=== PATIENT | female | born 1975 | race Caucasian/White ===

== ENCOUNTER 2017-11-12 11:38 | Inpatient (IN) | payer OTHER ==
[~2017-11-12 11:38] MED LIST: ETOMIDATE 20 MG INJ; SUCCINYLCHOLINE CHLORIDE 100 MG/5 ML SYG IV
[2017-11-12 13:22] LABS: ADD MAN DIFF? NO
[2017-11-12 13:25] LABS: ABNORMAL IP MESSAGE 1; BASOPHILS % 0.2 % (0.0-2.0); EOSINOPHILS % 0.1 % (0.0-7.0); HEMATOCRIT 35.8 % (37.0-47.0); HEMOGLOBIN 10.8 g/dl (12.0-16.0); LYMPHOCYTES # 0.9 10^3/ul (0.8-2.9); LYMPHOCYTES % 10.1 % (15.0-51.0); MEAN CORPUSCULAR HGB CONC 30.2 g/dl (32.0-37.0); MEAN CORPUSCULAR VOLUME 106.2 fl (82.0-101.0); MEAN PLATELET VOLUME 12.4 fl (7.4-10.4); MONOCYTE # 0.7 10^3/ul (0.3-0.9); MONOCYTES % 8.2 % (0.0-11.0); NEUTROPHILS % 78.6 % (39.0-77.0); NUCLEATED RED BLOOD CELLS # 0.4 10^3/ul (0.0-0.0); NUCLEATED RED BLOOD CELLS% 4.6 /100WBC (0.0-0.0); PLATELET COUNT 78 10^3/UL (140-415); RED BLOOD COUNT 3.37 10^6/ul (4.20-5.40); RED CELL DISTRIBUTION WIDTH 18.4 % (11.5-14.5)
[2017-11-12 13:25] LABS: WHITE BLOOD COUNT 8.9 10^3/ul (4.8-10.8)
[2017-11-12 13:26] LABS: POSITIVE DIFF @See below
[2017-11-12 13:47] LABS: ALBUMIN 4.3 g/dl (3.3-4.9); ALBUMIN/GLOBULIN RATIO 1.38; ALKALINE PHOSPHATASE 171 IU/L (42-121); ANION GAP 23 (8-16); BILIRUBIN,INDIRECT 0.6 mg/dl (0-1.1); BILIRUBIN,TOTAL 1.8 mg/dl (0.2-1.3); BLOOD UREA NITROGEN 47 mg/dl (7-20); CALCIUM 9.8 mg/dl (8.4-10.2); CARBON DIOXIDE 28 mmol/L (21-31); CHLORIDE 90 mmol/L (97-110); GLUCOSE 120 mg/dl (70-220); LIPASE 96 U/L (23-300); SODIUM 136 mmol/L (135-144); TOTAL PROTEIN 7.4 g/dl (6.1-8.1)
[2017-11-12 13:55] LABS: ALANINE AMINOTRANSFERASE 1373 IU/L (13-69); ASPARTATE AMINO TRANSFERASE 1440 IU/L (15-46); CREATININE 9.67 mg/dl (0.44-1.00)
[2017-11-12 13:56] LABS: POTASSIUM 5.3 mmol/L (3.5-5.1)
[2017-11-12 14:02] LABS: FREE T3 1.19 pg/ml (2.77-5.27); TROPONIN-I 0.546 ng/ml (0.00-0.12)
[2017-11-12 14:03] LABS: FREE T4 (FREE THYROXINE) 0.07 ng/dl (0.64-1.79)
[2017-11-12] MEDS: ALBUTEROL 0.5% (NEB) 2.5 MG/0.5 ML AMP INH (14:12)
[2017-11-12] MEDS: ASPIRIN 81 MG TAB PO (14:33)
[2017-11-12 17:25] LABS: INR 2.56; PARTIAL THROMBOPLASTIN TIME 38.1 Sec (25.0-35.0); PROTIME 28.2 Sec (11.9-14.9); PT RATIO 2.2
[2017-11-12] MEDS ORDERED: NA PHOSPHATE/BIPHOS 133 ML ENEMA PR (17:30)
[2017-11-12] MEDS ORDERED: hydrALAzine 20 MG INJ IV (17:30)
[2017-11-12] MEDS ORDERED: NACL 0.9% 3 ML SYG IV (17:30)
[2017-11-12 17:44] LABS: FREE T4 (FREE THYROXINE) 0.08 ng/dl (0.64-1.79)
[2017-11-12] MEDS: SEVELAMER 800 MG TAB PO (17:45)
[2017-11-12 17:46] LABS: AADO2 Arterial 507.7 mmHg (7.0-24.0); Allen Test ACCEPTAB; Arterial Base Excess -2.5 mmol/L (-3.0-3); Arterial Blood Gas Oxygen Sat 96.6 mmHG (95.0-98.0); Arterial COHb 1.2 % (0.0-3.0); Arterial Fraction of Oxyhgb 95.3 % (93.0-99.0); Arterial HCO3 28.8 mmol/L (22.0-26.0); Arterial MetHb 0.1 % (0.0-1.5); Arterial Total Hemglobin 11.9 g/dl (12.0-18.0); Arterial pCO2 90.7 mmhg (35-45); MODE MASK - NRB; Site Right Radial
[2017-11-12] MEDS: LEVOTHYROXINE 100 MCG VIAL IV (18:03)
[2017-11-12] MEDS: SOD CHLORIDE 0.9% 500 ML IV (20:30)
[2017-11-12] MEDS: HEPARIN 5,000 UNIT/0.5 ML VIAL SC (21:00)
[2017-11-12 21:04] LABS: AADO2 Arterial 256.4 mmHg (7.0-24.0); Allen Test ACCEPTAB; Arterial Base Excess -4.7 mmol/L (-3.0-3); Arterial Blood Gas Oxygen Sat 98.5 mmHG (95.0-98.0); Arterial Fraction of Oxyhgb 97.4 % (93.0-99.0); Arterial HCO3 25.1 mmol/L (22.0-26.0); Arterial MetHb 0.1 % (0.0-1.5); Arterial Total Hemglobin 10.8 g/dl (12.0-18.0); Arterial pCO2 73.6 mmhg (35-45); Blood Gas IEPAP 20/8; Blood Gas PS 12; MODE VENT - AC; Site Right Radial
[2017-11-12 21:15] LABS: POTASSIUM 5.2 mmol/L (3.5-5.1)
[2017-11-12 21:18] LABS: PHOSPHORUS 8.8 mg/dl (2.5-4.9)
[2017-11-12 21:18] LABS: MAGNESIUM 2.1 mg/dl (1.7-2.5)
[2017-11-12 21:19] LABS: LACTIC ACID 1.1 mmol/L (0.5-2.0)
[2017-11-12 21:31] LABS: TROPONIN-I 0.664 ng/ml (0.00-0.12)
[2017-11-12] MEDS: ALBUMIN HUMAN 25% 100 ML IV (21:42)
[2017-11-12 22:07] LABS: HEPATITIS B SURFACE ANTIBODY POSITIVE (NEGATIVE)
[2017-11-12] MEDS ORDERED: NORepinephrine 8MG/250 ML (PMX 250 ML IV (22:30)
[2017-11-12 23:21] LABS: HEPATITIS B SURFACE ANTIGEN NEGATIVE (NEGATIVE)
[2017-11-13 01:40] LABS: TROPONIN-I 0.773 ng/ml (0.00-0.12)
[2017-11-13 05:24] LABS: AADO2 Arterial 142.6 mmHg (7.0-24.0); Allen Test ACCEPTAB; Arterial Base Excess 2.2 mmol/L (-3.0-3); Arterial Blood Gas Oxygen Sat 97.1 mmHG (95.0-98.0); Arterial COHb 0.9 % (0.0-3.0); Arterial Fraction of Oxyhgb 96.1 % (93.0-99.0); Arterial HCO3 32.3 mmol/L (22.0-26.0); Arterial MetHb 0.1 % (0.0-1.5); Arterial Total Hemglobin 10.8 g/dl (12.0-18.0); Arterial pCO2 86.8 mmhg (35-45); Blood Gas IEPAP 20/8; Blood Gas PS 12; MODE MASK - BIPAP; Site Right Brachial
[2017-11-13 05:28] LABS: ADD MAN DIFF? NO
[2017-11-13 05:33] LABS: WHITE BLOOD COUNT 6.2 10^3/ul (4.8-10.8)
[2017-11-13 05:33] LABS: ABNORMAL IP MESSAGE 1; BASOPHILS % 0.3 % (0.0-2.0); EOSINOPHILS % 0.5 % (0.0-7.0); HEMATOCRIT 32.8 % (37.0-47.0); HEMOGLOBIN 9.8 g/dl (12.0-16.0); LYMPHOCYTES # 0.7 10^3/ul (0.8-2.9); LYMPHOCYTES % 11.3 % (15.0-51.0); MEAN CORPUSCULAR HEMOGLOBIN 31.9 pg (29.0-33.0); MEAN CORPUSCULAR HGB CONC 29.9 g/dl (32.0-37.0); MEAN CORPUSCULAR VOLUME 106.8 fl (82.0-101.0); MONOCYTE # 0.4 10^3/ul (0.3-0.9); MONOCYTES % 6.9 % (0.0-11.0); NEUTROPHIL # 4.9 10^3/ul (1.6-7.5); NEUTROPHILS % 78.7 % (39.0-77.0); NUCLEATED RED BLOOD CELLS # 0.2 10^3/ul (0.0-0.0); NUCLEATED RED BLOOD CELLS% 2.4 /100WBC (0.0-0.0); PLATELET COUNT 55 10^3/UL (140-415); RED BLOOD COUNT 3.07 10^6/ul (4.20-5.40); RED CELL DISTRIBUTION WIDTH 18.3 % (11.5-14.5)
[2017-11-13 05:34] LABS: POSITIVE DIFF @See below
[2017-11-13] MEDS ORDERED: PROPOFOL 100 ML (05:56)
[2017-11-13 05:57] LABS: HEMOGLOBIN A1C 5.4 % (0-5.9)
[2017-11-13] MEDS: PANTOPRAZOLE (EC) 40 MG TAB PO (06:00)
[2017-11-13 06:01] LABS: ANION GAP 21 (8-16); BLOOD UREA NITROGEN 32 mg/dl (7-20); CALCIUM 8.9 mg/dl (8.4-10.2); CARBON DIOXIDE 31 mmol/L (21-31); CHLORIDE 95 mmol/L (97-110); CHOL/HDL RATIO 3.4 RATIO; CHOLESTEROL 160 mg/dl (100-200); CREATININE 7.73 mg/dl (0.44-1.00); GLUCOSE 83 mg/dl (70-220); HDL CHOLESTEROL 47 mg/dl (34-88); LDL CHOLESTEROL,CALCULATED 73 mg/dl; PHOSPHORUS 6.4 mg/dl (2.5-4.9); POTASSIUM 4.2 mmol/L (3.5-5.1); SODIUM 143 mmol/L (135-144); TRIGLYCERIDES 201 mg/dl (0-149)
[2017-11-13] MEDS: PANTOPRAZOLE 40 MG INJ IV (06:28)
[2017-11-13] MEDS: PROPOFOL 100 ML IV ×2 (06:28→12:15)
[2017-11-13] MEDS ORDERED: LEVOTHYROXINE 100 MCG TAB PO (07:00)
[2017-11-13] MEDS: LEVOTHYROXINE 100 MCG VIAL IV (07:26)
[2017-11-13] MEDS: SEVELAMER 800 MG TAB PO ×3 (07:35→17:35)
[2017-11-13 08:26] LABS: Allen Test ACCEPTAB; Arterial Base Excess 3.8 mmol/L (-3.0-3); Arterial Blood Gas Oxygen Sat 98.7 mmHG (95.0-98.0); Arterial COHb 0.8 % (0.0-3.0); Arterial Fraction of Oxyhgb 97.6 % (93.0-99.0); Arterial MetHb 0.3 % (0.0-1.5); Arterial Total Hemglobin 10.5 g/dl (12.0-18.0); Arterial pCO2 35.5 mmhg (35-45); MODE VENT - AC; Site Right Brachial
[2017-11-13] MEDS: DEXTROSE 5%-0.45% NACL 1,000 ML IV (08:36)
[2017-11-13] MEDS ORDERED: ASPIRIN (EC) 81 MG TAB PO (09:00)
[2017-11-13 09:33] LABS: ALBUMIN 3.7 g/dl (3.3-4.9); ALKALINE PHOSPHATASE 141 IU/L (42-121); BILIRUBIN,INDIRECT 0.8 mg/dl (0-1.1); BILIRUBIN,TOTAL 1.3 mg/dl (0.2-1.3); TOTAL PROTEIN 6.1 g/dl (6.1-8.1)
[2017-11-13 09:33] LABS: AMMONIA 10 umol/l (9-30)
[2017-11-13 09:37] LABS: TROPONIN-I 0.756 ng/ml (0.00-0.12)
[2017-11-13 09:48] LABS: ALANINE AMINOTRANSFERASE 1281 IU/L (13-69); ASPARTATE AMINO TRANSFERASE 1400 IU/L (15-46)
[2017-11-13] MEDS: FENTAnyl (DRIP) 1000 mcg/100mL 100 ML IV ×2 (09:55→20:42)
[2017-11-14] MEDS: PROPOFOL 100 ML IV ×2 (00:39→18:40)
[2017-11-14 05:39] LABS: ADD MAN DIFF? NO
[2017-11-14 05:44] LABS: WHITE BLOOD COUNT 4.8 10^3/ul (4.8-10.8)
[2017-11-14 05:44] LABS: ABNORMAL IP MESSAGE 1; BASOPHILS % 0.4 % (0.0-2.0); EOSINOPHILS # 0.1 10^3/ul (0.0-0.5); EOSINOPHILS % 1.7 % (0.0-7.0); HEMATOCRIT 29.6 % (37.0-47.0); HEMOGLOBIN 9.4 g/dl (12.0-16.0); LYMPHOCYTES # 0.8 10^3/ul (0.8-2.9); LYMPHOCYTES % 17.4 % (15.0-51.0); MEAN CORPUSCULAR HEMOGLOBIN 32.8 pg (29.0-33.0); MEAN CORPUSCULAR HGB CONC 31.8 g/dl (32.0-37.0); MEAN CORPUSCULAR VOLUME 103.1 fl (82.0-101.0); MEAN PLATELET VOLUME 11.7 fl (7.4-10.4); MONOCYTE # 0.3 10^3/ul (0.3-0.9); MONOCYTES % 6.7 % (0.0-11.0); NEUTROPHIL # 3.5 10^3/ul (1.6-7.5); NEUTROPHILS % 72.3 % (39.0-77.0); NUCLEATED RED BLOOD CELLS # 0.1 10^3/ul (0.0-0.0); NUCLEATED RED BLOOD CELLS% 1.7 /100WBC (0.0-0.0); RED BLOOD COUNT 2.87 10^6/ul (4.20-5.40)
[2017-11-14] MEDS: PANTOPRAZOLE (EC) 40 MG TAB PO (06:00)
[2017-11-14 06:04] LABS: ALANINE AMINOTRANSFERASE 920 IU/L (13-69); ALBUMIN 3.5 g/dl (3.3-4.9); ALKALINE PHOSPHATASE 123 IU/L (42-121); ANION GAP 21 (8-16); ASPARTATE AMINO TRANSFERASE 742 IU/L (15-46); BILIRUBIN,INDIRECT 0.4 mg/dl (0-1.1); BILIRUBIN,TOTAL 0.4 mg/dl (0.2-1.3); BLOOD UREA NITROGEN 44 mg/dl (7-20); CALCIUM 9.1 mg/dl (8.4-10.2); CARBON DIOXIDE 26 mmol/L (21-31); CHLORIDE 96 mmol/L (97-110); GLUCOSE 91 mg/dl (70-220); POTASSIUM 3.8 mmol/L (3.5-5.1); SODIUM 139 mmol/L (135-144)
[2017-11-14 06:15] LABS: CREATININE 8.92 mg/dl (0.44-1.00); PLATELET COUNT 71 10^3/UL (140-415); POSITIVE DIFF @See below
[2017-11-14] MEDS: DEXTROSE 5%-0.45% NACL 1,000 ML IV ×2 (06:35→18:40)
[2017-11-14] MEDS: PANTOPRAZOLE 40 MG INJ IV (06:37)
[2017-11-14] MEDS: SEVELAMER 800 MG TAB PO ×3 (07:29→17:08)
[2017-11-14] MEDS: FENTAnyl (DRIP) 1000 mcg/100mL 100 ML IV (07:45)
[2017-11-14 07:55] LABS: Allen Test ACCEPTAB; Arterial Base Excess 2.2 mmol/L (-3.0-3); Arterial Blood Gas Oxygen Sat 97.9 mmHG (95.0-98.0); Arterial COHb 0.5 % (0.0-3.0); Arterial Fraction of Oxyhgb 97.2 % (93.0-99.0); Arterial HCO3 27.1 mmol/L (22.0-26.0); Arterial MetHb 0.2 % (0.0-1.5); Arterial Total Hemglobin 10.1 g/dl (12.0-18.0); Arterial pCO2 43.5 mmhg (35-45); MODE VENT - AC; Site Right Radial
[2017-11-14] MEDS: LEVOTHYROXINE 100 MCG VIAL IV (08:13)
[2017-11-14 10:35] LABS: IRON 50 ug/dl (35-150)
[2017-11-14 10:51] LABS: % IRON SATURATION 23 % SAT (22-52); TOTAL IRON BINDING CAPACITY 218 ug/dl (241-421)
[2017-11-14] MEDS: ALBUMIN HUMAN 25% 100 ML IV (15:51)
[2017-11-14] MEDS: EPOETIN 10000 UNITS/1 ML INJ (ESRD) SC (18:40)
[2017-11-14] MEDS: SOD CHLORIDE 0.9% 250 ML IV ×2 (19:41→20:47)
[2017-11-14] MEDS: FAMOTIDINE 20 MG INJ IV (20:47)
[2017-11-15 05:52] LABS: ADD MAN DIFF? NO
[2017-11-15 05:58] LABS: WHITE BLOOD COUNT 5.9 10^3/ul (4.8-10.8)
[2017-11-15 05:58] LABS: ABNORMAL IP MESSAGE 1; EOSINOPHILS % 0.7 % (0.0-7.0); HEMATOCRIT 29.9 % (37.0-47.0); HEMOGLOBIN 9.3 g/dl (12.0-16.0); LYMPHOCYTES # 0.6 10^3/ul (0.8-2.9); LYMPHOCYTES % 9.3 % (15.0-51.0); MEAN CORPUSCULAR HEMOGLOBIN 32.3 pg (29.0-33.0); MEAN CORPUSCULAR HGB CONC 31.1 g/dl (32.0-37.0); MEAN CORPUSCULAR VOLUME 103.8 fl (82.0-101.0); MEAN PLATELET VOLUME 12.4 fl (7.4-10.4); MONOCYTE # 0.4 10^3/ul (0.3-0.9); MONOCYTES % 6.3 % (0.0-11.0); NEUTROPHIL # 4.9 10^3/ul (1.6-7.5); NEUTROPHILS % 82.9 % (39.0-77.0); NUCLEATED RED BLOOD CELLS% 0.3 /100WBC (0.0-0.0); PLATELET COUNT 62 10^3/UL (140-415); RED BLOOD COUNT 2.88 10^6/ul (4.20-5.40); RED CELL DISTRIBUTION WIDTH 19.4 % (11.5-14.5)
[2017-11-15 06:00] LABS: POSITIVE DIFF @See below
[2017-11-15] MEDS: PANTOPRAZOLE (EC) 40 MG TAB PO (06:00)
[2017-11-15] MEDS: PROPOFOL 100 ML IV ×2 (06:00→16:03)
[2017-11-15 06:20] LABS: ALANINE AMINOTRANSFERASE 697 IU/L (13-69); ALBUMIN 3.8 g/dl (3.3-4.9); ALBUMIN/GLOBULIN RATIO 1.35; ALKALINE PHOSPHATASE 109 IU/L (42-121); ANION GAP 18 (8-16); ASPARTATE AMINO TRANSFERASE 411 IU/L (15-46); BILIRUBIN,INDIRECT 0.9 mg/dl (0-1.1); BLOOD UREA NITROGEN 29 mg/dl (7-20); CALCIUM 8.4 mg/dl (8.4-10.2); CARBON DIOXIDE 28 mmol/L (21-31); CHLORIDE 97 mmol/L (97-110); CREATININE 7.05 mg/dl (0.44-1.00); GLUCOSE 118 mg/dl (70-220); POTASSIUM 3.7 mmol/L (3.5-5.1); SODIUM 139 mmol/L (135-144); TOTAL PROTEIN 6.6 g/dl (6.1-8.1)
[2017-11-15 08:27] LABS: AADO2 Arterial 69.7 mmHg (7.0-24.0); Allen Test ACCEPTAB; Arterial Base Excess 2.2 mmol/L (-3.0-3); Arterial Blood Gas Oxygen Sat 95.2 mmHG (95.0-98.0); Arterial COHb 0.9 % (0.0-3.0); Arterial Fraction of Oxyhgb 94.1 % (93.0-99.0); Arterial HCO3 28.1 mmol/L (22.0-26.0); Arterial MetHb 0.3 % (0.0-1.5); Arterial Total Hemglobin 11.4 g/dl (12.0-18.0); Arterial pCO2 49.2 mmhg (35-45); MODE VENT - AC; Site Right Radial
[2017-11-15] MEDS: SEVELAMER 800 MG TAB PO (09:55)
[2017-11-15] MEDS: FOLIC ACID 1 MG TAB GTB (09:55)
[2017-11-15] MEDS: CYANOCOBALAMIN 1000 MCG INJ IM (09:55)
[2017-11-15] MEDS: LEVOTHYROXINE 100 MCG VIAL IV (09:56)
[2017-11-15] MEDS ORDERED: CHOLECALCIFEROL 2,000 UNIT CAP GTB (10:00)
[2017-11-15] MEDS: FAMOTIDINE 20 MG INJ IV (10:00)
[2017-11-15] MEDS: DEXTROSE 5%-0.45% NACL 1,000 ML IV ×2 (11:09→16:02)
[2017-11-15] MEDS: CALCITRIOL 1 MCG INJ IV (11:14)
[2017-11-15] MEDS: ERGOCALCIFEROL (8000 UNITS/ML PO SYG) GTB (11:17)
[2017-11-15 11:30] LABS: AADO2 Arterial 76.5 mmHg (7.0-24.0); Allen Test ACCEPTAB; Arterial Blood Gas Oxygen Sat 91.9 mmHG (95.0-98.0); Arterial COHb 1.4 % (0.0-3.0); Arterial Fraction of Oxyhgb 90.5 % (93.0-99.0); Arterial MetHb 0.1 % (0.0-1.5); Arterial Total Hemglobin 11.8 g/dl (12.0-18.0); Arterial pCO2 55.8 mmhg (35-45); Blood Gas PS 10; MODE VENT - CPAP; Site Right Radial
[2017-11-15] MEDS: LIOTHYRONINE 5 MCG TAB GTB (12:01)
[2017-11-15] MEDS: SEVELAMER CARBONATE 0.8 GM PKT PO ×2 (12:01→17:54)
[2017-11-15] MEDS: CHOLECALCIFEROL 1,000 UNIT TAB GTB (12:01)
[2017-11-15 15:14] LABS: AADO2 Arterial 77.5 mmHg (7.0-24.0); Allen Test ACCEPTAB; Arterial Base Excess -0.9 mmol/L (-3.0-3); Arterial Blood Gas Oxygen Sat 90.9 mmHG (95.0-98.0); Arterial COHb 1.6 % (0.0-3.0); Arterial Fraction of Oxyhgb 89.3 % (93.0-99.0); Arterial HCO3 26.4 mmol/L (22.0-26.0); Arterial MetHb 0.2 % (0.0-1.5); Arterial Total Hemglobin 11.1 g/dl (12.0-18.0); Arterial pCO2 56.9 mmhg (35-45); Blood Gas PS 10; Site Right Radial
[2017-11-15 15:20] LABS: MODE VENT - SIMV
[2017-11-15] MEDS: FENTAnyl (DRIP) 1000 mcg/100mL 100 ML IV (16:16)
[2017-11-16] MEDS: ALBUMIN HUMAN 5% 250 ML IV (00:09)
[2017-11-16 05:32] LABS: ADD MAN DIFF? NO
[2017-11-16 05:43] LABS: ABNORMAL IP MESSAGE 1; BASOPHILS % 0.2 % (0.0-2.0); EOSINOPHILS % 0.4 % (0.0-7.0); HEMATOCRIT 28.5 % (37.0-47.0); HEMOGLOBIN 8.7 g/dl (12.0-16.0); LYMPHOCYTES # 0.5 10^3/ul (0.8-2.9); LYMPHOCYTES % 7.9 % (15.0-51.0); MEAN CORPUSCULAR HEMOGLOBIN 31.9 pg (29.0-33.0); MEAN CORPUSCULAR HGB CONC 30.5 g/dl (32.0-37.0); MEAN CORPUSCULAR VOLUME 104.4 fl (82.0-101.0); MEAN PLATELET VOLUME 12.4 fl (7.4-10.4); MONOCYTE # 0.3 10^3/ul (0.3-0.9); MONOCYTES % 5.8 % (0.0-11.0); NEUTROPHIL # 4.9 10^3/ul (1.6-7.5); NEUTROPHILS % 84.8 % (39.0-77.0); PLATELET COUNT 49 10^3/UL (140-415); RED BLOOD COUNT 2.73 10^6/ul (4.20-5.40); RED CELL DISTRIBUTION WIDTH 18.8 % (11.5-14.5)
[2017-11-16 05:43] LABS: WHITE BLOOD COUNT 5.7 10^3/ul (4.8-10.8)
[2017-11-16] MEDS: PANTOPRAZOLE (EC) 40 MG TAB PO (05:54)
[2017-11-16] MEDS: PROPOFOL 100 ML IV ×2 (05:55→18:28)
[2017-11-16 06:14] LABS: ANION GAP 20 (8-16); BLOOD UREA NITROGEN 40 mg/dl (7-20); CALCIUM 8.5 mg/dl (8.4-10.2); CARBON DIOXIDE 25 mmol/L (21-31); CHLORIDE 96 mmol/L (97-110); GLUCOSE 118 mg/dl (70-220); POTASSIUM 3.9 mmol/L (3.5-5.1); SODIUM 137 mmol/L (135-144)
[2017-11-16 06:29] LABS: POSITIVE DIFF @See below
[2017-11-16 06:31] LABS: CREATININE 8.03 mg/dl (0.44-1.00)
[2017-11-16 06:32] LABS: FREE T4 (FREE THYROXINE) 0.75 ng/dl (0.64-1.79)
[2017-11-16 06:33] LABS: FREE T3 1.47 pg/ml (2.77-5.27)
[2017-11-16] MEDS: DEXTROSE 5%-0.45% NACL 1,000 ML IV (08:00)
[2017-11-16 08:24] LABS: AADO2 Arterial 69.5 mmHg (7.0-24.0); Allen Test ACCEPTAB; Arterial Base Excess 1.7 mmol/L (-3.0-3); Arterial Blood Gas Oxygen Sat 97.2 mmHG (95.0-98.0); Arterial COHb 1.4 % (0.0-3.0); Arterial Fraction of Oxyhgb 95.8 % (93.0-99.0); Arterial HCO3 26.1 mmol/L (22.0-26.0); Arterial MetHb 0 % (0.0-1.5); Arterial Total Hemglobin 11.3 g/dl (12.0-18.0); Arterial pCO2 40.3 mmhg (35-45); MODE VENT - AC; Site Right Radial
[2017-11-16] MEDS: SEVELAMER CARBONATE 0.8 GM PKT PO ×3 (11:30→18:31)
[2017-11-16] MEDS: LIOTHYRONINE 5 MCG TAB GTB (12:25)
[2017-11-16] MEDS: CHOLECALCIFEROL 1,000 UNIT TAB GTB (12:25)
[2017-11-16] MEDS: FOLIC ACID 1 MG TAB GTB (12:25)
[2017-11-16] MEDS: LEVOTHYROXINE 100 MCG VIAL IV (12:25)
[2017-11-16] MEDS: FAMOTIDINE 20 MG INJ IV (12:27)
[2017-11-16 16:37] LABS: AADO2 Arterial 69.4 mmHg (7.0-24.0); Allen Test ACCEPTAB; Arterial Base Excess 2.9 mmol/L (-3.0-3); Arterial Blood Gas Oxygen Sat 89.5 mmHG (95.0-98.0); Arterial COHb 1.3 % (0.0-3.0); Arterial Fraction of Oxyhgb 88.2 % (93.0-99.0); Arterial HCO3 30.8 mmol/L (22.0-26.0); Arterial MetHb 0.1 % (0.0-1.5); Arterial Total Hemglobin 11.3 g/dl (12.0-18.0); Arterial pCO2 65.4 mmhg (35-45); Blood Gas PS 10; MODE VENT - CPAP; Site Right Radial
[2017-11-16] MEDS: EPOETIN 10000 UNITS/1 ML INJ (ESRD) SC (18:27)
[2017-11-17] MEDS: FENTAnyl (DRIP) 1000 mcg/100mL 100 ML IV (00:41)
[2017-11-17 05:20] LABS: ADD MAN DIFF? NO
[2017-11-17 05:26] LABS: ABNORMAL IP MESSAGE 1; EOSINOPHILS % 0.2 % (0.0-7.0); HEMATOCRIT 28.2 % (37.0-47.0); HEMOGLOBIN 8.6 g/dl (12.0-16.0); LYMPHOCYTES # 0.4 10^3/ul (0.8-2.9); LYMPHOCYTES % 7.4 % (15.0-51.0); MEAN CORPUSCULAR HEMOGLOBIN 32.2 pg (29.0-33.0); MEAN CORPUSCULAR HGB CONC 30.5 g/dl (32.0-37.0); MEAN CORPUSCULAR VOLUME 105.6 fl (82.0-101.0); MEAN PLATELET VOLUME 12.1 fl (7.4-10.4); MONOCYTE # 0.4 10^3/ul (0.3-0.9); MONOCYTES % 8.2 % (0.0-11.0); NEUTROPHILS % 83.1 % (39.0-77.0); PLATELET COUNT 50 10^3/UL (140-415); RED BLOOD COUNT 2.67 10^6/ul (4.20-5.40); RED CELL DISTRIBUTION WIDTH 19.2 % (11.5-14.5)
[2017-11-17 05:26] LABS: WHITE BLOOD COUNT 4.8 10^3/ul (4.8-10.8)
[2017-11-17 05:28] LABS: POSITIVE DIFF @See below
[2017-11-17] MEDS: morphine 2 MG INJ IV (05:29)
[2017-11-17] MEDS: PANTOPRAZOLE (EC) 40 MG TAB PO (05:29)
[2017-11-17] MEDS: ONDANSETRON 4 MG INJ IV (05:30)
[2017-11-17 05:52] LABS: ALANINE AMINOTRANSFERASE 395 IU/L (13-69); ALBUMIN 3.6 g/dl (3.3-4.9); ALBUMIN/GLOBULIN RATIO 1.28; ALKALINE PHOSPHATASE 112 IU/L (42-121); ANION GAP 18 (8-16); ASPARTATE AMINO TRANSFERASE 102 IU/L (15-46); BILIRUBIN,INDIRECT 0.6 mg/dl (0-1.1); BILIRUBIN,TOTAL 0.6 mg/dl (0.2-1.3); BLOOD UREA NITROGEN 33 mg/dl (7-20); CALCIUM 8.8 mg/dl (8.4-10.2); CARBON DIOXIDE 26 mmol/L (21-31); CHLORIDE 98 mmol/L (97-110); CREATININE 6.87 mg/dl (0.44-1.00); GLUCOSE 118 mg/dl (70-220); SODIUM 138 mmol/L (135-144); TOTAL PROTEIN 6.4 g/dl (6.1-8.1)
[2017-11-17] MEDS: PROPOFOL 100 ML IV ×2 (06:00→14:22)
[2017-11-17] MEDS: LEVOTHYROXINE 100 MCG VIAL IV (08:23)
[2017-11-17] MEDS: FOLIC ACID 1 MG TAB GTB (08:23)
[2017-11-17] MEDS: SEVELAMER CARBONATE 0.8 GM PKT PO ×3 (08:23→17:35)
[2017-11-17] MEDS: CHOLECALCIFEROL 1,000 UNIT TAB GTB (08:23)
[2017-11-17] MEDS: LIOTHYRONINE 5 MCG TAB GTB (08:23)
[2017-11-17] MEDS: FAMOTIDINE 20 MG INJ IV (08:27)
[2017-11-17 08:51] LABS: AADO2 Arterial 58.2 mmHg (7.0-24.0); Allen Test ACCEPTAB; Arterial Base Excess 2.3 mmol/L (-3.0-3); Arterial COHb 1.2 % (0.0-3.0); Arterial Fraction of Oxyhgb 91.9 % (93.0-99.0); Arterial HCO3 30.2 mmol/L (22.0-26.0); Arterial MetHb 0 % (0.0-1.5); Arterial Total Hemglobin 10.5 g/dl (12.0-18.0); Arterial pCO2 65.6 mmhg (35-45); Blood Gas PS 10; MODE VENT - CPAP; Site Right Radial
[2017-11-17] MEDS: ERGOCALCIFEROL (8000 UNITS/ML PO SYG) PO (11:10)
[2017-11-17] MEDS: CALCITRIOL 1 MCG INJ IV (11:11)
[2017-11-17] MEDS: DEXTROSE 5%-0.45% NACL 1,000 ML IV (11:11)
[2017-11-17] MEDS: CALCITRIOL 0.25 MCG CAP PO (11:11)
[2017-11-18] MEDS ORDERED: LEVOTHYROXINE 175 MCG TAB PO (06:00)
[2017-11-18] MEDS: PROPOFOL 100 ML IV ×3 (06:00→18:18)
[2017-11-18] MEDS: DEXTROSE 5%-0.45% NACL 1,000 ML IV (06:04)
[2017-11-18] MEDS: PANTOPRAZOLE (EC) 40 MG TAB PO (06:05)
[2017-11-18 06:32] LABS: ADD MAN DIFF? NO
[2017-11-18 06:34] LABS: ALANINE AMINOTRANSFERASE 298 IU/L (13-69); ALBUMIN 3.5 g/dl (3.3-4.9); ALBUMIN/GLOBULIN RATIO 1.16; ALKALINE PHOSPHATASE 112 IU/L (42-121); ANION GAP 17 (8-16); ASPARTATE AMINO TRANSFERASE 55 IU/L (15-46); BILIRUBIN,INDIRECT 0.7 mg/dl (0-1.1); BILIRUBIN,TOTAL 0.9 mg/dl (0.2-1.3); BLOOD UREA NITROGEN 46 mg/dl (7-20); CARBON DIOXIDE 26 mmol/L (21-31); CHLORIDE 97 mmol/L (97-110); CREATININE 8.36 mg/dl (0.44-1.00); GLUCOSE 124 mg/dl (70-220); POTASSIUM 4.1 mmol/L (3.5-5.1); SODIUM 136 mmol/L (135-144); TOTAL PROTEIN 6.5 g/dl (6.1-8.1)
[2017-11-18] MEDS: SEVELAMER CARBONATE 0.8 GM PKT PO ×3 (07:56→17:37)
[2017-11-18] MEDS: ONDANSETRON 4 MG INJ IV (08:11)
[2017-11-18] MEDS: ALBUMIN HUMAN 25% 100 ML IV (09:53)
[2017-11-18 10:11] LABS: WHITE BLOOD COUNT 4.5 10^3/ul (4.8-10.8)
[2017-11-18 10:11] LABS: RED BLOOD COUNT 2.69 10^6/ul (4.20-5.40)
[2017-11-18 10:12] LABS: EOSINOPHILS % 0.9 % (0.0-7.0); HEMATOCRIT 28.2 % (37.0-47.0); HEMOGLOBIN 8.4 g/dl (12.0-16.0); LYMPHOCYTES % 10.5 % (15.0-51.0); MEAN CORPUSCULAR HEMOGLOBIN 31.2 pg (29.0-33.0); MEAN CORPUSCULAR HGB CONC 29.8 g/dl (32.0-37.0); MEAN CORPUSCULAR VOLUME 104.8 fl (82.0-101.0); MEAN PLATELET VOLUME 13.3 fl (7.4-10.4); MONOCYTES % 8.3 % (0.0-11.0); NEUTROPHILS % 79.7 % (39.0-77.0); PLATELET COUNT 55 10^3/UL (140-415); RED CELL DISTRIBUTION WIDTH 19.1 % (11.5-14.5)
[2017-11-18 10:13] LABS: BASOPHILS % 0.2 % (0.0-2.0)
[2017-11-18] MEDS: LEVOTHYROXINE 100 MCG VIAL IV (13:29)
[2017-11-18] MEDS: CHOLECALCIFEROL 1,000 UNIT TAB GTB (13:29)
[2017-11-18] MEDS: FAMOTIDINE 20 MG INJ IV (13:29)
[2017-11-18] MEDS: LIOTHYRONINE 5 MCG TAB GTB (13:29)
[2017-11-18] MEDS: FOLIC ACID 1 MG TAB GTB (13:29)
[2017-11-18] MEDS: CALCITRIOL 0.25 MCG CAP PO (13:29)
[2017-11-18 14:31] LABS: HEPARIN INDUCED PLATELET AB NEGATIVE (NEGATIVE)
[2017-11-18] MEDS: EPOETIN 10000 UNITS/1 ML INJ (ESRD) SC (16:54)
[2017-11-18] MEDS: FENTAnyl (DRIP) 1000 mcg/100mL 100 ML IV (18:25)
[2017-11-18] MEDS: morphine 2 MG INJ IV (22:04)
[2017-11-19 05:18] LABS: AADO2 Arterial 68.1 mmHg (7.0-24.0); Allen Test ACCEPTAB; Arterial Base Excess 3.3 mmol/L (-3.0-3); Arterial Blood Gas Oxygen Sat 97.5 mmHG (95.0-98.0); Arterial COHb 1.8 % (0.0-3.0); Arterial Fraction of Oxyhgb 95.5 % (93.0-99.0); Arterial HCO3 27.2 mmol/L (22.0-26.0); Arterial MetHb 0.3 % (0.0-1.5); Arterial Total Hemglobin 8.1 g/dl (12.0-18.0); Arterial pCO2 38.6 mmhg (35-45); MODE VENT - AC; Site A-Line
[2017-11-19] MEDS: PROPOFOL 100 ML IV ×2 (05:21→17:36)
[2017-11-19] MEDS: PANTOPRAZOLE (EC) 40 MG TAB PO (05:22)
[2017-11-19 05:31] LABS: ADD MAN DIFF? NO
[2017-11-19 05:35] LABS: BASOPHILS % 0.2 % (0.0-2.0); EOSINOPHILS % 1.2 % (0.0-7.0); HEMATOCRIT 27.4 % (37.0-47.0); HEMOGLOBIN 8.3 g/dl (12.0-16.0); LYMPHOCYTES # 0.5 10^3/ul (0.8-2.9); LYMPHOCYTES % 11.1 % (15.0-51.0); MEAN CORPUSCULAR HEMOGLOBIN 31.9 pg (29.0-33.0); MEAN CORPUSCULAR HGB CONC 30.3 g/dl (32.0-37.0); MEAN CORPUSCULAR VOLUME 105.4 fl (82.0-101.0); MEAN PLATELET VOLUME 13.3 fl (7.4-10.4); MONOCYTE # 0.4 10^3/ul (0.3-0.9); MONOCYTES % 10.4 % (0.0-11.0); NEUTROPHIL # 3.1 10^3/ul (1.6-7.5); NEUTROPHILS % 76.6 % (39.0-77.0); PLATELET COUNT 66 10^3/UL (140-415); RED CELL DISTRIBUTION WIDTH 18.8 % (11.5-14.5)
[2017-11-19 05:35] LABS: WHITE BLOOD COUNT 4.1 10^3/ul (4.8-10.8)
[2017-11-19 05:36] LABS: ABNORMAL IP MESSAGE 1; EOSINOPHILS # 0.1 10^3/ul (0.0-0.5)
[2017-11-19 05:57] LABS: PHOSPHORUS 3.5 mg/dl (2.5-4.9)
[2017-11-19 05:57] LABS: ANION GAP 22 (8-16); BLOOD UREA NITROGEN 43 mg/dl (7-20); CALCIUM 9.2 mg/dl (8.4-10.2); CARBON DIOXIDE 28 mmol/L (21-31); CHLORIDE 92 mmol/L (97-110); GLUCOSE 105 mg/dl (70-220); POTASSIUM 4.5 mmol/L (3.5-5.1); SODIUM 137 mmol/L (135-144)
[2017-11-19 06:02] LABS: LACTIC ACID 0.9 mmol/L (0.5-2.0)
[2017-11-19 06:47] LABS: POSITIVE DIFF @See below
[2017-11-19] MEDS: FAMOTIDINE 20 MG INJ IV (08:24)
[2017-11-19] MEDS: FOLIC ACID 1 MG TAB GTB (08:24)
[2017-11-19] MEDS: SEVELAMER CARBONATE 0.8 GM PKT PO ×3 (08:24→17:36)
[2017-11-19] MEDS: LEVOTHYROXINE 100 MCG VIAL IV (08:24)
[2017-11-19] MEDS: CHOLECALCIFEROL 1,000 UNIT TAB GTB (08:25)
[2017-11-19] MEDS: LIOTHYRONINE 5 MCG TAB GTB ×2 (08:26→21:44)
[2017-11-19] MEDS: CALCITRIOL (1 MCG/ML PO SYG) PO (08:26)
[2017-11-19 11:52] LABS: AADO2 Arterial 57.7 mmHg (7.0-24.0); Allen Test ACCEPTAB; Arterial Base Excess 1.8 mmol/L (-3.0-3); Arterial Blood Gas Oxygen Sat 91.4 mmHG (95.0-98.0); Arterial COHb 0.8 % (0.0-3.0); Arterial Fraction of Oxyhgb 90.7 % (93.0-99.0); Arterial HCO3 30.2 mmol/L (22.0-26.0); Arterial MetHb 0 % (0.0-1.5); Arterial Total Hemglobin 10.4 g/dl (12.0-18.0); Arterial pCO2 69.7 mmhg (35-45); Blood Gas PS 10; MODE VENT - CPAP; Site Right Radial
[2017-11-20] MEDS: PROPOFOL 100 ML IV ×2 (04:38→17:05)
[2017-11-20] MEDS: PANTOPRAZOLE (EC) 40 MG TAB PO (06:00)
[2017-11-20 06:22] LABS: ADD MAN DIFF? NO
[2017-11-20 06:31] LABS: ABNORMAL IP MESSAGE 1; BASOPHILS % 0.3 % (0.0-2.0); EOSINOPHILS % 0.5 % (0.0-7.0); HEMATOCRIT 27.3 % (37.0-47.0); HEMOGLOBIN 8.3 g/dl (12.0-16.0); LYMPHOCYTES # 0.5 10^3/ul (0.8-2.9); LYMPHOCYTES % 12.2 % (15.0-51.0); MEAN CORPUSCULAR HEMOGLOBIN 32.3 pg (29.0-33.0); MEAN CORPUSCULAR HGB CONC 30.4 g/dl (32.0-37.0); MEAN CORPUSCULAR VOLUME 106.2 fl (82.0-101.0); MEAN PLATELET VOLUME 13.9 fl (7.4-10.4); MONOCYTE # 0.3 10^3/ul (0.3-0.9); MONOCYTES % 8.8 % (0.0-11.0); NEUTROPHIL # 2.9 10^3/ul (1.6-7.5); NEUTROPHILS % 77.7 % (39.0-77.0); PLATELET COUNT 79 10^3/UL (140-415); RED BLOOD COUNT 2.57 10^6/ul (4.20-5.40); RED CELL DISTRIBUTION WIDTH 18.7 % (11.5-14.5)
[2017-11-20 06:31] LABS: WHITE BLOOD COUNT 3.8 10^3/ul (4.8-10.8)
[2017-11-20 06:35] LABS: POSITIVE DIFF @See below
[2017-11-20 07:02] LABS: ANION GAP 21 (8-16); BLOOD UREA NITROGEN 62 mg/dl (7-20); CALCIUM 9.1 mg/dl (8.4-10.2); CARBON DIOXIDE 25 mmol/L (21-31); CHLORIDE 93 mmol/L (97-110); GLUCOSE 97 mg/dl (70-220); POTASSIUM 4.7 mmol/L (3.5-5.1); SODIUM 134 mmol/L (135-144)
[2017-11-20 07:10] LABS: CREATININE 6.98 mg/dl (0.44-1.00)
[2017-11-20 07:20] LABS: FREE T4 (FREE THYROXINE) 1.13 ng/dl (0.64-1.79)
[2017-11-20 07:20] LABS: FREE T3 2.01 pg/ml (2.77-5.27)
[2017-11-20] MEDS: morphine 2 MG INJ IV ×5 (07:20→20:38)
[2017-11-20] MEDS ORDERED: LANSOPRAZOLE 30 MG CAP GTB (07:43)
[2017-11-20] MEDS: LANSOPRAZOLE 30 MG CAP GTB (08:00)
[2017-11-20] MEDS: LEVOTHYROXINE 100 MCG VIAL IV (08:03)
[2017-11-20] MEDS: FAMOTIDINE 20 MG INJ IV (08:03)
[2017-11-20] MEDS: CHOLECALCIFEROL 1,000 UNIT TAB GTB (08:03)
[2017-11-20] MEDS: CALCITRIOL (1 MCG/ML PO SYG) PO (08:04)
[2017-11-20] MEDS: LIOTHYRONINE 5 MCG TAB GTB ×2 (08:04→21:51)
[2017-11-20] MEDS: SEVELAMER CARBONATE 0.8 GM PKT PO ×3 (08:04→16:36)
[2017-11-20] MEDS: FOLIC ACID 1 MG TAB GTB (08:17)
[2017-11-20 08:32] LABS: TROPONIN-I 0.221 ng/ml (0.00-0.12)
[2017-11-20] MEDS: LORAZEPAM 2 MG INJ IV (09:08)
[2017-11-20] MEDS: HYDROCORTISONE 100 MG INJ IV ×3 (09:10→21:51)
[2017-11-20 18:57] LABS: HEPATITIS C VIRAL ANTIBODY NEGATIVE (NEGATIVE)
[2017-11-20] MEDS: ERGOCALCIFEROL 50,000 UNIT CAP PO (19:38)
[2017-11-20] MEDS: CALCITRIOL 1 MCG INJ IV (19:39)
[2017-11-21] MEDS: HYDROCORTISONE 100 MG INJ IV (05:39)
[2017-11-21] MEDS: LANSOPRAZOLE 30 MG CAP GTB (05:39)
[2017-11-21] MEDS: PROPOFOL 100 ML IV ×3 (05:40→21:24)
[2017-11-21] MEDS: morphine 2 MG INJ IV ×2 (05:41→10:03)
[2017-11-21 05:54] LABS: ADD MAN DIFF? NO
[2017-11-21 06:03] LABS: WHITE BLOOD COUNT 4.5 10^3/ul (4.8-10.8)
[2017-11-21 06:03] LABS: ABNORMAL IP MESSAGE 1; BASOPHILS % 0.2 % (0.0-2.0); HEMATOCRIT 28.4 % (37.0-47.0); HEMOGLOBIN 8.4 g/dl (12.0-16.0); LYMPHOCYTES # 0.3 10^3/ul (0.8-2.9); LYMPHOCYTES % 5.7 % (15.0-51.0); MEAN CORPUSCULAR HEMOGLOBIN 31.6 pg (29.0-33.0); MEAN CORPUSCULAR HGB CONC 29.6 g/dl (32.0-37.0); MEAN CORPUSCULAR VOLUME 106.8 fl (82.0-101.0); MEAN PLATELET VOLUME 13.4 fl (7.4-10.4); MONOCYTE # 0.2 10^3/ul (0.3-0.9); MONOCYTES % 5.1 % (0.0-11.0); NEUTROPHILS % 88.3 % (39.0-77.0); PLATELET COUNT 104 10^3/UL (140-415); RED BLOOD COUNT 2.66 10^6/ul (4.20-5.40); RED CELL DISTRIBUTION WIDTH 18.6 % (11.5-14.5)
[2017-11-21 06:10] LABS: POSITIVE DIFF @See below
[2017-11-21 06:45] LABS: ANION GAP 22 (8-16); BLOOD UREA NITROGEN 57 mg/dl (7-20); CALCIUM 9.3 mg/dl (8.4-10.2); CARBON DIOXIDE 26 mmol/L (21-31); CHLORIDE 93 mmol/L (97-110); GLUCOSE 134 mg/dl (70-220); POTASSIUM 4.8 mmol/L (3.5-5.1); SODIUM 136 mmol/L (135-144)
[2017-11-21 06:47] LABS: CREATINE KINASE 52 IU/L (23-200)
[2017-11-21 06:56] LABS: CK-MB 1.02 ng/ml (0.0-2.4)
[2017-11-21] MEDS: SEVELAMER CARBONATE 0.8 GM PKT PO ×3 (07:38→16:43)
[2017-11-21] MEDS: LEVOTHYROXINE 100 MCG VIAL IV (07:38)
[2017-11-21] MEDS: CHOLECALCIFEROL 1,000 UNIT TAB GTB (07:39)
[2017-11-21] MEDS: FOLIC ACID 1 MG TAB GTB (07:39)
[2017-11-21] MEDS: LIOTHYRONINE 5 MCG TAB GTB ×2 (07:39→21:23)
[2017-11-21] MEDS: FAMOTIDINE 20 MG INJ IV (07:39)
[2017-11-21] MEDS: DOCUSATE SODIUM 100 MG CAP PO (07:39)
[2017-11-21] MEDS: HYDROCODONE/APAP (5/325) TAB PO ×2 (07:41→13:44)
[2017-11-21] MEDS: MAGNESIUM HYDROXIDE 30ML CUP PO (07:41)
[2017-11-21 09:42] LABS: AADO2 Arterial 66.8 mmHg (7.0-24.0); Allen Test ACCEPTAB; Arterial Base Excess 1.6 mmol/L (-3.0-3); Arterial COHb 0.9 % (0.0-3.0); Arterial Fraction of Oxyhgb 90.1 % (93.0-99.0); Arterial HCO3 29.3 mmol/L (22.0-26.0); Arterial MetHb 0.1 % (0.0-1.5); Arterial Total Hemglobin 10.1 g/dl (12.0-18.0); Arterial pCO2 63.4 mmhg (35-45); Blood Gas PS 10; MODE VENT - CPAP; Site Right Radial
[2017-11-21] MEDS: CALCITRIOL (1 MCG/ML PO SYG) PO (10:26)
[2017-11-21] MEDS: TESTOSTERONE CYPIONATE 200 MG/ML INJ IM (10:26)
[2017-11-21] MEDS: DIPHENHYDRAMINE 2.5 MG/ML 5ML CUP GTB (13:44)
[2017-11-21] MEDS: EPOETIN ALFA 1,000 UNITS/0.1 ML VIAL SC (16:43)
[2017-11-22] MEDS: DIPHENHYDRAMINE 2.5 MG/ML 5ML CUP GTB ×3 (00:30→23:55)
[2017-11-22] MEDS: morphine 2 MG INJ IV ×3 (03:43→14:58)
[2017-11-22] MEDS: LANSOPRAZOLE 30 MG CAP GTB (05:58)
[2017-11-22 06:08] LABS: WHITE BLOOD COUNT 6.4 10^3/ul (4.8-10.8)
[2017-11-22 06:08] LABS: ABNORMAL IP MESSAGE 1; HEMATOCRIT 27.4 % (37.0-47.0); HEMOGLOBIN 8.2 g/dl (12.0-16.0); MEAN CORPUSCULAR HEMOGLOBIN 32.2 pg (29.0-33.0); MEAN CORPUSCULAR HGB CONC 29.9 g/dl (32.0-37.0); MEAN CORPUSCULAR VOLUME 107.5 fl (82.0-101.0); MEAN PLATELET VOLUME 13.2 fl (7.4-10.4); PLATELET COUNT 131 10^3/UL (140-415); RED BLOOD COUNT 2.55 10^6/ul (4.20-5.40); RED CELL DISTRIBUTION WIDTH 18.6 % (11.5-14.5)
[2017-11-22 06:20] LABS: ADD MAN DIFF? YES; POSITIVE DIFF @See below
[2017-11-22 06:31] LABS: ALANINE AMINOTRANSFERASE 128 IU/L (13-69); ALBUMIN 3.7 g/dl (3.3-4.9); ALBUMIN/GLOBULIN RATIO 1.15; ALKALINE PHOSPHATASE 168 IU/L (42-121); ANION GAP 20 (8-16); ASPARTATE AMINO TRANSFERASE 26 IU/L (15-46); BLOOD UREA NITROGEN 80 mg/dl (7-20); CALCIUM 9.3 mg/dl (8.4-10.2); CARBON DIOXIDE 28 mmol/L (21-31); CHLORIDE 93 mmol/L (97-110); GLUCOSE 109 mg/dl (70-220); POTASSIUM 4.8 mmol/L (3.5-5.1); SODIUM 136 mmol/L (135-144); TOTAL PROTEIN 6.9 g/dl (6.1-8.1)
[2017-11-22 07:11] LABS: CREATININE 7.05 mg/dl (0.44-1.00)
[2017-11-22] MEDS: DOCUSATE SODIUM 100 MG CAP PO (08:07)
[2017-11-22] MEDS: SEVELAMER CARBONATE 0.8 GM PKT PO ×3 (08:07→16:14)
[2017-11-22] MEDS: MAGNESIUM HYDROXIDE 30ML CUP PO (08:07)
[2017-11-22] MEDS: CHOLECALCIFEROL 1,000 UNIT TAB GTB (08:07)
[2017-11-22] MEDS: LEVOTHYROXINE 100 MCG VIAL IV (08:07)
[2017-11-22] MEDS: FAMOTIDINE 20 MG INJ IV (08:07)
[2017-11-22] MEDS: FOLIC ACID 1 MG TAB GTB (08:07)
[2017-11-22] MEDS: LIOTHYRONINE 5 MCG TAB GTB ×2 (08:07→21:33)
[2017-11-22] MEDS: ACETAMINOPHEN 325 MG TAB PO (08:07)
[2017-11-22] MEDS: CALCITRIOL (1 MCG/ML PO SYG) PO (08:14)
[2017-11-22 09:28] LABS: ANISOCYTOSIS 1+ (0-0); BAND NEUTROPHILS #M 2.1 10^3/ul (0.0-0.6); BAND NEUTROPHILS % (M) 34 % (0-4); GIANT THROMBO% (M) 2 % (0-0); HYPOCHROMASIA 1+ (0-0); LYMPHOCYTES #M 0.6 10^3/ul (0.8-2.9); LYMPHOCYTES % (M) 10 % (15-51); MONOCYTES % (M) 1 % (0-11); PLATELET ESTIMATE DECREASED; POIKILOCYTOSIS 1+ (0-0); POLYCHROMASIA 1+ (0-0); SEG NEUT #M 3.7 10^3/ul (1.6-7.5); SEGMENTED NEUTROPHILS (M) % 55 % (39-77); SMUDGE%M 4 % (0-0); TEAR DROP CELLS 1+ (0-0)
[2017-11-22] MEDS: PROPOFOL 100 ML IV ×2 (12:13→23:59)
[2017-11-22 14:46] LABS: AADO2 Arterial 92.3 mmHg (7.0-24.0); Allen Test ACCEPTAB; Arterial Base Excess 3.6 mmol/L (-3.0-3); Arterial Blood Gas Oxygen Sat 93.2 mmHG (95.0-98.0); Arterial COHb 0.7 % (0.0-3.0); Arterial Fraction of Oxyhgb 92.5 % (93.0-99.0); Arterial HCO3 31.3 mmol/L (22.0-26.0); Arterial MetHb 0.1 % (0.0-1.5); Arterial Total Hemglobin 10.5 g/dl (12.0-18.0); Arterial pCO2 65.6 mmhg (35-45); Blood Gas PS 10; MODE VENT - CPAP; Site Right Radial
[2017-11-22] MEDS: HYDROCODONE/APAP (5/325) TAB PO (14:58)
[2017-11-22] MEDS: ONDANSETRON 4 MG INJ IV (14:58)
[2017-11-23 05:18] LABS: ABNORMAL IP MESSAGE 1; HEMOGLOBIN 7.6 g/dl (12.0-16.0); MEAN CORPUSCULAR HEMOGLOBIN 31.3 pg (29.0-33.0); MEAN CORPUSCULAR HGB CONC 29.2 g/dl (32.0-37.0); MEAN PLATELET VOLUME 13.1 fl (7.4-10.4); NUCLEATED RED BLOOD CELLS% 0.3 /100WBC (0.0-0.0); PLATELET COUNT 142 10^3/UL (140-415); RED BLOOD COUNT 2.43 10^6/ul (4.20-5.40); RED CELL DISTRIBUTION WIDTH 18.3 % (11.5-14.5)
[2017-11-23 05:18] LABS: WHITE BLOOD COUNT 6.9 10^3/ul (4.8-10.8)
[2017-11-23 05:22] LABS: POSITIVE DIFF @See below
[2017-11-23 05:23] LABS: ADD MAN DIFF? YES
[2017-11-23 05:38] LABS: ANION GAP 17 (8-16); BLOOD UREA NITROGEN 62 mg/dl (7-20); CALCIUM 8.7 mg/dl (8.4-10.2); CARBON DIOXIDE 29 mmol/L (21-31); CHLORIDE 95 mmol/L (97-110); CREATININE 6.29 mg/dl (0.44-1.00); GLUCOSE 114 mg/dl (70-220); POTASSIUM 4.8 mmol/L (3.5-5.1); SODIUM 136 mmol/L (135-144)
[2017-11-23] MEDS: LANSOPRAZOLE 30 MG CAP GTB (06:08)
[2017-11-23 08:03] LABS: ANISOCYTOSIS 1+ (0-0); BAND NEUTROPHILS #M 1.1 10^3/ul (0.0-0.6); BAND NEUTROPHILS % (M) 16 % (0-4); EOSINOPHILS % (M) 1 % (0-7); GIANT THROMBO% (M) 7 % (0-0); HYPOCHROMASIA 2+ (0-0); LYMPHOCYTES #M 0.6 10^3/ul (0.8-2.9); LYMPHOCYTES % (M) 9 % (15-51); PLATELET ESTIMATE NORMAL; SEG NEUT #M 5.2 10^3/ul (1.6-7.5); SEGMENTED NEUTROPHILS (M) % 74 % (39-77); SMUDGE%M 1 % (0-0)
[2017-11-23] MEDS: FOLIC ACID 1 MG TAB GTB (08:57)
[2017-11-23] MEDS: SEVELAMER CARBONATE 0.8 GM PKT PO ×3 (08:57→16:41)
[2017-11-23] MEDS: LIOTHYRONINE 5 MCG TAB GTB ×2 (08:57→20:06)
[2017-11-23] MEDS: LEVOTHYROXINE 100 MCG VIAL IV (08:57)
[2017-11-23] MEDS: CHOLECALCIFEROL 1,000 UNIT TAB GTB (08:58)
[2017-11-23] MEDS: CALCITRIOL (1 MCG/ML PO SYG) PO (08:58)
[2017-11-23] MEDS: THEOPHYLLINE GTB ×2 (15:19→20:08)
[2017-11-23] MEDS: PROPOFOL 100 ML IV (16:19)
[2017-11-23] MEDS: EPOETIN ALFA 1,000 UNITS/0.1 ML VIAL SC (18:02)
[2017-11-23] MEDS: FAMOTIDINE 20 MG TAB GTB (20:06)
[2017-11-23 23:20] LABS: AADO2 Arterial 96.9 mmHg (7.0-24.0); Allen Test ACCEPTAB; Arterial Base Excess 0.3 mmol/L (-3.0-3); Arterial Blood Gas Oxygen Sat 93.6 mmHG (95.0-98.0); Arterial Fraction of Oxyhgb 92.6 % (93.0-99.0); Arterial MetHb 0.1 % (0.0-1.5); Arterial Total Hemglobin 9.2 g/dl (12.0-18.0); Arterial pCO2 62.9 mmhg (35-45); Blood Gas PS 10; MODE VENT - SIMV; Site Right Radial
[2017-11-24] MEDS: PROPOFOL 100 ML IV ×2 (01:49→18:00)
[2017-11-24] MEDS: LANSOPRAZOLE 30 MG CAP GTB (05:58)
[2017-11-24 06:08] LABS: WHITE BLOOD COUNT 6.7 10^3/ul (4.8-10.8)
[2017-11-24 06:08] LABS: ABNORMAL IP MESSAGE 1; HEMATOCRIT 24.5 % (37.0-47.0); HEMOGLOBIN 7.2 g/dl (12.0-16.0); MEAN CORPUSCULAR HEMOGLOBIN 31.9 pg (29.0-33.0); MEAN CORPUSCULAR HGB CONC 29.4 g/dl (32.0-37.0); MEAN CORPUSCULAR VOLUME 108.4 fl (82.0-101.0); MEAN PLATELET VOLUME 12.9 fl (7.4-10.4); NUCLEATED RED BLOOD CELLS% 0.3 /100WBC (0.0-0.0); PLATELET COUNT 155 10^3/UL (140-415); RED BLOOD COUNT 2.26 10^6/ul (4.20-5.40); RED CELL DISTRIBUTION WIDTH 18.4 % (11.5-14.5)
[2017-11-24 06:18] LABS: POSITIVE DIFF @See below
[2017-11-24 06:19] LABS: ADD MAN DIFF? YES
[2017-11-24 07:18] LABS: ANION GAP 17 (8-16); BLOOD UREA NITROGEN 81 mg/dl (7-20); CARBON DIOXIDE 29 mmol/L (21-31); CHLORIDE 94 mmol/L (97-110); GLUCOSE 126 mg/dl (70-220); POTASSIUM 5.1 mmol/L (3.5-5.1); SODIUM 135 mmol/L (135-144)
[2017-11-24] MEDS: SEVELAMER CARBONATE 0.8 GM PKT PO ×3 (07:35→17:04)
[2017-11-24 07:39] LABS: CREATININE 6.77 mg/dl (0.44-1.00)
[2017-11-24] MEDS ORDERED: MODAFINIL 100 MG TAB PO (09:00)
[2017-11-24 09:13] LABS: ANISOCYTOSIS 1+ (0-0); BAND NEUTROPHILS % (M) 30 % (0-4); GIANT THROMBO% (M) 2 % (0-0); LYMPHOCYTES #M 0.2 10^3/ul (0.8-2.9); LYMPHOCYTES % (M) 4 % (15-51); METAMYELOCYTES %M 1 % (0-0); MONOCYTE #M 0.2 10^3/ul (0.3-0.9); MONOCYTES % (M) 3 % (0-11); MYELOCYTES % (M) 1 % (0-0); PLATELET ESTIMATE NORMAL; POIKILOCYTOSIS 1+ (0-0); POLYCHROMASIA 1+ (0-0); SEG NEUT #M 4.2 10^3/ul (1.6-7.5); SEGMENTED NEUTROPHILS (M) % 61 % (39-77); SMUDGE%M 2 % (0-0)
[2017-11-24] MEDS: LIOTHYRONINE 5 MCG TAB GTB ×2 (09:45→21:03)
[2017-11-24] MEDS: CHOLECALCIFEROL 1,000 UNIT TAB GTB (09:45)
[2017-11-24] MEDS: THEOPHYLLINE GTB ×2 (09:45→21:03)
[2017-11-24] MEDS: FOLIC ACID 1 MG TAB GTB (09:45)
[2017-11-24] MEDS: LEVOTHYROXINE 100 MCG VIAL IV (09:45)
[2017-11-24] MEDS: CALCITRIOL (1 MCG/ML PO SYG) PO (12:05)
[2017-11-24] MEDS: MODAFINIL 200 MG TAB PO (12:20)
[2017-11-24] MEDS: CARBAMIDE PEROXIDE 6.5% 15ML OTIC BOTH EARS ×2 (14:37→22:56)
[2017-11-24] MEDS: FAMOTIDINE 20 MG TAB GTB (21:03)
[2017-11-24] MEDS: ONDANSETRON 4 MG INJ IV (22:27)
[2017-11-25] MEDS: PROPOFOL 100 ML IV ×7 (01:00→21:34)
[2017-11-25 05:11] LABS: ABNORMAL IP MESSAGE 1; HEMATOCRIT 23.8 % (37.0-47.0); HEMOGLOBIN 7.2 g/dl (12.0-16.0); MEAN CORPUSCULAR HGB CONC 30.3 g/dl (32.0-37.0); MEAN CORPUSCULAR VOLUME 105.8 fl (82.0-101.0); MEAN PLATELET VOLUME 12.5 fl (7.4-10.4); PLATELET COUNT 166 10^3/UL (140-415); RED BLOOD COUNT 2.25 10^6/ul (4.20-5.40)
[2017-11-25 05:11] LABS: WHITE BLOOD COUNT 5.5 10^3/ul (4.8-10.8)
[2017-11-25 05:26] LABS: ALANINE AMINOTRANSFERASE 68 IU/L (13-69); ALBUMIN 3.6 g/dl (3.3-4.9); ALKALINE PHOSPHATASE 168 IU/L (42-121); ANION GAP 21 (8-16); ASPARTATE AMINO TRANSFERASE 16 IU/L (15-46); BILIRUBIN,INDIRECT 0.9 mg/dl (0-1.1); BILIRUBIN,TOTAL 1.1 mg/dl (0.2-1.3); BLOOD UREA NITROGEN 63 mg/dl (7-20); CALCIUM 8.9 mg/dl (8.4-10.2); CARBON DIOXIDE 29 mmol/L (21-31); CHLORIDE 90 mmol/L (97-110); GLUCOSE 118 mg/dl (70-220); POTASSIUM 4.6 mmol/L (3.5-5.1); SODIUM 135 mmol/L (135-144); TOTAL PROTEIN 7.2 g/dl (6.1-8.1)
[2017-11-25 05:28] LABS: POSITIVE DIFF @See below
[2017-11-25 05:30] LABS: ADD MAN DIFF? YES
[2017-11-25 05:33] LABS: CREATININE 5.48 mg/dl (0.44-1.00)
[2017-11-25] MEDS: LANSOPRAZOLE 30 MG CAP GTB (06:02)
[2017-11-25] MEDS: SEVELAMER CARBONATE 0.8 GM PKT PO ×3 (06:23→16:53)
[2017-11-25 07:36] LABS: ANISOCYTOSIS 1+ (0-0); BAND NEUTROPHILS % (M) 38 % (0-4); BASOPHILS % (M) 1 % (0-2); ERYTHROBLAST% (NRBC) (M) 1 % (0-0); GIANT THROMBO% (M) 4 % (0-0); HYPOCHROMASIA 1+ (0-0); LYMPHOCYTES #M 0.2 10^3/ul (0.8-2.9); LYMPHOCYTES % (M) 4 % (15-51); MONOCYTE #M 0.3 10^3/ul (0.3-0.9); MONOCYTES % (M) 7 % (0-11); PLATELET ESTIMATE NORMAL; POLYCHROMASIA 3+ (0-0); REACTIVE LYMPHOCYTES #M 0.1 10^3/ul (0.0-0.0); REACTIVE LYMPHOCYTES% (M) 2 % (0-0); SEG NEUT #M 2.8 10^3/ul (1.6-7.5); SEGMENTED NEUTROPHILS (M) % 48 % (39-77); SMUDGE%M 5 % (0-0)
[2017-11-25] MEDS: LORAZEPAM 2 MG INJ IV (07:48)
[2017-11-25] MEDS: LEVOTHYROXINE 100 MCG VIAL IV (08:17)
[2017-11-25] MEDS: CHOLECALCIFEROL 1,000 UNIT TAB GTB (08:18)
[2017-11-25] MEDS: THEOPHYLLINE GTB ×2 (08:18→21:03)
[2017-11-25] MEDS: CALCITRIOL (1 MCG/ML PO SYG) PO (08:18)
[2017-11-25] MEDS: LIOTHYRONINE 5 MCG TAB GTB ×2 (08:18→21:00)
[2017-11-25] MEDS: FOLIC ACID 1 MG TAB GTB (08:18)
[2017-11-25] MEDS: CARBAMIDE PEROXIDE 6.5% 15ML OTIC BOTH EARS ×2 (08:19→21:27)
[2017-11-25] MEDS ORDERED: VANCOMYCIN IV PER PHARMACY XX (08:30)
[2017-11-25] MEDS: CALCITRIOL 1 MCG INJ IV (09:16)
[2017-11-25] MEDS: PIPER-TAZO 2.25 GM (PMX) 50 ML IVPB ×3 (09:16→21:27)
[2017-11-25] MEDS: MODAFINIL 200 MG TAB PO (10:17)
[2017-11-25] MEDS: ERGOCALCIFEROL (8000 UNITS/ML PO SYG) GTB (10:19)
[2017-11-25] MEDS: VANCOMYCIN 2 GM in SOD CHLORIDE 0.9% 500 ML IVPB (10:41)
[2017-11-25] MEDS: EPOETIN ALFA 1,000 UNITS/0.1 ML VIAL SC (17:15)
[2017-11-25] MEDS: FAMOTIDINE 20 MG TAB GTB (21:00)
[2017-11-26 05:41] LABS: WHITE BLOOD COUNT 6.1 10^3/ul (4.8-10.8)
[2017-11-26 05:41] LABS: ABNORMAL IP MESSAGE 1; HEMATOCRIT 22.5 % (37.0-47.0); MEAN CORPUSCULAR HEMOGLOBIN 31.8 pg (29.0-33.0); MEAN CORPUSCULAR HGB CONC 29.8 g/dl (32.0-37.0); MEAN CORPUSCULAR VOLUME 106.6 fl (82.0-101.0); MEAN PLATELET VOLUME 12.3 fl (7.4-10.4); NUCLEATED RED BLOOD CELLS% 0.5 /100WBC (0.0-0.0); PLATELET COUNT 186 10^3/UL (140-415); RED BLOOD COUNT 2.11 10^6/ul (4.20-5.40); RED CELL DISTRIBUTION WIDTH 18.1 % (11.5-14.5)
[2017-11-26 06:00] LABS: ADD MAN DIFF? YES; HEMOGLOBIN 6.7 g/dl (12.0-16.0); POSITIVE DIFF @See below
[2017-11-26 06:10] LABS: ALANINE AMINOTRANSFERASE 51 IU/L (13-69); ALBUMIN 3.1 g/dl (3.3-4.9); ALBUMIN/GLOBULIN RATIO 0.91; ALKALINE PHOSPHATASE 155 IU/L (42-121); ANION GAP 17 (8-16); ASPARTATE AMINO TRANSFERASE 9 IU/L (15-46); BILIRUBIN,INDIRECT 0.1 mg/dl (0-1.1); BILIRUBIN,TOTAL 0.2 mg/dl (0.2-1.3); BLOOD UREA NITROGEN 82 mg/dl (7-20); CARBON DIOXIDE 27 mmol/L (21-31); CHLORIDE 94 mmol/L (97-110); GLUCOSE 103 mg/dl (70-220); POTASSIUM 4.8 mmol/L (3.5-5.1); SODIUM 133 mmol/L (135-144); TOTAL PROTEIN 6.5 g/dl (6.1-8.1)
[2017-11-26 06:15] LABS: FREE T4 (FREE THYROXINE) 1.27 ng/dl (0.64-1.79)
[2017-11-26] MEDS: SEVELAMER CARBONATE 0.8 GM PKT PO ×3 (06:15→17:32)
[2017-11-26] MEDS: PIPER-TAZO 2.25 GM (PMX) 50 ML IVPB ×3 (06:15→21:00)
[2017-11-26] MEDS: LANSOPRAZOLE 30 MG CAP GTB (06:15)
[2017-11-26] MEDS: PROPOFOL 100 ML IV ×4 (06:15→20:59)
[2017-11-26 06:29] LABS: CREATININE 6.55 mg/dl (0.44-1.00)
[2017-11-26 06:47] LABS: FREE T3 1.99 pg/ml (2.77-5.27)
[2017-11-26 07:50] LABS: ANISOCYTOSIS 1+ (0-0); BAND NEUTROPHILS #M 1.6 10^3/ul (0.0-0.6); BAND NEUTROPHILS % (M) 27 % (0-4); BASOPHIL #M 0.1 10^3/ul (0.0-0.0); BASOPHILS % (M) 2 % (0-2); ERYTHROBLAST% (NRBC) (M) 1 % (0-0); GIANT THROMBO% (M) 3 % (0-0); HYPOCHROMASIA 1+ (0-0); LYMPHOCYTES #M 0.3 10^3/ul (0.8-2.9); LYMPHOCYTES % (M) 5 % (15-51); METAMYELOCYTES %M 1 % (0-0); MONOCYTE #M 0.4 10^3/ul (0.3-0.9); MONOCYTES % (M) 8 % (0-11); MYELOCYTES #M 0.1 10^3/ul (0.0-0.0); MYELOCYTES % (M) 2 % (0-0); PLATELET ESTIMATE SIG DECREASED; POLYCHROMASIA 3+ (0-0); SEG NEUT #M 3.5 10^3/ul (1.6-7.5); SEGMENTED NEUTROPHILS (M) % 55 % (39-77); SMUDGE%M 6 % (0-0)
[2017-11-26] MEDS: CARBAMIDE PEROXIDE 6.5% 15ML OTIC BOTH EARS ×2 (09:05→22:19)
[2017-11-26] MEDS: MODAFINIL 200 MG TAB PO (09:05)
[2017-11-26] MEDS: FOLIC ACID 1 MG TAB GTB (09:05)
[2017-11-26] MEDS: CHOLECALCIFEROL 1,000 UNIT TAB GTB (09:06)
[2017-11-26] MEDS: LIOTHYRONINE 5 MCG TAB GTB ×2 (09:06→20:59)
[2017-11-26] MEDS: THEOPHYLLINE GTB ×2 (09:07→20:59)
[2017-11-26] MEDS: LEVOTHYROXINE 100 MCG VIAL IV (09:08)
[2017-11-26] MEDS: CALCITRIOL (1 MCG/ML PO SYG) PO (09:08)
[2017-11-26 15:08] LABS: IMMEDIATE SPIN CROSSMATCH 1 2
[2017-11-26] MEDS: FAMOTIDINE 20 MG TAB GTB (21:00)
[2017-11-27] MEDS: PROPOFOL 100 ML IV ×4 (01:48→22:13)
[2017-11-27] MEDS: PIPER-TAZO 2.25 GM (PMX) 50 ML IVPB ×2 (05:19→12:48)
[2017-11-27] MEDS: LANSOPRAZOLE 30 MG CAP GTB (05:19)
[2017-11-27 05:24] LABS: ADD MAN DIFF? NO
[2017-11-27 05:29] LABS: ABNORMAL IP MESSAGE 1; BASOPHILS % 0.3 % (0.0-2.0); EOSINOPHILS # 0.1 10^3/ul (0.0-0.5); EOSINOPHILS % 0.8 % (0.0-7.0); HEMATOCRIT 27.6 % (37.0-47.0); HEMOGLOBIN 8.3 g/dl (12.0-16.0); LYMPHOCYTES # 0.5 10^3/ul (0.8-2.9); LYMPHOCYTES % 7.5 % (15.0-51.0); MEAN CORPUSCULAR HEMOGLOBIN 31.4 pg (29.0-33.0); MEAN CORPUSCULAR HGB CONC 30.1 g/dl (32.0-37.0); MEAN CORPUSCULAR VOLUME 104.5 fl (82.0-101.0); MEAN PLATELET VOLUME 11.3 fl (7.4-10.4); MONOCYTE # 0.3 10^3/ul (0.3-0.9); MONOCYTES % 4.6 % (0.0-11.0); NEUTROPHILS % 79.8 % (39.0-77.0); NUCLEATED RED BLOOD CELLS% 0.6 /100WBC (0.0-0.0); PLATELET COUNT 185 10^3/UL (140-415); RED BLOOD COUNT 2.64 10^6/ul (4.20-5.40); RED CELL DISTRIBUTION WIDTH 20.5 % (11.5-14.5)
[2017-11-27 05:29] LABS: WHITE BLOOD COUNT 6.3 10^3/ul (4.8-10.8)
[2017-11-27 06:03] LABS: ALANINE AMINOTRANSFERASE 50 IU/L (13-69); ALBUMIN 3.6 g/dl (3.3-4.9); ALKALINE PHOSPHATASE 202 IU/L (42-121); ANION GAP 19 (8-16); ASPARTATE AMINO TRANSFERASE 12 IU/L (15-46); BILIRUBIN,INDIRECT 0.1 mg/dl (0-1.1); BILIRUBIN,TOTAL 0.3 mg/dl (0.2-1.3); BLOOD UREA NITROGEN 55 mg/dl (7-20); CALCIUM 8.6 mg/dl (8.4-10.2); CARBON DIOXIDE 29 mmol/L (21-31); CHLORIDE 91 mmol/L (97-110); CREATININE 5.21 mg/dl (0.44-1.00); GLUCOSE 147 mg/dl (70-220); PHOSPHORUS 3.8 mg/dl (2.5-4.9); SODIUM 135 mmol/L (135-144); TOTAL PROTEIN 7.2 g/dl (6.1-8.1)
[2017-11-27 06:13] LABS: VANCOMYCIN,RANDOM 14.7 ug/ml
[2017-11-27 06:40] LABS: POSITIVE DIFF @See below
[2017-11-27] MEDS: SEVELAMER CARBONATE 0.8 GM PKT PO ×3 (07:35→17:43)
[2017-11-27] MEDS: LEVOTHYROXINE 100 MCG VIAL IV (08:20)
[2017-11-27] MEDS: BISACODYL 10 MG SUPP PR (08:21)
[2017-11-27 09:47] LABS: ANISOCYTOSIS 1+ (0-0); BAND NEUTROPHILS #M 2.2 10^3/ul (0.0-0.6); BAND NEUTROPHILS % (M) 36 % (0-4); BASOPHIL #M 0.1 10^3/ul (0.0-0.0); BASOPHILS % (M) 2 % (0-2); GIANT THROMBO% (M) 2 % (0-0); HYPOCHROMASIA 1+ (0-0); LYMPHOCYTES #M 0.3 10^3/ul (0.8-2.9); LYMPHOCYTES % (M) 6 % (15-51); METAMYELOCYTES #M 0.1 10^3/ul (0.0-0.0); METAMYELOCYTES %M 3 % (0-0); MONOCYTE #M 0.2 10^3/ul (0.3-0.9); MONOCYTES % (M) 4 % (0-11); MYELOCYTES #M 0.1 10^3/ul (0.0-0.0); MYELOCYTES % (M) 2 % (0-0); PLATELET ESTIMATE NORMAL; POLYCHROMASIA 3+ (0-0); SEG NEUT #M 3.1 10^3/ul (1.6-7.5); SEGMENTED NEUTROPHILS (M) % 47 % (39-77); SMUDGE%M 5 % (0-0)
[2017-11-27 09:48] LABS: AADO2 Arterial 120.2 mmHg (7.0-24.0); Allen Test ACCEPTAB; Arterial Blood Gas Oxygen Sat 96.6 mmHG (95.0-98.0); Arterial COHb 0.6 % (0.0-3.0); Arterial Fraction of Oxyhgb 95.8 % (93.0-99.0); Arterial HCO3 28.2 mmol/L (22.0-26.0); Arterial MetHb 0.2 % (0.0-1.5); Arterial Total Hemglobin 9.4 g/dl (12.0-18.0); Arterial pCO2 59.3 mmhg (35-45); Blood Gas PS 10; MODE VENT - CPAP/PS; Site Right Radial
[2017-11-27 11:19] LABS: AADO2 Arterial 129.6 mmHg (7.0-24.0); Allen Test ACCEPTAB; Arterial Base Excess 1.2 mmol/L (-3.0-3); Arterial Blood Gas Oxygen Sat 94.9 mmHG (95.0-98.0); Arterial COHb 0.9 % (0.0-3.0); Arterial Fraction of Oxyhgb 93.8 % (93.0-99.0); Arterial HCO3 28.7 mmol/L (22.0-26.0); Arterial MetHb 0.3 % (0.0-1.5); Arterial Total Hemglobin 9.4 g/dl (12.0-18.0); Arterial pCO2 62.7 mmhg (35-45); Blood Gas PS 10; MODE VENT - CPAP/PS; Site Right Radial
[2017-11-27] MEDS: morphine 2 MG INJ IV (11:30)
[2017-11-27] MEDS: VANCOMYCIN 1.25 GM in SOD CHLORIDE 0.9% 250 ML IVPB (13:44)
[2017-11-27] MEDS: CARBAMIDE PEROXIDE 6.5% 15ML OTIC BOTH EARS ×2 (14:33→21:16)
[2017-11-27] MEDS: DOCUSATE SODIUM 10 MG/ML (10ML CUP) NGT ×2 (14:33→21:16)
[2017-11-27] MEDS: CHOLECALCIFEROL 1,000 UNIT TAB GTB (14:34)
[2017-11-27] MEDS: DIPHENHYDRAMINE 2.5 MG/ML 5ML CUP GTB (14:34)
[2017-11-27] MEDS: THEOPHYLLINE GTB ×2 (14:34→21:16)
[2017-11-27] MEDS: CALCITRIOL (1 MCG/ML PO SYG) PO (14:34)
[2017-11-27] MEDS: FOLIC ACID 1 MG TAB GTB (14:35)
[2017-11-27] MEDS: MODAFINIL 200 MG TAB PO (14:35)
[2017-11-27] MEDS: LIOTHYRONINE 5 MCG TAB GTB ×2 (14:35→21:16)
[2017-11-27] MEDS: PYRIDOSTIGMINE 60 MG TAB PO ×2 (16:35→21:16)
[2017-11-27] MEDS: FISH OIL 1,000 MG CAP PO (21:16)
[2017-11-27] MEDS: FAMOTIDINE 20 MG TAB GTB (21:17)
[2017-11-28] MEDS: PROPOFOL 100 ML IV ×2 (04:15→21:23)
[2017-11-28] MEDS: LANSOPRAZOLE 30 MG CAP GTB (06:11)
[2017-11-28] MEDS: PYRIDOSTIGMINE 60 MG TAB PO ×3 (06:11→21:23)
[2017-11-28] MEDS: SEVELAMER CARBONATE 0.8 GM PKT PO ×3 (07:35→18:06)
[2017-11-28] MEDS: DOCUSATE SODIUM 10 MG/ML (10ML CUP) NGT ×2 (09:11→21:23)
[2017-11-28] MEDS: LEVOTHYROXINE 100 MCG VIAL IV (09:11)
[2017-11-28] MEDS: FOLIC ACID 1 MG TAB GTB (09:11)
[2017-11-28] MEDS: THEOPHYLLINE GTB ×2 (09:12→21:24)
[2017-11-28] MEDS: CHOLECALCIFEROL 1,000 UNIT TAB GTB (09:12)
[2017-11-28] MEDS: FISH OIL 1,000 MG CAP PO ×2 (09:12→21:23)
[2017-11-28] MEDS: MODAFINIL 200 MG TAB PO (09:12)
[2017-11-28] MEDS: CARBAMIDE PEROXIDE 6.5% 15ML OTIC BOTH EARS ×2 (09:12→21:23)
[2017-11-28] MEDS: CALCITRIOL (1 MCG/ML PO SYG) PO (09:13)
[2017-11-28] MEDS: LIOTHYRONINE 5 MCG TAB GTB ×2 (09:13→21:28)
[2017-11-28 11:32] LABS: AADO2 Arterial 85.5 mmHg (7.0-24.0); Allen Test ACCEPTAB; Arterial Base Excess -2.2 mmol/L (-3.0-3); Arterial Blood Gas Oxygen Sat 89.7 mmHG (95.0-98.0); Arterial COHb 0.9 % (0.0-3.0); Arterial Fraction of Oxyhgb 88.7 % (93.0-99.0); Arterial HCO3 24.9 mmol/L (22.0-26.0); Arterial MetHb 0.2 % (0.0-1.5); Arterial Total Hemglobin 9.9 g/dl (12.0-18.0); Arterial pCO2 54.9 mmhg (35-45); Blood Gas PS 10; MODE VENT - CPAP; Site Right Radial
[2017-11-28] MEDS: morphine 2 MG INJ IV (11:45)
[2017-11-28] MEDS: EPOETIN 10000 UNITS/1 ML INJ (ESRD) SC (17:00)
[2017-11-28] MEDS: FAMOTIDINE 20 MG TAB GTB (21:23)
[2017-11-29] MEDS: PROPOFOL 100 ML IV ×2 (02:34→14:05)
[2017-11-29 05:23] LABS: AADO2 Arterial 115.8 mmHg (7.0-24.0); Allen Test ACCEPTAB; Arterial Base Excess 1.1 mmol/L (-3.0-3); Arterial Blood Gas Oxygen Sat 97.9 mmHG (95.0-98.0); Arterial COHb 0.8 % (0.0-3.0); Arterial Fraction of Oxyhgb 96.8 % (93.0-99.0); Arterial HCO3 27.1 mmol/L (22.0-26.0); Arterial MetHb 0.3 % (0.0-1.5); Arterial Total Hemglobin 9.2 g/dl (12.0-18.0); Arterial pCO2 50.4 mmhg (35-45); Blood Gas PS 20; MODE VENT - SIMV; Site Right Radial
[2017-11-29] MEDS: LANSOPRAZOLE 30 MG CAP GTB (06:35)
[2017-11-29] MEDS: PYRIDOSTIGMINE 60 MG TAB PO ×3 (06:36→21:35)
[2017-11-29] MEDS: CARBAMIDE PEROXIDE 6.5% 15ML OTIC BOTH EARS ×2 (08:28→21:31)
[2017-11-29] MEDS: FISH OIL 1,000 MG CAP PO ×2 (08:29→21:32)
[2017-11-29] MEDS: FOLIC ACID 1 MG TAB GTB (08:29)
[2017-11-29] MEDS: DOCUSATE SODIUM 10 MG/ML (10ML CUP) NGT ×2 (08:30→21:32)
[2017-11-29] MEDS: CHOLECALCIFEROL 1,000 UNIT TAB GTB (08:30)
[2017-11-29] MEDS: SEVELAMER CARBONATE 0.8 GM PKT PO ×3 (08:31→17:50)
[2017-11-29] MEDS: THEOPHYLLINE GTB ×2 (08:31→21:35)
[2017-11-29] MEDS: LIOTHYRONINE 5 MCG TAB GTB ×2 (08:51→21:32)
[2017-11-29] MEDS: MODAFINIL 200 MG TAB PO (08:53)
[2017-11-29] MEDS: LEVOTHYROXINE 200 MCG VIAL IV (09:18)
[2017-11-29] MEDS: CALCITRIOL (1 MCG/ML PO SYG) PO (09:28)
[2017-11-29 11:58] LABS: AADO2 Arterial 116.9 mmHg (7.0-24.0); Allen Test ACCEPTAB; Arterial Blood Gas Oxygen Sat 97.3 mmHG (95.0-98.0); Arterial COHb 0.8 % (0.0-3.0); Arterial Fraction of Oxyhgb 96.3 % (93.0-99.0); Arterial HCO3 29.8 mmol/L (22.0-26.0); Arterial MetHb 0.2 % (0.0-1.5); Arterial Total Hemglobin 9.3 g/dl (12.0-18.0); Arterial pCO2 57.9 mmhg (35-45); Blood Gas PS 15; MODE VENT - CPAP; Site Right Radial
[2017-11-29] MEDS: BISACODYL 10 MG SUPP PR (12:45)
[2017-11-29] MEDS: FAMOTIDINE 20 MG TAB GTB (21:32)
[2017-11-29] MEDS: ALBUTEROL/IPRATROPIUM (NEB) 3 ML AMP HHN (23:37)
[2017-11-30] MEDS: PROPOFOL 100 ML IV ×2 (02:09→16:01)
[2017-11-30 05:40] LABS: WHITE BLOOD COUNT 9.4 10^3/ul (4.8-10.8)
[2017-11-30 05:40] LABS: ABNORMAL IP MESSAGE 1; HEMATOCRIT 25.3 % (37.0-47.0); HEMOGLOBIN 7.5 g/dl (12.0-16.0); MEAN CORPUSCULAR HEMOGLOBIN 30.7 pg (29.0-33.0); MEAN CORPUSCULAR HGB CONC 29.6 g/dl (32.0-37.0); MEAN CORPUSCULAR VOLUME 103.7 fl (82.0-101.0); MEAN PLATELET VOLUME 11.6 fl (7.4-10.4); NUCLEATED RED BLOOD CELLS% 0.4 /100WBC (0.0-0.0); PLATELET COUNT 213 10^3/UL (140-415); RED BLOOD COUNT 2.44 10^6/ul (4.20-5.40); RED CELL DISTRIBUTION WIDTH 18.8 % (11.5-14.5)
[2017-11-30 05:44] LABS: POSITIVE DIFF @See below
[2017-11-30 05:45] LABS: ADD MAN DIFF? YES
[2017-11-30 06:03] LABS: ALANINE AMINOTRANSFERASE 37 IU/L (13-69); ALBUMIN 3.4 g/dl (3.3-4.9); ALBUMIN/GLOBULIN RATIO 0.91; ALKALINE PHOSPHATASE 175 IU/L (42-121); ANION GAP 17 (8-16); ASPARTATE AMINO TRANSFERASE 16 IU/L (15-46); BILIRUBIN,TOTAL 0.2 mg/dl (0.2-1.3); BLOOD UREA NITROGEN 69 mg/dl (7-20); CALCIUM 9.3 mg/dl (8.4-10.2); CARBON DIOXIDE 30 mmol/L (21-31); CHLORIDE 90 mmol/L (97-110); GLUCOSE 104 mg/dl (70-220); MAGNESIUM 2.4 mg/dl (1.7-2.5); PHOSPHORUS 5.3 mg/dl (2.5-4.9); POTASSIUM 4.3 mmol/L (3.5-5.1); SODIUM 133 mmol/L (135-144); TOTAL PROTEIN 7.1 g/dl (6.1-8.1)
[2017-11-30 06:07] LABS: FREE T3 2.35 pg/ml (2.77-5.27)
[2017-11-30 06:08] LABS: FREE T4 (FREE THYROXINE) 1.23 ng/dl (0.64-1.79)
[2017-11-30 06:13] LABS: CREATININE 5.61 mg/dl (0.44-1.00)
[2017-11-30] MEDS: LANSOPRAZOLE 30 MG CAP GTB (06:33)
[2017-11-30] MEDS: PYRIDOSTIGMINE 60 MG TAB PO ×3 (06:33→22:14)
[2017-11-30] MEDS: SEVELAMER CARBONATE 0.8 GM PKT PO ×3 (07:35→17:42)
[2017-11-30 08:20] LABS: ANISOCYTOSIS 1+ (0-0); BAND NEUTROPHILS #M 1.9 10^3/ul (0.0-0.6); BAND NEUTROPHILS % (M) 21 % (0-4); BASOPHIL #M 0.1 10^3/ul (0.0-0.0); BASOPHILS % (M) 2 % (0-2); GIANT THROMBO% (M) 1 % (0-0); LYMPHOCYTES #M 0.5 10^3/ul (0.8-2.9); LYMPHOCYTES % (M) 6 % (15-51); METAMYELOCYTES #M 0.2 10^3/ul (0.0-0.0); METAMYELOCYTES %M 3 % (0-0); MICROCYTOSIS 1+ (0-0); MYELOCYTES #M 0.9 10^3/ul (0.0-0.0); MYELOCYTES % (M) 10 % (0-0); PLATELET ESTIMATE NORMAL; POLYCHROMASIA 3+ (0-0); SEG NEUT #M 5.6 10^3/ul (1.6-7.5); SEGMENTED NEUTROPHILS (M) % 58 % (39-77)
[2017-11-30] MEDS: CALCITRIOL (1 MCG/ML PO SYG) PO (09:00)
[2017-11-30] MEDS: DOCUSATE SODIUM 10 MG/ML (10ML CUP) NGT ×2 (09:42→22:35)
[2017-11-30] MEDS: FISH OIL 1,000 MG CAP PO ×2 (09:42→22:14)
[2017-11-30] MEDS: LEVOTHYROXINE 200 MCG VIAL IV (09:42)
[2017-11-30] MEDS: THEOPHYLLINE GTB ×2 (09:43→22:36)
[2017-11-30] MEDS: CHOLECALCIFEROL 1,000 UNIT TAB GTB (09:43)
[2017-11-30] MEDS: CARBAMIDE PEROXIDE 6.5% 15ML OTIC BOTH EARS ×2 (09:43→22:14)
[2017-11-30] MEDS: LIOTHYRONINE 5 MCG TAB GTB ×2 (09:43→22:15)
[2017-11-30] MEDS: FOLIC ACID 1 MG TAB GTB (09:45)
[2017-11-30] MEDS: MODAFINIL 200 MG TAB PO (09:53)
[2017-11-30] MEDS ORDERED: ALBUTEROL/IPRATROPIUM (NEB) 3 ML AMP HHN (13:00)
[2017-11-30] MEDS: ALBUTEROL HFA 8 GM INHALER INH ×2 (16:59→21:30)
[2017-11-30] MEDS: IPRATROPIUM (HFA) 12.9 GM INHALER INH ×2 (16:59→21:30)
[2017-11-30] MEDS ORDERED: IPRATROPIUM (HFA) 12.9 GM INHALER INH (17:00)
[2017-11-30] MEDS: EPOETIN 10000 UNITS/1 ML INJ (ESRD) SC (17:43)
[2017-11-30] MEDS: FAMOTIDINE 20 MG TAB GTB (22:15)
[2017-12-01] MEDS: IPRATROPIUM (HFA) 12.9 GM INHALER INH ×4 (01:17→13:33)
[2017-12-01] MEDS: ALBUTEROL HFA 8 GM INHALER INH ×4 (01:18→13:34)
[2017-12-01] MEDS: morphine 2 MG INJ IV ×3 (03:55→17:00)
[2017-12-01] MEDS: PROPOFOL 100 ML IV ×2 (03:55→16:20)
[2017-12-01] MEDS: PYRIDOSTIGMINE 60 MG TAB PO ×3 (06:14→21:05)
[2017-12-01] MEDS: LANSOPRAZOLE 30 MG CAP GTB (06:14)
[2017-12-01 07:19] LABS: ABNORMAL IP MESSAGE 1; HEMATOCRIT 27.6 % (37.0-47.0); HEMOGLOBIN 8.1 g/dl (12.0-16.0); MEAN CORPUSCULAR HGB CONC 29.3 g/dl (32.0-37.0); MEAN CORPUSCULAR VOLUME 105.7 fl (82.0-101.0); MEAN PLATELET VOLUME 11.2 fl (7.4-10.4); NUCLEATED RED BLOOD CELLS% 0.6 /100WBC (0.0-0.0); PLATELET COUNT 223 10^3/UL (140-415); RED BLOOD COUNT 2.61 10^6/ul (4.20-5.40); RED CELL DISTRIBUTION WIDTH 19.1 % (11.5-14.5)
[2017-12-01 07:19] LABS: WHITE BLOOD COUNT 11.5 10^3/ul (4.8-10.8)
[2017-12-01 07:33] LABS: POSITIVE DIFF @See below
[2017-12-01 07:34] LABS: ADD MAN DIFF? YES
[2017-12-01 08:00] LABS: ALANINE AMINOTRANSFERASE 30 IU/L (13-69); ALBUMIN 3.7 g/dl (3.3-4.9); ALBUMIN/GLOBULIN RATIO 0.92; ALKALINE PHOSPHATASE 193 IU/L (42-121); ANION GAP 20 (8-16); ASPARTATE AMINO TRANSFERASE 15 IU/L (15-46); BLOOD UREA NITROGEN 54 mg/dl (7-20); CALCIUM 9.4 mg/dl (8.4-10.2); CARBON DIOXIDE 28 mmol/L (21-31); CHLORIDE 89 mmol/L (97-110); CREATININE 5.24 mg/dl (0.44-1.00); GLUCOSE 126 mg/dl (70-220); POTASSIUM 3.8 mmol/L (3.5-5.1); SODIUM 133 mmol/L (135-144); TOTAL PROTEIN 7.7 g/dl (6.1-8.1)
[2017-12-01 08:17] LABS: ANISOCYTOSIS 1+ (0-0); BAND NEUTROPHILS #M 3.6 10^3/ul (0.0-0.6); BAND NEUTROPHILS % (M) 32 % (0-4); EOSINOPHILS % (M) 2 % (0-7); LYMPHOCYTES #M 1.3 10^3/ul (0.8-2.9); LYMPHOCYTES % (M) 12 % (15-51); METAMYELOCYTES %M 9 % (0-0); MONOCYTE #M 0.4 10^3/ul (0.3-0.9); MONOCYTES % (M) 4 % (0-11); MYELOCYTES #M 0.2 10^3/ul (0.0-0.0); MYELOCYTES % (M) 2 % (0-0); PLATELET ESTIMATE NORMAL; POLYCHROMASIA 3+ (0-0); REACTIVE LYMPHOCYTES #M 0.1 10^3/ul (0.0-0.0); REACTIVE LYMPHOCYTES% (M) 1 % (0-0); SEG NEUT #M 4.9 10^3/ul (1.6-7.5); SEGMENTED NEUTROPHILS (M) % 39 % (39-77); SMUDGE%M 11 % (0-0)
[2017-12-01] MEDS: CARBAMIDE PEROXIDE 6.5% 15ML OTIC BOTH EARS ×3 (09:00→20:59)
[2017-12-01] MEDS: THEOPHYLLINE GTB ×3 (09:00→20:59)
[2017-12-01] MEDS: FISH OIL 1,000 MG CAP PO ×2 (09:00→21:00)
[2017-12-01] MEDS: SEVELAMER CARBONATE 0.8 GM PKT PO ×3 (09:01→17:24)
[2017-12-01] MEDS: DOCUSATE SODIUM 10 MG/ML (10ML CUP) NGT ×2 (09:02→21:00)
[2017-12-01] MEDS: ACETAMINOPHEN 325 MG TAB PO (09:02)
[2017-12-01] MEDS: CHOLECALCIFEROL 1,000 UNIT TAB GTB (09:02)
[2017-12-01] MEDS: FOLIC ACID 1 MG TAB GTB (09:05)
[2017-12-01] MEDS: LIOTHYRONINE 5 MCG TAB GTB ×2 (09:05→20:59)
[2017-12-01] MEDS: CALCITRIOL (1 MCG/ML PO SYG) PO (09:06)
[2017-12-01] MEDS: LEVOTHYROXINE 200 MCG VIAL IV (09:07)
[2017-12-01] MEDS: MODAFINIL 200 MG TAB PO (09:12)
[2017-12-01] MEDS ORDERED: ALBUMIN HUMAN 25% 100 ML IV (10:00)
[2017-12-01 10:32] LABS: AADO2 Arterial 112.1 mmHg (7.0-24.0); Allen Test ACCEPTAB; Arterial Base Excess 2.6 mmol/L (-3.0-3); Arterial Blood Gas Oxygen Sat 97.1 mmHG (95.0-98.0); Arterial COHb 0.6 % (0.0-3.0); Arterial Fraction of Oxyhgb 96.3 % (93.0-99.0); Arterial MetHb 0.2 % (0.0-1.5); Arterial Total Hemglobin 9.7 g/dl (12.0-18.0); Arterial pCO2 62.6 mmhg (35-45); Blood Gas PS 10; MODE VENT - CPAP; Site Right Brachial
[2017-12-01 14:46] LABS: AADO2 Arterial 110.2 mmHg (7.0-24.0); Allen Test ACCEPTAB; Arterial Base Excess 4.1 mmol/L (-3.0-3); Arterial Blood Gas Oxygen Sat 97.7 mmHG (95.0-98.0); Arterial COHb 0.8 % (0.0-3.0); Arterial Fraction of Oxyhgb 96.8 % (93.0-99.0); Arterial HCO3 31.1 mmol/L (22.0-26.0); Arterial MetHb 0.1 % (0.0-1.5); Arterial Total Hemglobin 11.4 g/dl (12.0-18.0); Arterial pCO2 59.3 mmhg (35-45); Blood Gas PS 10; MODE VENT - CPAP; Site Right Radial
[2017-12-01] MEDS: ALBUTEROL/IPRATROPIUM (NEB) 3 ML AMP HHN ×2 (15:12→20:07)
[2017-12-01] MEDS: ROCURONIUM BROMIDE 10 MG/ML VIAL IV (16:00)
[2017-12-01] MEDS: ETOMIDATE 20 MG INJ IV (16:00)
[2017-12-01] MEDS: RACEPINEPHRINE 2.25%(NEB) 0.5 ML AMP HHN (16:31)
[2017-12-01 17:11] LABS: AADO2 Arterial 463.1 mmHg (7.0-24.0); Arterial Blood Gas Oxygen Sat 98.9 mmHG (95.0-98.0); Arterial Fraction of Oxyhgb 97.7 % (93.0-99.0); Arterial HCO3 28.5 mmol/L (22.0-26.0); Arterial MetHb 0.2 % (0.0-1.5); Arterial Total Hemglobin 11.2 g/dl (12.0-18.0); Arterial pCO2 75.5 mmhg (35-45); MODE VENT - AC; Site Right Brachial
[2017-12-01] MEDS: FENTAnyl (DRIP) 1000 mcg/100mL 100 ML IV (17:39)
[2017-12-01 18:10] LABS: AADO2 Arterial 249.9 mmHg (7.0-24.0); Arterial Base Excess 2.4 mmol/L (-3.0-3); Arterial COHb 0.9 % (0.0-3.0); Arterial HCO3 30.4 mmol/L (22.0-26.0); Arterial MetHb 0.1 % (0.0-1.5); Arterial Total Hemglobin 10.4 g/dl (12.0-18.0); Arterial pCO2 66.7 mmhg (35-45); MODE VENT - AC; Site Right Brachial
[2017-12-01] MEDS: FAMOTIDINE 20 MG TAB GTB (21:00)
[2017-12-02] MEDS: ALBUTEROL/IPRATROPIUM (NEB) 3 ML AMP HHN ×4 (01:26→13:00)
[2017-12-02] MEDS: PROPOFOL 100 ML IV (04:13)
[2017-12-02 05:44] LABS: WHITE BLOOD COUNT 13.3 10^3/ul (4.8-10.8)
[2017-12-02 05:44] LABS: ABNORMAL IP MESSAGE 1; HEMATOCRIT 25.7 % (37.0-47.0); HEMOGLOBIN 7.8 g/dl (12.0-16.0); MEAN CORPUSCULAR HEMOGLOBIN 30.8 pg (29.0-33.0); MEAN CORPUSCULAR HGB CONC 30.4 g/dl (32.0-37.0); MEAN CORPUSCULAR VOLUME 101.6 fl (82.0-101.0); MEAN PLATELET VOLUME 11.1 fl (7.4-10.4); NUCLEATED RED BLOOD CELLS% 0.3 /100WBC (0.0-0.0); PLATELET COUNT 201 10^3/UL (140-415); RED BLOOD COUNT 2.53 10^6/ul (4.20-5.40); RED CELL DISTRIBUTION WIDTH 18.6 % (11.5-14.5)
[2017-12-02 05:48] LABS: POSITIVE DIFF @See below
[2017-12-02 05:49] LABS: ADD MAN DIFF? YES
[2017-12-02] MEDS: LANSOPRAZOLE 30 MG CAP GTB (06:13)
[2017-12-02] MEDS: PYRIDOSTIGMINE 60 MG TAB PO (06:13)
[2017-12-02 06:15] LABS: ANION GAP 15 (8-16); BLOOD UREA NITROGEN 42 mg/dl (7-20); CALCIUM 9.2 mg/dl (8.4-10.2); CARBON DIOXIDE 28 mmol/L (21-31); CHLORIDE 96 mmol/L (97-110); CREATININE 4.39 mg/dl (0.44-1.00); GLUCOSE 111 mg/dl (70-220); MAGNESIUM 2.2 mg/dl (1.7-2.5); PHOSPHORUS 3.4 mg/dl (2.5-4.9); POTASSIUM 4.4 mmol/L (3.5-5.1); SODIUM 135 mmol/L (135-144)
[2017-12-02 07:02] LABS: ANISOCYTOSIS 1+ (0-0); BAND NEUTROPHILS #M 4.7 10^3/ul (0.0-0.6); BAND NEUTROPHILS % (M) 36 % (0-4); LYMPHOCYTES #M 1.1 10^3/ul (0.8-2.9); LYMPHOCYTES % (M) 9 % (15-51); METAMYELOCYTES #M 0.5 10^3/ul (0.0-0.0); METAMYELOCYTES %M 4 % (0-0); MICROCYTOSIS 1+ (0-0); MONOCYTE #M 0.9 10^3/ul (0.3-0.9); MONOCYTES % (M) 7 % (0-11); MYELOCYTES #M 0.2 10^3/ul (0.0-0.0); MYELOCYTES % (M) 2 % (0-0); PLATELET ESTIMATE NORMAL; POLYCHROMASIA 3+ (0-0); SEG NEUT #M 6.2 10^3/ul (1.6-7.5); SEGMENTED NEUTROPHILS (M) % 42 % (39-77); SMUDGE%M 3 % (0-0)
[2017-12-02] MEDS: SEVELAMER CARBONATE 0.8 GM PKT PO (07:09)
[2017-12-02 08:57] LABS: Allen Test ACCEPTAB; Arterial Base Excess 3.1 mmol/L (-3.0-3); Arterial Blood Gas Oxygen Sat 98.5 mmHG (95.0-98.0); Arterial Fraction of Oxyhgb 97.3 % (93.0-99.0); Arterial HCO3 26.7 mmol/L (22.0-26.0); Arterial MetHb 0.2 % (0.0-1.5); Arterial Total Hemglobin 8.8 g/dl (12.0-18.0); Arterial pCO2 36.5 mmhg (35-45); MODE VENT - AC; Site Right Radial
[2017-12-02] MEDS ORDERED: HYDROCODONE/APAP (5/325) TAB NGT (09:00)
[2017-12-02] MEDS: CARBAMIDE PEROXIDE 6.5% 15ML OTIC BOTH EARS ×2 (09:00→21:12)
[2017-12-02] MEDS ORDERED: ACETAMINOPHEN 325 MG TAB NGT (09:00)
[2017-12-02] MEDS: FISH OIL 1,000 MG CAP PO ×2 (09:00→21:13)
[2017-12-02] MEDS: DOCUSATE SODIUM 10 MG/ML (10ML CUP) NGT ×2 (09:24→21:13)
[2017-12-02] MEDS: LEVOTHYROXINE 200 MCG VIAL IV (09:24)
[2017-12-02] MEDS: MODAFINIL 200 MG TAB NGT (09:24)
[2017-12-02] MEDS: FOLIC ACID 1 MG TAB GTB (09:25)
[2017-12-02] MEDS: CHOLECALCIFEROL 1,000 UNIT TAB GTB (09:25)
[2017-12-02] MEDS: LIOTHYRONINE 5 MCG TAB GTB ×2 (09:29→21:12)
[2017-12-02] MEDS: SEVELAMER CARBONATE 0.8 GM PKT NGT ×2 (11:44→18:20)
[2017-12-02] MEDS: FENTAnyl (DRIP) 1000 mcg/100mL 100 ML IV ×2 (13:04→21:40)
[2017-12-02] MEDS: PIPER-TAZO 2.25 GM (PMX) 50 ML IVPB ×3 (13:10→23:31)
[2017-12-02] MEDS: CALCITRIOL (1 MCG/ML PO SYG) NGT (13:54)
[2017-12-02] MEDS: ALBUTEROL HFA 8 GM INHALER INH ×2 (18:07→21:30)
[2017-12-02] MEDS: EPOETIN 10000 UNITS/1 ML INJ (ESRD) SC (18:22)
[2017-12-02] MEDS: FAMOTIDINE 20 MG TAB GTB (21:13)
[2017-12-02] MEDS: ALBUMIN HUMAN 25% 100 ML IV (23:41)
[2017-12-03] MEDS: ALBUMIN HUMAN 25% 100 ML IV (00:50)
[2017-12-03] MEDS: ALBUTEROL HFA 8 GM INHALER INH ×6 (01:26→20:19)
[2017-12-03] MEDS: PIPER-TAZO 2.25 GM (PMX) 50 ML IVPB ×4 (05:48→23:51)
[2017-12-03] MEDS: PROPOFOL 100 ML IV ×2 (05:48→17:32)
[2017-12-03] MEDS: LANSOPRAZOLE 30 MG CAP GTB (06:01)
[2017-12-03] MEDS: SEVELAMER CARBONATE 0.8 GM PKT NGT ×3 (06:04→16:42)
[2017-12-03] MEDS: CARBAMIDE PEROXIDE 6.5% 15ML OTIC BOTH EARS ×2 (08:18→21:16)
[2017-12-03] MEDS: CHOLECALCIFEROL 1,000 UNIT TAB GTB (08:19)
[2017-12-03] MEDS: FOLIC ACID 1 MG TAB GTB (08:19)
[2017-12-03] MEDS: DOCUSATE SODIUM 10 MG/ML (10ML CUP) NGT ×2 (08:20→21:15)
[2017-12-03] MEDS: FISH OIL 1,000 MG CAP PO ×2 (08:20→21:15)
[2017-12-03] MEDS: LEVOTHYROXINE 200 MCG VIAL IV (08:21)
[2017-12-03] MEDS: CALCITRIOL (1 MCG/ML PO SYG) NGT (08:37)
[2017-12-03] MEDS: MODAFINIL 200 MG TAB NGT (09:21)
[2017-12-03] MEDS: LIOTHYRONINE 5 MCG TAB GTB ×2 (09:21→21:15)
[2017-12-03] MEDS: BISACODYL 10 MG SUPP PR (11:33)
[2017-12-03] MEDS: MAGNESIUM HYDROXIDE 30ML CUP NGT (13:30)
[2017-12-03] MEDS: KETAMINE (50 MG/ML) 10 ML VIAL IV (15:30)
[2017-12-03] MEDS ORDERED: LIDOCAINE 1% (MDV) 10 ML INJ (15:41)
[2017-12-03] MEDS: LIDOCAINE 1% (MDV) 10 ML INJ INJ (16:35)
[2017-12-03 17:35] LABS: TOTAL PROTEIN,CSF 35 mg/dl (12-60)
[2017-12-03 17:35] LABS: GLUCOSE,CSF 66 mg/dl (50-80)
[2017-12-03 17:51] LABS: CSF RBC 0 /uL (0-0); CSF WBC 1 /cmm (0-10)
[2017-12-03 17:52] LABS: CSF RBC 0 /uL (0-0); CSF WBC 2 /cmm (0-10)
[2017-12-03 18:40] LABS: CSF CLARITY CLEAR; CSF VOLUME 14.8 ml; CSF#TUBE COUNT TUBE#1; CSF#TUBES REC'D 4
[2017-12-03 18:40] LABS: CSF COLOR COLORLESS
[2017-12-03 18:42] LABS: CSF CLARITY CLEAR; CSF COLOR COLORLESS; CSF VOLUME 14.8 ml; CSF#TUBE COUNT TUBE#4; CSF#TUBES REC'D 4
[2017-12-03] MEDS: FAMOTIDINE 20 MG TAB GTB (21:15)
[2017-12-03] MEDS: FENTAnyl (DRIP) 1000 mcg/100mL 100 ML IV (23:23)
[2017-12-04] MEDS: ALBUTEROL HFA 8 GM INHALER INH ×6 (00:05→21:19)
[2017-12-04] MEDS: DIPHENHYDRAMINE 2.5 MG/ML 5ML CUP GTB ×2 (00:45→20:43)
[2017-12-04] MEDS: PROPOFOL 100 ML IV ×2 (06:00→15:51)
[2017-12-04] MEDS: PIPER-TAZO 2.25 GM (PMX) 50 ML IVPB ×2 (06:15→12:00)
[2017-12-04] MEDS: LANSOPRAZOLE 30 MG CAP GTB (06:15)
[2017-12-04 06:39] LABS: WHITE BLOOD COUNT 3.5 10^3/ul (4.8-10.8)
[2017-12-04 06:39] LABS: ABNORMAL IP MESSAGE 1; HEMATOCRIT 23.7 % (37.0-47.0); HEMOGLOBIN 7.2 g/dl (12.0-16.0); MEAN CORPUSCULAR HEMOGLOBIN 31.3 pg (29.0-33.0); MEAN CORPUSCULAR HGB CONC 30.4 g/dl (32.0-37.0); MEAN PLATELET VOLUME 11.4 fl (7.4-10.4); NUCLEATED RED BLOOD CELLS% 1.1 /100WBC (0.0-0.0); PLATELET COUNT 149 10^3/UL (140-415); RED CELL DISTRIBUTION WIDTH 18.6 % (11.5-14.5)
[2017-12-04 06:49] LABS: ADD MAN DIFF? YES; POSITIVE DIFF @See below
[2017-12-04 07:10] LABS: ANION GAP 21 (8-16); BLOOD UREA NITROGEN 88 mg/dl (7-20); CALCIUM 9.1 mg/dl (8.4-10.2); CARBON DIOXIDE 24 mmol/L (21-31); CHLORIDE 90 mmol/L (97-110); GLUCOSE 121 mg/dl (70-220); POTASSIUM 4.1 mmol/L (3.5-5.1); SODIUM 131 mmol/L (135-144)
[2017-12-04 07:21] LABS: CREATININE 6.03 mg/dl (0.44-1.00)
[2017-12-04] MEDS: SEVELAMER CARBONATE 0.8 GM PKT NGT ×3 (08:10→17:25)
[2017-12-04] MEDS: FISH OIL 1,000 MG CAP PO ×2 (09:00→20:44)
[2017-12-04] MEDS: LIOTHYRONINE 5 MCG TAB GTB ×2 (09:00→20:44)
[2017-12-04] MEDS: DOCUSATE SODIUM 10 MG/ML (10ML CUP) NGT ×2 (10:34→20:43)
[2017-12-04 10:39] LABS: ANISOCYTOSIS 1+ (0-0); BAND NEUTROPHILS #M 1.7 10^3/ul (0.0-0.6); BAND NEUTROPHILS % (M) 49 % (0-4); EOSINOPHILS % (M) 3 % (0-7); ERYTHROBLAST% (NRBC) (M) 1 % (0-0); GIANT THROMBO% (M) 6 % (0-0); LYMPHOCYTES #M 0.3 10^3/ul (0.8-2.9); LYMPHOCYTES % (M) 11 % (15-51); MONOCYTE #M 0.2 10^3/ul (0.3-0.9); MONOCYTES % (M) 8 % (0-11); MYELOCYTES #M 0.1 10^3/ul (0.0-0.0); MYELOCYTES % (M) 5 % (0-0); PLATELET ESTIMATE NORMAL; POLYCHROMASIA 3+ (0-0); REACTIVE LYMPHOCYTES% (M) 1 % (0-0); SEG NEUT #M 0.9 10^3/ul (1.6-7.5); SEGMENTED NEUTROPHILS (M) % 23 % (39-77); SMUDGE%M 4 % (0-0)
[2017-12-04] MEDS: CARBAMIDE PEROXIDE 6.5% 15ML OTIC BOTH EARS ×2 (12:08→20:55)
[2017-12-04] MEDS: LEVOTHYROXINE 200 MCG VIAL IV (12:09)
[2017-12-04 13:31] LABS: ABNORMAL IP MESSAGE 1; HEMATOCRIT 24.3 % (37.0-47.0); HEMOGLOBIN 7.4 g/dl (12.0-16.0); MEAN CORPUSCULAR HGB CONC 30.5 g/dl (32.0-37.0); MEAN CORPUSCULAR VOLUME 101.7 fl (82.0-101.0); MEAN PLATELET VOLUME 11.4 fl (7.4-10.4); PLATELET COUNT 153 10^3/UL (140-415); RED BLOOD COUNT 2.39 10^6/ul (4.20-5.40); RED CELL DISTRIBUTION WIDTH 18.6 % (11.5-14.5)
[2017-12-04 13:37] LABS: ADD MAN DIFF? YES; POSITIVE DIFF @See below
[2017-12-04 14:40] LABS: ANISOCYTOSIS 1+ (0-0); BAND NEUTROPHILS #M 1.5 10^3/ul (0.0-0.6); BAND NEUTROPHILS % (M) 52 % (0-4); EOSINOPHILS % (M) 4 % (0-7); ERYTHROBLAST% (NRBC) (M) 1 % (0-0); LYMPHOCYTES #M 0.3 10^3/ul (0.8-2.9); LYMPHOCYTES % (M) 10 % (15-51); METAMYELOCYTES %M 1 % (0-0); MONOCYTE #M 0.1 10^3/ul (0.3-0.9); MONOCYTES % (M) 6 % (0-11); MYELOCYTES % (M) 1 % (0-0); PLATELET ESTIMATE NORMAL; POLYCHROMASIA 3+ (0-0); SEG NEUT #M 0.8 10^3/ul (1.6-7.5); SEGMENTED NEUTROPHILS (M) % 26 % (39-77); SMUDGE%M 2 % (0-0)
[2017-12-04] MEDS: MODAFINIL 200 MG TAB NGT (17:25)
[2017-12-04] MEDS: FOLIC ACID 1 MG TAB GTB (17:25)
[2017-12-04] MEDS: CALCITRIOL (1 MCG/ML PO SYG) NGT (17:26)
[2017-12-04] MEDS: CHOLECALCIFEROL 1,000 UNIT TAB GTB (17:26)
[2017-12-04] MEDS: NITROGLYCERIN (SL) 0.4 MG TAB SL ×2 (18:14→19:33)
[2017-12-04] MEDS: FAMOTIDINE 20 MG TAB GTB (20:45)
[2017-12-04 22:07] LABS: RAPID PLASMA REAGIN NONREACTIVE (NR)
[2017-12-05] MEDS: NITROGLYCERIN (SL) 0.4 MG TAB SL (00:07)
[2017-12-05] MEDS: morphine 2 MG INJ IV (00:22)
[2017-12-05] MEDS: ALBUTEROL HFA 8 GM INHALER INH ×6 (01:03→21:04)
[2017-12-05] MEDS: LANSOPRAZOLE 30 MG CAP GTB (05:28)
[2017-12-05 05:53] LABS: HEMATOCRIT 24.2 % (37.0-47.0); HEMOGLOBIN 7.2 g/dl (12.0-16.0); MEAN CORPUSCULAR HEMOGLOBIN 30.3 pg (29.0-33.0); MEAN CORPUSCULAR HGB CONC 29.8 g/dl (32.0-37.0); MEAN CORPUSCULAR VOLUME 101.7 fl (82.0-101.0); MEAN PLATELET VOLUME 11.6 fl (7.4-10.4); NUCLEATED RED BLOOD CELLS% 1.3 /100WBC (0.0-0.0); PLATELET COUNT 158 10^3/UL (140-415); RED BLOOD COUNT 2.38 10^6/ul (4.20-5.40); RED CELL DISTRIBUTION WIDTH 18.8 % (11.5-14.5)
[2017-12-05 05:53] LABS: WHITE BLOOD COUNT 3.9 10^3/ul (4.8-10.8)
[2017-12-05 05:59] LABS: ADD MAN DIFF? YES; POSITIVE DIFF @See below
[2017-12-05] MEDS: PROPOFOL 100 ML IV ×2 (06:00→17:04)
[2017-12-05 06:15] LABS: ALANINE AMINOTRANSFERASE 23 IU/L (13-69); ALBUMIN 3.7 g/dl (3.3-4.9); ALKALINE PHOSPHATASE 215 IU/L (42-121); ANION GAP 22 (8-16); ASPARTATE AMINO TRANSFERASE 14 IU/L (15-46); BILIRUBIN,INDIRECT 0.1 mg/dl (0-1.1); BILIRUBIN,TOTAL 0.5 mg/dl (0.2-1.3); BLOOD UREA NITROGEN 64 mg/dl (7-20); CARBON DIOXIDE 26 mmol/L (21-31); CHLORIDE 91 mmol/L (97-110); CREATININE 5.55 mg/dl (0.44-1.00); GLUCOSE 108 mg/dl (70-220); POTASSIUM 3.6 mmol/L (3.5-5.1); SODIUM 135 mmol/L (135-144); TOTAL PROTEIN 7.8 g/dl (6.1-8.1)
[2017-12-05 06:18] LABS: ANION GAP 20 (8-16); BLOOD UREA NITROGEN 66 mg/dl (7-20); CALCIUM 9.1 mg/dl (8.4-10.2); CARBON DIOXIDE 26 mmol/L (21-31); CHLORIDE 95 mmol/L (97-110); CREATININE 5.28 mg/dl (0.44-1.00); GLUCOSE 104 mg/dl (70-220); POTASSIUM 3.9 mmol/L (3.5-5.1); SODIUM 137 mmol/L (135-144)
[2017-12-05] MEDS: FENTAnyl (DRIP) 1000 mcg/100mL 100 ML IV (07:13)
[2017-12-05 07:23] LABS: ANISOCYTOSIS 1+ (0-0); BAND NEUTROPHILS #M 1.2 10^3/ul (0.0-0.6); BAND NEUTROPHILS % (M) 33 % (0-4); BASOPHILS % (M) 1 % (0-2); LYMPHOCYTES #M 0.7 10^3/ul (0.8-2.9); LYMPHOCYTES % (M) 18 % (15-51); METAMYELOCYTES %M 2 % (0-0); MICROCYTOSIS 1+ (0-0); MONOCYTE #M 0.2 10^3/ul (0.3-0.9); MONOCYTES % (M) 7 % (0-11); PLATELET ESTIMATE NORMAL; POLYCHROMASIA 3+ (0-0); REACTIVE LYMPHOCYTES% (M) 1 % (0-0); SEG NEUT #M 1.5 10^3/ul (1.6-7.5); SEGMENTED NEUTROPHILS (M) % 38 % (39-77); SMUDGE%M 8 % (0-0)
[2017-12-05] MEDS: SOD CHLORIDE 0.9% 250 ML IV* (08:02)
[2017-12-05] MEDS: SEVELAMER CARBONATE 0.8 GM PKT NGT ×3 (08:03→17:26)
[2017-12-05] MEDS: LIOTHYRONINE 5 MCG TAB GTB ×2 (08:04→21:34)
[2017-12-05] MEDS: CARBAMIDE PEROXIDE 6.5% 15ML OTIC BOTH EARS ×3 (08:05→21:34)
[2017-12-05] MEDS: CHOLECALCIFEROL 1,000 UNIT TAB GTB (08:05)
[2017-12-05] MEDS: DOCUSATE SODIUM 10 MG/ML (10ML CUP) NGT ×2 (08:05→21:34)
[2017-12-05] MEDS: CALCITRIOL (1 MCG/ML PO SYG) NGT (08:07)
[2017-12-05] MEDS: FISH OIL 1,000 MG CAP PO ×2 (08:08→21:34)
[2017-12-05] MEDS: LEVOTHYROXINE 200 MCG VIAL IV (08:08)
[2017-12-05] MEDS: MODAFINIL 200 MG TAB NGT (08:14)
[2017-12-05] MEDS: FOLIC ACID 1 MG TAB GTB (08:14)
[2017-12-05 15:50] LABS: INR 1.39; PROTIME 17.3 Sec (11.9-14.9); PT RATIO 1.4
[2017-12-05] MEDS: EPOETIN 10000 UNITS/1 ML INJ (ESRD) SC (17:25)
[2017-12-05] MEDS ORDERED: CEFAZOLIN 2 GM/50 ML (PMX) 50 ML IVPB (17:30)
[2017-12-05] MEDS: FAMOTIDINE 20 MG TAB GTB (21:34)
[2017-12-06] MEDS: ALBUTEROL HFA 8 GM INHALER INH ×6 (01:14→22:51)
[2017-12-06] MEDS: PROPOFOL 100 ML IV ×2 (05:03→18:00)
[2017-12-06] MEDS: LANSOPRAZOLE 30 MG CAP GTB (05:13)
[2017-12-06 06:00] LABS: ANION GAP 21 (8-16); BLOOD UREA NITROGEN 84 mg/dl (7-20); CALCIUM 9.3 mg/dl (8.4-10.2); CARBON DIOXIDE 25 mmol/L (21-31); CHLORIDE 91 mmol/L (97-110); GLUCOSE 102 mg/dl (70-220); POTASSIUM 4.4 mmol/L (3.5-5.1); SODIUM 133 mmol/L (135-144)
[2017-12-06 06:29] LABS: CREATININE 6.01 mg/dl (0.44-1.00)
[2017-12-06 07:14] LABS: WHITE BLOOD COUNT 5.3 10^3/ul (4.8-10.8)
[2017-12-06 07:14] LABS: ABNORMAL IP MESSAGE 1; HEMATOCRIT 23.9 % (37.0-47.0); HEMOGLOBIN 7.3 g/dl (12.0-16.0); MEAN CORPUSCULAR HEMOGLOBIN 30.9 pg (29.0-33.0); MEAN CORPUSCULAR HGB CONC 30.5 g/dl (32.0-37.0); MEAN CORPUSCULAR VOLUME 101.3 fl (82.0-101.0); NUCLEATED RED BLOOD CELLS% 0.9 /100WBC (0.0-0.0); PLATELET COUNT 156 10^3/UL (140-415); RED BLOOD COUNT 2.36 10^6/ul (4.20-5.40); RED CELL DISTRIBUTION WIDTH 18.8 % (11.5-14.5)
[2017-12-06 07:19] LABS: POSITIVE DIFF @See below
[2017-12-06 07:20] LABS: ADD MAN DIFF? YES
[2017-12-06] MEDS: SEVELAMER CARBONATE 0.8 GM PKT NGT ×3 (07:35→17:49)
[2017-12-06] MEDS: FENTAnyl (DRIP) 1000 mcg/100mL 100 ML IV ×2 (07:43→16:24)
[2017-12-06] MEDS: LEVOTHYROXINE 200 MCG VIAL IV (08:48)
[2017-12-06] MEDS: CARBAMIDE PEROXIDE 6.5% 15ML OTIC BOTH EARS ×2 (08:53→21:38)
[2017-12-06] MEDS: CALCITRIOL (1 MCG/ML PO SYG) NGT (08:54)
[2017-12-06] MEDS: LIOTHYRONINE 5 MCG TAB GTB ×2 (08:54→21:38)
[2017-12-06] MEDS: DOCUSATE SODIUM 10 MG/ML (10ML CUP) NGT ×2 (08:54→21:38)
[2017-12-06] MEDS: FOLIC ACID 1 MG TAB GTB (08:54)
[2017-12-06] MEDS: CHOLECALCIFEROL 1,000 UNIT TAB GTB (08:54)
[2017-12-06] MEDS: FISH OIL 1,000 MG CAP PO ×2 (08:55→21:38)
[2017-12-06] MEDS: MODAFINIL 200 MG TAB NGT (09:01)
[2017-12-06 09:12] LABS: ANISOCYTOSIS 1+ (0-0); BAND NEUTROPHILS % (M) 19 % (0-4); EOSINOPHILS % (M) 1 % (0-7); ERYTHROBLAST% (NRBC) (M) 1 % (0-0); GIANT THROMBO% (M) 2 % (0-0); LYMPHOCYTES % (M) 20 % (15-51); MICROCYTOSIS 1+ (0-0); MONOCYTE #M 0.2 10^3/ul (0.3-0.9); MONOCYTES % (M) 5 % (0-11); MYELOCYTES #M 0.1 10^3/ul (0.0-0.0); MYELOCYTES % (M) 3 % (0-0); PLATELET ESTIMATE NORMAL; POLYCHROMASIA 3+ (0-0); REACTIVE LYMPHOCYTES% (M) 1 % (0-0); SEG NEUT #M 2.8 10^3/ul (1.6-7.5); SEGMENTED NEUTROPHILS (M) % 51 % (39-77); SMUDGE%M 3 % (0-0)
[2017-12-06 09:38] LABS: IMMEDIATE SPIN CROSSMATCH 1 2
[2017-12-06 18:11] LABS: VDRL, CSF NON-REACTIVE
[2017-12-06 21:26] LABS: BACT AG SOURCE CEREBROSPINAL FLUID; BACT AG STREP GP B NOT DETECTED; BACT AG STREP PNEUMONIAE NOT DETECTED
[2017-12-06] MEDS: FAMOTIDINE 20 MG TAB GTB (21:38)
[2017-12-06] MEDS: DIPHENHYDRAMINE 2.5 MG/ML 5ML CUP GTB (23:29)
[2017-12-07] MEDS: NITROGLYCERIN (SL) 0.4 MG TAB SL (00:29)
[2017-12-07] MEDS: ALBUTEROL HFA 8 GM INHALER INH ×6 (00:42→20:17)
[2017-12-07] MEDS: FENTAnyl (DRIP) 1000 mcg/100mL 100 ML IV (03:39)
[2017-12-07] MEDS: morphine 2 MG INJ IV (03:50)
[2017-12-07] MEDS: PROPOFOL 100 ML IV ×2 (05:22→17:34)
[2017-12-07 05:53] LABS: ANION GAP 19 (8-16); BLOOD UREA NITROGEN 57 mg/dl (7-20); CALCIUM 9.4 mg/dl (8.4-10.2); CARBON DIOXIDE 28 mmol/L (21-31); CHLORIDE 93 mmol/L (97-110); CREATININE 5.28 mg/dl (0.44-1.00); GLUCOSE 123 mg/dl (70-220); POTASSIUM 3.9 mmol/L (3.5-5.1); SODIUM 136 mmol/L (135-144)
[2017-12-07] MEDS: LANSOPRAZOLE 30 MG CAP GTB (06:47)
[2017-12-07] MEDS: DOCUSATE SODIUM 10 MG/ML (10ML CUP) NGT ×2 (09:00→20:41)
[2017-12-07] MEDS: LIOTHYRONINE 5 MCG TAB GTB ×2 (09:16→20:40)
[2017-12-07] MEDS: FOLIC ACID 1 MG TAB GTB (09:16)
[2017-12-07] MEDS: FISH OIL 1,000 MG CAP PO ×2 (09:16→20:40)
[2017-12-07] MEDS: SEVELAMER CARBONATE 0.8 GM PKT NGT ×3 (09:17→17:41)
[2017-12-07] MEDS: CHOLECALCIFEROL 1,000 UNIT TAB GTB (09:17)
[2017-12-07] MEDS: CALCITRIOL (1 MCG/ML PO SYG) NGT (09:17)
[2017-12-07] MEDS: LEVOTHYROXINE 200 MCG VIAL IV (09:17)
[2017-12-07] MEDS: MODAFINIL 200 MG TAB NGT (09:18)
[2017-12-07] MEDS: CARBAMIDE PEROXIDE 6.5% 15ML OTIC BOTH EARS ×2 (09:18→20:39)
[2017-12-07 09:23] LABS: WHITE BLOOD COUNT 6.6 10^3/ul (4.8-10.8)
[2017-12-07 09:23] LABS: ABNORMAL IP MESSAGE 1; HEMATOCRIT 31.3 % (37.0-47.0); HEMOGLOBIN 9.5 g/dl (12.0-16.0); MEAN CORPUSCULAR HEMOGLOBIN 30.4 pg (29.0-33.0); MEAN CORPUSCULAR HGB CONC 30.4 g/dl (32.0-37.0); MEAN CORPUSCULAR VOLUME 100.3 fl (82.0-101.0); MEAN PLATELET VOLUME 11.7 fl (7.4-10.4); NUCLEATED RED BLOOD CELLS% 0.9 /100WBC (0.0-0.0); PLATELET COUNT 157 10^3/UL (140-415); RED BLOOD COUNT 3.12 10^6/ul (4.20-5.40); RED CELL DISTRIBUTION WIDTH 19.9 % (11.5-14.5)
[2017-12-07 09:36] LABS: POSITIVE DIFF @See below
[2017-12-07 09:37] LABS: ADD MAN DIFF? YES
[2017-12-07 10:24] LABS: ANISOCYTOSIS 1+ (0-0); BAND NEUTROPHILS #M 0.7 10^3/ul (0.0-0.6); BAND NEUTROPHILS % (M) 11 % (0-4); BASOPHILS % (M) 1 % (0-2); EOSINOPHILS % (M) 2 % (0-7); ERYTHROBLAST% (NRBC) (M) 4 % (0-0); LYMPHOCYTES #M 0.5 10^3/ul (0.8-2.9); LYMPHOCYTES % (M) 8 % (15-51); METAMYELOCYTES #M 0.1 10^3/ul (0.0-0.0); METAMYELOCYTES %M 3 % (0-0); MICROCYTOSIS 1+ (0-0); MONOCYTE #M 0.5 10^3/ul (0.3-0.9); MONOCYTES % (M) 8 % (0-11); MYELOCYTES % (M) 1 % (0-0); PLATELET ESTIMATE NORMAL; POLYCHROMASIA 3+ (0-0); SEG NEUT #M 4.4 10^3/ul (1.6-7.5); SEGMENTED NEUTROPHILS (M) % 66 % (39-77); SMUDGE%M 5 % (0-0)
[2017-12-07 16:44] LABS: AADO2 Arterial 132.7 mmHg (7.0-24.0); Allen Test ACCEPTAB; Arterial Base Excess 1.1 mmol/L (-3.0-3); Arterial Blood Gas Oxygen Sat 95.9 mmHG (95.0-98.0); Arterial COHb 1.1 % (0.0-3.0); Arterial Fraction of Oxyhgb 94.7 % (93.0-99.0); Arterial HCO3 27.9 mmol/L (22.0-26.0); Arterial MetHb 0.1 % (0.0-1.5); Arterial Total Hemglobin 11.2 g/dl (12.0-18.0); Arterial pCO2 54.8 mmhg (35-45); MODE VENT - CPAP; Site Right Radial
[2017-12-07] MEDS: EPOETIN 10000 UNITS/1 ML INJ (ESRD) SC (17:41)
[2017-12-07] MEDS: FAMOTIDINE 20 MG TAB GTB (20:40)
[2017-12-07] MEDS: LEVOTHYROXINE 125 MCG TAB GTB (20:47)
[2017-12-08] MEDS: ALBUTEROL HFA 8 GM INHALER INH ×3 (04:30→08:39)
[2017-12-08] MEDS: PROPOFOL 100 ML IV ×2 (05:25→18:00)
[2017-12-08] MEDS: FENTAnyl (DRIP) 1000 mcg/100mL 100 ML IV (05:29)
[2017-12-08] MEDS: LANSOPRAZOLE 30 MG CAP GTB (05:33)
[2017-12-08] MEDS: DIPHENHYDRAMINE 2.5 MG/ML 5ML CUP GTB (05:34)
[2017-12-08 05:58] LABS: ANION GAP 23 (8-16); BLOOD UREA NITROGEN 78 mg/dl (7-20); CARBON DIOXIDE 26 mmol/L (21-31); CHLORIDE 91 mmol/L (97-110); GLUCOSE 98 mg/dl (70-220); POTASSIUM 4.5 mmol/L (3.5-5.1); SODIUM 135 mmol/L (135-144)
[2017-12-08 06:59] LABS: CREATININE 5.81 mg/dl (0.44-1.00)
[2017-12-08] MEDS: CARBAMIDE PEROXIDE 6.5% 15ML OTIC BOTH EARS ×2 (09:00→20:18)
[2017-12-08] MEDS: FISH OIL 1,000 MG CAP PO ×2 (09:24→20:17)
[2017-12-08] MEDS: CHOLECALCIFEROL 1,000 UNIT TAB GTB (09:24)
[2017-12-08] MEDS: SEVELAMER CARBONATE 0.8 GM PKT NGT ×3 (09:24→18:17)
[2017-12-08] MEDS: LIOTHYRONINE 5 MCG TAB GTB ×2 (09:24→20:18)
[2017-12-08] MEDS: DOCUSATE SODIUM 10 MG/ML (10ML CUP) NGT ×2 (09:24→20:17)
[2017-12-08] MEDS: FOLIC ACID 1 MG TAB GTB (09:24)
[2017-12-08] MEDS: LEVOTHYROXINE 125 MCG TAB GTB ×2 (09:24→20:16)
[2017-12-08] MEDS: MODAFINIL 200 MG TAB NGT (09:46)
[2017-12-08] MEDS: LIDOCAINE 1% (MPF) 5 ML VIAL SC (11:00)
[2017-12-08 12:37] LABS: ABNORMAL IP MESSAGE 1; HEMATOCRIT 33.5 % (37.0-47.0); HEMOGLOBIN 10.4 g/dl (12.0-16.0); MEAN CORPUSCULAR HEMOGLOBIN 30.8 pg (29.0-33.0); MEAN CORPUSCULAR VOLUME 99.1 fl (82.0-101.0); MEAN PLATELET VOLUME 10.6 fl (7.4-10.4); NUCLEATED RED BLOOD CELLS% 0.6 /100WBC (0.0-0.0); PLATELET COUNT 169 10^3/UL (140-415); RED BLOOD COUNT 3.38 10^6/ul (4.20-5.40); RED CELL DISTRIBUTION WIDTH 19.3 % (11.5-14.5)
[2017-12-08 12:37] LABS: WHITE BLOOD COUNT 6.7 10^3/ul (4.8-10.8)
[2017-12-08 12:38] LABS: ADD MAN DIFF? YES; POSITIVE DIFF @See below
[2017-12-08 12:56] LABS: LACTATE DEHYDROGENASE 426 IU/L (313-618)
[2017-12-08 13:04] LABS: PROTIME 16.4 Sec (11.9-14.9); PT RATIO 1.3
[2017-12-08 13:05] LABS: PARTIAL THROMBOPLASTIN TIME 32.3 Sec (25.0-35.0)
[2017-12-08 13:07] LABS: CREATINE KINASE < 20 IU/L (23-200)
[2017-12-08 13:09] LABS: CK-MB 0.91 ng/ml (0.0-2.4); TROPONIN-I 0.084 ng/ml (0.00-0.12)
[2017-12-08 13:26] LABS: ANISOCYTOSIS 1+ (0-0); BAND NEUTROPHILS #M 0.6 10^3/ul (0.0-0.6); BAND NEUTROPHILS % (M) 10 % (0-4); ERYTHROBLAST% (NRBC) (M) 1 % (0-0); LYMPHOCYTES #M 0.7 10^3/ul (0.8-2.9); LYMPHOCYTES % (M) 11 % (15-51); METAMYELOCYTES #M 0.2 10^3/ul (0.0-0.0); METAMYELOCYTES %M 3 % (0-0); MONOCYTE #M 0.5 10^3/ul (0.3-0.9); MONOCYTES % (M) 8 % (0-11); MYELOCYTES % (M) 1 % (0-0); PLATELET ESTIMATE NORMAL; POIKILOCYTOSIS 1+ (0-0); POLYCHROMASIA 1+ (0-0); SEG NEUT #M 4.5 10^3/ul (1.6-7.5); SEGMENTED NEUTROPHILS (M) % 66 % (39-77); SMUDGE%M 14 % (0-0)
[2017-12-08 13:29] LABS: D-DIMER > 10000.00 ng/ml (<460)
[2017-12-08 13:36] LABS: IMMUNOGLOBULIN G 1729 mg/dl (700-1600); IMMUNOGLOBULIN M 50 mg/dl (40-230)
[2017-12-08 13:50] LABS: IMMUNOGLOBULIN A 740 mg/dl (70-400)
[2017-12-08 14:05] LABS: AADO2 Arterial 69.2 mmHg (7.0-24.0); Allen Test ACCEPTAB; Arterial Base Excess 4.2 mmol/L (-3.0-3); Arterial Blood Gas Oxygen Sat 94.2 mmHG (95.0-98.0); Arterial Fraction of Oxyhgb 93.2 % (93.0-99.0); Arterial HCO3 31.1 mmol/L (22.0-26.0); Arterial MetHb 0.1 % (0.0-1.5); Arterial Total Hemglobin 11.7 g/dl (12.0-18.0); Blood Gas PS 10; MODE VENT - CPAP; Site Right Radial
[2017-12-08] MEDS: CALCITRIOL (1 MCG/ML PO SYG) NGT (14:34)
[2017-12-08] MEDS: FAMOTIDINE 20 MG TAB GTB (20:16)
[2017-12-08] MEDS: hydrOXYzine HCL 25 MG TAB PO (20:17)
[2017-12-08] MEDS: ZOLPIDEM 5 MG TAB PO (23:54)
[2017-12-09] MEDS ORDERED: ZOLPIDEM 5 MG TAB PO
[2017-12-09] MEDS: ALBUTEROL HFA 8 GM INHALER INH (01:00)
[2017-12-09] MEDS: ALBUTEROL 0.083% (NEB) 2.5 MG/3 ML AMP HHN ×4 (05:00→19:43)
[2017-12-09] MEDS: PROPOFOL 100 ML IV ×2 (06:00→18:00)
[2017-12-09 06:17] LABS: WHITE BLOOD COUNT 9.8 10^3/ul (4.8-10.8)
[2017-12-09 06:17] LABS: ABNORMAL IP MESSAGE 1; HEMATOCRIT 37.2 % (37.0-47.0); HEMOGLOBIN 11.1 g/dl (12.0-16.0); MEAN CORPUSCULAR HEMOGLOBIN 30.3 pg (29.0-33.0); MEAN CORPUSCULAR HGB CONC 29.8 g/dl (32.0-37.0); MEAN CORPUSCULAR VOLUME 101.6 fl (82.0-101.0); MEAN PLATELET VOLUME 11.3 fl (7.4-10.4); NUCLEATED RED BLOOD CELLS% 0.5 /100WBC (0.0-0.0); PLATELET COUNT 206 10^3/UL (140-415); RED BLOOD COUNT 3.66 10^6/ul (4.20-5.40); RED CELL DISTRIBUTION WIDTH 19.3 % (11.5-14.5)
[2017-12-09 06:31] LABS: POSITIVE DIFF @See below
[2017-12-09 06:32] LABS: ADD MAN DIFF? YES
[2017-12-09 06:34] LABS: ANION GAP 20 (8-16); BLOOD UREA NITROGEN 51 mg/dl (7-20); CALCIUM 9.1 mg/dl (8.4-10.2); CARBON DIOXIDE 29 mmol/L (21-31); CHLORIDE 92 mmol/L (97-110); CREATININE 5.18 mg/dl (0.44-1.00); GLUCOSE 89 mg/dl (70-220); MAGNESIUM 2.4 mg/dl (1.7-2.5); PHOSPHORUS 6.2 mg/dl (2.5-4.9); POTASSIUM 4.4 mmol/L (3.5-5.1); SODIUM 137 mmol/L (135-144)
[2017-12-09] MEDS: LANSOPRAZOLE 30 MG CAP GTB (06:36)
[2017-12-09] MEDS: SEVELAMER CARBONATE 0.8 GM PKT NGT ×3 (06:36→18:33)
[2017-12-09 08:47] LABS: AADO2 Arterial 111.8 mmHg (7.0-24.0); Allen Test ACCEPTAB; Arterial Blood Gas Oxygen Sat 92.5 mmHG (95.0-98.0); Arterial COHb 1.6 % (0.0-3.0); Arterial Fraction of Oxyhgb 90.9 % (93.0-99.0); Arterial HCO3 28.5 mmol/L (22.0-26.0); Arterial MetHb 0.1 % (0.0-1.5); Arterial Total Hemglobin 12.2 g/dl (12.0-18.0); Arterial pCO2 59.6 mmhg (35-45); MODE TRACH COLLAR; Site Right Radial
[2017-12-09] MEDS: DOCUSATE SODIUM 10 MG/ML (10ML CUP) NGT ×2 (09:01→20:25)
[2017-12-09] MEDS: CALCITRIOL (1 MCG/ML PO SYG) NGT (09:01)
[2017-12-09] MEDS: LORAZEPAM 2 MG INJ IV (09:01)
[2017-12-09] MEDS: FOLIC ACID 1 MG TAB GTB (09:02)
[2017-12-09] MEDS: LEVOTHYROXINE 125 MCG TAB GTB ×2 (09:02→20:25)
[2017-12-09] MEDS: LIOTHYRONINE 5 MCG TAB GTB ×2 (09:02→20:24)
[2017-12-09] MEDS: CHOLECALCIFEROL 1,000 UNIT TAB GTB (09:02)
[2017-12-09] MEDS: FISH OIL 1,000 MG CAP PO ×2 (09:02→20:25)
[2017-12-09] MEDS: CARBAMIDE PEROXIDE 6.5% 15ML OTIC BOTH EARS ×2 (09:03→20:24)
[2017-12-09] MEDS: MODAFINIL 200 MG TAB NGT (09:08)
[2017-12-09] MEDS: LIDOCAINE 1% (MDV) 10 ML INJ (12:47)
[2017-12-09 12:54] LABS: FLD MN% 74.3 %; FLD PMN% 25.7 %; FLD RBC 8000 /uL; FLD WBC 642 /cmm
[2017-12-09 13:43] LABS: FLUID LD 302 U/L; FLUID TOTAL PROTEIN 5.2 g/dl; FLUID TYPE THORACENTESIS FLUID
[2017-12-09 13:52] LABS: FLUID GLUCOSE 83 mg/dl; FLUID TYPE THORACENTESIS FLUID
[2017-12-09 14:39] LABS: FLD CLARITY CLOUDY
[2017-12-09 14:39] LABS: FLD TYPE THORACENTHESIS
[2017-12-09 14:40] LABS: FLD COLOR YELLOW; PATH REVIEW? YES
[2017-12-09 14:59] LABS: ANISOCYTOSIS 2+ (0-0); BAND NEUTROPHILS #M 1.3 10^3/ul (0.0-0.6); BAND NEUTROPHILS % (M) 14 % (0-4); BASOPHILS % (M) 1 % (0-2); EOSINOPHILS % (M) 1 % (0-7); LYMPHOCYTES #M 0.7 10^3/ul (0.8-2.9); LYMPHOCYTES % (M) 8 % (15-51); METAMYELOCYTES %M 1 % (0-0); MICROCYTOSIS 1+ (0-0); MONOCYTE #M 0.6 10^3/ul (0.3-0.9); MONOCYTES % (M) 7 % (0-11); MYELOCYTES #M 0.1 10^3/ul (0.0-0.0); MYELOCYTES % (M) 2 % (0-0); PLATELET ESTIMATE NORMAL; POLYCHROMASIA 3+ (0-0); REACTIVE LYMPHOCYTES #M 0.6 10^3/ul (0.0-0.0); REACTIVE LYMPHOCYTES% (M) 7 % (0-0); SEG NEUT #M 5.9 10^3/ul (1.6-7.5); SEGMENTED NEUTROPHILS (M) % 59 % (39-77); SMUDGE%M 18 % (0-0)
[2017-12-09] MEDS: ACETYLCYSTEINE 20% 4 ML VIAL NEB ×2 (15:01→19:44)
[2017-12-09] MEDS: FAMOTIDINE 20 MG TAB GTB (20:25)
[2017-12-10] MEDS: ALBUTEROL 0.083% (NEB) 2.5 MG/3 ML AMP HHN ×4 (01:35→20:18)
[2017-12-10] MEDS: ACETYLCYSTEINE 20% 4 ML VIAL NEB ×4 (01:35→20:19)
[2017-12-10 05:22] LABS: ABNORMAL IP MESSAGE 1; HEMATOCRIT 34.8 % (37.0-47.0); HEMOGLOBIN 10.6 g/dl (12.0-16.0); MEAN CORPUSCULAR HEMOGLOBIN 30.8 pg (29.0-33.0); MEAN CORPUSCULAR HGB CONC 30.5 g/dl (32.0-37.0); MEAN CORPUSCULAR VOLUME 101.2 fl (82.0-101.0); MEAN PLATELET VOLUME 10.9 fl (7.4-10.4); NUCLEATED RED BLOOD CELLS% 0.3 /100WBC (0.0-0.0); PLATELET COUNT 215 10^3/UL (140-415); RED BLOOD COUNT 3.44 10^6/ul (4.20-5.40); RED CELL DISTRIBUTION WIDTH 19.2 % (11.5-14.5)
[2017-12-10 05:22] LABS: WHITE BLOOD COUNT 8.6 10^3/ul (4.8-10.8)
[2017-12-10 05:43] LABS: ADD MAN DIFF? YES; POSITIVE DIFF @See below
[2017-12-10 05:50] LABS: ANION GAP 21 (8-16); BLOOD UREA NITROGEN 72 mg/dl (7-20); CALCIUM 8.9 mg/dl (8.4-10.2); CARBON DIOXIDE 27 mmol/L (21-31); CHLORIDE 90 mmol/L (97-110); CREATININE 6.57 mg/dl (0.44-1.00); GLUCOSE 113 mg/dl (70-220); MAGNESIUM 2.6 mg/dl (1.7-2.5); PHOSPHORUS 7.8 mg/dl (2.5-4.9); POTASSIUM 4.3 mmol/L (3.5-5.1); SODIUM 134 mmol/L (135-144)
[2017-12-10] MEDS: LANSOPRAZOLE 30 MG CAP GTB (06:00)
[2017-12-10] MEDS: PROPOFOL 100 ML IV ×2 (06:00→18:00)
[2017-12-10] MEDS: SEVELAMER CARBONATE 0.8 GM PKT NGT ×3 (06:28→17:35)
[2017-12-10 07:01] LABS: PROTEIN, TOTAL 7.8 g/dL (6.1-8.1)
[2017-12-10] MEDS: morphine 2 MG INJ IV (08:24)
[2017-12-10 08:42] LABS: ANISOCYTOSIS 1+ (0-0); BAND NEUTROPHILS #M 0.7 10^3/ul (0.0-0.6); BAND NEUTROPHILS % (M) 9 % (0-4); BASOPHIL #M 0.3 10^3/ul (0.0-0.0); BASOPHILS % (M) 4 % (0-2); ERYTHROBLAST% (NRBC) (M) 1 % (0-0); GIANT THROMBO% (M) 3 % (0-0); LYMPHOCYTES #M 1.2 10^3/ul (0.8-2.9); LYMPHOCYTES % (M) 15 % (15-51); METAMYELOCYTES #M 0.1 10^3/ul (0.0-0.0); METAMYELOCYTES %M 2 % (0-0); MICROCYTOSIS 1+ (0-0); MONOCYTE #M 0.6 10^3/ul (0.3-0.9); MONOCYTES % (M) 7 % (0-11); MYELOCYTES % (M) 1 % (0-0); PLATELET ESTIMATE NORMAL; PROMYELOCYTES % (M) 1 % (0-0); SEG NEUT #M 5.3 10^3/ul (1.6-7.5); SEGMENTED NEUTROPHILS (M) % 61 % (39-77); SMUDGE%M 3 % (0-0)
[2017-12-10] MEDS: LORAZEPAM 2 MG INJ IV ×2 (08:53→09:15)
[2017-12-10] MEDS: LEVOTHYROXINE 125 MCG TAB GTB ×2 (09:00→20:54)
[2017-12-10] MEDS: MIDAZOLAM (DRIP) 50 mg/50 mL 50 ML IV (09:10)
[2017-12-10] MEDS: MODAFINIL 200 MG TAB NGT (09:59)
[2017-12-10] MEDS: LIOTHYRONINE 5 MCG TAB GTB ×2 (09:59→20:54)
[2017-12-10] MEDS: CARBAMIDE PEROXIDE 6.5% 15ML OTIC BOTH EARS ×2 (09:59→20:56)
[2017-12-10] MEDS: DOCUSATE SODIUM 10 MG/ML (10ML CUP) NGT ×2 (09:59→20:54)
[2017-12-10] MEDS: FISH OIL 1,000 MG CAP PO ×2 (10:00→20:54)
[2017-12-10] MEDS: CHOLECALCIFEROL 1,000 UNIT TAB GTB (10:00)
[2017-12-10] MEDS: FOLIC ACID 1 MG TAB GTB (10:00)
[2017-12-10] MEDS: CALCITRIOL (1 MCG/ML PO SYG) NGT (10:01)
[2017-12-10] MEDS: DIPHENHYDRAMINE 2.5 MG/ML 5ML CUP GTB (13:52)
[2017-12-10] MEDS: FAMOTIDINE 20 MG TAB GTB (20:54)
[2017-12-11] MEDS: ALBUTEROL 0.083% (NEB) 2.5 MG/3 ML AMP HHN ×4 (01:26→19:58)
[2017-12-11] MEDS: ACETYLCYSTEINE 20% 4 ML VIAL NEB ×4 (01:26→20:10)
[2017-12-11] MEDS: PROPOFOL 100 ML IV (05:33)
[2017-12-11] MEDS: LANSOPRAZOLE 30 MG CAP GTB (05:39)
[2017-12-11 08:45] LABS: AADO2 Arterial 144.9 mmHg (7.0-24.0); Allen Test ACCEPTAB; Arterial Base Excess 3.7 mmol/L (-3.0-3); Arterial Blood Gas Oxygen Sat 96.6 mmHG (95.0-98.0); Arterial COHb 0.4 % (0.0-3.0); Arterial Fraction of Oxyhgb 96.1 % (93.0-99.0); Arterial HCO3 28.4 mmol/L (22.0-26.0); Arterial MetHb 0.1 % (0.0-1.5); Arterial Total Hemglobin 11.2 g/dl (12.0-18.0); Arterial pCO2 43.2 mmhg (35-45); MODE VENT - AC; Site Right Radial
[2017-12-11] MEDS: FISH OIL 1,000 MG CAP PO ×2 (09:00→21:00)
[2017-12-11] MEDS: CARBAMIDE PEROXIDE 6.5% 15ML OTIC BOTH EARS ×3 (09:00→21:00)
[2017-12-11] MEDS: LIOTHYRONINE 5 MCG TAB GTB ×2 (09:04→21:00)
[2017-12-11] MEDS: FOLIC ACID 1 MG TAB GTB (09:04)
[2017-12-11] MEDS: SEVELAMER CARBONATE 0.8 GM PKT NGT ×3 (09:05→16:04)
[2017-12-11] MEDS: CHOLECALCIFEROL 1,000 UNIT TAB GTB (09:05)
[2017-12-11] MEDS: DOCUSATE SODIUM 10 MG/ML (10ML CUP) NGT ×2 (09:05→21:00)
[2017-12-11] MEDS: LEVOTHYROXINE 125 MCG TAB GTB ×2 (09:11→21:00)
[2017-12-11] MEDS: LIDOCAINE 1% (MDV) 10 ML INJ (10:36)
[2017-12-11] MEDS: CALCITRIOL (1 MCG/ML PO SYG) NGT (10:53)
[2017-12-11 13:08] LABS: AADO2 Arterial 105.4 mmHg (7.0-24.0); Allen Test ACCEPTAB; Arterial Base Excess 3.4 mmol/L (-3.0-3); Arterial Blood Gas Oxygen Sat 98.1 mmHG (95.0-98.0); Arterial COHb 0.5 % (0.0-3.0); Arterial Fraction of Oxyhgb 97.4 % (93.0-99.0); Arterial HCO3 29.4 mmol/L (22.0-26.0); Arterial MetHb 0.2 % (0.0-1.5); Arterial Total Hemglobin 11.5 g/dl (12.0-18.0); Arterial pCO2 51.5 mmhg (35-45); Blood Gas PS 10; MODE VENT - CPAP/PS; Site Right Radial
[2017-12-11 18:01] LABS: HEPATITIS B SURFACE ANTIGEN NEGATIVE (NEGATIVE)
[2017-12-11] MEDS: ALBUTEROL/IPRATROPIUM (NEB) 3 ML AMP HHN ×2 (18:43→22:34)
[2017-12-11] MEDS: FAMOTIDINE 20 MG TAB GTB (21:00)
[2017-12-12 00:10] LABS: AADO2 Arterial 45.8 mmHg (7.0-24.0); Allen Test ACCEPTAB; Arterial Base Excess -0.2 mmol/L (-3.0-3); Arterial Blood Gas Oxygen Sat 95.1 mmHG (95.0-98.0); Arterial COHb 1.1 % (0.0-3.0); Arterial Fraction of Oxyhgb 93.8 % (93.0-99.0); Arterial HCO3 26.8 mmol/L (22.0-26.0); Arterial MetHb 0.3 % (0.0-1.5); Arterial Total Hemglobin 11.7 g/dl (12.0-18.0); Arterial pCO2 54.7 mmhg (35-45); MODE NASAL CANNULA; Site Right Radial
[2017-12-12] MEDS: ALBUTEROL 0.083% (NEB) 2.5 MG/3 ML AMP HHN ×4 (00:50→19:51)
[2017-12-12] MEDS: ACETYLCYSTEINE 20% 4 ML VIAL NEB ×4 (01:00→19:51)
[2017-12-12 05:45] LABS: WHITE BLOOD COUNT 7.8 10^3/ul (4.8-10.8)
[2017-12-12 05:45] LABS: ABNORMAL IP MESSAGE 1; HEMATOCRIT 35.2 % (37.0-47.0); HEMOGLOBIN 10.6 g/dl (12.0-16.0); MEAN CORPUSCULAR HEMOGLOBIN 30.3 pg (29.0-33.0); MEAN CORPUSCULAR HGB CONC 30.1 g/dl (32.0-37.0); MEAN CORPUSCULAR VOLUME 100.6 fl (82.0-101.0); MEAN PLATELET VOLUME 10.5 fl (7.4-10.4); PLATELET COUNT 218 10^3/UL (140-415); RED CELL DISTRIBUTION WIDTH 19.2 % (11.5-14.5)
[2017-12-12 05:47] LABS: ADD MAN DIFF? YES; POSITIVE DIFF @See below
[2017-12-12] MEDS: LANSOPRAZOLE 30 MG CAP GTB (06:00)
[2017-12-12 06:13] LABS: INR 1.31; PROTIME 16.5 Sec (11.9-14.9); PT RATIO 1.3
[2017-12-12 06:17] LABS: URIC ACID 9.1 mg/dl (3.1-7.9)
[2017-12-12 06:31] LABS: FREE T4 (FREE THYROXINE) 1.38 ng/dl (0.64-1.79)
[2017-12-12 06:31] LABS: FREE T3 3.06 pg/ml (2.77-5.27)
[2017-12-12] MEDS: SEVELAMER CARBONATE 0.8 GM PKT NGT ×2 (07:35→13:44)
[2017-12-12 08:21] LABS: ANISOCYTOSIS 1+ (0-0); BAND NEUTROPHILS #M 0.6 10^3/ul (0.0-0.6); BAND NEUTROPHILS % (M) 8 % (0-4); EOSINOPHILS % (M) 2 % (0-7); ERYTHROBLAST% (NRBC) (M) 1 % (0-0); LYMPHOCYTES #M 0.9 10^3/ul (0.8-2.9); LYMPHOCYTES % (M) 12 % (15-51); METAMYELOCYTES #M 0.1 10^3/ul (0.0-0.0); METAMYELOCYTES %M 2 % (0-0); MICROCYTOSIS 1+ (0-0); MONOCYTE #M 0.3 10^3/ul (0.3-0.9); MONOCYTES % (M) 5 % (0-11); MYELOCYTES #M 0.1 10^3/ul (0.0-0.0); MYELOCYTES % (M) 2 % (0-0); PLATELET ESTIMATE NORMAL; REACTIVE LYMPHOCYTES% (M) 1 % (0-0); SEG NEUT #M 5.4 10^3/ul (1.6-7.5); SEGMENTED NEUTROPHILS (M) % 68 % (39-77)
[2017-12-12] MEDS: CARBAMIDE PEROXIDE 6.5% 15ML OTIC BOTH EARS (13:42)
[2017-12-12] MEDS: FOLIC ACID 1 MG TAB GTB (13:43)
[2017-12-12] MEDS: CHOLECALCIFEROL 1,000 UNIT TAB GTB (13:43)
[2017-12-12] MEDS: FISH OIL 1,000 MG CAP PO ×2 (13:43→20:41)
[2017-12-12] MEDS: LIOTHYRONINE 5 MCG TAB GTB (13:43)
[2017-12-12] MEDS: LEVOTHYROXINE 125 MCG TAB GTB (13:43)
[2017-12-12] MEDS: CALCITRIOL (1 MCG/ML PO SYG) NGT (13:44)
[2017-12-12] MEDS: DOCUSATE SODIUM 10 MG/ML (10ML CUP) NGT (13:44)
[2017-12-12 13:52] LABS: ANA SCREEN NEGATIVE (NEGATIVE)
[2017-12-12] MEDS ORDERED: MAGNESIUM HYDROXIDE 30ML CUP PO (14:30)
[2017-12-12 14:36] LABS: ANCA SCREEN NEGATIVE (NEGATIVE)
[2017-12-12] MEDS ORDERED: ACETAMINOPHEN 325 MG TAB PO (15:00)
[2017-12-12] MEDS ORDERED: HYDROCODONE/APAP (5/325) TAB PO (15:00)
[2017-12-12 16:07] LABS: ALBUMIN 3.6 g/dL (3.8-4.8); ALPHA-1-GLOBULINS 0.6 g/dL (0.2-0.3); ALPHA-2-GLOBULINS 0.8 g/dL (0.5-0.9); BETA 2 GLOBULINS 0.6 g/dL (0.2-0.5); BETA GLOBULINS 0.5 g/dL (0.4-0.6); GAMMA GLOBULINS 1.8 g/dL (0.8-1.7)
[2017-12-12] MEDS: ALBUTEROL/IPRATROPIUM (NEB) 3 ML AMP HHN (16:28)
[2017-12-12] MEDS: SEVELAMER CARBONATE 0.8 GM PKT PO (17:28)
[2017-12-12] MEDS: EPOETIN 10000 UNITS/1 ML INJ (ESRD) SC (17:29)
[2017-12-12] MEDS: LIOTHYRONINE 5 MCG TAB PO (20:41)
[2017-12-12] MEDS: LEVOTHYROXINE 137 MCG TAB PO (20:42)
[2017-12-12] MEDS: DOCUSATE SODIUM 10 MG/ML (10ML CUP) PO (20:42)
[2017-12-12] MEDS ORDERED: LEVOTHYROXINE 137 MCG TAB GTB (21:00)
[2017-12-12] MEDS ORDERED: FAMOTIDINE 20 MG TAB PO (21:00)
[2017-12-12 21:22] LABS: MYELOPEROXIDASE ANTIBODY <1.0 AI; PROTEINASE-3 ANTIBODY <1.0 AI
[2017-12-12] MEDS: HEPARIN 5,000 UNIT/0.5 ML VIAL SC (22:38)
[2017-12-13] MEDS: ALBUTEROL 0.083% (NEB) 2.5 MG/3 ML AMP HHN ×6 (01:35→19:45)
[2017-12-13] MEDS: ACETYLCYSTEINE 20% 4 ML VIAL NEB ×4 (01:35→19:45)
[2017-12-13] MEDS: HEPARIN 5,000 UNIT/0.5 ML VIAL SC ×3 (05:24→22:31)
[2017-12-13 05:31] LABS: ADD MAN DIFF? NO
[2017-12-13 05:42] LABS: BASOPHIL # 0.1 10^3/ul (0.0-0.1); BASOPHILS % 1.2 % (0.0-2.0); EOSINOPHILS # 0.2 10^3/ul (0.0-0.5); EOSINOPHILS % 2.9 % (0.0-7.0); HEMATOCRIT 35.6 % (37.0-47.0); HEMOGLOBIN 10.6 g/dl (12.0-16.0); LYMPHOCYTES # 0.9 10^3/ul (0.8-2.9); MEAN CORPUSCULAR HEMOGLOBIN 30.4 pg (29.0-33.0); MEAN CORPUSCULAR HGB CONC 29.8 g/dl (32.0-37.0); MEAN PLATELET VOLUME 10.3 fl (7.4-10.4); MONOCYTE # 0.6 10^3/ul (0.3-0.9); MONOCYTES % 8.1 % (0.0-11.0); NEUTROPHIL # 5.4 10^3/ul (1.6-7.5); NEUTROPHILS % 72.2 % (39.0-77.0); PLATELET COUNT 224 10^3/UL (140-415); RED BLOOD COUNT 3.49 10^6/ul (4.20-5.40); RED CELL DISTRIBUTION WIDTH 19.2 % (11.5-14.5)
[2017-12-13 05:42] LABS: WHITE BLOOD COUNT 7.5 10^3/ul (4.8-10.8)
[2017-12-13 05:56] LABS: ANION GAP 17 (8-16); BLOOD UREA NITROGEN 44 mg/dl (7-20); CALCIUM 9.2 mg/dl (8.4-10.2); CARBON DIOXIDE 30 mmol/L (21-31); CHLORIDE 96 mmol/L (97-110); CREATININE 5.15 mg/dl (0.44-1.00); GLUCOSE 88 mg/dl (70-220); MAGNESIUM 2.3 mg/dl (1.7-2.5); PHOSPHORUS 5.7 mg/dl (2.5-4.9); SODIUM 138 mmol/L (135-144)
[2017-12-13 05:57] LABS: ALANINE AMINOTRANSFERASE 24 IU/L (13-69); ALBUMIN 3.7 g/dl (3.3-4.9); ALBUMIN/GLOBULIN RATIO 0.86; ALKALINE PHOSPHATASE 128 IU/L (42-121); ANION GAP 18 (8-16); ASPARTATE AMINO TRANSFERASE 19 IU/L (15-46); BILIRUBIN,INDIRECT 0.2 mg/dl (0-1.1); BILIRUBIN,TOTAL 0.2 mg/dl (0.2-1.3); BLOOD UREA NITROGEN 42 mg/dl (7-20); CALCIUM 9.3 mg/dl (8.4-10.2); CARBON DIOXIDE 31 mmol/L (21-31); CHLORIDE 95 mmol/L (97-110); CREATININE 5.43 mg/dl (0.44-1.00); GLUCOSE 90 mg/dl (70-220); POTASSIUM 4.6 mmol/L (3.5-5.1); SODIUM 139 mmol/L (135-144)
[2017-12-13] MEDS ORDERED: PANTOPRAZOLE (EC) 40 MG TAB PO (06:00)
[2017-12-13] MEDS: DOCUSATE SODIUM 10 MG/ML (10ML CUP) PO ×2 (08:32→21:00)
[2017-12-13] MEDS: SEVELAMER CARBONATE 0.8 GM PKT PO ×3 (08:33→18:48)
[2017-12-13] MEDS: FISH OIL 1,000 MG CAP PO ×2 (08:33→21:00)
[2017-12-13] MEDS: CALCITRIOL 0.25 MCG CAP PO (08:33)
[2017-12-13] MEDS: CHOLECALCIFEROL 1,000 UNIT TAB PO (08:33)
[2017-12-13] MEDS: LEVOTHYROXINE 137 MCG TAB PO ×2 (08:33→21:00)
[2017-12-13] MEDS: LIOTHYRONINE 5 MCG TAB PO ×2 (08:33→21:00)
[2017-12-13] MEDS: FOLIC ACID 1 MG TAB PO (08:34)
[2017-12-13] MEDS: CEPASTAT LOZENGE MT (16:38)
[2017-12-14] MEDS: ACETYLCYSTEINE 20% 4 ML VIAL NEB ×4 (01:33→19:46)
[2017-12-14] MEDS: ALBUTEROL 0.083% (NEB) 2.5 MG/3 ML AMP HHN ×3 (01:34→19:37)
[2017-12-14] MEDS: HEPARIN 5,000 UNIT/0.5 ML VIAL SC ×3 (06:00→20:44)
[2017-12-14] MEDS: CHOLECALCIFEROL 1,000 UNIT TAB PO (08:10)
[2017-12-14] MEDS: FOLIC ACID 1 MG TAB PO (08:10)
[2017-12-14] MEDS: CALCITRIOL 0.25 MCG CAP PO (08:10)
[2017-12-14] MEDS: SEVELAMER CARBONATE 0.8 GM PKT PO ×3 (08:10→17:11)
[2017-12-14] MEDS: FISH OIL 1,000 MG CAP PO ×2 (08:10→20:35)
[2017-12-14] MEDS: DOCUSATE SODIUM 10 MG/ML (10ML CUP) PO ×2 (08:11→20:35)
[2017-12-14] MEDS: LEVOTHYROXINE 137 MCG TAB PO ×2 (09:28→20:45)
[2017-12-14] MEDS: LIOTHYRONINE 5 MCG TAB PO ×2 (09:28→20:45)
[2017-12-14] MEDS: EPOETIN 10000 UNITS/1 ML INJ (ESRD) SC (17:50)
[2017-12-14 18:06] LABS: PTH CALCIUM 9.2 mg/dL (8.6-10.2)
[2017-12-15] MEDS: ALBUTEROL 0.083% (NEB) 2.5 MG/3 ML AMP HHN ×3 (02:02→19:29)
[2017-12-15] MEDS: ACETYLCYSTEINE 20% 4 ML VIAL NEB ×4 (02:12→19:29)
[2017-12-15] MEDS: HEPARIN 5,000 UNIT/0.5 ML VIAL SC ×3 (05:55→23:02)
[2017-12-15 08:02] LABS: PTH INTACT 91 pg/mL (14-64)
[2017-12-15] MEDS: LEVOTHYROXINE 137 MCG TAB PO ×2 (09:00→20:48)
[2017-12-15] MEDS: LIOTHYRONINE 5 MCG TAB PO ×2 (09:00→20:48)
[2017-12-15] MEDS: SEVELAMER CARBONATE 0.8 GM PKT PO ×3 (09:30→17:06)
[2017-12-15] MEDS: FOLIC ACID 1 MG TAB PO (10:05)
[2017-12-15] MEDS: FISH OIL 1,000 MG CAP PO ×2 (10:05→20:49)
[2017-12-15] MEDS: CHOLECALCIFEROL 1,000 UNIT TAB PO (10:05)
[2017-12-15] MEDS: DOCUSATE SODIUM 10 MG/ML (10ML CUP) PO ×2 (10:05→20:48)
[2017-12-15] MEDS: CALCITRIOL 0.25 MCG CAP PO (10:05)
[2017-12-15] MEDS: ALBUTEROL/IPRATROPIUM (NEB) 3 ML AMP HHN (14:23)
[2017-12-15 22:27] LABS: HEPATITIS B SURFACE ANTIGEN NEGATIVE (NEGATIVE)
[2017-12-15] MEDS: DIPHENHYDRAMINE 50 MG INJ IV (23:00)
[2017-12-15] MEDS: DIPHENHYDRAMINE 2.5 MG/ML 5ML CUP PO (23:05)
[2017-12-16] MEDS: ALBUTEROL 0.083% (NEB) 2.5 MG/3 ML AMP HHN ×2 (01:38→13:23)
[2017-12-16] MEDS: ACETYLCYSTEINE 20% 4 ML VIAL NEB ×3 (01:38→13:34)
[2017-12-16] MEDS ORDERED: DIPHENHYDRAMINE 50 MG INJ IV (04:00)
[2017-12-16] MEDS: HEPARIN 5,000 UNIT/0.5 ML VIAL SC (06:40)
[2017-12-16] MEDS: ALBUTEROL/IPRATROPIUM (NEB) 3 ML AMP HHN (08:07)
[2017-12-16] MEDS: SEVELAMER CARBONATE 0.8 GM PKT PO ×3 (08:44→17:55)
[2017-12-16] MEDS: DOCUSATE SODIUM 10 MG/ML (10ML CUP) PO (08:45)
[2017-12-16] MEDS: CALCITRIOL 0.25 MCG CAP PO (08:45)
[2017-12-16] MEDS: LEVOTHYROXINE 137 MCG TAB PO ×2 (08:45→20:48)
[2017-12-16] MEDS: LIOTHYRONINE 5 MCG TAB PO ×2 (08:45→20:48)
[2017-12-16] MEDS: CHOLECALCIFEROL 1,000 UNIT TAB PO (08:45)
[2017-12-16] MEDS: FISH OIL 1,000 MG CAP PO (08:45)
[2017-12-16] MEDS: FOLIC ACID 1 MG TAB PO (08:45)
[2017-12-16] MEDS: EUCERIN 113 GM CR TOP (08:47)
[2017-12-16] MEDS ORDERED: ALLOPURINOL 100 MG TAB PO (09:00)
[2017-12-16] MEDS: FLUCONAZOLE 150 MG TAB PO (10:32)
[2017-12-16 10:58] LABS: ADD UMIC YES; UR AMORPHOUS CRYSTAL FEW /HPF (NONE SEEN); UR ASCORBIC ACID NEGATIVE (NEGATIVE); UR BACTERIA FEW /HPF (NONE SEEN); UR BILIRUBIN (Dip) NEGATIVE (NEGATIVE); UR BLOOD (Dip) 1+ mg/dL (NEGATIVE); UR CLARITY CLOUDY (CLEAR); UR COLOR AMBER (YELLOW); UR GLUCOSE (Dip) 1+ mg/dL (NEGATIVE); UR KETONES (Dip) NEGATIVE (NEGATIVE); UR LEUKOCYTE ESTERASE (Dip) NEGATIVE Leu/ul (NEGATIVE); UR MUCUS FEW /HPF (NONE SEEN); UR NITRITE (Dip) NEGATIVE (NEGATIVE); UR NONSQUAMOUS EPITHELIAL CELL 8 /HPF (NONE SEEN); UR RBC 149 /HPF (0-5); UR SPECIFIC GRAVITY (Dip) 1.026 (1.003-1.030); UR SQUAMOUS EPITHELIAL CELL MANY /HPF (FEW); UR TOTAL PROTEIN (Dip) 3+ mg/dl (NEGATIVE); UR UROBILINOGEN (Dip) NEGATIVE (NEGATIVE); UR WBC 117 /HPF (0-5)
[2017-12-16] MEDS: DIPHENHYDRAMINE 2.5 MG/ML 5ML CUP PO (11:54)
[2017-12-16] MEDS: GUAIFENESIN/DM 5ML CUP PO (12:44)
[2017-12-16 14:06] LABS: ADD MAN DIFF? NO
[2017-12-16 14:09] LABS: BASOPHIL # 0.1 10^3/ul (0.0-0.1); BASOPHILS % 0.9 % (0.0-2.0); EOSINOPHILS # 0.2 10^3/ul (0.0-0.5); EOSINOPHILS % 2.3 % (0.0-7.0); HEMOGLOBIN 11.4 g/dl (12.0-16.0); LYMPHOCYTES # 0.8 10^3/ul (0.8-2.9); LYMPHOCYTES % 10.8 % (15.0-51.0); MEAN CORPUSCULAR HEMOGLOBIN 30.3 pg (29.0-33.0); MEAN CORPUSCULAR HGB CONC 30.8 g/dl (32.0-37.0); MEAN CORPUSCULAR VOLUME 98.4 fl (82.0-101.0); MEAN PLATELET VOLUME 10.2 fl (7.4-10.4); MONOCYTE # 0.5 10^3/ul (0.3-0.9); MONOCYTES % 5.9 % (0.0-11.0); NEUTROPHIL # 6.1 10^3/ul (1.6-7.5); NEUTROPHILS % 78.7 % (39.0-77.0); PLATELET COUNT 234 10^3/UL (140-415); RED BLOOD COUNT 3.76 10^6/ul (4.20-5.40); RED CELL DISTRIBUTION WIDTH 18.6 % (11.5-14.5)
[2017-12-16 14:09] LABS: WHITE BLOOD COUNT 7.8 10^3/ul (4.8-10.8)
[2017-12-16 14:25] LABS: ALANINE AMINOTRANSFERASE 19 IU/L (13-69); ALBUMIN 3.9 g/dl (3.3-4.9); ALKALINE PHOSPHATASE 112 IU/L (42-121); ASPARTATE AMINO TRANSFERASE 15 IU/L (15-46); BILIRUBIN,INDIRECT 0.3 mg/dl (0-1.1); BILIRUBIN,TOTAL 0.3 mg/dl (0.2-1.3); TOTAL PROTEIN 8.2 g/dl (6.1-8.1)
[2017-12-16] MEDS: EPOETIN 10000 UNITS/1 ML INJ (ESRD) SC (17:56)
[2017-12-17] MEDS: ACETYLCYSTEINE 20% 4 ML VIAL NEB ×3 (01:38→13:15)
[2017-12-17] MEDS: ALBUTEROL/IPRATROPIUM (NEB) 3 ML AMP HHN ×4 (01:38→13:15)
[2017-12-17] MEDS: DIPHENHYDRAMINE 2.5 MG/ML 5ML CUP PO (05:48)
[2017-12-17 05:55] LABS: ADD MAN DIFF? NO
[2017-12-17 05:59] LABS: BASOPHIL # 0.1 10^3/ul (0.0-0.1); EOSINOPHILS # 0.2 10^3/ul (0.0-0.5); EOSINOPHILS % 2.6 % (0.0-7.0); HEMOGLOBIN 11.6 g/dl (12.0-16.0); LYMPHOCYTES # 0.9 10^3/ul (0.8-2.9); LYMPHOCYTES % 11.9 % (15.0-51.0); MEAN CORPUSCULAR HEMOGLOBIN 30.5 pg (29.0-33.0); MEAN CORPUSCULAR HGB CONC 30.5 g/dl (32.0-37.0); MEAN PLATELET VOLUME 10.5 fl (7.4-10.4); MONOCYTE # 0.4 10^3/ul (0.3-0.9); MONOCYTES % 5.7 % (0.0-11.0); NEUTROPHILS % 77.6 % (39.0-77.0); PLATELET COUNT 260 10^3/UL (140-415); RED CELL DISTRIBUTION WIDTH 18.6 % (11.5-14.5)
[2017-12-17 05:59] LABS: WHITE BLOOD COUNT 7.7 10^3/ul (4.8-10.8)
[2017-12-17 06:27] LABS: ALANINE AMINOTRANSFERASE 22 IU/L (13-69); ALBUMIN 3.8 g/dl (3.3-4.9); ALBUMIN/GLOBULIN RATIO 0.84; ALKALINE PHOSPHATASE 119 IU/L (42-121); ANION GAP 17 (8-16); ASPARTATE AMINO TRANSFERASE 17 IU/L (15-46); BILIRUBIN,INDIRECT 0.2 mg/dl (0-1.1); BILIRUBIN,TOTAL 0.2 mg/dl (0.2-1.3); BLOOD UREA NITROGEN 40 mg/dl (7-20); CALCIUM 9.5 mg/dl (8.4-10.2); CARBON DIOXIDE 29 mmol/L (21-31); CHLORIDE 96 mmol/L (97-110); CREATININE 4.91 mg/dl (0.44-1.00); GLUCOSE 95 mg/dl (70-220); POTASSIUM 4.6 mmol/L (3.5-5.1); SODIUM 137 mmol/L (135-144); TOTAL PROTEIN 8.3 g/dl (6.1-8.1); URIC ACID 4.9 mg/dl (3.1-7.9)
[2017-12-17 06:33] LABS: PHOSPHORUS 4.5 mg/dl (2.5-4.9)
[2017-12-17] MEDS: ALBUTEROL 0.083% (NEB) 2.5 MG/3 ML AMP HHN (07:31)
[2017-12-17] MEDS: EUCERIN 113 GM CR TOP (09:44)
[2017-12-17] MEDS: SEVELAMER CARBONATE 0.8 GM PKT PO ×2 (09:44→12:36)
[2017-12-17] MEDS: LEVOTHYROXINE 137 MCG TAB PO (09:44)
[2017-12-17] MEDS: LIOTHYRONINE 5 MCG TAB PO (09:44)
[2017-12-17 10:20] LABS: FREE T4 (FREE THYROXINE) 1.57 ng/dl (0.64-1.79)
[2017-12-17 13:02] LABS: FREE T3 2.73 pg/ml (2.77-5.27)
[2017-12-18 18:46] LABS: MYELIN BASIC PROTEIN <2.0 mcg/L (2.0-4.0); OLIGOCLONAL BANDS, CSF BANDS NOTED (NO BANDS)
== END 2017-12-17 15:40 | DRG 80 ==
LOC: TEL 12-13 17:56 → E/R 11:38 → ICU 16:11 → MS1 12-15 08:00 → MS4 14:14 → ICU 17:34
PROC: 5A1D70Z Performance of Urinary Filtration, Intermittent, Less than 6 Hours Per Day (ICD-10-PCS; 2017-11-12)
PROC: 5A1955Z Respiratory Ventilation, Greater than 96 Consecutive Hours (ICD-10-PCS; principal; 2017-11-13)
PROC: 0BH17EZ Insertion of Endotracheal Airway into Trachea, Via Natural or Artificial Opening (ICD-10-PCS; 2017-11-13)
PROC: 30233N1 Transfusion of Nonautologous Red Blood Cells into Peripheral Vein, Percutaneous Approach (ICD-10-PCS; 2017-11-26)
PROC: 009U3ZX Drainage of Spinal Canal, Percutaneous Approach, Diagnostic (ICD-10-PCS; 2017-12-03)
PROC: 02HV33Z Insertion of Infusion Device into Superior Vena Cava, Percutaneous Approach (ICD-10-PCS; 2017-12-08)
PROC: 0W9B3ZZ Drainage of Left Pleural Cavity, Percutaneous Approach (ICD-10-PCS; 2017-12-09)
PROC: 0W9B3ZZ Drainage of Left Pleural Cavity, Percutaneous Approach (ICD-10-PCS; 2017-12-11)
DX: E03.5 Myxedema coma (principal); N18.6 End stage renal disease; J96.02 Acute respiratory failure with hypercapnia; I21.A1 Myocardial infarction type 2; J96.01 Acute respiratory failure with hypoxia; J18.9 Pneumonia, unspecified organism; I12.0 Hypertensive chronic kidney disease with stage 5 chronic kidney disease or end stage renal disease; E87.2 Acidosis; I31.3 Pericardial effusion (noninflammatory); J90 Pleural effusion, not elsewhere classified; J44.9 Chronic obstructive pulmonary disease, unspecified; E11.22 Type 2 diabetes mellitus with diabetic chronic kidney disease; I95.9 Hypotension, unspecified; I48.91 Unspecified atrial fibrillation; K74.60 Unspecified cirrhosis of liver; D63.1 Anemia in chronic kidney disease; E78.5 Hyperlipidemia, unspecified; E66.9 Obesity, unspecified; E55.9 Vitamin D deficiency, unspecified; G47.33 Obstructive sleep apnea (adult) (pediatric); K80.20 Calculus of gallbladder without cholecystitis without obstruction; L27.0 Generalized skin eruption due to drugs and medicaments taken internally; M62.81 Muscle weakness (generalized); Z53.29 Procedure and treatment not carried out because of patient's decision for other reasons; Z99.2 Dependence on renal dialysis; Z68.37 Body mass index [BMI] 37.0-37.9, adult; Z91.14 Patient's other noncompliance with medication regimen
CPT/HCPCS: 31500; 32555; 36415; 36430; 36569; 36600; 70450; 70551; 71045; 71250; 76700; 76705; 76937; 76942; 78226; 80048; 80053; 80061; 80076; 80202; 81001; 82040; 82042; 82140; 82306; 82533; 82550; 82553; 82607; 82652; 82728; 82784; 82803; 82945; 82962; 83036; 83540; 83605; 83615; 83690; 83735; 83873; 83916; 83970; 84100; 84132; 84155; 84157; 84165; 84439; 84443; 84481; 84484; 84560; 84703; 85025; 85378; 85384; 85610; 85730; 86021; 86022; 86038; 86320; 86592; 86635; 86706; 86803; 86850; 86900; 86901; 86920; 87040; 87070; 87077; 87081; 87086; 87102; 87116; 87340; 87529; 88104; 88305; 88341; 88342; 89051; 90935; 92610; 93005; 93306; 93308; 94002; 94003; 94640; 94660; 94664; 94667; 94668; 94770; 97116; 97162; 97530; 99285-25

== ENCOUNTER 2017-12-17 17:41 | Inpatient (IN) | payer OTHER ==
[2017-12-17] MEDS ORDERED: MAGNESIUM HYDROXIDE 30ML CUP PO ×2 (18:00→19:55)
[2017-12-17] MEDS ORDERED: LACTULOSE 30ML CUP PO (18:00)
[2017-12-17] MEDS ORDERED: CALCITRIOL 0.25 MCG CAP PO (19:55)
[2017-12-17] MEDS ORDERED: ALLOPURINOL 100 MG TAB PO (19:55)
[2017-12-17] MEDS ORDERED: DIPHENHYDRAMINE 2.5 MG/ML 5ML CUP PO (19:55)
[2017-12-17] MEDS ORDERED: CHOLECALCIFEROL 1,000 UNIT TAB PO (19:55)
[2017-12-17] MEDS ORDERED: NACL 0.9% 3 ML SYG IV (19:55)
[2017-12-17] MEDS ORDERED: ALBUTEROL/IPRATROPIUM (NEB) 3 ML AMP HHN ×2 (19:55)
[2017-12-17] MEDS ORDERED: BISACODYL 10 MG SUPP PR (19:55)
[2017-12-17] MEDS ORDERED: SEVELAMER CARBONATE 0.8 GM PKT PO (19:55)
[2017-12-17] MEDS ORDERED: ALBUTEROL 0.083% (NEB) 2.5 MG/3 ML AMP HHN (19:55)
[2017-12-17] MEDS ORDERED: HEPARIN 5,000 UNIT/0.5 ML VIAL SC (19:55)
[2017-12-17] MEDS ORDERED: ACETYLCYSTEINE 20% 4 ML VIAL NEB ×3 (19:55→20:30)
[2017-12-17] MEDS: SENNA TAB PO (21:00)
[2017-12-17] MEDS ORDERED: DOCUSATE SODIUM 100 MG CAP PO (21:00)
[2017-12-17] MEDS: LIOTHYRONINE 5 MCG TAB PO (21:38)
[2017-12-17] MEDS: LEVOTHYROXINE 137 MCG TAB PO (21:38)
[2017-12-18 09:05] LABS: ADD MAN DIFF? NO
[2017-12-18] MEDS: LIOTHYRONINE 5 MCG TAB PO ×2 (09:09→20:40)
[2017-12-18] MEDS: hydrOXYzine HCL 25 MG TAB PO ×2 (09:10→17:23)
[2017-12-18] MEDS: LEVOTHYROXINE 137 MCG TAB PO ×2 (09:10→20:40)
[2017-12-18] MEDS: EUCERIN 113 GM CR TOP (09:10)
[2017-12-18 09:18] LABS: BASOPHIL # 0.1 10^3/ul (0.0-0.1); BASOPHILS % 0.8 % (0.0-2.0); EOSINOPHILS # 0.2 10^3/ul (0.0-0.5); EOSINOPHILS % 2.9 % (0.0-7.0); HEMATOCRIT 37.6 % (37.0-47.0); HEMOGLOBIN 11.3 g/dl (12.0-16.0); LYMPHOCYTES # 0.8 10^3/ul (0.8-2.9); LYMPHOCYTES % 11.1 % (15.0-51.0); MEAN CORPUSCULAR HEMOGLOBIN 30.3 pg (29.0-33.0); MEAN CORPUSCULAR HGB CONC 30.1 g/dl (32.0-37.0); MEAN CORPUSCULAR VOLUME 100.8 fl (82.0-101.0); MEAN PLATELET VOLUME 10.5 fl (7.4-10.4); MONOCYTE # 0.5 10^3/ul (0.3-0.9); MONOCYTES % 7.2 % (0.0-11.0); NEUTROPHIL # 5.5 10^3/ul (1.6-7.5); NEUTROPHILS % 76.5 % (39.0-77.0); PLATELET COUNT 259 10^3/UL (140-415); RED BLOOD COUNT 3.73 10^6/ul (4.20-5.40); RED CELL DISTRIBUTION WIDTH 18.6 % (11.5-14.5)
[2017-12-18 09:18] LABS: WHITE BLOOD COUNT 7.2 10^3/ul (4.8-10.8)
[2017-12-18 09:26] LABS: ALANINE AMINOTRANSFERASE 21 IU/L (13-69); ALBUMIN 3.7 g/dl (3.3-4.9); ALBUMIN/GLOBULIN RATIO 0.88; ALKALINE PHOSPHATASE 110 IU/L (42-121); ANION GAP 18 (8-16); ASPARTATE AMINO TRANSFERASE 22 IU/L (15-46); BILIRUBIN,INDIRECT 0.1 mg/dl (0-1.1); BILIRUBIN,TOTAL 0.1 mg/dl (0.2-1.3); BLOOD UREA NITROGEN 66 mg/dl (7-20); CALCIUM 9.4 mg/dl (8.4-10.2); CARBON DIOXIDE 26 mmol/L (21-31); CHLORIDE 94 mmol/L (97-110); CREATININE 6.46 mg/dl (0.44-1.00); GLUCOSE 79 mg/dl (70-220); SODIUM 133 mmol/L (135-144); TOTAL PROTEIN 7.9 g/dl (6.1-8.1)
[2017-12-18] MEDS ORDERED: PENDING SANTYL ORDER FOR WOUND CARE XX (16:30)
[2017-12-18] MEDS: BETAMETHASONE/CLOTRIMAZOLE 15 GM CR TOP (20:39)
[2017-12-18] MEDS: SENNA TAB PO (20:40)
[2017-12-19] MEDS: LEVOTHYROXINE 137 MCG TAB PO ×2 (09:13→21:40)
[2017-12-19] MEDS: LIOTHYRONINE 5 MCG TAB PO ×2 (09:13→21:40)
[2017-12-19] MEDS: BETAMETHASONE/CLOTRIMAZOLE 15 GM CR TOP ×2 (09:14→21:40)
[2017-12-19] MEDS: EUCERIN 113 GM CR TOP (09:17)
[2017-12-19 13:38] LABS: CARCINOEMBRYONIC ANTIGEN 8.3 ng/ml (0.0-5.0)
[2017-12-19 14:06] LABS: CANCER ANTIGEN 19-9 < 1.4 U/ml (0.0-37.0)
[2017-12-19] MEDS: EPOETIN 10000 UNITS/1 ML INJ (ESRD) SC (17:00)
[2017-12-19] MEDS: SENNA TAB PO (21:40)
[2017-12-19] MEDS: hydrOXYzine HCL 25 MG TAB PO (21:40)
[2017-12-20] MEDS: LEVOTHYROXINE 137 MCG TAB PO ×2 (08:32→22:09)
[2017-12-20] MEDS: LIOTHYRONINE 5 MCG TAB PO ×2 (08:32→22:09)
[2017-12-20] MEDS: BETAMETHASONE/CLOTRIMAZOLE 15 GM CR TOP (08:33)
[2017-12-20] MEDS: hydrOXYzine HCL 25 MG TAB PO (08:40)
[2017-12-20] MEDS: EUCERIN 113 GM CR TOP (08:51)
[2017-12-20 12:14] LABS: ANION GAP 21 (8-16); BLOOD UREA NITROGEN 78 mg/dl (7-20); CALCIUM 9.1 mg/dl (8.4-10.2); CARBON DIOXIDE 26 mmol/L (21-31); CHLORIDE 89 mmol/L (97-110); GLUCOSE 111 mg/dl (70-220); POTASSIUM 5.4 mmol/L (3.5-5.1); SODIUM 131 mmol/L (135-144)
[2017-12-20 12:21] LABS: CREATININE 6.93 mg/dl (0.44-1.00)
[2017-12-20] MEDS: SOD CHLORIDE 0.9% 100 ML (12:25)
[2017-12-20] MEDS: IOHEXOL 300MG/ML 150 ML BTL (12:26)
[2017-12-20] MEDS: IODIXANOL LOCM 100 ML BTL (12:26)
[2017-12-20 12:45] LABS: HEPATITIS B SURFACE ANTIGEN NEGATIVE (NEGATIVE)
[2017-12-20] MEDS: TRIAMCINOLONE ACET 0.5% 15 GM CR TOP ×4 (13:00→22:00)
[2017-12-20] MEDS: ACETAMINOPHEN 325 MG TAB PO (14:00)
[2017-12-20] MEDS: LACTULOSE 30ML CUP PO ×3 (15:00→22:11)
[2017-12-20 15:03] LABS: ANION GAP 21 (8-16); BLOOD UREA NITROGEN 81 mg/dl (7-20); CALCIUM 8.8 mg/dl (8.4-10.2); CARBON DIOXIDE 24 mmol/L (21-31); CHLORIDE 89 mmol/L (97-110); GLUCOSE 111 mg/dl (70-220); SODIUM 129 mmol/L (135-144)
[2017-12-20 15:11] LABS: CREATININE 6.97 mg/dl (0.44-1.00)
[2017-12-20 15:17] LABS: POTASSIUM 5.3 mmol/L (3.5-5.1)
[2017-12-20] MEDS: SENNA TAB PO (21:00)
[2017-12-21] MEDS: LACTULOSE 30ML CUP PO ×8 (00:30→21:00)
[2017-12-21] MEDS: LIOTHYRONINE 5 MCG TAB PO ×2 (09:00→21:56)
[2017-12-21] MEDS: TRIAMCINOLONE ACET 0.5% 15 GM CR TOP ×3 (09:00→21:00)
[2017-12-21] MEDS: EUCERIN 113 GM CR TOP (09:00)
[2017-12-21] MEDS: LEVOTHYROXINE 137 MCG TAB PO ×2 (09:00→21:56)
[2017-12-21] MEDS: LORAZEPAM 2 MG INJ IV (12:00)
[2017-12-21] MEDS: EPOETIN 10000 UNITS/1 ML INJ (ESRD) SC (17:00)
[2017-12-21] MEDS: SENNA TAB PO (21:00)
[2017-12-22] MEDS: LACTULOSE 30ML CUP PO ×3 (02:30→05:36)
[2017-12-22 06:51] LABS: ADD MAN DIFF? NO
[2017-12-22 07:05] LABS: WHITE BLOOD COUNT 5.5 10^3/ul (4.8-10.8)
[2017-12-22 07:05] LABS: BASOPHILS % 0.7 % (0.0-2.0); EOSINOPHILS # 0.1 10^3/ul (0.0-0.5); EOSINOPHILS % 1.3 % (0.0-7.0); HEMATOCRIT 36.8 % (37.0-47.0); HEMOGLOBIN 11.1 g/dl (12.0-16.0); LYMPHOCYTES # 0.7 10^3/ul (0.8-2.9); LYMPHOCYTES % 13.2 % (15.0-51.0); MEAN CORPUSCULAR HEMOGLOBIN 30.3 pg (29.0-33.0); MEAN CORPUSCULAR HGB CONC 30.2 g/dl (32.0-37.0); MEAN CORPUSCULAR VOLUME 100.5 fl (82.0-101.0); MEAN PLATELET VOLUME 10.6 fl (7.4-10.4); MONOCYTE # 0.8 10^3/ul (0.3-0.9); MONOCYTES % 13.7 % (0.0-11.0); NEUTROPHIL # 3.9 10^3/ul (1.6-7.5); PLATELET COUNT 235 10^3/UL (140-415); RED BLOOD COUNT 3.66 10^6/ul (4.20-5.40); RED CELL DISTRIBUTION WIDTH 18.3 % (11.5-14.5)
[2017-12-22 07:33] LABS: ALANINE AMINOTRANSFERASE 13 IU/L (13-69); ALBUMIN 3.8 g/dl (3.3-4.9); ALKALINE PHOSPHATASE 101 IU/L (42-121); ANION GAP 23 (8-16); ASPARTATE AMINO TRANSFERASE 18 IU/L (15-46); BILIRUBIN,INDIRECT 0.3 mg/dl (0-1.1); BILIRUBIN,TOTAL 0.3 mg/dl (0.2-1.3); BLOOD UREA NITROGEN 61 mg/dl (7-20); CALCIUM 9.1 mg/dl (8.4-10.2); CARBON DIOXIDE 24 mmol/L (21-31); CHLORIDE 95 mmol/L (97-110); CREATININE 6.44 mg/dl (0.44-1.00); GLUCOSE 105 mg/dl (70-220); POTASSIUM 5.1 mmol/L (3.5-5.1); SODIUM 137 mmol/L (135-144)
[2017-12-22] MEDS: LEVOTHYROXINE 137 MCG TAB PO ×2 (08:53→21:49)
[2017-12-22] MEDS: HYDROCODONE/APAP (5/325) TAB PO (08:53)
[2017-12-22] MEDS: LIOTHYRONINE 5 MCG TAB PO ×2 (08:53→21:49)
[2017-12-22] MEDS: EUCERIN 113 GM CR TOP (08:54)
[2017-12-22] MEDS: TRIAMCINOLONE ACET 0.5% 15 GM CR TOP ×3 (09:00→21:49)
[2017-12-22] MEDS: LIDOCAINE 2% JELLY 5 ML TOP (15:30)
[2017-12-22] MEDS: ALBUMIN HUMAN 25% 100 ML IV (17:26)
[2017-12-22] MEDS: SENNA TAB PO (21:49)
[2017-12-23] MEDS: LORAZEPAM 2 MG INJ IV (07:00)
[2017-12-23] MEDS: LEVOTHYROXINE 137 MCG TAB PO (09:16)
[2017-12-23] MEDS: LIOTHYRONINE 5 MCG TAB PO (09:16)
[2017-12-23] MEDS: TRIAMCINOLONE ACET 0.5% 15 GM CR TOP (09:17)
[2017-12-23] MEDS: EUCERIN 113 GM CR TOP (09:17)
[2017-12-26] MEDS ORDERED: MIDAZOLAM 1 MG/ML 2 ML INJ (16:06)
[2017-12-26] MEDS ORDERED: ROCURONIUM 50 MG INJ (16:06)
[2017-12-26] MEDS ORDERED: FENTAnyl 50 MCG/ML VIAL (16:06)
[2017-12-26] MEDS ORDERED: CEFAZOLIN 1 GM INJ (16:06)
[2017-12-26] MEDS ORDERED: PROPOFOL 20 ML (16:06)
[2017-12-26] MEDS ORDERED: NEOSTIGMINE 3 MG/3 ML SYRINGE (16:06)
[2017-12-26] MEDS ORDERED: GLYCOPYRROLATE 0.4 MG INJ (16:06)
[2017-12-26] MEDS ORDERED: ONDANSETRON 4 MG INJ (16:07)
[2017-12-26] MEDS ORDERED: DEXAMETHASONE 4 MG/ML 1 ML INJ (16:07)
== END 2017-12-23 13:20 | disposition short-term general hospital (02) | DRG 91 ==
LOC: VRC 17:41
PROC: 5A1D70Z Performance of Urinary Filtration, Intermittent, Less than 6 Hours Per Day (ICD-10-PCS; 2017-12-19)
PROC: 0HBBXZX Excision of Right Upper Arm Skin, External Approach, Diagnostic (ICD-10-PCS; principal; 2017-12-22)
DX: G72.81 Critical illness myopathy (principal); N18.6 End stage renal disease; E03.5 Myxedema coma; J96.90 Respiratory failure, unspecified, unspecified whether with hypoxia or hypercapnia; C79.9 Secondary malignant neoplasm of unspecified site; J91.0 Malignant pleural effusion; I31.3 Pericardial effusion (noninflammatory); E03.9 Hypothyroidism, unspecified; R49.0 Dysphonia; R13.10 Dysphagia, unspecified; E78.5 Hyperlipidemia, unspecified; Z99.2 Dependence on renal dialysis; Z74.09 Other reduced mobility; D63.1 Anemia in chronic kidney disease; L89.312 Pressure ulcer of right buttock, stage 2; C80.1 Malignant (primary) neoplasm, unspecified; L27.0 Generalized skin eruption due to drugs and medicaments taken internally
CPT/HCPCS: 71045; 71260; 74177; 80048; 80053; 82378; 84703; 85025; 86301; 87081; 87340; 88305; 90935; 92610; 93308; 97110; 97116; 97163; 97165; 97530; 97535

== ENCOUNTER 2017-12-23 13:27 | Inpatient (IN) | payer OTHER ==
[2017-12-23] MEDS ORDERED: BISACODYL 10 MG SUPP PR (14:30)
[2017-12-23] MEDS ORDERED: ACETAMINOPHEN 325 MG TAB PO (14:30)
[2017-12-23] MEDS ORDERED: ACETAMINOPHEN 650 MG SUPP PR (14:30)
[2017-12-23] MEDS ORDERED: NACL 0.9% 3 ML SYG IV (14:30)
[2017-12-23] MEDS: TRIAMCINOLONE ACET 0.5% 15 GM CR TOP ×2 (15:00→20:02)
[2017-12-23] MEDS: ALBUTEROL 0.083% (NEB) 2.5 MG/3 ML AMP HHN ×2 (19:15→21:48)
[2017-12-23] MEDS: LIOTHYRONINE 5 MCG TAB PO (20:02)
[2017-12-23] MEDS: SENNA TAB PO (20:03)
[2017-12-23] MEDS: LEVOTHYROXINE 137 MCG TAB PO (20:03)
[2017-12-23] MEDS: HYDROCODONE/APAP (5/325) TAB PO (20:03)
[2017-12-23] MEDS: LORAZEPAM 2 MG INJ IV (23:46)
[2017-12-24 00:57] LABS: Arterial Base Excess -5.6 mmol/L (-3.0-3); Arterial Blood Gas Oxygen Sat 99.7 mmHG (95.0-98.0); Arterial COHb 1.1 % (0.0-3.0); Arterial Fraction of Oxyhgb 98.5 % (93.0-99.0); Arterial HCO3 22.7 mmol/L (22.0-26.0); Arterial MetHb 0.1 % (0.0-1.5); Arterial Total Hemglobin 11.7 g/dl (12.0-18.0); Arterial pCO2 57.7 mmhg (35-45); MODE VENT - AC; Site Right Brachial
[2017-12-24] MEDS: ALBUTEROL 0.083% (NEB) 2.5 MG/3 ML AMP HHN (01:55)
[2017-12-24] MEDS: PROPOFOL 100 ML IV ×2 (03:01→18:00)
[2017-12-24] MEDS: NORepinephrine 8MG/250 ML (PMX 250 ML IV ×2 (03:13→17:01)
[2017-12-24] MEDS: ALBUTEROL HFA 8 GM INHALER INH ×5 (05:06→20:06)
[2017-12-24 05:40] LABS: ADD MAN DIFF? NO
[2017-12-24] MEDS: PANTOPRAZOLE 40 MG INJ IV (05:46)
[2017-12-24 05:58] LABS: BASOPHILS % 0.6 % (0.0-2.0); EOSINOPHILS % 0.1 % (0.0-7.0); HEMATOCRIT 31.8 % (37.0-47.0); HEMOGLOBIN 9.4 g/dl (12.0-16.0); LYMPHOCYTES # 0.9 10^3/ul (0.8-2.9); MEAN CORPUSCULAR HEMOGLOBIN 29.7 pg (29.0-33.0); MEAN CORPUSCULAR HGB CONC 29.6 g/dl (32.0-37.0); MEAN CORPUSCULAR VOLUME 100.6 fl (82.0-101.0); MEAN PLATELET VOLUME 11.1 fl (7.4-10.4); MONOCYTE # 0.9 10^3/ul (0.3-0.9); MONOCYTES % 13.4 % (0.0-11.0); NEUTROPHIL # 4.8 10^3/ul (1.6-7.5); NEUTROPHILS % 71.3 % (39.0-77.0); NUCLEATED RED BLOOD CELLS # 0.1 10^3/ul (0.0-0.0); PLATELET COUNT 266 10^3/UL (140-415); RED BLOOD COUNT 3.16 10^6/ul (4.20-5.40); RED CELL DISTRIBUTION WIDTH 18.3 % (11.5-14.5)
[2017-12-24 05:58] LABS: WHITE BLOOD COUNT 6.7 10^3/ul (4.8-10.8)
[2017-12-24 06:26] LABS: ALANINE AMINOTRANSFERASE 14 IU/L (13-69); ALBUMIN/GLOBULIN RATIO 0.95; ALKALINE PHOSPHATASE 90 IU/L (42-121); ANION GAP 25 (8-16); ASPARTATE AMINO TRANSFERASE 18 IU/L (15-46); BILIRUBIN,INDIRECT 0.3 mg/dl (0-1.1); BILIRUBIN,TOTAL 0.3 mg/dl (0.2-1.3); BLOOD UREA NITROGEN 63 mg/dl (7-20); CALCIUM 9.7 mg/dl (8.4-10.2); CARBON DIOXIDE 23 mmol/L (21-31); CHLORIDE 94 mmol/L (97-110); CHOL/HDL RATIO 4.3 RATIO; CHOLESTEROL 101 mg/dl (100-200); CREATININE 7.22 mg/dl (0.44-1.00); GLUCOSE 141 mg/dl (70-220); HDL CHOLESTEROL 23 mg/dl (34-88); LDL CHOLESTEROL,CALCULATED 38 mg/dl; MAGNESIUM 2.3 mg/dl (1.7-2.5); PHOSPHORUS 8.6 mg/dl (2.5-4.9); POTASSIUM 5.2 mmol/L (3.5-5.1); SODIUM 137 mmol/L (135-144); TOTAL PROTEIN 8.2 g/dl (6.1-8.1); TRIGLYCERIDES 200 mg/dl (0-149)
[2017-12-24 06:33] LABS: T3 UPTAKE 45.9 % (23.5-40.5); T4 (THYROXINE) 8.5 ug/dl (5.5-11.0)
[2017-12-24 08:31] LABS: HEMOGLOBIN A1C 5.1 % (0-5.9)
[2017-12-24] MEDS: EUCERIN 113 GM CR TOP (09:00)
[2017-12-24 09:33] LABS: AADO2 Arterial 105.5 mmHg (7.0-24.0); Allen Test ACCEPTAB; Arterial Base Excess -6.1 mmol/L (-3.0-3); Arterial Blood Gas Oxygen Sat 98.1 mmHG (95.0-98.0); Arterial COHb 0.7 % (0.0-3.0); Arterial Fraction of Oxyhgb 97.2 % (93.0-99.0); Arterial HCO3 20.1 mmol/L (22.0-26.0); Arterial MetHb 0.2 % (0.0-1.5); Arterial Total Hemglobin 10.5 g/dl (12.0-18.0); Arterial pCO2 42.7 mmhg (35-45); MODE VENT - AC; Site Right Radial
[2017-12-24] MEDS: TRIAMCINOLONE ACET 0.5% 15 GM CR TOP ×3 (09:56→20:29)
[2017-12-24] MEDS: LIOTHYRONINE 5 MCG TAB PO ×2 (09:56→20:28)
[2017-12-24] MEDS: LEVOTHYROXINE 137 MCG TAB PO ×2 (09:56→20:28)
[2017-12-24] MEDS: CEFEPIME 1GM/50 ML (PMX) 50 ML IVPB (10:53)
[2017-12-24 12:12] LABS: PLATELET COUNT 260 10^3/UL (140-415)
[2017-12-24 12:21] LABS: LACTIC ACID 5.4 mmol/L (0.5-2.0)
[2017-12-24 12:34] LABS: INR 1.73; PROTIME 20.6 Sec (11.9-14.9); PT RATIO 1.6
[2017-12-24 12:35] LABS: PARTIAL THROMBOPLASTIN TIME 39.3 Sec (25.0-35.0); THROMBIN TIME 13.4 SEC (13.8-19.1)
[2017-12-24] MEDS ORDERED: VANCOMYCIN IV PER PHARMACY XX (13:00)
[2017-12-24] MEDS: SOD CHLORIDE 0.9% 500 ML IV (13:19)
[2017-12-24] MEDS ORDERED: PHYTONADIONE 10 MG/ML INJ IM (16:00)
[2017-12-24] MEDS: HEPARIN (10 UNITS/ML) 5ML SYG IV (17:30)
[2017-12-24] MEDS: PHYTONADIONE 10 MG/ML INJ SC (17:34)
[2017-12-24] MEDS: VANCOMYCIN 1.5 GM in SOD CHLORIDE 0.9% 250 ML IVPB (17:40)
[2017-12-24 19:04] LABS: LACTIC ACID 2.6 mmol/L (0.5-2.0)
[2017-12-24] MEDS: SENNA TAB PO (20:28)
[2017-12-24] MEDS: SOD CHLORIDE 0.9% 250 ML IV (21:13)
[2017-12-25 01:47] LABS: LACTIC ACID 2.5 mmol/L (0.5-2.0)
[2017-12-25] MEDS: ALBUTEROL HFA 8 GM INHALER INH ×5 (01:47→19:20)
[2017-12-25] MEDS: PROPOFOL 100 ML IV ×2 (03:00→04:37)
[2017-12-25] MEDS: NORepinephrine 8MG/250 ML (PMX 250 ML IV (04:37)
[2017-12-25] MEDS: PANTOPRAZOLE 40 MG INJ IV (05:31)
[2017-12-25 05:53] LABS: ADD MAN DIFF? NO
[2017-12-25 05:59] LABS: WHITE BLOOD COUNT 10.6 10^3/ul (4.8-10.8)
[2017-12-25 05:59] LABS: BASOPHIL # 0.1 10^3/ul (0.0-0.1); BASOPHILS % 0.6 % (0.0-2.0); EOSINOPHILS % 0.1 % (0.0-7.0); HEMATOCRIT 27.8 % (37.0-47.0); HEMOGLOBIN 8.7 g/dl (12.0-16.0); LYMPHOCYTES % 9.8 % (15.0-51.0); MEAN CORPUSCULAR HEMOGLOBIN 29.9 pg (29.0-33.0); MEAN CORPUSCULAR HGB CONC 31.3 g/dl (32.0-37.0); MEAN CORPUSCULAR VOLUME 95.5 fl (82.0-101.0); MEAN PLATELET VOLUME 11.2 fl (7.4-10.4); MONOCYTE # 1.1 10^3/ul (0.3-0.9); MONOCYTES % 10.8 % (0.0-11.0); NEUTROPHIL # 8.2 10^3/ul (1.6-7.5); NEUTROPHILS % 77.7 % (39.0-77.0); NUCLEATED RED BLOOD CELLS% 0.4 /100WBC (0.0-0.0); PLATELET COUNT 235 10^3/UL (140-415); RED BLOOD COUNT 2.91 10^6/ul (4.20-5.40); RED CELL DISTRIBUTION WIDTH 18.2 % (11.5-14.5)
[2017-12-25 06:32] LABS: ANION GAP 21 (8-16); BLOOD UREA NITROGEN 53 mg/dl (7-20); CALCIUM 9.2 mg/dl (8.4-10.2); CARBON DIOXIDE 25 mmol/L (21-31); CHLORIDE 99 mmol/L (97-110); CREATININE 4.99 mg/dl (0.44-1.00); GLUCOSE 154 mg/dl (70-220); PHOSPHORUS 4.2 mg/dl (2.5-4.9); POTASSIUM 4.3 mmol/L (3.5-5.1); SODIUM 141 mmol/L (135-144)
[2017-12-25] MEDS ORDERED: ALBUTEROL 0.083% (NEB) 2.5 MG/3 ML AMP HHN (08:00)
[2017-12-25 08:21] LABS: Allen Test ACCEPTAB; Arterial Base Excess 1.3 mmol/L (-3.0-3); Arterial Blood Gas Oxygen Sat 86.8 mmHG (95.0-98.0); Arterial COHb 0.2 % (0.0-3.0); Arterial Fraction of Oxyhgb 86.5 % (93.0-99.0); Arterial HCO3 24.8 mmol/L (22.0-26.0); Arterial MetHb 0.1 % (0.0-1.5); Arterial Total Hemglobin 9.9 g/dl (12.0-18.0); MODE VENT - AC; Site Right Radial
[2017-12-25] MEDS: LEVOTHYROXINE 137 MCG TAB PO ×2 (08:49→21:55)
[2017-12-25] MEDS: LIOTHYRONINE 5 MCG TAB PO ×2 (08:49→21:55)
[2017-12-25] MEDS: TRIAMCINOLONE ACET 0.5% 15 GM CR TOP ×3 (08:50→21:56)
[2017-12-25] MEDS: EUCERIN 113 GM CR TOP (08:50)
[2017-12-25] MEDS: CEFEPIME 1GM/50 ML (PMX) 50 ML IVPB (10:24)
[2017-12-25] MEDS: PHYTONADIONE 10 MG/ML INJ SC (10:24)
[2017-12-25 13:15] LABS: INR 1.96; PROTIME 22.8 Sec (11.9-14.9); PT RATIO 1.8
[2017-12-25] MEDS: MIDAZOLAM (DRIP) 50 mg/50 mL 50 ML IV (14:35)
[2017-12-25] MEDS: morphine 2 MG INJ IV (14:49)
[2017-12-25] MEDS: SENNA TAB PO (21:55)
[2017-12-26] MEDS: ALBUTEROL HFA 8 GM INHALER INH ×4 (01:14→20:05)
[2017-12-26] MEDS: PROPOFOL 100 ML IV ×2 (02:20→14:50)
[2017-12-26 05:34] LABS: ADD MAN DIFF? NO
[2017-12-26] MEDS: PANTOPRAZOLE 40 MG INJ IV (05:43)
[2017-12-26 06:07] LABS: BASOPHIL # 0.1 10^3/ul (0.0-0.1); BASOPHILS % 0.5 % (0.0-2.0); EOSINOPHILS # 0.1 10^3/ul (0.0-0.5); EOSINOPHILS % 0.9 % (0.0-7.0); HEMATOCRIT 24.9 % (37.0-47.0); HEMOGLOBIN 7.7 g/dl (12.0-16.0); LYMPHOCYTES # 1.1 10^3/ul (0.8-2.9); LYMPHOCYTES % 9.7 % (15.0-51.0); MEAN CORPUSCULAR HEMOGLOBIN 30.1 pg (29.0-33.0); MEAN CORPUSCULAR HGB CONC 30.9 g/dl (32.0-37.0); MEAN CORPUSCULAR VOLUME 97.3 fl (82.0-101.0); MEAN PLATELET VOLUME 11.4 fl (7.4-10.4); MONOCYTE # 0.7 10^3/ul (0.3-0.9); MONOCYTES % 6.1 % (0.0-11.0); NEUTROPHIL # 9.3 10^3/ul (1.6-7.5); NEUTROPHILS % 81.4 % (39.0-77.0); NUCLEATED RED BLOOD CELLS% 0.3 /100WBC (0.0-0.0); PLATELET COUNT 214 10^3/UL (140-415); RED BLOOD COUNT 2.56 10^6/ul (4.20-5.40); RED CELL DISTRIBUTION WIDTH 18.6 % (11.5-14.5)
[2017-12-26 06:07] LABS: WHITE BLOOD COUNT 11.4 10^3/ul (4.8-10.8)
[2017-12-26 06:37] LABS: ANION GAP 22 (8-16); BLOOD UREA NITROGEN 79 mg/dl (7-20); CALCIUM 9.3 mg/dl (8.4-10.2); CARBON DIOXIDE 23 mmol/L (21-31); CHLORIDE 97 mmol/L (97-110); GLUCOSE 123 mg/dl (70-220); POTASSIUM 4.3 mmol/L (3.5-5.1); SODIUM 138 mmol/L (135-144)
[2017-12-26] MEDS: SOD CHLORIDE 0.9% 250 ML IV* (08:49)
[2017-12-26 09:16] LABS: INR 1.67; PT RATIO 1.6
[2017-12-26] MEDS: LIOTHYRONINE 5 MCG TAB PO ×2 (09:22→21:39)
[2017-12-26] MEDS: LEVOTHYROXINE 137 MCG TAB PO ×2 (09:22→21:40)
[2017-12-26] MEDS: TRIAMCINOLONE ACET 0.5% 15 GM CR TOP ×3 (09:22→21:40)
[2017-12-26] MEDS: EUCERIN 113 GM CR TOP (09:22)
[2017-12-26 09:23] LABS: AADO2 Arterial 138.6 mmHg (7.0-24.0); Allen Test ACCEPTAB; Arterial Base Excess -1.3 mmol/L (-3.0-3); Arterial COHb 0.2 % (0.0-3.0); Arterial Fraction of Oxyhgb 97.6 % (93.0-99.0); Arterial HCO3 21.1 mmol/L (22.0-26.0); Arterial MetHb 0.2 % (0.0-1.5); Arterial Total Hemglobin 8.2 g/dl (12.0-18.0); Arterial pCO2 26.9 mmhg (35-45); MODE VENT - AC; Site Right Radial
[2017-12-26] MEDS: SOD CHLORIDE 0.9% 250 ML IV (10:49)
[2017-12-26] MEDS: DEXTROSE 5%-0.45% NACL 1,000 ML IV (10:49)
[2017-12-26] MEDS: ALBUMIN HUMAN 25% 100 ML IV (11:56)
[2017-12-26 14:08] LABS: INR 1.51; PROTIME 18.5 Sec (11.9-14.9); PT RATIO 1.4
[2017-12-26] MEDS: CEFEPIME 1GM/50 ML (PMX) 50 ML IVPB (14:55)
[2017-12-26 15:00] LABS: ADD MAN DIFF? NO
[2017-12-26 15:08] LABS: WHITE BLOOD COUNT 9.2 10^3/ul (4.8-10.8)
[2017-12-26 15:08] LABS: BASOPHILS % 0.3 % (0.0-2.0); EOSINOPHILS # 0.1 10^3/ul (0.0-0.5); EOSINOPHILS % 1.3 % (0.0-7.0); HEMOGLOBIN 7.8 g/dl (12.0-16.0); LYMPHOCYTES # 0.6 10^3/ul (0.8-2.9); LYMPHOCYTES % 6.6 % (15.0-51.0); MEAN CORPUSCULAR HEMOGLOBIN 30.4 pg (29.0-33.0); MEAN CORPUSCULAR HGB CONC 31.2 g/dl (32.0-37.0); MEAN CORPUSCULAR VOLUME 97.3 fl (82.0-101.0); MEAN PLATELET VOLUME 11.1 fl (7.4-10.4); MONOCYTE # 0.5 10^3/ul (0.3-0.9); MONOCYTES % 5.1 % (0.0-11.0); NEUTROPHIL # 7.8 10^3/ul (1.6-7.5); NEUTROPHILS % 85.2 % (39.0-77.0); PLATELET COUNT 165 10^3/UL (140-415); RED BLOOD COUNT 2.57 10^6/ul (4.20-5.40); RED CELL DISTRIBUTION WIDTH 18.5 % (11.5-14.5)
[2017-12-26 15:20] LABS: IMMEDIATE SPIN CROSSMATCH 1 3
[2017-12-26] MEDS ORDERED: BUPIVACAINE 0.5%/EPI (SDV) 30 ML INJ (15:39)
[2017-12-26] MEDS ORDERED: MINERAL OIL LIGHT 10 ML VIAL (15:56)
[2017-12-26] MEDS: VANCOMYCIN 1 GM 250 ML IVPB (16:08)
[2017-12-26 17:13] LABS: INR 1.52; PROTIME 18.6 Sec (11.9-14.9); PT RATIO 1.5
[2017-12-26 17:21] LABS: PARTIAL THROMBOPLASTIN TIME 35.1 Sec (25.0-35.0)
[2017-12-26 18:25] LABS: IMMEDIATE SPIN CROSSMATCH 1
[2017-12-26] MEDS: LIDOCAINE 0.5% (MDV) 50 ML INJ (18:45)
[2017-12-26] MEDS: BUPIVACAINE 0.5%/EPI (SDV) 30 ML INJ INJ (18:46)
[2017-12-26] MEDS: SENNA TAB PO (21:39)
[2017-12-27] MEDS: ALBUTEROL HFA 8 GM INHALER INH ×4 (01:11→20:48)
[2017-12-27] MEDS: PROPOFOL 100 ML IV ×2 (02:20→14:09)
[2017-12-27] MEDS: PANTOPRAZOLE 40 MG INJ IV (05:06)
[2017-12-27 05:25] LABS: ADD MAN DIFF? NO
[2017-12-27 05:57] LABS: ANION GAP 17 (8-16); BLOOD UREA NITROGEN 47 mg/dl (7-20); CALCIUM 8.4 mg/dl (8.4-10.2); CARBON DIOXIDE 25 mmol/L (21-31); CHLORIDE 102 mmol/L (97-110); CREATININE 3.99 mg/dl (0.44-1.00); GLUCOSE 106 mg/dl (70-220); POTASSIUM 4.2 mmol/L (3.5-5.1); SODIUM 140 mmol/L (135-144)
[2017-12-27 06:01] LABS: WHITE BLOOD COUNT 7.6 10^3/ul (4.8-10.8)
[2017-12-27 06:01] LABS: BASOPHILS % 0.4 % (0.0-2.0); EOSINOPHILS # 0.1 10^3/ul (0.0-0.5); EOSINOPHILS % 1.3 % (0.0-7.0); HEMATOCRIT 30.5 % (37.0-47.0); HEMOGLOBIN 9.5 g/dl (12.0-16.0); LYMPHOCYTES # 0.6 10^3/ul (0.8-2.9); LYMPHOCYTES % 8.4 % (15.0-51.0); MEAN CORPUSCULAR HEMOGLOBIN 30.1 pg (29.0-33.0); MEAN CORPUSCULAR HGB CONC 31.1 g/dl (32.0-37.0); MEAN CORPUSCULAR VOLUME 96.5 fl (82.0-101.0); MEAN PLATELET VOLUME 11.1 fl (7.4-10.4); MONOCYTE # 0.4 10^3/ul (0.3-0.9); MONOCYTES % 5.4 % (0.0-11.0); NEUTROPHIL # 6.3 10^3/ul (1.6-7.5); NEUTROPHILS % 83.2 % (39.0-77.0); NUCLEATED RED BLOOD CELLS% 0.3 /100WBC (0.0-0.0); PLATELET COUNT 128 10^3/UL (140-415); RED BLOOD COUNT 3.16 10^6/ul (4.20-5.40); RED CELL DISTRIBUTION WIDTH 19.5 % (11.5-14.5)
[2017-12-27] MEDS: DEXTROSE 5%-0.45% NACL 1,000 ML IV (06:02)
[2017-12-27] MEDS: LEVOTHYROXINE 137 MCG TAB PO ×2 (09:08→20:19)
[2017-12-27] MEDS: LIOTHYRONINE 5 MCG TAB PO ×2 (09:08→20:19)
[2017-12-27] MEDS: EUCERIN 113 GM CR TOP (09:08)
[2017-12-27] MEDS: TRIAMCINOLONE ACET 0.5% 15 GM CR TOP ×3 (09:09→20:19)
[2017-12-27] MEDS: CEFEPIME 1GM/50 ML (PMX) 50 ML IVPB (12:11)
[2017-12-27] MEDS: morphine 2 MG INJ IV (14:25)
[2017-12-27] MEDS: SENNA TAB PO (20:19)
[2017-12-28] MEDS ORDERED: SOD CHLORIDE 0.9% 1,000 ML IV (01:00)
[2017-12-28] MEDS: ALBUTEROL HFA 8 GM INHALER INH ×4 (01:33→20:18)
[2017-12-28] MEDS: DEXTROSE 5%-0.45% NACL 1,000 ML IV ×2 (02:00→06:19)
[2017-12-28] MEDS: PROPOFOL 100 ML IV ×2 (03:00→14:13)
[2017-12-28 05:53] LABS: ADD MAN DIFF? NO
[2017-12-28 06:10] LABS: BASOPHILS % 0.3 % (0.0-2.0); EOSINOPHILS # 0.1 10^3/ul (0.0-0.5); EOSINOPHILS % 2.2 % (0.0-7.0); HEMOGLOBIN 9.5 g/dl (12.0-16.0); LYMPHOCYTES # 0.7 10^3/ul (0.8-2.9); LYMPHOCYTES % 11.1 % (15.0-51.0); MEAN CORPUSCULAR HEMOGLOBIN 30.4 pg (29.0-33.0); MEAN CORPUSCULAR HGB CONC 30.6 g/dl (32.0-37.0); MEAN PLATELET VOLUME 11.4 fl (7.4-10.4); MONOCYTE # 0.4 10^3/ul (0.3-0.9); MONOCYTES % 6.7 % (0.0-11.0); NEUTROPHIL # 4.7 10^3/ul (1.6-7.5); NEUTROPHILS % 78.7 % (39.0-77.0); NUCLEATED RED BLOOD CELLS% 0.3 /100WBC (0.0-0.0); PLATELET COUNT 136 10^3/UL (140-415); RED BLOOD COUNT 3.13 10^6/ul (4.20-5.40); RED CELL DISTRIBUTION WIDTH 19.3 % (11.5-14.5)
[2017-12-28] MEDS: PANTOPRAZOLE 40 MG INJ IV (06:17)
[2017-12-28] MEDS: morphine 2 MG INJ IV ×3 (06:33→16:00)
[2017-12-28 06:42] LABS: ANION GAP 20 (8-16); BLOOD UREA NITROGEN 58 mg/dl (7-20); CALCIUM 8.7 mg/dl (8.4-10.2); CARBON DIOXIDE 24 mmol/L (21-31); CHLORIDE 99 mmol/L (97-110); CREATININE 5.28 mg/dl (0.44-1.00); GLUCOSE 87 mg/dl (70-220); POTASSIUM 4.5 mmol/L (3.5-5.1); SODIUM 138 mmol/L (135-144)
[2017-12-28] MEDS: LIOTHYRONINE 5 MCG TAB PO ×2 (10:26→20:55)
[2017-12-28] MEDS: LEVOTHYROXINE 137 MCG TAB PO ×2 (10:26→20:55)
[2017-12-28] MEDS: EUCERIN 113 GM CR TOP (10:27)
[2017-12-28] MEDS: TRIAMCINOLONE ACET 0.5% 15 GM CR TOP ×3 (10:27→21:12)
[2017-12-28] MEDS: FAMOTIDINE 20 MG TAB NGT (14:00)
[2017-12-28] MEDS: FENTAnyl 50 MCG/ML VIAL (18:35)
[2017-12-28] MEDS: PROPOFOL 0 ML (18:35)
[2017-12-28] MEDS: MIDAZOLAM 1 MG/ML 2 ML INJ (18:35)
[2017-12-28] MEDS: SENNA TAB PO (20:55)
[2017-12-29] MEDS: ALBUTEROL HFA 8 GM INHALER INH ×4 (01:33→19:24)
[2017-12-29] MEDS: PROPOFOL 100 ML IV ×2 (02:53→15:00)
[2017-12-29 05:52] LABS: ADD MAN DIFF? NO
[2017-12-29 05:53] LABS: WHITE BLOOD COUNT 5.9 10^3/ul (4.8-10.8)
[2017-12-29 05:53] LABS: ABNORMAL IP MESSAGE 1; BASOPHILS % 0.5 % (0.0-2.0); EOSINOPHILS # 0.1 10^3/ul (0.0-0.5); EOSINOPHILS % 1.5 % (0.0-7.0); HEMATOCRIT 31.8 % (37.0-47.0); HEMOGLOBIN 9.7 g/dl (12.0-16.0); LYMPHOCYTES # 0.6 10^3/ul (0.8-2.9); LYMPHOCYTES % 9.7 % (15.0-51.0); MEAN CORPUSCULAR HEMOGLOBIN 30.4 pg (29.0-33.0); MEAN CORPUSCULAR HGB CONC 30.5 g/dl (32.0-37.0); MEAN CORPUSCULAR VOLUME 99.7 fl (82.0-101.0); MEAN PLATELET VOLUME 11.2 fl (7.4-10.4); MONOCYTE # 0.4 10^3/ul (0.3-0.9); MONOCYTES % 6.3 % (0.0-11.0); NEUTROPHIL # 4.8 10^3/ul (1.6-7.5); NUCLEATED RED BLOOD CELLS% 0.3 /100WBC (0.0-0.0); PLATELET COUNT 142 10^3/UL (140-415); RED BLOOD COUNT 3.19 10^6/ul (4.20-5.40)
[2017-12-29 05:59] LABS: POSITIVE DIFF @See below
[2017-12-29 06:18] LABS: ANION GAP 16 (8-16); BLOOD UREA NITROGEN 37 mg/dl (7-20); CALCIUM 8.3 mg/dl (8.4-10.2); CARBON DIOXIDE 28 mmol/L (21-31); CHLORIDE 99 mmol/L (97-110); CREATININE 3.91 mg/dl (0.44-1.00); GLUCOSE 101 mg/dl (70-220); SODIUM 139 mmol/L (135-144)
[2017-12-29] MEDS ORDERED: ALPRAZOLAM 0.5 MG TAB NGT ×2 (08:00→08:30)
[2017-12-29] MEDS: LIOTHYRONINE 5 MCG TAB PO ×2 (08:59→20:31)
[2017-12-29] MEDS: LEVOTHYROXINE 137 MCG TAB PO ×2 (08:59→20:31)
[2017-12-29] MEDS: EUCERIN 113 GM CR TOP (08:59)
[2017-12-29] MEDS: hydrOXYzine HCL 25 MG TAB PO (08:59)
[2017-12-29] MEDS: FAMOTIDINE 20 MG TAB NGT (08:59)
[2017-12-29] MEDS: TRIAMCINOLONE ACET 0.5% 15 GM CR TOP ×3 (09:00→20:35)
[2017-12-29] MEDS: morphine 2 MG INJ IV ×2 (09:28→20:31)
[2017-12-29] MEDS ORDERED: MIDAZOLAM 1 MG/ML 2 ML INJ (16:18)
[2017-12-29] MEDS ORDERED: PROPOFOL 20 ML (16:18)
[2017-12-29] MEDS: ONDANSETRON 4 MG INJ IV (17:36)
[2017-12-29] MEDS: SENNA TAB PO (20:31)
[2017-12-30] MEDS: ALBUTEROL HFA 8 GM INHALER INH ×4 (01:30→19:41)
[2017-12-30] MEDS: PROPOFOL 100 ML IV ×2 (02:36→15:00)
[2017-12-30 05:40] LABS: ADD MAN DIFF? NO
[2017-12-30 05:53] LABS: BASOPHILS % 0.6 % (0.0-2.0); EOSINOPHILS # 0.1 10^3/ul (0.0-0.5); EOSINOPHILS % 1.2 % (0.0-7.0); HEMATOCRIT 30.7 % (37.0-47.0); HEMOGLOBIN 9.5 g/dl (12.0-16.0); LYMPHOCYTES # 0.6 10^3/ul (0.8-2.9); LYMPHOCYTES % 11.8 % (15.0-51.0); MEAN CORPUSCULAR HEMOGLOBIN 30.5 pg (29.0-33.0); MEAN CORPUSCULAR HGB CONC 30.9 g/dl (32.0-37.0); MEAN CORPUSCULAR VOLUME 98.7 fl (82.0-101.0); MEAN PLATELET VOLUME 11.2 fl (7.4-10.4); MONOCYTE # 0.3 10^3/ul (0.3-0.9); MONOCYTES % 5.8 % (0.0-11.0); NEUTROPHIL # 4.1 10^3/ul (1.6-7.5); NEUTROPHILS % 79.6 % (39.0-77.0); PLATELET COUNT 128 10^3/UL (140-415); RED BLOOD COUNT 3.11 10^6/ul (4.20-5.40); RED CELL DISTRIBUTION WIDTH 18.8 % (11.5-14.5)
[2017-12-30 05:53] LABS: WHITE BLOOD COUNT 5.2 10^3/ul (4.8-10.8)
[2017-12-30 06:16] LABS: ANION GAP 15 (8-16); BLOOD UREA NITROGEN 52 mg/dl (7-20); CALCIUM 8.7 mg/dl (8.4-10.2); CARBON DIOXIDE 29 mmol/L (21-31); CHLORIDE 98 mmol/L (97-110); CREATININE 5.21 mg/dl (0.44-1.00); GLUCOSE 96 mg/dl (70-220); POTASSIUM 4.3 mmol/L (3.5-5.1); SODIUM 138 mmol/L (135-144)
[2017-12-30] MEDS: LEVOTHYROXINE 137 MCG TAB PO ×2 (09:23→21:08)
[2017-12-30] MEDS: hydrOXYzine HCL 25 MG TAB PO (09:23)
[2017-12-30] MEDS: EUCERIN 113 GM CR TOP (09:23)
[2017-12-30] MEDS: FAMOTIDINE 20 MG TAB NGT (09:23)
[2017-12-30] MEDS: LIOTHYRONINE 5 MCG TAB PO ×2 (09:23→21:08)
[2017-12-30] MEDS: TRIAMCINOLONE ACET 0.5% 15 GM CR TOP ×3 (09:23→21:08)
[2017-12-30] MEDS: MAGNESIUM HYDROXIDE 30ML CUP PO (09:23)
[2017-12-30 09:42] LABS: AADO2 Arterial 70.5 mmHg (7.0-24.0); Allen Test ACCEPTAB; Arterial Base Excess 1.1 mmol/L (-3.0-3); Arterial Blood Gas Oxygen Sat 94.2 mmHG (95.0-98.0); Arterial COHb 1.2 % (0.0-3.0); Arterial Fraction of Oxyhgb 93.1 % (93.0-99.0); Arterial HCO3 28.3 mmol/L (22.0-26.0); Arterial MetHb 0 % (0.0-1.5); Arterial Total Hemglobin 11.1 g/dl (12.0-18.0); Arterial pCO2 57.8 mmhg (35-45); Blood Gas PS 10; MODE VENT - CPAP; Site Right Radial
[2017-12-30] MEDS: morphine 2 MG INJ IV (12:19)
[2017-12-30] MEDS: SENNA TAB PO (21:08)
[2017-12-31] MEDS: ALBUTEROL HFA 8 GM INHALER INH ×4 (01:27→19:30)
[2017-12-31] MEDS: PROPOFOL 100 ML IV ×2 (03:00→07:18)
[2017-12-31 06:28] LABS: CANCER ANTIGEN 125 82.2 U/ml (0.0-35.0)
[2017-12-31] MEDS: ALTEPLASE (CATHFLO) 2 MG INJ CATHETER (07:32)
[2017-12-31 07:40] LABS: ADD MAN DIFF? NO
[2017-12-31 07:43] LABS: BASOPHILS % 0.4 % (0.0-2.0); EOSINOPHILS % 0.7 % (0.0-7.0); HEMATOCRIT 31.8 % (37.0-47.0); HEMOGLOBIN 9.7 g/dl (12.0-16.0); LYMPHOCYTES # 0.7 10^3/ul (0.8-2.9); LYMPHOCYTES % 12.8 % (15.0-51.0); MEAN CORPUSCULAR HEMOGLOBIN 29.9 pg (29.0-33.0); MEAN CORPUSCULAR HGB CONC 30.5 g/dl (32.0-37.0); MEAN CORPUSCULAR VOLUME 98.1 fl (82.0-101.0); MEAN PLATELET VOLUME 11.8 fl (7.4-10.4); MONOCYTE # 0.3 10^3/ul (0.3-0.9); MONOCYTES % 5.5 % (0.0-11.0); NEUTROPHIL # 4.4 10^3/ul (1.6-7.5); NEUTROPHILS % 79.9 % (39.0-77.0); PLATELET COUNT 143 10^3/UL (140-415); RED BLOOD COUNT 3.24 10^6/ul (4.20-5.40); RED CELL DISTRIBUTION WIDTH 18.3 % (11.5-14.5)
[2017-12-31 07:43] LABS: WHITE BLOOD COUNT 5.5 10^3/ul (4.8-10.8)
[2017-12-31] MEDS: LEVOTHYROXINE 137 MCG TAB PO ×2 (09:07→20:41)
[2017-12-31] MEDS: FAMOTIDINE 20 MG TAB NGT (09:07)
[2017-12-31] MEDS: EUCERIN 113 GM CR TOP (09:07)
[2017-12-31] MEDS: LIOTHYRONINE 5 MCG TAB PO ×2 (09:07→20:40)
[2017-12-31] MEDS: LACTULOSE 30ML CUP PO (09:08)
[2017-12-31] MEDS: TRIAMCINOLONE ACET 0.5% 15 GM CR TOP ×2 (09:08→12:10)
[2017-12-31] MEDS: morphine 2 MG INJ IV (12:09)
[2017-12-31] MEDS: hydrOXYzine HCL 25 MG TAB PO (14:12)
[2017-12-31] MEDS ORDERED: TRIAMCINOLONE ACET 0.5% 15 GM CR TOP (15:30)
[2017-12-31 15:50] LABS: CARCINOEMBRYONIC ANTIGEN 5.2 ng/ml (0.0-5.0)
[2017-12-31] MEDS: METHYLPREDNISOLONE 40 MG INJ IV (20:40)
[2017-12-31] MEDS: SENNA TAB PO (20:41)
[2018-01-01] MEDS: ALBUTEROL HFA 8 GM INHALER INH ×4 (01:17→19:44)
[2018-01-01] MEDS: PROPOFOL 100 ML IV ×2 (02:58→14:06)
[2018-01-01 05:58] LABS: ANION GAP 14 (8-16); BLOOD UREA NITROGEN 57 mg/dl (7-20); CALCIUM 8.9 mg/dl (8.4-10.2); CARBON DIOXIDE 30 mmol/L (21-31); CHLORIDE 94 mmol/L (97-110); CREATININE 5.02 mg/dl (0.44-1.00); GLUCOSE 164 mg/dl (70-220); MAGNESIUM 2.4 mg/dl (1.7-2.5); PHOSPHORUS 3.7 mg/dl (2.5-4.9); POTASSIUM 5.2 mmol/L (3.5-5.1); SODIUM 133 mmol/L (135-144)
[2018-01-01] MEDS: LEVOTHYROXINE 137 MCG TAB PO ×2 (08:41→21:07)
[2018-01-01] MEDS: FAMOTIDINE 20 MG TAB NGT (08:41)
[2018-01-01] MEDS: LIOTHYRONINE 5 MCG TAB PO ×2 (08:41→21:07)
[2018-01-01] MEDS: EUCERIN 113 GM CR TOP (08:41)
[2018-01-01] MEDS: morphine 2 MG INJ IV ×2 (10:05→13:24)
[2018-01-01] MEDS: SENNA TAB PO (21:07)
[2018-01-01] MEDS: DOCUSATE SODIUM 100 MG CAP PO (21:09)
[2018-01-01] MEDS: HYDROCODONE/APAP (5/325) TAB PO (23:21)
[2018-01-02] MEDS: ALBUTEROL HFA 8 GM INHALER INH ×3 (01:21→13:11)
[2018-01-02] MEDS: PROPOFOL 100 ML IV ×2 (03:00→13:22)
[2018-01-02 05:32] LABS: ADD MAN DIFF? NO
[2018-01-02 05:42] LABS: WHITE BLOOD COUNT 5.4 10^3/ul (4.8-10.8)
[2018-01-02 05:42] LABS: BASOPHILS % 0.4 % (0.0-2.0); EOSINOPHILS % 0.4 % (0.0-7.0); HEMOGLOBIN 9.7 g/dl (12.0-16.0); LYMPHOCYTES # 0.8 10^3/ul (0.8-2.9); MEAN CORPUSCULAR HEMOGLOBIN 30.4 pg (29.0-33.0); MEAN CORPUSCULAR HGB CONC 31.3 g/dl (32.0-37.0); MEAN CORPUSCULAR VOLUME 97.2 fl (82.0-101.0); MEAN PLATELET VOLUME 11.2 fl (7.4-10.4); MONOCYTE # 0.3 10^3/ul (0.3-0.9); MONOCYTES % 5.4 % (0.0-11.0); NEUTROPHIL # 4.3 10^3/ul (1.6-7.5); NEUTROPHILS % 78.7 % (39.0-77.0); PLATELET COUNT 170 10^3/UL (140-415); RED BLOOD COUNT 3.19 10^6/ul (4.20-5.40); RED CELL DISTRIBUTION WIDTH 17.5 % (11.5-14.5)
[2018-01-02 05:54] LABS: ANION GAP 12 (8-16); BLOOD UREA NITROGEN 39 mg/dl (7-20); CALCIUM 8.7 mg/dl (8.4-10.2); CARBON DIOXIDE 32 mmol/L (21-31); CHLORIDE 97 mmol/L (97-110); GLUCOSE 105 mg/dl (70-220); MAGNESIUM 2.3 mg/dl (1.7-2.5); PHOSPHORUS 2.8 mg/dl (2.5-4.9); POTASSIUM 3.6 mmol/L (3.5-5.1); SODIUM 137 mmol/L (135-144)
[2018-01-02] MEDS: LACTULOSE 30ML CUP PO (07:56)
[2018-01-02] MEDS: FAMOTIDINE 20 MG TAB NGT (07:56)
[2018-01-02] MEDS: EUCERIN 113 GM CR TOP (07:57)
[2018-01-02] MEDS: MAGNESIUM HYDROXIDE 30ML CUP PO (07:57)
[2018-01-02] MEDS: LIOTHYRONINE 5 MCG TAB PO ×2 (07:57→20:38)
[2018-01-02] MEDS: HYDROCODONE/APAP (5/325) TAB PO ×2 (07:57→20:50)
[2018-01-02] MEDS: LEVOTHYROXINE 137 MCG TAB PO ×2 (07:57→20:38)
[2018-01-02 12:12] LABS: AADO2 Arterial 56.8 mmHg (7.0-24.0); Allen Test ACCEPTAB; Arterial Base Excess 4.8 mmol/L (-3.0-3); Arterial Blood Gas Oxygen Sat 96.3 mmHG (95.0-98.0); Arterial COHb 0.5 % (0.0-3.0); Arterial Fraction of Oxyhgb 95.7 % (93.0-99.0); Arterial HCO3 31.3 mmol/L (22.0-26.0); Arterial MetHb 0.1 % (0.0-1.5); Arterial pCO2 56.3 mmhg (35-45); Blood Gas PS 10; MODE VENT - CPAP; Site Right Radial
[2018-01-02] MEDS: ALBUTEROL 0.083% (NEB) 2.5 MG/3 ML AMP HHN ×2 (20:00→20:59)
[2018-01-02] MEDS: SENNA TAB PO (20:38)
[2018-01-03 01:22] LABS: CANCER ANTIGEN 15-3 7 U/mL (<32)
[2018-01-03] MEDS: PROPOFOL 100 ML IV ×2 (03:00→15:00)
[2018-01-03 05:18] LABS: ADD MAN DIFF? NO
[2018-01-03 05:22] LABS: BASOPHILS % 0.5 % (0.0-2.0); EOSINOPHILS % 0.2 % (0.0-7.0); HEMATOCRIT 32.3 % (37.0-47.0); LYMPHOCYTES # 0.8 10^3/ul (0.8-2.9); LYMPHOCYTES % 18.4 % (15.0-51.0); MEAN CORPUSCULAR HEMOGLOBIN 30.3 pg (29.0-33.0); MEAN CORPUSCULAR VOLUME 97.9 fl (82.0-101.0); MONOCYTE # 0.3 10^3/ul (0.3-0.9); MONOCYTES % 6.9 % (0.0-11.0); NEUTROPHIL # 3.1 10^3/ul (1.6-7.5); NEUTROPHILS % 73.3 % (39.0-77.0); PLATELET COUNT 198 10^3/UL (140-415); RED CELL DISTRIBUTION WIDTH 18.1 % (11.5-14.5)
[2018-01-03 05:22] LABS: WHITE BLOOD COUNT 4.2 10^3/ul (4.8-10.8)
[2018-01-03 06:10] LABS: ANION GAP 14 (8-16); BLOOD UREA NITROGEN 53 mg/dl (7-20); CALCIUM 8.7 mg/dl (8.4-10.2); CARBON DIOXIDE 31 mmol/L (21-31); CHLORIDE 97 mmol/L (97-110); CREATININE 4.66 mg/dl (0.44-1.00); GLUCOSE 89 mg/dl (70-220); MAGNESIUM 2.7 mg/dl (1.7-2.5); PHOSPHORUS 4.7 mg/dl (2.5-4.9); POTASSIUM 4.1 mmol/L (3.5-5.1); SODIUM 138 mmol/L (135-144)
[2018-01-03] MEDS: ALBUTEROL 0.083% (NEB) 2.5 MG/3 ML AMP HHN ×3 (08:20→19:47)
[2018-01-03] MEDS: LEVOTHYROXINE 137 MCG TAB PO ×2 (09:09→20:34)
[2018-01-03] MEDS: EUCERIN 113 GM CR TOP (09:09)
[2018-01-03] MEDS: LIOTHYRONINE 5 MCG TAB PO ×2 (09:09→20:34)
[2018-01-03] MEDS: FAMOTIDINE 20 MG TAB NGT (09:09)
[2018-01-03] MEDS: HYDROCODONE/APAP (5/325) TAB PO (09:41)
[2018-01-03 10:26] LABS: AADO2 Arterial 47.1 mmHg (7.0-24.0); Allen Test ACCEPTAB; Arterial Base Excess 3.4 mmol/L (-3.0-3); Arterial Blood Gas Oxygen Sat 97.1 mmHG (95.0-98.0); Arterial COHb 0.8 % (0.0-3.0); Arterial Fraction of Oxyhgb 96.3 % (93.0-99.0); Arterial HCO3 30.4 mmol/L (22.0-26.0); Arterial MetHb 0 % (0.0-1.5); Arterial Total Hemglobin 11.1 g/dl (12.0-18.0); Arterial pCO2 58.7 mmhg (35-45); MODE NASAL CANNULA; Site Right Radial
[2018-01-03] MEDS: SENNA TAB PO (20:35)
[2018-01-03] MEDS: morphine 2 MG INJ IV (21:23)
[2018-01-04] MEDS: PROPOFOL 100 ML IV (03:00)
[2018-01-04 07:15] LABS: ADD MAN DIFF? NO
[2018-01-04 07:25] LABS: WHITE BLOOD COUNT 4.6 10^3/ul (4.8-10.8)
[2018-01-04 07:25] LABS: BASOPHILS % 0.4 % (0.0-2.0); EOSINOPHILS % 0.2 % (0.0-7.0); HEMATOCRIT 33.3 % (37.0-47.0); HEMOGLOBIN 10.2 g/dl (12.0-16.0); LYMPHOCYTES # 0.9 10^3/ul (0.8-2.9); LYMPHOCYTES % 20.1 % (15.0-51.0); MEAN CORPUSCULAR HEMOGLOBIN 30.2 pg (29.0-33.0); MEAN CORPUSCULAR HGB CONC 30.6 g/dl (32.0-37.0); MEAN CORPUSCULAR VOLUME 98.5 fl (82.0-101.0); MEAN PLATELET VOLUME 10.4 fl (7.4-10.4); MONOCYTE # 0.3 10^3/ul (0.3-0.9); MONOCYTES % 7.2 % (0.0-11.0); NEUTROPHIL # 3.3 10^3/ul (1.6-7.5); NEUTROPHILS % 71.2 % (39.0-77.0); PLATELET COUNT 207 10^3/UL (140-415); RED BLOOD COUNT 3.38 10^6/ul (4.20-5.40)
[2018-01-04 07:46] LABS: ANION GAP 13 (8-16); BLOOD UREA NITROGEN 31 mg/dl (7-20); CALCIUM 8.8 mg/dl (8.4-10.2); CARBON DIOXIDE 32 mmol/L (21-31); CHLORIDE 96 mmol/L (97-110); CREATININE 3.53 mg/dl (0.44-1.00); GLUCOSE 87 mg/dl (70-220); MAGNESIUM 2.3 mg/dl (1.7-2.5); PHOSPHORUS 4.3 mg/dl (2.5-4.9); POTASSIUM 4.8 mmol/L (3.5-5.1); SODIUM 136 mmol/L (135-144)
[2018-01-04] MEDS: EUCERIN 113 GM CR TOP (08:14)
[2018-01-04] MEDS: LIOTHYRONINE 5 MCG TAB PO ×2 (08:14→21:37)
[2018-01-04] MEDS: FAMOTIDINE 20 MG TAB NGT (08:14)
[2018-01-04] MEDS: LEVOTHYROXINE 137 MCG TAB PO ×2 (08:14→21:37)
[2018-01-04] MEDS: ALBUTEROL 0.083% (NEB) 2.5 MG/3 ML AMP HHN ×3 (08:51→19:55)
[2018-01-04] MEDS: CLOBETASOL 0.05% 15 GM CR TOP ×3 (10:30→21:36)
[2018-01-04] MEDS: GUAIFENESIN 20 MG/ML 5ML CUP PO ×2 (14:55→21:40)
[2018-01-04] MEDS: BALSAM PERU/CASTOR OIL 60 GM TUBE TOP ×2 (16:36→21:36)
[2018-01-04] MEDS: SENNA TAB PO (21:37)
[2018-01-04] MEDS: HYDROCODONE/APAP (5/325) TAB PO (21:41)
[2018-01-05] MEDS: GUAIFENESIN 20 MG/ML 5ML CUP PO ×3 (02:33→20:24)
[2018-01-05] MEDS: ALBUTEROL 0.083% (NEB) 2.5 MG/3 ML AMP HHN ×3 (08:14→19:15)
[2018-01-05 09:11] LABS: ADD MAN DIFF? NO
[2018-01-05 09:20] LABS: WHITE BLOOD COUNT 4.3 10^3/ul (4.8-10.8)
[2018-01-05 09:20] LABS: BASOPHILS % 0.5 % (0.0-2.0); EOSINOPHILS % 0.2 % (0.0-7.0); HEMOGLOBIN 9.7 g/dl (12.0-16.0); LYMPHOCYTES # 1.1 10^3/ul (0.8-2.9); LYMPHOCYTES % 24.9 % (15.0-51.0); MEAN CORPUSCULAR HEMOGLOBIN 29.5 pg (29.0-33.0); MEAN CORPUSCULAR HGB CONC 30.3 g/dl (32.0-37.0); MEAN CORPUSCULAR VOLUME 97.3 fl (82.0-101.0); MEAN PLATELET VOLUME 11.1 fl (7.4-10.4); MONOCYTE # 0.3 10^3/ul (0.3-0.9); NEUTROPHIL # 2.9 10^3/ul (1.6-7.5); NEUTROPHILS % 67.7 % (39.0-77.0); PLATELET COUNT 208 10^3/UL (140-415); RED BLOOD COUNT 3.29 10^6/ul (4.20-5.40); RED CELL DISTRIBUTION WIDTH 17.4 % (11.5-14.5)
[2018-01-05] MEDS: LEVOTHYROXINE 137 MCG TAB PO ×2 (09:28→20:24)
[2018-01-05] MEDS: EUCERIN 113 GM CR TOP (09:28)
[2018-01-05] MEDS: LIOTHYRONINE 5 MCG TAB PO ×2 (09:28→20:24)
[2018-01-05] MEDS: FAMOTIDINE 20 MG TAB NGT (09:28)
[2018-01-05] MEDS: BALSAM PERU/CASTOR OIL 60 GM TUBE TOP ×2 (09:29→20:25)
[2018-01-05] MEDS: CLOBETASOL 0.05% 15 GM CR TOP ×2 (09:29→20:25)
[2018-01-05 09:46] LABS: ANION GAP 14 (8-16); BLOOD UREA NITROGEN 45 mg/dl (7-20); CALCIUM 8.7 mg/dl (8.4-10.2); CARBON DIOXIDE 31 mmol/L (21-31); CHLORIDE 93 mmol/L (97-110); CREATININE 4.82 mg/dl (0.44-1.00); GLUCOSE 79 mg/dl (70-220); MAGNESIUM 2.5 mg/dl (1.7-2.5); PHOSPHORUS 5.5 mg/dl (2.5-4.9); POTASSIUM 4.8 mmol/L (3.5-5.1); SODIUM 133 mmol/L (135-144)
[2018-01-05] MEDS: SENNA TAB PO (20:24)
[2018-01-06] MEDS: GUAIFENESIN 20 MG/ML 5ML CUP PO (01:46)
[2018-01-06] MEDS: HYDROCODONE/APAP (5/325) TAB PO ×3 (01:50→19:56)
[2018-01-06] MEDS: ALBUTEROL 0.083% (NEB) 2.5 MG/3 ML AMP HHN ×3 (07:32→19:42)
[2018-01-06 08:31] LABS: ADD MAN DIFF? NO
[2018-01-06 08:36] LABS: BASOPHILS % 0.8 % (0.0-2.0); EOSINOPHILS % 0.5 % (0.0-7.0); HEMATOCRIT 32.4 % (37.0-47.0); HEMOGLOBIN 9.8 g/dl (12.0-16.0); LYMPHOCYTES # 0.9 10^3/ul (0.8-2.9); LYMPHOCYTES % 22.8 % (15.0-51.0); MEAN CORPUSCULAR HGB CONC 30.2 g/dl (32.0-37.0); MEAN CORPUSCULAR VOLUME 99.1 fl (82.0-101.0); MEAN PLATELET VOLUME 10.4 fl (7.4-10.4); MONOCYTE # 0.4 10^3/ul (0.3-0.9); MONOCYTES % 9.1 % (0.0-11.0); NEUTROPHIL # 2.6 10^3/ul (1.6-7.5); PLATELET COUNT 255 10^3/UL (140-415); RED BLOOD COUNT 3.27 10^6/ul (4.20-5.40); RED CELL DISTRIBUTION WIDTH 17.6 % (11.5-14.5)
[2018-01-06 08:56] LABS: ANION GAP 13 (8-16); BLOOD UREA NITROGEN 24 mg/dl (7-20); CALCIUM 8.8 mg/dl (8.4-10.2); CARBON DIOXIDE 31 mmol/L (21-31); CHLORIDE 97 mmol/L (97-110); CREATININE 3.56 mg/dl (0.44-1.00); GLUCOSE 86 mg/dl (70-220); POTASSIUM 4.1 mmol/L (3.5-5.1); SODIUM 137 mmol/L (135-144)
[2018-01-06] MEDS: LEVOTHYROXINE 137 MCG TAB PO ×2 (09:22→19:59)
[2018-01-06] MEDS: FAMOTIDINE 20 MG TAB NGT (09:22)
[2018-01-06] MEDS: LIOTHYRONINE 5 MCG TAB PO ×2 (09:22→19:56)
[2018-01-06] MEDS: EUCERIN 113 GM CR TOP (09:23)
[2018-01-06] MEDS: BALSAM PERU/CASTOR OIL 60 GM TUBE TOP ×2 (09:23→20:00)
[2018-01-06] MEDS: CLOBETASOL 0.05% 15 GM CR TOP ×2 (09:23→20:00)
[2018-01-06] MEDS: SENNA TAB PO (19:56)
[2018-01-07 06:37] LABS: ADD MAN DIFF? NO
[2018-01-07 06:41] LABS: WHITE BLOOD COUNT 3.6 10^3/ul (4.8-10.8)
[2018-01-07 06:41] LABS: BASOPHILS % 0.6 % (0.0-2.0); EOSINOPHILS % 0.3 % (0.0-7.0); HEMATOCRIT 30.3 % (37.0-47.0); HEMOGLOBIN 9.2 g/dl (12.0-16.0); LYMPHOCYTES % 29.3 % (15.0-51.0); MEAN CORPUSCULAR HEMOGLOBIN 30.2 pg (29.0-33.0); MEAN CORPUSCULAR HGB CONC 30.4 g/dl (32.0-37.0); MEAN CORPUSCULAR VOLUME 99.3 fl (82.0-101.0); MEAN PLATELET VOLUME 10.1 fl (7.4-10.4); MONOCYTE # 0.3 10^3/ul (0.3-0.9); MONOCYTES % 7.6 % (0.0-11.0); NEUTROPHIL # 2.2 10^3/ul (1.6-7.5); NEUTROPHILS % 61.6 % (39.0-77.0); PLATELET COUNT 248 10^3/UL (140-415); RED BLOOD COUNT 3.05 10^6/ul (4.20-5.40); RED CELL DISTRIBUTION WIDTH 17.5 % (11.5-14.5)
[2018-01-07 07:08] LABS: ANION GAP 15 (8-16); BLOOD UREA NITROGEN 35 mg/dl (7-20); CALCIUM 8.8 mg/dl (8.4-10.2); CARBON DIOXIDE 29 mmol/L (21-31); CHLORIDE 96 mmol/L (97-110); CREATININE 4.94 mg/dl (0.44-1.00); GLUCOSE 95 mg/dl (70-220); POTASSIUM 4.6 mmol/L (3.5-5.1); SODIUM 135 mmol/L (135-144)
[2018-01-07] MEDS: ALBUTEROL 0.083% (NEB) 2.5 MG/3 ML AMP HHN ×3 (08:09→19:50)
[2018-01-07] MEDS: FAMOTIDINE 20 MG TAB NGT (08:20)
[2018-01-07] MEDS: LEVOTHYROXINE 137 MCG TAB PO (08:20)
[2018-01-07] MEDS: LIOTHYRONINE 5 MCG TAB PO ×2 (08:20→20:46)
[2018-01-07] MEDS: EUCERIN 113 GM CR TOP (08:21)
[2018-01-07] MEDS: CLOBETASOL 0.05% 15 GM CR TOP ×2 (08:21→20:46)
[2018-01-07] MEDS: BALSAM PERU/CASTOR OIL 60 GM TUBE TOP ×2 (08:22→20:46)
[2018-01-07] MEDS: hydrALAzine 20 MG INJ IV (12:36)
[2018-01-07] MEDS: HYDROCODONE/APAP (5/325) TAB PO (20:46)
[2018-01-07] MEDS: SENNA TAB PO (20:46)
[2018-01-07] MEDS: LEVOTHYROXINE 25 MCG TAB PO (20:50)
[2018-01-07] MEDS: morphine LIQ (10 MG/5 ML) CUP PO (20:55)
[2018-01-07] MEDS: LEVOTHYROXINE 112 MCG TAB PO (22:37)
[2018-01-08] MEDS: ALBUTEROL 0.083% (NEB) 2.5 MG/3 ML AMP HHN ×3 (07:31→20:14)
[2018-01-08] MEDS: LEVOTHYROXINE 112 MCG TAB PO ×2 (08:57→22:16)
[2018-01-08] MEDS: LIOTHYRONINE 5 MCG TAB PO ×2 (08:57→21:00)
[2018-01-08] MEDS: LEVOTHYROXINE 25 MCG TAB PO ×2 (08:58→20:21)
[2018-01-08] MEDS: EUCERIN 113 GM CR TOP (08:58)
[2018-01-08] MEDS: CLOBETASOL 0.05% 15 GM CR TOP ×2 (08:58→22:17)
[2018-01-08] MEDS: FAMOTIDINE 20 MG TAB NGT (08:58)
[2018-01-08] MEDS: BALSAM PERU/CASTOR OIL 60 GM TUBE TOP ×2 (08:58→22:17)
[2018-01-08 09:54] LABS: ADD MAN DIFF? NO
[2018-01-08 10:00] LABS: WHITE BLOOD COUNT 4.2 10^3/ul (4.8-10.8)
[2018-01-08 10:00] LABS: BASOPHILS % 0.7 % (0.0-2.0); EOSINOPHILS % 0.5 % (0.0-7.0); HEMATOCRIT 28.2 % (37.0-47.0); HEMOGLOBIN 8.7 g/dl (12.0-16.0); LYMPHOCYTES # 1.2 10^3/ul (0.8-2.9); LYMPHOCYTES % 28.2 % (15.0-51.0); MEAN CORPUSCULAR HGB CONC 30.9 g/dl (32.0-37.0); MEAN CORPUSCULAR VOLUME 97.2 fl (82.0-101.0); MEAN PLATELET VOLUME 10.2 fl (7.4-10.4); MONOCYTE # 0.3 10^3/ul (0.3-0.9); MONOCYTES % 7.7 % (0.0-11.0); NEUTROPHIL # 2.6 10^3/ul (1.6-7.5); NEUTROPHILS % 62.7 % (39.0-77.0); PLATELET COUNT 248 10^3/UL (140-415); RED CELL DISTRIBUTION WIDTH 17.2 % (11.5-14.5)
[2018-01-08 10:16] LABS: BLOOD UREA NITROGEN 44 mg/dl (7-20); CALCIUM 8.8 mg/dl (8.4-10.2); CARBON DIOXIDE 26 mmol/L (21-31); CHLORIDE 97 mmol/L (97-110); CREATININE 6.16 mg/dl (0.44-1.00); GLUCOSE 77 mg/dl (70-220); SODIUM 134 mmol/L (135-144)
[2018-01-08 10:32] LABS: ANION GAP 16 (8-16)
[2018-01-08 10:36] LABS: POTASSIUM 4.7 mmol/L (3.5-5.1)
[2018-01-08] MEDS: HYDROCODONE/APAP (5/325) TAB PO (20:19)
[2018-01-08] MEDS: SENNA TAB PO (20:20)
[2018-01-08] MEDS: GUAIFENESIN 20 MG/ML 5ML CUP PO (20:23)
[2018-01-09 06:18] LABS: ADD MAN DIFF? NO
[2018-01-09 06:27] LABS: WHITE BLOOD COUNT 4.1 10^3/ul (4.8-10.8)
[2018-01-09 06:27] LABS: BASOPHILS % 0.7 % (0.0-2.0); EOSINOPHILS % 0.5 % (0.0-7.0); HEMATOCRIT 30.1 % (37.0-47.0); HEMOGLOBIN 9.2 g/dl (12.0-16.0); LYMPHOCYTES # 0.9 10^3/ul (0.8-2.9); LYMPHOCYTES % 22.9 % (15.0-51.0); MEAN CORPUSCULAR HEMOGLOBIN 29.9 pg (29.0-33.0); MEAN CORPUSCULAR HGB CONC 30.6 g/dl (32.0-37.0); MEAN CORPUSCULAR VOLUME 97.7 fl (82.0-101.0); MEAN PLATELET VOLUME 9.8 fl (7.4-10.4); MONOCYTE # 0.4 10^3/ul (0.3-0.9); NEUTROPHIL # 2.7 10^3/ul (1.6-7.5); NEUTROPHILS % 65.4 % (39.0-77.0); PLATELET COUNT 240 10^3/UL (140-415); RED BLOOD COUNT 3.08 10^6/ul (4.20-5.40); RED CELL DISTRIBUTION WIDTH 17.5 % (11.5-14.5)
[2018-01-09 07:00] LABS: ANION GAP 14 (8-16); BLOOD UREA NITROGEN 26 mg/dl (7-20); CALCIUM 8.8 mg/dl (8.4-10.2); CARBON DIOXIDE 30 mmol/L (21-31); CHLORIDE 97 mmol/L (97-110); CREATININE 4.52 mg/dl (0.44-1.00); GLUCOSE 79 mg/dl (70-220); POTASSIUM 4.9 mmol/L (3.5-5.1); SODIUM 136 mmol/L (135-144)
[2018-01-09] MEDS: ALBUTEROL 0.083% (NEB) 2.5 MG/3 ML AMP HHN ×3 (08:38→20:24)
[2018-01-09] MEDS: EUCERIN 113 GM CR TOP (09:00)
[2018-01-09] MEDS: LIOTHYRONINE 5 MCG TAB PO ×2 (10:21→21:23)
[2018-01-09] MEDS: LEVOTHYROXINE 25 MCG TAB PO ×2 (10:22→21:23)
[2018-01-09] MEDS: LEVOTHYROXINE 112 MCG TAB PO ×2 (10:22→21:23)
[2018-01-09] MEDS: CLOBETASOL 0.05% 15 GM CR TOP ×2 (10:23→21:24)
[2018-01-09] MEDS: BALSAM PERU/CASTOR OIL 60 GM TUBE TOP ×2 (11:03→21:25)
[2018-01-09 13:24] LABS: INR 1.18; PROTIME 15.2 Sec (11.9-14.9); PT RATIO 1.2
[2018-01-09 13:25] LABS: PARTIAL THROMBOPLASTIN TIME 36.6 Sec (25.0-35.0)
[2018-01-09] MEDS: GUAIFENESIN 20 MG/ML 5ML CUP PO (14:29)
[2018-01-09] MEDS: SENNA TAB PO (21:00)
[2018-01-09] MEDS: HYDROCODONE/APAP (5/325) TAB PO (21:23)
[2018-01-10 06:04] LABS: ADD MAN DIFF? NO
[2018-01-10 06:06] LABS: BASOPHILS % 0.8 % (0.0-2.0); EOSINOPHILS % 0.8 % (0.0-7.0); HEMATOCRIT 28.4 % (37.0-47.0); HEMOGLOBIN 8.7 g/dl (12.0-16.0); LYMPHOCYTES # 0.8 10^3/ul (0.8-2.9); LYMPHOCYTES % 20.7 % (15.0-51.0); MEAN CORPUSCULAR HEMOGLOBIN 30.2 pg (29.0-33.0); MEAN CORPUSCULAR HGB CONC 30.6 g/dl (32.0-37.0); MEAN CORPUSCULAR VOLUME 98.6 fl (82.0-101.0); MEAN PLATELET VOLUME 9.6 fl (7.4-10.4); MONOCYTE # 0.4 10^3/ul (0.3-0.9); MONOCYTES % 11.5 % (0.0-11.0); NEUTROPHIL # 2.5 10^3/ul (1.6-7.5); NEUTROPHILS % 65.9 % (39.0-77.0); PLATELET COUNT 206 10^3/UL (140-415); RED BLOOD COUNT 2.88 10^6/ul (4.20-5.40); RED CELL DISTRIBUTION WIDTH 17.4 % (11.5-14.5)
[2018-01-10 06:06] LABS: WHITE BLOOD COUNT 3.8 10^3/ul (4.8-10.8)
[2018-01-10 06:36] LABS: ANION GAP 16 (8-16); BLOOD UREA NITROGEN 35 mg/dl (7-20); CALCIUM 8.8 mg/dl (8.4-10.2); CARBON DIOXIDE 29 mmol/L (21-31); CHLORIDE 94 mmol/L (97-110); GLUCOSE 82 mg/dl (70-220); POTASSIUM 4.7 mmol/L (3.5-5.1); SODIUM 134 mmol/L (135-144)
[2018-01-10] MEDS: LEVOTHYROXINE 25 MCG TAB PO ×2 (08:34→21:21)
[2018-01-10] MEDS: LEVOTHYROXINE 112 MCG TAB PO ×2 (08:34→21:21)
[2018-01-10] MEDS: LIOTHYRONINE 5 MCG TAB PO ×2 (08:34→21:21)
[2018-01-10] MEDS: BALSAM PERU/CASTOR OIL 60 GM TUBE TOP ×2 (08:34→21:22)
[2018-01-10] MEDS: CLOBETASOL 0.05% 15 GM CR TOP ×2 (08:34→21:22)
[2018-01-10] MEDS: EUCERIN 113 GM CR TOP (08:35)
[2018-01-10] MEDS: ALBUTEROL 0.083% (NEB) 2.5 MG/3 ML AMP HHN ×4 (08:55→21:09)
[2018-01-10] MEDS: GUAIFENESIN 20 MG/ML 5ML CUP PO ×2 (15:50→21:21)
[2018-01-10] MEDS: SENNA TAB PO (21:00)
[2018-01-10] MEDS: HYDROCODONE/APAP (5/325) TAB PO (22:24)
[2018-01-11] MEDS: ALBUTEROL 0.083% (NEB) 2.5 MG/3 ML AMP HHN ×2 (08:03→13:14)
[2018-01-11] MEDS: EUCERIN 113 GM CR TOP (09:00)
[2018-01-11] MEDS: LIOTHYRONINE 5 MCG TAB PO (09:20)
[2018-01-11] MEDS: LEVOTHYROXINE 112 MCG TAB PO (09:20)
[2018-01-11] MEDS: LEVOTHYROXINE 25 MCG TAB PO (09:20)
[2018-01-11] MEDS: CLOBETASOL 0.05% 15 GM CR TOP (09:21)
[2018-01-11] MEDS: BALSAM PERU/CASTOR OIL 60 GM TUBE TOP (09:21)
[2018-01-11] MEDS: ACETAMINOPHEN 325 MG TAB PO (11:22)
== END 2018-01-11 18:55 | disposition home health service (06) | DRG 207 ==
LOC: PP2 13:27 → ICU 12-24 00:22 → TEL 01-04 15:33 → MS2 01-08 19:20
PROVIDERS: Internal Medicine Pulmonary Disease
PROC: 3E0F7GC Introduction of Other Therapeutic Substance into Respiratory Tract, Via Natural or Artificial Opening (ICD-10-PCS; 2017-12-26 15:30)
PROC: 5A1955Z Respiratory Ventilation, Greater than 96 Consecutive Hours (ICD-10-PCS; principal; 2017-12-26 17:27)
PROC: 0BH17EZ Insertion of Endotracheal Airway into Trachea, Via Natural or Artificial Opening (ICD-10-PCS; 2017-12-26 17:27)
PROC: 0DB58ZX Excision of Esophagus, Via Natural or Artificial Opening Endoscopic, Diagnostic (ICD-10-PCS; 2017-12-26 17:27)
PROC: 0DB68ZX Excision of Stomach, Via Natural or Artificial Opening Endoscopic, Diagnostic (ICD-10-PCS; 2017-12-26 17:27)
PROC: 30233K1 Transfusion of Nonautologous Frozen Plasma into Peripheral Vein, Percutaneous Approach (ICD-10-PCS; 2017-12-26 17:27)
PROC: 30233P1 Transfusion of Nonautologous Frozen Red Cells into Peripheral Vein, Percutaneous Approach (ICD-10-PCS; 2017-12-26 17:27)
PROC: 02HV33Z Insertion of Infusion Device into Superior Vena Cava, Percutaneous Approach (ICD-10-PCS; 2017-12-26 17:27)
PROC: 5A1D70Z Performance of Urinary Filtration, Intermittent, Less than 6 Hours Per Day (ICD-10-PCS; 2017-12-26 17:27)
PROC: 5A1D70Z Performance of Urinary Filtration, Intermittent, Less than 6 Hours Per Day (ICD-10-PCS; 2017-12-26 17:27)
PROC: 5A1D70Z Performance of Urinary Filtration, Intermittent, Less than 6 Hours Per Day (ICD-10-PCS; 2017-12-26 17:27)
PROC: 5A1D70Z Performance of Urinary Filtration, Intermittent, Less than 6 Hours Per Day (ICD-10-PCS; 2017-12-26 17:27)
PROC: 5A1D70Z Performance of Urinary Filtration, Intermittent, Less than 6 Hours Per Day (ICD-10-PCS; 2017-12-26 17:27)
PROC: 5A1D70Z Performance of Urinary Filtration, Intermittent, Less than 6 Hours Per Day (ICD-10-PCS; 2017-12-26 17:27)
PROC: 5A1D70Z Performance of Urinary Filtration, Intermittent, Less than 6 Hours Per Day (ICD-10-PCS; 2017-12-26 17:27)
DX: J96.01 Acute respiratory failure with hypoxia (principal); N18.6 End stage renal disease; E03.5 Myxedema coma; J91.0 Malignant pleural effusion; C79.9 Secondary malignant neoplasm of unspecified site; I31.3 Pericardial effusion (noninflammatory); J94.2 Hemothorax; Z99.2 Dependence on renal dialysis; C80.1 Malignant (primary) neoplasm, unspecified; G72.9 Myopathy, unspecified; E03.9 Hypothyroidism, unspecified; G47.33 Obstructive sleep apnea (adult) (pediatric); T50.905A Adverse effect of unspecified drugs, medicaments and biological substances, initial encounter; I95.9 Hypotension, unspecified; E78.5 Hyperlipidemia, unspecified; D64.9 Anemia, unspecified; D69.6 Thrombocytopenia, unspecified; K29.70 Gastritis, unspecified, without bleeding; K20.9 Esophagitis, unspecified; L95.8 Other vasculitis limited to the skin
CPT/HCPCS: 36430; 36569; 36600; 71045; 71250; 74018; 76830; 76856; 76937; 80048; 80053; 80061; 80202; 82378; 82803; 82962; 83036; 83605; 83735; 84100; 84436; 84443; 84479; 84703; 85025; 85049; 85610; 85670; 85730; 86300; 86304; 86850; 86900; 86901; 86920; 87040; 87081; 88305; 88312; 88313; 88341; 88342; 90935; 92526; 92610; 93308; 94002; 94003; 94640; 94660; 94664; 94668; 94770; 97110; 97116; 97161; 97530

== ENCOUNTER 2018-01-16 04:51 | Inpatient (IN) | payer OTHER ==
[2018-01-16 05:34] LABS: ADD MAN DIFF? NO
[2018-01-16 05:40] LABS: BASOPHIL # 0.1 10^3/ul (0.0-0.1); BASOPHILS % 0.8 % (0.0-2.0); EOSINOPHILS # 0.1 10^3/ul (0.0-0.5); EOSINOPHILS % 1.1 % (0.0-7.0); HEMATOCRIT 32.1 % (37.0-47.0); HEMOGLOBIN 9.5 g/dl (12.0-16.0); LYMPHOCYTES # 2.9 10^3/ul (0.8-2.9); LYMPHOCYTES % 34.7 % (15.0-51.0); MEAN CORPUSCULAR HEMOGLOBIN 30.4 pg (29.0-33.0); MEAN CORPUSCULAR HGB CONC 29.6 g/dl (32.0-37.0); MEAN CORPUSCULAR VOLUME 102.9 fl (82.0-101.0); MEAN PLATELET VOLUME 9.9 fl (7.4-10.4); MONOCYTE # 0.7 10^3/ul (0.3-0.9); MONOCYTES % 8.4 % (0.0-11.0); NEUTROPHIL # 4.5 10^3/ul (1.6-7.5); NEUTROPHILS % 53.6 % (39.0-77.0); PLATELET COUNT 231 10^3/UL (140-415); RED BLOOD COUNT 3.12 10^6/ul (4.20-5.40)
[2018-01-16 05:40] LABS: WHITE BLOOD COUNT 8.4 10^3/ul (4.8-10.8)
[2018-01-16 06:01] LABS: PROTIME 15.4 Sec (11.9-14.9); PT RATIO 1.2
[2018-01-16 06:02] LABS: PARTIAL THROMBOPLASTIN TIME 37.1 Sec (25.0-35.0)
[2018-01-16 06:17] LABS: ALANINE AMINOTRANSFERASE 15 IU/L (13-69); ALBUMIN 3.8 g/dl (3.3-4.9); ALBUMIN/GLOBULIN RATIO 0.86; ALKALINE PHOSPHATASE 130 IU/L (42-121); ANION GAP 13 (8-16); ASPARTATE AMINO TRANSFERASE 21 IU/L (15-46); BILIRUBIN,INDIRECT 0.2 mg/dl (0-1.1); BILIRUBIN,TOTAL 0.2 mg/dl (0.2-1.3); BLOOD UREA NITROGEN 23 mg/dl (7-20); CARBON DIOXIDE 33 mmol/L (21-31); CHLORIDE 99 mmol/L (97-110); CREATININE 4.07 mg/dl (0.44-1.00); GLUCOSE 120 mg/dl (70-220); POTASSIUM 4.3 mmol/L (3.5-5.1); SODIUM 141 mmol/L (135-144); TOTAL PROTEIN 8.2 g/dl (6.1-8.1)
[2018-01-16] MEDS: CEFEPIME 2GM/50 ML (PMX) 50 ML IVPB (06:24)
[2018-01-16 06:35] LABS: TROPONIN-I 0.234 ng/ml (0.000-0.120)
[2018-01-16 06:45] LABS: B-TYPE NATRIURETIC PEPTIDE 120000 PG/ML (0-125)
[2018-01-16] MEDS: VANCOMYCIN 1 GM (PMX) 250 ML IVPB (06:59)
[2018-01-16] MEDS: IPRATROPIUM (NEB) 0.5 MG/2.5 ML AMP INH (07:01)
[2018-01-16] MEDS: ALBUTEROL 0.5% (NEB) 2.5 MG/0.5 ML AMP INH (07:01)
[2018-01-16] MEDS ORDERED: ONDANSETRON 4 MG INJ IV ×2 (07:30→10:00)
[2018-01-16] MEDS ORDERED: POTASSIUM CHLORIDE 30 MEQ in SOD CHLORIDE 0.9% 1,000 ML IV (07:30)
[2018-01-16] MEDS ORDERED: morphine 2 MG INJ IV (07:30)
[2018-01-16 07:53] LABS: LACTIC ACID 0.8 mmol/L (0.5-2.0)
[2018-01-16] MEDS: ASPIRIN 325 MG TAB PO (07:53)
[2018-01-16 08:52] LABS: AADO2 Arterial 95.7 mmHg (7.0-24.0); Allen Test ACCEPTAB; Arterial Base Excess 0.4 mmol/L (-3.0-3); Arterial Blood Gas Oxygen Sat 96.3 mmHG (95.0-98.0); Arterial COHb 0.3 % (0.0-3.0); Arterial Fraction of Oxyhgb 95.7 % (93.0-99.0); Arterial HCO3 30.1 mmol/L (22.0-26.0); Arterial MetHb 0.3 % (0.0-1.5); Arterial Total Hemglobin 10.1 g/dl (12.0-18.0); Arterial pCO2 81.9 mmhg (35-45); Blood Gas IEPAP 15/5; Blood Gas PS 10; MODE MASK - BIPAP; Site Right Radial
[2018-01-16] MEDS ORDERED: DOCUSATE SODIUM 100 MG CAP PO (10:00)
[2018-01-16] MEDS ORDERED: NACL 0.9% 3 ML SYG IV (10:00)
[2018-01-16] MEDS ORDERED: ACETAMINOPHEN 325 MG TAB PO (10:00)
[2018-01-16] MEDS ORDERED: HYDROCODONE/APAP (5/325) TAB PO (10:00)
[2018-01-16] MEDS ORDERED: morphine LIQ (10 MG/5 ML) CUP PO (10:00)
[2018-01-16 10:39] LABS: LACTIC ACID 0.8 mmol/L (0.5-2.0)
[2018-01-16 11:49] LABS: LACTIC ACID 0.8 mmol/L (0.5-2.0)
[2018-01-16 17:19] LABS: TROPONIN-I 0.247 ng/ml (0.000-0.120)
[2018-01-16] MEDS: HEPARIN 5,000 UNIT/0.5 ML VIAL SC (21:20)
[2018-01-16 21:50] LABS: AADO2 Arterial 66.5 mmHg (7.0-24.0); Allen Test ACCEPTAB; Arterial Base Excess 5.1 mmol/L (-3.0-3); Arterial Blood Gas Oxygen Sat 98.7 mmHG (95.0-98.0); Arterial Fraction of Oxyhgb 97.6 % (93.0-99.0); Arterial MetHb 0.1 % (0.0-1.5); Arterial Total Hemglobin 10.3 g/dl (12.0-18.0); Arterial pCO2 68.3 mmhg (35-45); Blood Gas IEPAP 15/5; Blood Gas PS 10; MODE BIPAP - S/T; Site Right Radial
[2018-01-17 05:13] LABS: ADD MAN DIFF? NO
[2018-01-17 05:18] LABS: BASOPHIL # 0.1 10^3/ul (0.0-0.1); BASOPHILS % 1.2 % (0.0-2.0); EOSINOPHILS # 0.1 10^3/ul (0.0-0.5); EOSINOPHILS % 1.4 % (0.0-7.0); HEMATOCRIT 31.1 % (37.0-47.0); HEMOGLOBIN 9.1 g/dl (12.0-16.0); LYMPHOCYTES # 1.6 10^3/ul (0.8-2.9); LYMPHOCYTES % 31.2 % (15.0-51.0); MEAN CORPUSCULAR HEMOGLOBIN 29.7 pg (29.0-33.0); MEAN CORPUSCULAR HGB CONC 29.3 g/dl (32.0-37.0); MEAN CORPUSCULAR VOLUME 101.6 fl (82.0-101.0); MEAN PLATELET VOLUME 10.2 fl (7.4-10.4); MONOCYTE # 0.4 10^3/ul (0.3-0.9); MONOCYTES % 7.9 % (0.0-11.0); NEUTROPHIL # 2.9 10^3/ul (1.6-7.5); NEUTROPHILS % 57.5 % (39.0-77.0); PLATELET COUNT 201 10^3/UL (140-415); RED BLOOD COUNT 3.06 10^6/ul (4.20-5.40); RED CELL DISTRIBUTION WIDTH 18.2 % (11.5-14.5)
[2018-01-17 05:18] LABS: WHITE BLOOD COUNT 5.1 10^3/ul (4.8-10.8)
[2018-01-17 05:53] LABS: ANION GAP 11 (8-16); BLOOD UREA NITROGEN 17 mg/dl (7-20); CALCIUM 8.9 mg/dl (8.4-10.2); CARBON DIOXIDE 33 mmol/L (21-31); CHLORIDE 98 mmol/L (97-110); CREATININE 3.37 mg/dl (0.44-1.00); GLUCOSE 96 mg/dl (70-220); MAGNESIUM 1.9 mg/dl (1.7-2.5); PHOSPHORUS 4.4 mg/dl (2.5-4.9); POTASSIUM 4.2 mmol/L (3.5-5.1); SODIUM 138 mmol/L (135-144)
[2018-01-17 06:10] LABS: TROPONIN-I 0.211 ng/ml (0.000-0.120)
[2018-01-17] MEDS ORDERED: LEVOTHYROXINE 137 MCG TAB PO (07:00)
[2018-01-17] MEDS: LEVOTHYROXINE 25 MCG TAB PO (08:53)
[2018-01-17] MEDS: LEVOTHYROXINE 112 MCG TAB PO (08:53)
[2018-01-17] MEDS: HEPARIN 5,000 UNIT/0.5 ML VIAL SC (08:54)
[2018-01-17] MEDS: ALBUTEROL/IPRATROPIUM (NEB) 3 ML AMP HHN (09:07)
== END 2018-01-17 16:45 | disposition home or self-care (01) | DRG 374 ==
LOC: ICU 12:01 → E/R 04:51 → ICU 07:35
PROC: 5A09357 Assistance with Respiratory Ventilation, Less than 24 Consecutive Hours, Continuous Positive Airway Pressure (ICD-10-PCS; principal; 2018-01-16)
PROC: 5A1D70Z Performance of Urinary Filtration, Intermittent, Less than 6 Hours Per Day (ICD-10-PCS; 2018-01-16)
DX: C26.9 Malignant neoplasm of ill-defined sites within the digestive system (principal); J96.21 Acute and chronic respiratory failure with hypoxia; I21.A1 Myocardial infarction type 2; J96.22 Acute and chronic respiratory failure with hypercapnia; N18.6 End stage renal disease; J91.0 Malignant pleural effusion; I12.0 Hypertensive chronic kidney disease with stage 5 chronic kidney disease or end stage renal disease; E03.9 Hypothyroidism, unspecified; D63.8 Anemia in other chronic diseases classified elsewhere; Z99.2 Dependence on renal dialysis
CPT/HCPCS: 36415; 36600; 71045; 80048; 80053; 82803; 83036; 83605; 83735; 83880; 84100; 84443; 84484; 85025; 85610; 85730; 87040; 87081; 90935; 93005; 94644; 94660; 94664; 96374; 96375; 99291-25

== ENCOUNTER 2018-01-20 20:29 | Inpatient (IN) | payer OTHER ==
[2018-01-20 21:22] LABS: ADD MAN DIFF? NO
[2018-01-20 21:35] LABS: BASOPHIL # 0.1 10^3/ul (0.0-0.1); EOSINOPHILS # 0.1 10^3/ul (0.0-0.5); EOSINOPHILS % 1.7 % (0.0-7.0); HEMATOCRIT 31.2 % (37.0-47.0); HEMOGLOBIN 9.2 g/dl (12.0-16.0); LYMPHOCYTES # 1.3 10^3/ul (0.8-2.9); LYMPHOCYTES % 22.1 % (15.0-51.0); MEAN CORPUSCULAR HEMOGLOBIN 30.4 pg (29.0-33.0); MEAN CORPUSCULAR HGB CONC 29.5 g/dl (32.0-37.0); MEAN PLATELET VOLUME 10.4 fl (7.4-10.4); MONOCYTE # 0.7 10^3/ul (0.3-0.9); MONOCYTES % 10.9 % (0.0-11.0); NEUTROPHIL # 3.7 10^3/ul (1.6-7.5); NEUTROPHILS % 61.6 % (39.0-77.0); PLATELET COUNT 243 10^3/UL (140-415); RED BLOOD COUNT 3.03 10^6/ul (4.20-5.40); RED CELL DISTRIBUTION WIDTH 18.2 % (11.5-14.5)
[2018-01-20] MEDS: ALBUTEROL 0.5% (NEB) 2.5 MG/0.5 ML AMP INH (21:41)
[2018-01-20 21:42] LABS: ALANINE AMINOTRANSFERASE 20 IU/L (13-69); ALBUMIN 4.3 g/dl (3.3-4.9); ALBUMIN/GLOBULIN RATIO 1.07; ALKALINE PHOSPHATASE 99 IU/L (42-121); ANION GAP 20 (8-16); ASPARTATE AMINO TRANSFERASE 20 IU/L (15-46); BILIRUBIN,INDIRECT 0.2 mg/dl (0-1.1); BILIRUBIN,TOTAL 0.2 mg/dl (0.2-1.3); BLOOD UREA NITROGEN 27 mg/dl (7-20); CALCIUM 9.4 mg/dl (8.4-10.2); CARBON DIOXIDE 33 mmol/L (21-31); CHLORIDE 91 mmol/L (97-110); GLUCOSE 130 mg/dl (70-220); POTASSIUM 4.4 mmol/L (3.5-5.1); SODIUM 140 mmol/L (135-144); TOTAL PROTEIN 8.3 g/dl (6.1-8.1)
[2018-01-20 22:59] LABS: AADO2 Arterial 313.6 mmHg (7.0-24.0); Arterial Base Excess 4.8 mmol/L (-3.0-3); Arterial Blood Gas Oxygen Sat 99.5 mmHG (95.0-98.0); Arterial COHb 0.6 % (0.0-3.0); Arterial Fraction of Oxyhgb 98.6 % (93.0-99.0); Arterial MetHb 0.3 % (0.0-1.5); Arterial Total Hemglobin 10.3 g/dl (12.0-18.0); MODE MASK - NRB; Site Right Brachial
[2018-01-21] MEDS ORDERED: ACETAMINOPHEN 325 MG TAB PO ×2 (00:30)
[2018-01-21] MEDS ORDERED: morphine 2 MG INJ IV (00:30)
[2018-01-21] MEDS ORDERED: NACL 0.9% 3 ML SYG IV (00:30)
[2018-01-21] MEDS ORDERED: ONDANSETRON 4 MG INJ IV ×2 (00:30)
[2018-01-21] MEDS ORDERED: ALBUTEROL HFA 8 GM INHALER INH (00:30)
[2018-01-21 05:24] LABS: ADD MAN DIFF? NO
[2018-01-21 05:29] LABS: WHITE BLOOD COUNT 4.3 10^3/ul (4.8-10.8)
[2018-01-21 05:29] LABS: BASOPHILS % 0.9 % (0.0-2.0); EOSINOPHILS # 0.1 10^3/ul (0.0-0.5); EOSINOPHILS % 1.8 % (0.0-7.0); HEMATOCRIT 27.3 % (37.0-47.0); HEMOGLOBIN 8.1 g/dl (12.0-16.0); LYMPHOCYTES # 1.1 10^3/ul (0.8-2.9); LYMPHOCYTES % 25.1 % (15.0-51.0); MEAN CORPUSCULAR HEMOGLOBIN 30.2 pg (29.0-33.0); MEAN CORPUSCULAR HGB CONC 29.7 g/dl (32.0-37.0); MEAN CORPUSCULAR VOLUME 101.9 fl (82.0-101.0); MEAN PLATELET VOLUME 10.1 fl (7.4-10.4); MONOCYTE # 0.5 10^3/ul (0.3-0.9); MONOCYTES % 10.8 % (0.0-11.0); NEUTROPHIL # 2.6 10^3/ul (1.6-7.5); NEUTROPHILS % 60.2 % (39.0-77.0); PLATELET COUNT 189 10^3/UL (140-415); RED BLOOD COUNT 2.68 10^6/ul (4.20-5.40); RED CELL DISTRIBUTION WIDTH 18.1 % (11.5-14.5)
[2018-01-21 05:56] LABS: ALANINE AMINOTRANSFERASE 13 IU/L (13-69); ALBUMIN 3.8 g/dl (3.3-4.9); ALBUMIN/GLOBULIN RATIO 1.05; ALKALINE PHOSPHATASE 82 IU/L (42-121); ANION GAP 20 (8-16); ASPARTATE AMINO TRANSFERASE 16 IU/L (15-46); BILIRUBIN,INDIRECT 0.3 mg/dl (0-1.1); BILIRUBIN,TOTAL 0.3 mg/dl (0.2-1.3); BLOOD UREA NITROGEN 32 mg/dl (7-20); CALCIUM 9.2 mg/dl (8.4-10.2); CARBON DIOXIDE 31 mmol/L (21-31); CHLORIDE 93 mmol/L (97-110); CREATININE 5.77 mg/dl (0.44-1.00); GLUCOSE 92 mg/dl (70-220); POTASSIUM 4.2 mmol/L (3.5-5.1); SODIUM 140 mmol/L (135-144); TOTAL PROTEIN 7.4 g/dl (6.1-8.1)
[2018-01-21] MEDS: ALBUTEROL/IPRATROPIUM (NEB) 3 ML AMP HHN (06:03)
[2018-01-21 06:36] LABS: Arterial Base Excess 6.3 mmol/L (-3.0-3); Arterial Blood Gas Oxygen Sat 91.8 mmHG (95.0-98.0); Arterial COHb 1.2 % (0.0-3.0); Arterial Fraction of Oxyhgb 90.4 % (93.0-99.0); Arterial MetHb 0.3 % (0.0-1.5); Arterial Total Hemglobin 9.1 g/dl (12.0-18.0); Arterial pCO2 80.1 mmhg (35-45); Blood Gas IEPAP 20 / 6; MODE MASK - BIPAP; Site Right Brachial
[2018-01-21] MEDS: LEVOTHYROXINE 137 MCG TAB PO (07:00)
[2018-01-21] MEDS ORDERED: morphine LIQ (10 MG/5 ML) CUP PO (15:00)
[2018-01-21 15:53] LABS: AADO2 Arterial 92.7 mmHg (7.0-24.0); Allen Test ACCEPTAB; Arterial Base Excess 6.5 mmol/L (-3.0-3); Arterial Blood Gas Oxygen Sat 96.2 mmHG (95.0-98.0); Arterial COHb 1.4 % (0.0-3.0); Arterial Fraction of Oxyhgb 94.5 % (93.0-99.0); Arterial HCO3 33.3 mmol/L (22.0-26.0); Arterial MetHb 0.4 % (0.0-1.5); Arterial Total Hemglobin 8.8 g/dl (12.0-18.0); Arterial pCO2 62.5 mmhg (35-45); Blood Gas IEPAP 20/6; Blood Gas PS 14; MODE MASK - BIPAP; Site Right Radial
[2018-01-22 05:42] LABS: ADD MAN DIFF? NO
[2018-01-22 05:50] LABS: WHITE BLOOD COUNT 4.7 10^3/ul (4.8-10.8)
[2018-01-22 05:50] LABS: BASOPHIL # 0.1 10^3/ul (0.0-0.1); BASOPHILS % 1.1 % (0.0-2.0); EOSINOPHILS # 0.1 10^3/ul (0.0-0.5); HEMATOCRIT 25.7 % (37.0-47.0); HEMOGLOBIN 7.7 g/dl (12.0-16.0); LYMPHOCYTES # 1.5 10^3/ul (0.8-2.9); MEAN CORPUSCULAR HEMOGLOBIN 30.1 pg (29.0-33.0); MEAN CORPUSCULAR VOLUME 100.4 fl (82.0-101.0); MEAN PLATELET VOLUME 10.4 fl (7.4-10.4); MONOCYTE # 0.5 10^3/ul (0.3-0.9); MONOCYTES % 9.7 % (0.0-11.0); NEUTROPHIL # 2.5 10^3/ul (1.6-7.5); NEUTROPHILS % 53.8 % (39.0-77.0); PLATELET COUNT 201 10^3/UL (140-415); RED BLOOD COUNT 2.56 10^6/ul (4.20-5.40); RED CELL DISTRIBUTION WIDTH 17.8 % (11.5-14.5)
[2018-01-22 05:55] LABS: HEMOGLOBIN A1C 4.9 % (0-5.9)
[2018-01-22 06:10] LABS: ALANINE AMINOTRANSFERASE 16 IU/L (13-69); ALBUMIN 3.6 g/dl (3.3-4.9); ALBUMIN/GLOBULIN RATIO 0.87; ALKALINE PHOSPHATASE 80 IU/L (42-121); ANION GAP 17 (8-16); ASPARTATE AMINO TRANSFERASE 24 IU/L (15-46); BILIRUBIN,INDIRECT 0.3 mg/dl (0-1.1); BILIRUBIN,TOTAL 0.3 mg/dl (0.2-1.3); BLOOD UREA NITROGEN 45 mg/dl (7-20); CALCIUM 8.7 mg/dl (8.4-10.2); CARBON DIOXIDE 29 mmol/L (21-31); CHLORIDE 97 mmol/L (97-110); CREATININE 7.09 mg/dl (0.44-1.00); GLUCOSE 78 mg/dl (70-220); MAGNESIUM 2.4 mg/dl (1.7-2.5); POTASSIUM 4.4 mmol/L (3.5-5.1); SODIUM 139 mmol/L (135-144); TOTAL PROTEIN 7.7 g/dl (6.1-8.1)
[2018-01-22] MEDS: LEVOTHYROXINE 137 MCG TAB PO (06:23)
[2018-01-22 06:39] LABS: HEPATITIS B SURFACE ANTIGEN NEGATIVE (NEGATIVE)
[2018-01-22 09:05] LABS: IRON 63 ug/dl (35-150)
[2018-01-22 09:15] LABS: % IRON SATURATION 33 % SAT (22-52); TOTAL IRON BINDING CAPACITY 190 ug/dl (241-421)
[2018-01-22] MEDS: LACTULOSE 30ML CUP PO (16:30)
[2018-01-22] MEDS: EPOETIN 10000 UNITS/1 ML INJ (ESRD) SC (18:10)
[2018-01-22] MEDS ORDERED: LIOTHYRONINE 5 MCG TAB PO (21:00)
[2018-01-22] MEDS: LIOTHYRONINE 5 MCG TAB PO (21:03)
[2018-01-23 05:56] LABS: ADD MAN DIFF? NO
[2018-01-23 06:06] LABS: BASOPHIL # 0.1 10^3/ul (0.0-0.1); BASOPHILS % 1.2 % (0.0-2.0); EOSINOPHILS # 0.1 10^3/ul (0.0-0.5); EOSINOPHILS % 2.7 % (0.0-7.0); HEMATOCRIT 29.5 % (37.0-47.0); HEMOGLOBIN 8.7 g/dl (12.0-16.0); LYMPHOCYTES # 1.3 10^3/ul (0.8-2.9); LYMPHOCYTES % 25.9 % (15.0-51.0); MEAN CORPUSCULAR HEMOGLOBIN 30.3 pg (29.0-33.0); MEAN CORPUSCULAR HGB CONC 29.5 g/dl (32.0-37.0); MEAN CORPUSCULAR VOLUME 102.8 fl (82.0-101.0); MONOCYTE # 0.5 10^3/ul (0.3-0.9); MONOCYTES % 10.4 % (0.0-11.0); NEUTROPHIL # 3.1 10^3/ul (1.6-7.5); NEUTROPHILS % 59.2 % (39.0-77.0); PLATELET COUNT 219 10^3/UL (140-415); RED BLOOD COUNT 2.87 10^6/ul (4.20-5.40); RED CELL DISTRIBUTION WIDTH 17.8 % (11.5-14.5)
[2018-01-23 06:06] LABS: WHITE BLOOD COUNT 5.2 10^3/ul (4.8-10.8)
[2018-01-23] MEDS: LEVOTHYROXINE 137 MCG TAB PO (06:09)
[2018-01-23 06:37] LABS: ALANINE AMINOTRANSFERASE 14 IU/L (13-69); ALBUMIN 4.1 g/dl (3.3-4.9); ALKALINE PHOSPHATASE 84 IU/L (42-121); ANION GAP 18 (8-16); ASPARTATE AMINO TRANSFERASE 20 IU/L (15-46); BILIRUBIN,INDIRECT 0.2 mg/dl (0-1.1); BILIRUBIN,TOTAL 0.2 mg/dl (0.2-1.3); BLOOD UREA NITROGEN 24 mg/dl (7-20); CALCIUM 8.9 mg/dl (8.4-10.2); CARBON DIOXIDE 33 mmol/L (21-31); CHLORIDE 92 mmol/L (97-110); CREATININE 4.85 mg/dl (0.44-1.00); GLUCOSE 90 mg/dl (70-220); MAGNESIUM 2.1 mg/dl (1.7-2.5); PHOSPHORUS 5.2 mg/dl (2.5-4.9); POTASSIUM 4.4 mmol/L (3.5-5.1); SODIUM 139 mmol/L (135-144); TOTAL PROTEIN 7.8 g/dl (6.1-8.1)
[2018-01-23] MEDS: LACTULOSE 30ML CUP PO (09:00)
[2018-01-23] MEDS: LIOTHYRONINE 5 MCG TAB PO ×2 (11:40→22:03)
[2018-01-23] MEDS: ALBUTEROL/IPRATROPIUM (NEB) 3 ML AMP HHN (22:24)
[2018-01-24] MEDS: LEVOTHYROXINE 137 MCG TAB PO (07:57)
[2018-01-24] MEDS: GUAIFENESIN 20 MG/ML 5ML CUP PO ×3 (08:00→18:37)
[2018-01-24] MEDS: LACTULOSE 30ML CUP PO (09:00)
[2018-01-24] MEDS: LIOTHYRONINE 5 MCG TAB PO ×2 (09:09→21:35)
[2018-01-24] MEDS: DIPHENHYDRAMINE 25 MG CAP PO (19:57)
[2018-01-24] MEDS: EPOETIN 10000 UNITS/1 ML INJ (ESRD) SC (20:00)
[2018-01-24] MEDS: NYSTATIN 30 GM POWDER BTL TOP (21:31)
[2018-01-25] MEDS: LEVOTHYROXINE 137 MCG TAB PO (05:47)
[2018-01-25] MEDS: LACTULOSE 30ML CUP PO (09:27)
[2018-01-25] MEDS: NYSTATIN 30 GM POWDER BTL TOP ×2 (09:29→20:54)
[2018-01-25] MEDS: LIOTHYRONINE 5 MCG TAB PO ×2 (09:29→20:53)
== END 2018-01-25 23:20 | disposition home health service (06) | DRG 189 ==
LOC: ICU 23:40 → MS2 01-24 17:30 → E/R 20:29
PROC: 5A1D70Z Performance of Urinary Filtration, Intermittent, Less than 6 Hours Per Day (ICD-10-PCS; principal; 2018-01-20)
DX: J96.22 Acute and chronic respiratory failure with hypercapnia (principal); N18.6 End stage renal disease; J91.0 Malignant pleural effusion; I31.3 Pericardial effusion (noninflammatory); E03.9 Hypothyroidism, unspecified; Z99.81 Dependence on supplemental oxygen; G47.33 Obstructive sleep apnea (adult) (pediatric); C26.9 Malignant neoplasm of ill-defined sites within the digestive system; D63.0 Anemia in neoplastic disease; Z99.2 Dependence on renal dialysis; J96.21 Acute and chronic respiratory failure with hypoxia; R49.0 Dysphonia
CPT/HCPCS: 36415; 36600; 70490; 71045; 71250; 80053; 82728; 82803; 83036; 83540; 83735; 84100; 85025; 87081; 87340; 90935; 93005; 94644; 94660; 94664; 99291-25

== ENCOUNTER 2018-01-30 15:18 | Inpatient (IN) | payer OTHER ==
[2018-01-30] MEDS: IPRATROPIUM (NEB) 0.5 MG/2.5 ML AMP INH (15:42)
[2018-01-30] MEDS: ALBUTEROL 0.5% (NEB) 2.5 MG/0.5 ML AMP INH (15:42)
[2018-01-30 16:12] LABS: ADD MAN DIFF? NO
[2018-01-30 16:14] LABS: WHITE BLOOD COUNT 4.9 10^3/ul (4.8-10.8)
[2018-01-30 16:14] LABS: ABNORMAL IP MESSAGE 1; BASOPHIL # 0.1 10^3/ul (0.0-0.1); EOSINOPHILS # 0.1 10^3/ul (0.0-0.5); EOSINOPHILS % 1.4 % (0.0-7.0); HEMATOCRIT 31.4 % (37.0-47.0); LYMPHOCYTES # 1.2 10^3/ul (0.8-2.9); LYMPHOCYTES % 23.5 % (15.0-51.0); MEAN CORPUSCULAR HEMOGLOBIN 30.1 pg (29.0-33.0); MEAN CORPUSCULAR HGB CONC 28.7 g/dl (32.0-37.0); MONOCYTE # 0.5 10^3/ul (0.3-0.9); MONOCYTES % 9.9 % (0.0-11.0); NEUTROPHIL # 3.1 10^3/ul (1.6-7.5); NEUTROPHILS % 63.6 % (39.0-77.0); PLATELET COUNT 225 10^3/UL (140-415); RED BLOOD COUNT 2.99 10^6/ul (4.20-5.40); RED CELL DISTRIBUTION WIDTH 18.3 % (11.5-14.5)
[2018-01-30 16:17] LABS: POSITIVE DIFF @See below
[2018-01-30 16:33] LABS: ALANINE AMINOTRANSFERASE 15 IU/L (13-69); ALBUMIN/GLOBULIN RATIO 0.93; ALKALINE PHOSPHATASE 84 IU/L (42-121); AMYLASE 98 U/L (11-123); ANION GAP 17 (8-16); ASPARTATE AMINO TRANSFERASE 19 IU/L (15-46); BILIRUBIN,INDIRECT 0.1 mg/dl (0-1.1); BILIRUBIN,TOTAL 0.1 mg/dl (0.2-1.3); BLOOD UREA NITROGEN 20 mg/dl (7-20); CALCIUM 9.1 mg/dl (8.4-10.2); CARBON DIOXIDE 31 mmol/L (21-31); CHLORIDE 96 mmol/L (97-110); CREATININE 4.96 mg/dl (0.44-1.00); GLUCOSE 120 mg/dl (70-220); INR 1.23; LIPASE 149 U/L (23-300); POTASSIUM 3.9 mmol/L (3.5-5.1); PROTIME 15.7 Sec (11.9-14.9); PT RATIO 1.2; SODIUM 140 mmol/L (135-144); TOTAL PROTEIN 8.3 g/dl (6.1-8.1)
[2018-01-30 16:34] LABS: PARTIAL THROMBOPLASTIN TIME 32.8 Sec (25.0-35.0)
[2018-01-30 16:37] LABS: LACTIC ACID 0.7 mmol/L (0.5-2.0)
[2018-01-30 16:58] LABS: TROPONIN-I 0.384 ng/ml (0.000-0.120)
[2018-01-30] MEDS: ASPIRIN 325 MG TAB PO (17:30)
[2018-01-30 18:24] LABS: LACTIC ACID 0.7 mmol/L (0.5-2.0)
[2018-01-30 19:07] LABS: AADO2 Arterial 113.7 mmHg (7.0-24.0); Arterial Base Excess 2.3 mmol/L (-3.0-3); Arterial COHb 0.6 % (0.0-3.0); Arterial Fraction of Oxyhgb 98.1 % (93.0-99.0); Arterial HCO3 31.8 mmol/L (22.0-26.0); Arterial MetHb 0.3 % (0.0-1.5); Arterial Total Hemglobin 10.2 g/dl (12.0-18.0); Arterial pCO2 82.4 mmhg (35-45); Blood Gas IEPAP 15/5; MODE MASK - BIPAP; Site Right Brachial
[2018-01-30] MEDS ORDERED: HYDROCODONE/APAP (5/325) TAB PO (19:30)
[2018-01-30] MEDS ORDERED: NA PHOSPHATE/BIPHOS 133 ML ENEMA PR (19:30)
[2018-01-30] MEDS ORDERED: morphine 2 MG INJ IV (19:30)
[2018-01-30] MEDS ORDERED: MAGNESIUM HYDROXIDE 30ML CUP PO (19:30)
[2018-01-30] MEDS ORDERED: ALBUTEROL/IPRATROPIUM (NEB) 3 ML AMP HHN (19:30)
[2018-01-30] MEDS ORDERED: ONDANSETRON 4 MG INJ IV ×2 (19:30)
[2018-01-30] MEDS ORDERED: hydrALAzine 20 MG INJ IV (19:30)
[2018-01-30] MEDS ORDERED: ACETAMINOPHEN 325 MG TAB PO ×2 (19:30)
[2018-01-30] MEDS ORDERED: NACL 0.9% 3 ML SYG IV (19:30)
[2018-01-30] MEDS ORDERED: NITROGLYCERIN (SL) 0.4 MG TAB SL (19:30)
[2018-01-30] MEDS ORDERED: DOCUSATE SODIUM 100 MG CAP PO (19:30)
[2018-01-30] MEDS ORDERED: ALBUTEROL HFA 8 GM INHALER INH (19:30)
[2018-01-30 20:10] LABS: LACTIC ACID 0.8 mmol/L (0.5-2.0)
[2018-01-30] MEDS: LEVOFLOXACIN 750MG/D5W (PMX) 150 ML IVPB (20:10)
[2018-01-30] MEDS: LORAZEPAM 2 MG INJ IV (20:10)
[2018-01-30 20:18] LABS: FREE T4 (FREE THYROXINE) 1.59 ng/dl (0.64-1.79)
[2018-01-30] MEDS: HEPARIN 5,000 UNIT/0.5 ML VIAL SC (20:53)
[2018-01-30] MEDS ORDERED: LIOTHYRONINE 5 MCG TAB PO (21:00)
[2018-01-30] MEDS: LIOTHYRONINE 5 MCG TAB PO (21:00)
[2018-01-31] MEDS: LORAZEPAM 2 MG INJ IV (01:03)
[2018-01-31] MEDS: LEVOTHYROXINE 137 MCG TAB PO (07:00)
[2018-01-31 08:43] LABS: ADD MAN DIFF? NO
[2018-01-31 08:44] LABS: ABNORMAL IP MESSAGE 1; BASOPHILS % 0.5 % (0.0-2.0); EOSINOPHILS # 0.1 10^3/ul (0.0-0.5); EOSINOPHILS % 1.6 % (0.0-7.0); HEMATOCRIT 31.5 % (37.0-47.0); LYMPHOCYTES # 1.1 10^3/ul (0.8-2.9); LYMPHOCYTES % 20.3 % (15.0-51.0); MEAN CORPUSCULAR HGB CONC 28.6 g/dl (32.0-37.0); MEAN PLATELET VOLUME 10.4 fl (7.4-10.4); MONOCYTE # 0.6 10^3/ul (0.3-0.9); NEUTROPHIL # 3.7 10^3/ul (1.6-7.5); NEUTROPHILS % 65.9 % (39.0-77.0); PLATELET COUNT 212 10^3/UL (140-415)
[2018-01-31 08:44] LABS: WHITE BLOOD COUNT 5.6 10^3/ul (4.8-10.8)
[2018-01-31 08:50] LABS: POSITIVE DIFF @See below
[2018-01-31 08:59] LABS: HEMOGLOBIN A1C 4.5 % (0-5.9)
[2018-01-31] MEDS ORDERED: LEVOFLOXACIN 750MG/D5W (PMX) 150 ML IVPB (09:00)
[2018-01-31] MEDS: LIOTHYRONINE 5 MCG TAB PO ×2 (09:00→21:38)
[2018-01-31 09:11] LABS: CHOL/HDL RATIO 3.1 RATIO; HDL CHOLESTEROL 46 mg/dl (34-88); LDL CHOLESTEROL,CALCULATED 62 mg/dl
[2018-01-31 09:11] LABS: CHOLESTEROL 143 mg/dl (100-200)
[2018-01-31] MEDS: HEPARIN 5,000 UNIT/0.5 ML VIAL SC ×2 (09:13→21:33)
[2018-01-31 09:14] LABS: ANION GAP 20 (8-16); BLOOD UREA NITROGEN 27 mg/dl (7-20); CALCIUM 8.9 mg/dl (8.4-10.2); GLUCOSE 86 mg/dl (70-220); PHOSPHORUS 7.1 mg/dl (2.5-4.9)
[2018-01-31 09:23] LABS: CARBON DIOXIDE 30 mmol/L (21-31); CHLORIDE 94 mmol/L (97-110); CREATININE 5.38 mg/dl (0.44-1.00); MAGNESIUM 2.1 mg/dl (1.7-2.5); POTASSIUM 4.7 mmol/L (3.5-5.1); SODIUM 139 mmol/L (135-144); TRIGLYCERIDES 173 mg/dl (0-149)
[2018-01-31] MEDS: ALBUTEROL/IPRATROPIUM (NEB) 3 ML AMP HHN ×2 (12:20→16:00)
[2018-01-31 12:47] LABS: AADO2 Arterial 21.1 mmHg (7.0-24.0); Allen Test ACCEPTAB; Arterial Base Excess 1.1 mmol/L (-3.0-3); Arterial Blood Gas Oxygen Sat 94.5 mmHG (95.0-98.0); Arterial COHb 1.2 % (0.0-3.0); Arterial Fraction of Oxyhgb 93.2 % (93.0-99.0); Arterial HCO3 31.1 mmol/L (22.0-26.0); Arterial MetHb 0.2 % (0.0-1.5); Arterial Total Hemglobin 10.3 g/dl (12.0-18.0); Arterial pCO2 85.1 mmhg (35-45); MODE NASAL CANNULA; Site Right Radial
[2018-01-31] MEDS: ACETYLCYSTEINE 20% 4 ML VIAL NEB ×2 (14:00→19:31)
[2018-01-31] MEDS: METHYLPREDNISOLONE 40 MG INJ IV ×2 (14:38→21:33)
[2018-01-31] MEDS: LACTOBACILLUS RHAMNOSUS CAP PO (21:37)
[2018-01-31 23:11] LABS: AADO2 Arterial 58.7 mmHg (7.0-24.0); Arterial Base Excess 3.5 mmol/L (-3.0-3); Arterial Blood Gas Oxygen Sat 97.4 mmHG (95.0-98.0); Arterial COHb 1.2 % (0.0-3.0); Arterial Fraction of Oxyhgb 95.9 % (93.0-99.0); Arterial HCO3 29.9 mmol/L (22.0-26.0); Arterial MetHb 0.3 % (0.0-1.5); Blood Gas IEPAP 18/5; Blood Gas PS 7; MODE MASK - BIPAP; Site Right Brachial
[2018-02-01] MEDS: ACETYLCYSTEINE 20% 4 ML VIAL NEB ×4 (00:41→23:17)
[2018-02-01] MEDS: ALBUTEROL/IPRATROPIUM (NEB) 3 ML AMP HHN ×4 (00:41→23:17)
[2018-02-01] MEDS: LEVOTHYROXINE 137 MCG TAB PO (05:44)
[2018-02-01] MEDS: METHYLPREDNISOLONE 40 MG INJ IV ×3 (05:44→21:25)
[2018-02-01 06:32] LABS: ADD MAN DIFF? NO
[2018-02-01 06:39] LABS: ABNORMAL IP MESSAGE 1; BASOPHILS % 0.4 % (0.0-2.0); HEMATOCRIT 29.3 % (37.0-47.0); HEMOGLOBIN 8.5 g/dl (12.0-16.0); LYMPHOCYTES # 0.4 10^3/ul (0.8-2.9); LYMPHOCYTES % 15.2 % (15.0-51.0); MEAN CORPUSCULAR HEMOGLOBIN 29.9 pg (29.0-33.0); MEAN CORPUSCULAR VOLUME 103.2 fl (82.0-101.0); MEAN PLATELET VOLUME 10.8 fl (7.4-10.4); MONOCYTE # 0.1 10^3/ul (0.3-0.9); MONOCYTES % 1.8 % (0.0-11.0); NEUTROPHIL # 2.3 10^3/ul (1.6-7.5); NEUTROPHILS % 81.9 % (39.0-77.0); PLATELET COUNT 199 10^3/UL (140-415); RED BLOOD COUNT 2.84 10^6/ul (4.20-5.40); RED CELL DISTRIBUTION WIDTH 17.4 % (11.5-14.5)
[2018-02-01 06:39] LABS: WHITE BLOOD COUNT 2.8 10^3/ul (4.8-10.8)
[2018-02-01 07:02] LABS: ANION GAP 17 (8-16); BLOOD UREA NITROGEN 19 mg/dl (7-20); CARBON DIOXIDE 27 mmol/L (21-31); CHLORIDE 99 mmol/L (97-110); GLUCOSE 101 mg/dl (70-220); POTASSIUM 4.1 mmol/L (3.5-5.1); SODIUM 139 mmol/L (135-144)
[2018-02-01 07:04] LABS: POSITIVE DIFF @See below
[2018-02-01 07:15] LABS: FREE T4 (FREE THYROXINE) 1.13 ng/dl (0.64-1.79)
[2018-02-01 07:29] LABS: TRIIODOTHYRONINE 0.53 ng/ml (0.97-1.69)
[2018-02-01] MEDS: FAMOTIDINE 20 MG TAB PO (09:00)
[2018-02-01] MEDS: LACTOBACILLUS RHAMNOSUS CAP PO ×2 (09:22→20:32)
[2018-02-01] MEDS: LIOTHYRONINE 5 MCG TAB PO ×2 (09:28→20:32)
[2018-02-01] MEDS: HEPARIN 5,000 UNIT/0.5 ML VIAL SC ×2 (09:28→20:35)
[2018-02-01] MEDS: HYDROCODONE/HOMATROPINE 5ML CUP PO (18:40)
[2018-02-01] MEDS ORDERED: LEVOFLOXACIN 500MG/D5W (PMX) 100 ML IVPB (20:00)
[2018-02-01] MEDS: LEVOFLOXACIN 500 MG TAB PO (20:31)
[2018-02-01] MEDS ORDERED: morphine LIQ (10 MG/5 ML) CUP PO (21:00)
[2018-02-02] MEDS: METHYLPREDNISOLONE 40 MG INJ IV ×3 (05:47→21:27)
[2018-02-02] MEDS: LEVOTHYROXINE 137 MCG TAB PO (05:47)
[2018-02-02 06:45] LABS: ADD MAN DIFF? NO
[2018-02-02 06:48] LABS: WHITE BLOOD COUNT 4.6 10^3/ul (4.8-10.8)
[2018-02-02 06:48] LABS: HEMATOCRIT 27.9 % (37.0-47.0); HEMOGLOBIN 8.1 g/dl (12.0-16.0); LYMPHOCYTES # 0.6 10^3/ul (0.8-2.9); LYMPHOCYTES % 13.4 % (15.0-51.0); MEAN CORPUSCULAR HEMOGLOBIN 29.9 pg (29.0-33.0); MEAN PLATELET VOLUME 10.6 fl (7.4-10.4); MONOCYTE # 0.4 10^3/ul (0.3-0.9); MONOCYTES % 8.7 % (0.0-11.0); NEUTROPHIL # 3.6 10^3/ul (1.6-7.5); NEUTROPHILS % 77.5 % (39.0-77.0); PLATELET COUNT 198 10^3/UL (140-415); RED BLOOD COUNT 2.71 10^6/ul (4.20-5.40); RED CELL DISTRIBUTION WIDTH 17.7 % (11.5-14.5)
[2018-02-02 07:27] LABS: ANION GAP 17 (8-16); BLOOD UREA NITROGEN 34 mg/dl (7-20); CALCIUM 9.2 mg/dl (8.4-10.2); CARBON DIOXIDE 28 mmol/L (21-31); CHLORIDE 96 mmol/L (97-110); CREATININE 5.26 mg/dl (0.44-1.00); GLUCOSE 82 mg/dl (70-220); POTASSIUM 4.3 mmol/L (3.5-5.1); SODIUM 137 mmol/L (135-144)
[2018-02-02] MEDS: ALBUTEROL/IPRATROPIUM (NEB) 3 ML AMP HHN ×2 (07:53→16:38)
[2018-02-02] MEDS: ACETYLCYSTEINE 20% 4 ML VIAL NEB ×2 (07:54→16:38)
[2018-02-02] MEDS: LACTOBACILLUS RHAMNOSUS CAP PO ×2 (08:57→21:19)
[2018-02-02] MEDS: HEPARIN 5,000 UNIT/0.5 ML VIAL SC ×2 (08:58→21:25)
[2018-02-02] MEDS: LIOTHYRONINE 5 MCG TAB PO ×2 (08:59→21:19)
[2018-02-02] MEDS: FAMOTIDINE 20 MG TAB PO (09:00)
[2018-02-02] MEDS: HYDROCODONE/HOMATROPINE 5ML CUP PO ×2 (15:26→21:34)
[2018-02-03] MEDS: ACETYLCYSTEINE 20% 4 ML VIAL NEB ×4 (00:46→23:49)
[2018-02-03] MEDS: ALBUTEROL/IPRATROPIUM (NEB) 3 ML AMP HHN ×5 (00:46→23:49)
[2018-02-03 09:00] LABS: ADD MAN DIFF? NO
[2018-02-03 09:12] LABS: WHITE BLOOD COUNT 6.6 10^3/ul (4.8-10.8)
[2018-02-03 09:12] LABS: ABNORMAL IP MESSAGE 1; HEMATOCRIT 33.8 % (37.0-47.0); HEMOGLOBIN 9.4 g/dl (12.0-16.0); LYMPHOCYTES # 0.4 10^3/ul (0.8-2.9); LYMPHOCYTES % 5.6 % (15.0-51.0); MEAN CORPUSCULAR HEMOGLOBIN 29.7 pg (29.0-33.0); MEAN CORPUSCULAR HGB CONC 27.8 g/dl (32.0-37.0); MONOCYTE # 0.3 10^3/ul (0.3-0.9); MONOCYTES % 3.8 % (0.0-11.0); NEUTROPHIL # 5.9 10^3/ul (1.6-7.5); NEUTROPHILS % 89.5 % (39.0-77.0); PLATELET COUNT 196 10^3/UL (140-415); RED BLOOD COUNT 3.16 10^6/ul (4.20-5.40); RED CELL DISTRIBUTION WIDTH 17.6 % (11.5-14.5)
[2018-02-03] MEDS: HEPARIN 5,000 UNIT/0.5 ML VIAL SC ×2 (09:15→20:35)
[2018-02-03 09:16] LABS: POSITIVE DIFF @See below
[2018-02-03] MEDS: LEVOTHYROXINE 137 MCG TAB PO (09:16)
[2018-02-03] MEDS: LACTOBACILLUS RHAMNOSUS CAP PO ×2 (09:16→20:30)
[2018-02-03] MEDS: FAMOTIDINE 20 MG TAB PO (09:16)
[2018-02-03] MEDS: LIOTHYRONINE 5 MCG TAB PO ×2 (09:16→20:31)
[2018-02-03] MEDS: METHYLPREDNISOLONE 40 MG INJ IV ×2 (09:21→16:26)
[2018-02-03 09:34] LABS: ANION GAP 15 (8-16); BLOOD UREA NITROGEN 26 mg/dl (7-20); CALCIUM 9.3 mg/dl (8.4-10.2); CARBON DIOXIDE 30 mmol/L (21-31); CHLORIDE 99 mmol/L (97-110); CREATININE 4.04 mg/dl (0.44-1.00); GLUCOSE 107 mg/dl (70-220); POTASSIUM 4.6 mmol/L (3.5-5.1); SODIUM 139 mmol/L (135-144)
[2018-02-03] MEDS: DOCUSATE SODIUM 100 MG CAP PO (20:30)
[2018-02-03] MEDS: LEVOFLOXACIN 500 MG TAB PO (20:31)
[2018-02-03] MEDS: HYDROCODONE/HOMATROPINE 5ML CUP PO (20:39)
[2018-02-04] MEDS: METHYLPREDNISOLONE 40 MG INJ IV ×4 (00:04→21:22)
[2018-02-04] MEDS: HYDROCODONE/HOMATROPINE 5ML CUP PO ×3 (02:36→21:21)
[2018-02-04 06:10] LABS: ADD MAN DIFF? NO
[2018-02-04 06:23] LABS: WHITE BLOOD COUNT 14.4 10^3/ul (4.8-10.8)
[2018-02-04 06:23] LABS: ABNORMAL IP MESSAGE 1; BASOPHILS % 0.1 % (0.0-2.0); HEMATOCRIT 33.4 % (37.0-47.0); HEMOGLOBIN 9.6 g/dl (12.0-16.0); LYMPHOCYTES # 0.2 10^3/ul (0.8-2.9); LYMPHOCYTES % 1.3 % (15.0-51.0); MEAN CORPUSCULAR HEMOGLOBIN 30.6 pg (29.0-33.0); MEAN CORPUSCULAR HGB CONC 28.7 g/dl (32.0-37.0); MEAN CORPUSCULAR VOLUME 106.4 fl (82.0-101.0); MEAN PLATELET VOLUME 11.2 fl (7.4-10.4); MONOCYTE # 0.7 10^3/ul (0.3-0.9); MONOCYTES % 4.7 % (0.0-11.0); NEUTROPHIL # 13.3 10^3/ul (1.6-7.5); NEUTROPHILS % 92.4 % (39.0-77.0); PLATELET COUNT 154 10^3/UL (140-415); RED BLOOD COUNT 3.14 10^6/ul (4.20-5.40); RED CELL DISTRIBUTION WIDTH 17.2 % (11.5-14.5)
[2018-02-04] MEDS: LEVOTHYROXINE 137 MCG TAB PO (06:38)
[2018-02-04 06:53] LABS: POSITIVE DIFF @See below
[2018-02-04 06:58] LABS: ANION GAP 15 (8-16); BLOOD UREA NITROGEN 44 mg/dl (7-20); CALCIUM 9.3 mg/dl (8.4-10.2); CARBON DIOXIDE 29 mmol/L (21-31); CHLORIDE 98 mmol/L (97-110); CREATININE 5.01 mg/dl (0.44-1.00); GLUCOSE 121 mg/dl (70-220); POTASSIUM 4.7 mmol/L (3.5-5.1); SODIUM 137 mmol/L (135-144)
[2018-02-04] MEDS: ALBUTEROL/IPRATROPIUM (NEB) 3 ML AMP HHN ×4 (09:04→23:30)
[2018-02-04] MEDS: ACETYLCYSTEINE 20% 4 ML VIAL NEB ×3 (09:05→23:30)
[2018-02-04] MEDS: LACTOBACILLUS RHAMNOSUS CAP PO ×2 (10:07→21:23)
[2018-02-04] MEDS: LIOTHYRONINE 5 MCG TAB PO ×2 (10:07→21:23)
[2018-02-04] MEDS: FAMOTIDINE 20 MG TAB PO (10:11)
[2018-02-04] MEDS: HEPARIN 5,000 UNIT/0.5 ML VIAL SC ×2 (10:12→21:35)
[2018-02-04] MEDS: DOCUSATE SODIUM 100 MG CAP PO (21:23)
[2018-02-05] MEDS: HYDROCODONE/HOMATROPINE 5ML CUP PO ×2 (05:23→12:48)
[2018-02-05] MEDS: LEVOTHYROXINE 137 MCG TAB PO (05:24)
[2018-02-05 06:34] LABS: ADD MAN DIFF? NO
[2018-02-05 06:44] LABS: WHITE BLOOD COUNT 12.1 10^3/ul (4.8-10.8)
[2018-02-05 06:44] LABS: ABNORMAL IP MESSAGE 1; BASOPHILS % 0.1 % (0.0-2.0); HEMATOCRIT 32.6 % (37.0-47.0); HEMOGLOBIN 9.5 g/dl (12.0-16.0); LYMPHOCYTES # 0.4 10^3/ul (0.8-2.9); LYMPHOCYTES % 2.9 % (15.0-51.0); MEAN CORPUSCULAR HEMOGLOBIN 30.4 pg (29.0-33.0); MEAN CORPUSCULAR HGB CONC 29.1 g/dl (32.0-37.0); MEAN CORPUSCULAR VOLUME 104.2 fl (82.0-101.0); MEAN PLATELET VOLUME 11.5 fl (7.4-10.4); MONOCYTE # 0.4 10^3/ul (0.3-0.9); MONOCYTES % 3.1 % (0.0-11.0); NEUTROPHIL # 11.2 10^3/ul (1.6-7.5); NEUTROPHILS % 93.1 % (39.0-77.0); PLATELET COUNT 127 10^3/UL (140-415); POSITIVE DIFF @See below; RED BLOOD COUNT 3.13 10^6/ul (4.20-5.40); RED CELL DISTRIBUTION WIDTH 16.8 % (11.5-14.5)
[2018-02-05 07:06] LABS: ANION GAP 19 (8-16); BLOOD UREA NITROGEN 67 mg/dl (7-20); CALCIUM 9.4 mg/dl (8.4-10.2); CARBON DIOXIDE 27 mmol/L (21-31); CHLORIDE 94 mmol/L (97-110); CREATININE 6.32 mg/dl (0.44-1.00); GLUCOSE 103 mg/dl (70-220); SODIUM 135 mmol/L (135-144)
[2018-02-05 07:16] LABS: POTASSIUM 5.2 mmol/L (3.5-5.1)
[2018-02-05] MEDS: ACETYLCYSTEINE 20% 4 ML VIAL NEB ×3 (07:31→23:54)
[2018-02-05] MEDS: ALBUTEROL/IPRATROPIUM (NEB) 3 ML AMP HHN ×3 (07:31→23:54)
[2018-02-05] MEDS: LIOTHYRONINE 5 MCG TAB PO ×2 (09:00→21:36)
[2018-02-05] MEDS: LACTOBACILLUS RHAMNOSUS CAP PO ×2 (09:00→21:35)
[2018-02-05] MEDS: FAMOTIDINE 20 MG TAB PO (09:00)
[2018-02-05] MEDS: HEPARIN 5,000 UNIT/0.5 ML VIAL SC ×2 (09:00→22:02)
[2018-02-05] MEDS: METHYLPREDNISOLONE 40 MG INJ IV ×2 (12:50→21:36)
[2018-02-05] MEDS: LEVOFLOXACIN 500 MG TAB PO (21:35)
[2018-02-05] MEDS: DOCUSATE SODIUM 100 MG CAP PO (21:35)
[2018-02-06] MEDS: LEVOTHYROXINE 137 MCG TAB PO (06:21)
[2018-02-06] MEDS: HEPARIN 5,000 UNIT/0.5 ML VIAL SC (08:44)
[2018-02-06 08:45] LABS: ADD MAN DIFF? NO
[2018-02-06] MEDS: LIOTHYRONINE 5 MCG TAB PO (08:48)
[2018-02-06] MEDS: METHYLPREDNISOLONE 40 MG INJ IV (08:48)
[2018-02-06] MEDS: FAMOTIDINE 20 MG TAB PO (08:48)
[2018-02-06] MEDS: LACTOBACILLUS RHAMNOSUS CAP PO (08:48)
[2018-02-06] MEDS: ACETYLCYSTEINE 20% 4 ML VIAL NEB ×2 (08:56→17:30)
[2018-02-06] MEDS: ALBUTEROL/IPRATROPIUM (NEB) 3 ML AMP HHN ×3 (08:56→17:26)
[2018-02-06 09:16] LABS: ANION GAP 18 (8-16); BLOOD UREA NITROGEN 44 mg/dl (7-20); CALCIUM 9.1 mg/dl (8.4-10.2); CARBON DIOXIDE 27 mmol/L (21-31); CHLORIDE 96 mmol/L (97-110); CREATININE 4.35 mg/dl (0.44-1.00); GLUCOSE 95 mg/dl (70-220); POTASSIUM 4.7 mmol/L (3.5-5.1); SODIUM 136 mmol/L (135-144)
[2018-02-06 09:45] LABS: AADO2 Arterial 48.3 mmHg (7.0-24.0); Allen Test ACCEPTAB; Arterial Base Excess 0.6 mmol/L (-3.0-3); Arterial Blood Gas Oxygen Sat 96.6 mmHG (95.0-98.0); Arterial COHb 0.4 % (0.0-3.0); Arterial Fraction of Oxyhgb 95.9 % (93.0-99.0); Arterial HCO3 28.4 mmol/L (22.0-26.0); Arterial MetHb 0.3 % (0.0-1.5); Arterial Total Hemglobin 10.4 g/dl (12.0-18.0); Arterial pCO2 63.3 mmhg (35-45); MODE NASAL CANNULA; Site Right Radial
[2018-02-06 11:29] LABS: ABNORMAL IP MESSAGE 1; HEMATOCRIT 30.9 % (37.0-47.0); HEMOGLOBIN 9.2 g/dl (12.0-16.0); LYMPHOCYTES # 0.3 10^3/ul (0.8-2.9); LYMPHOCYTES % 3.3 % (15.0-51.0); MEAN CORPUSCULAR HEMOGLOBIN 30.8 pg (29.0-33.0); MEAN CORPUSCULAR HGB CONC 29.8 g/dl (32.0-37.0); MEAN CORPUSCULAR VOLUME 103.3 fl (82.0-101.0); MEAN PLATELET VOLUME 12.4 fl (7.4-10.4); MONOCYTE # 0.2 10^3/ul (0.3-0.9); MONOCYTES % 2.8 % (0.0-11.0); NEUTROPHIL # 8.1 10^3/ul (1.6-7.5); NEUTROPHILS % 93.4 % (39.0-77.0); PLATELET COUNT 96 10^3/UL (140-415); RED BLOOD COUNT 2.99 10^6/ul (4.20-5.40); RED CELL DISTRIBUTION WIDTH 16.8 % (11.5-14.5)
[2018-02-06 11:29] LABS: WHITE BLOOD COUNT 8.6 10^3/ul (4.8-10.8)
[2018-02-06 11:33] LABS: POSITIVE DIFF @See below
== END 2018-02-06 19:19 | disposition home health service (06) | DRG 189 ==
LOC: PP2 02-03 05:11 → E/R 15:18 → MS4 02-05 15:26
PROC: 5A1D70Z Performance of Urinary Filtration, Intermittent, Less than 6 Hours Per Day (ICD-10-PCS; principal; 2018-01-31)
DX: J96.22 Acute and chronic respiratory failure with hypercapnia (principal); N18.6 End stage renal disease; G92 Toxic encephalopathy; I21.4 Non-ST elevation (NSTEMI) myocardial infarction; C78.2 Secondary malignant neoplasm of pleura; I12.0 Hypertensive chronic kidney disease with stage 5 chronic kidney disease or end stage renal disease; J91.0 Malignant pleural effusion; Z99.2 Dependence on renal dialysis; C26.9 Malignant neoplasm of ill-defined sites within the digestive system; D63.0 Anemia in neoplastic disease; E03.9 Hypothyroidism, unspecified; Z51.5 Encounter for palliative care
CPT/HCPCS: 36600; 71045; 76604; 80048; 80053; 80061; 82150; 82803; 83036; 83605; 83690; 83735; 84100; 84439; 84443; 84480; 84484; 85025; 85610; 85730; 87040; 90935; 92610; 93005; 94640; 94660; 94664; 97162; 97165; 99291-25

== ENCOUNTER 2018-02-11 16:24 | Inpatient (IN) | payer OTHER ==
[2018-02-11 17:03] LABS: AADO2 Arterial 305.4 mmHg (7.0-24.0); Allen Test ACCEPTAB; Arterial Base Excess 2.7 mmol/L (-3.0-3); Arterial COHb 0.7 % (0.0-3.0); Arterial HCO3 35.4 mmol/L (22.0-26.0); Arterial MetHb 0.3 % (0.0-1.5); Arterial Total Hemglobin 10.3 g/dl (12.0-18.0); Arterial pCO2 126.5 mmhg (35-45); Blood Gas IEPAP 15/5; Blood Gas PS 10; MODE MASK - BIPAP; Site Right Radial
[2018-02-11 17:04] LABS: WHITE BLOOD COUNT 14.6 10^3/ul (4.8-10.8)
[2018-02-11 17:04] LABS: ABNORMAL IP MESSAGE 1; HEMATOCRIT 32.9 % (37.0-47.0); HEMOGLOBIN 9.4 g/dl (12.0-16.0); MEAN CORPUSCULAR HEMOGLOBIN 30.2 pg (29.0-33.0); MEAN CORPUSCULAR HGB CONC 28.6 g/dl (32.0-37.0); MEAN CORPUSCULAR VOLUME 105.8 fl (82.0-101.0); MEAN PLATELET VOLUME 10.9 fl (7.4-10.4); NUCLEATED RED BLOOD CELLS% 0.1 /100WBC (0.0-0.0); PLATELET COUNT 193 10^3/UL (140-415); RED BLOOD COUNT 3.11 10^6/ul (4.20-5.40); RED CELL DISTRIBUTION WIDTH 16.7 % (11.5-14.5)
[2018-02-11 17:11] LABS: ADD MAN DIFF? YES; POSITIVE DIFF @See below
[2018-02-11 17:22] LABS: ALANINE AMINOTRANSFERASE 19 IU/L (13-69); ALBUMIN 3.9 g/dl (3.3-4.9); ALBUMIN/GLOBULIN RATIO 1.25; ALKALINE PHOSPHATASE 72 IU/L (42-121); ANION GAP 16 (8-16); ASPARTATE AMINO TRANSFERASE 17 IU/L (15-46); BLOOD UREA NITROGEN 48 mg/dl (7-20); CALCIUM 9.3 mg/dl (8.4-10.2); CARBON DIOXIDE 31 mmol/L (21-31); CHLORIDE 93 mmol/L (97-110); CREATININE 4.45 mg/dl (0.44-1.00); GLUCOSE 128 mg/dl (70-220); SODIUM 134 mmol/L (135-144)
[2018-02-11 17:28] LABS: INR 1.06; PROTIME 13.9 Sec (11.9-14.9); PT RATIO 1.1
[2018-02-11 17:29] LABS: POTASSIUM 6.1 mmol/L (3.5-5.1)
[2018-02-11] MEDS: ALBUTEROL 0.083% (NEB) 2.5 MG/3 ML AMP HHN ×2 (17:29→20:49)
[2018-02-11] MEDS: IPRATROPIUM (NEB) 0.5 MG/2.5 ML AMP HHN (17:29)
[2018-02-11 17:34] LABS: ANISOCYTOSIS 1+ (0-0); BAND NEUTROPHILS #M 0.2 10^3/ul (0.0-0.6); BAND NEUTROPHILS % (M) 2 % (0-4); BASOPHIL #M 0.1 10^3/ul (0.0-0.0); BASOPHILS % (M) 1 % (0-2); EOSINOPHILS % (M) 1 % (0-7); LYMPHOCYTES #M 1.8 10^3/ul (0.8-2.9); LYMPHOCYTES % (M) 13 % (15-51); METAMYELOCYTES #M 0.4 10^3/ul (0.0-0.0); METAMYELOCYTES %M 3 % (0-0); MONOCYTE #M 1.4 10^3/ul (0.3-0.9); MONOCYTES % (M) 10 % (0-11); MYELOCYTES #M 0.7 10^3/ul (0.0-0.0); MYELOCYTES % (M) 5 % (0-0); PLASMA CELLS #M 0.1 10^3/ul (0.0-0.0); PLASMAC%(M) 1 % (0); PLATELET ESTIMATE NORMAL; SEG NEUT #M 9.4 10^3/ul (1.6-7.5); SEGMENTED NEUTROPHILS (M) % 64 % (39-77); SMUDGE%M 5 % (0-0)
[2018-02-11 17:40] LABS: TROPONIN-I 0.213 ng/ml (0.000-0.120)
[2018-02-11] MEDS: INSULIN REGULAR, HUMAN 100 UNIT/1 ML 3ML VIAL IVP (18:14)
[2018-02-11] MEDS: DEXTROSE 50% 50 ML SYRINGE IV (18:15)
[2018-02-11] MEDS: ASPIRIN 300 MG SUPP PR (19:04)
[2018-02-11 19:08] LABS: AADO2 Arterial 221.7 mmHg (7.0-24.0); Allen Test ACCEPTAB; Arterial Base Excess 2.3 mmol/L (-3.0-3); Arterial Blood Gas Oxygen Sat 99.3 mmHG (95.0-98.0); Arterial COHb 0.4 % (0.0-3.0); Arterial Fraction of Oxyhgb 98.5 % (93.0-99.0); Arterial HCO3 35.2 mmol/L (22.0-26.0); Arterial MetHb 0.4 % (0.0-1.5); Arterial pCO2 131.8 mmhg (35-45); Blood Gas IEPAP 20/5; MODE MASK - BIPAP; Site Right Radial
[2018-02-11 19:25] LABS: LACTIC ACID 1.4 mmol/L (0.5-2.0)
[2018-02-11] MEDS: LORAZEPAM 2 MG INJ IV ×3 (19:48→21:00)
[2018-02-11] MEDS: PROPOFOL 100 ML IV (19:51)
[2018-02-11] MEDS ORDERED: VECURONIUM 10 MG VIAL (20:20)
[2018-02-11] MEDS: VECURONIUM 10 MG VIAL IV (20:39)
[2018-02-11] MEDS ORDERED: MIDAZOLAM (DRIP) 50 mg/50 mL 50 ML IV (21:04)
[2018-02-11 21:17] LABS: LACTIC ACID 1.1 mmol/L (0.5-2.0)
[2018-02-11] MEDS: HYDROmorphONE 0.5 MG/0.5 ML SYG IV (21:29)
[2018-02-11] MEDS: CEFEPIME 1GM/50 ML (PMX) 50 ML IVPB (21:30)
[2018-02-11] MEDS: ONDANSETRON 4 MG INJ IV (21:30)
[2018-02-11] MEDS ORDERED: IPRATROPIUM (HFA) 12.9 GM INHALER INH (21:30)
[2018-02-11] MEDS ORDERED: FENTAnyl (DRIP) 1000 mcg/100mL 100 ML IV (21:30)
[2018-02-11] MEDS: SOD CHLORIDE 0.9% 1,000 ML IV (21:49)
[2018-02-11 22:24] LABS: AADO2 Arterial 441.3 mmHg (7.0-24.0); Arterial Base Excess 1.7 mmol/L (-3.0-3); Arterial Blood Gas Oxygen Sat 99.6 mmHG (95.0-98.0); Arterial COHb 0.3 % (0.0-3.0); Arterial Fraction of Oxyhgb 99.1 % (93.0-99.0); Arterial HCO3 24.5 mmol/L (22.0-26.0); Arterial MetHb 0.2 % (0.0-1.5); Arterial pCO2 31.2 mmhg (35-45); MODE VENT - AC/VC+; Site Right Brachial
[2018-02-11 22:47] LABS: FREE T4 (FREE THYROXINE) 0.91 ng/dl (0.64-1.79)
[2018-02-11 23:12] LABS: FREE T3 2.12 pg/ml (2.77-5.27)
[2018-02-11] MEDS: ALBUMIN HUMAN 25% 100 ML IV ×2 (23:14→23:32)
[2018-02-11] MEDS: MIDAZOLAM (DRIP) 50 mg/50 mL 50 ML IV (23:22)
[2018-02-11] MEDS: FENTAnyl (DRIP) 1000 mcg/100mL 100 ML IV (23:23)
[2018-02-11] MEDS: HEPARIN 5,000 UNIT/0.5 ML VIAL SC (23:39)
[2018-02-11 23:43] LABS: ANION GAP 16 (8-16); BLOOD UREA NITROGEN 54 mg/dl (7-20); CALCIUM 8.7 mg/dl (8.4-10.2); CARBON DIOXIDE 26 mmol/L (21-31); CHLORIDE 96 mmol/L (97-110); CREATININE 4.35 mg/dl (0.44-1.00); GLUCOSE 68 mg/dl (70-220); POTASSIUM 5.9 mmol/L (3.5-5.1); SODIUM 132 mmol/L (135-144)
[2018-02-12] MEDS: LEVOTHYROXINE 100 MCG VIAL IV (01:52)
[2018-02-12] MEDS: MIDAZOLAM (DRIP) 50 mg/50 mL 50 ML IV ×2 (01:52→10:10)
[2018-02-12 03:27] LABS: CREATINE KINASE 21 IU/L (23-200)
[2018-02-12 03:28] LABS: ANION GAP 24 (8-16); BLOOD UREA NITROGEN 51 mg/dl (7-20); CALCIUM 8.6 mg/dl (8.4-10.2); CARBON DIOXIDE 19 mmol/L (21-31); CHLORIDE 97 mmol/L (97-110); CREATININE 4.54 mg/dl (0.44-1.00); GLUCOSE 61 mg/dl (70-220); POTASSIUM 5.5 mmol/L (3.5-5.1); SODIUM 134 mmol/L (135-144)
[2018-02-12 03:38] LABS: CK INDEX 17.5; CK-MB 3.67 ng/ml (0.0-2.4)
[2018-02-12 03:51] LABS: TROPONIN-I 0.195 ng/ml (0.000-0.120)
[2018-02-12] MEDS: PANTOPRAZOLE 40 MG INJ IV (05:38)
[2018-02-12] MEDS: HEPARIN 5,000 UNIT/0.5 ML VIAL SC ×3 (05:41→21:53)
[2018-02-12] MEDS: FENTAnyl (DRIP) 1000 mcg/100mL 100 ML IV (07:24)
[2018-02-12 07:49] LABS: ANION GAP 21 (8-16); BLOOD UREA NITROGEN 54 mg/dl (7-20); CALCIUM 8.6 mg/dl (8.4-10.2); CARBON DIOXIDE 21 mmol/L (21-31); CHLORIDE 97 mmol/L (97-110); CREATININE 4.46 mg/dl (0.44-1.00); GLUCOSE 66 mg/dl (70-220); POTASSIUM 5.5 mmol/L (3.5-5.1); SODIUM 133 mmol/L (135-144)
[2018-02-12] MEDS ORDERED: VANCOMYCIN IV PER PHARMACY XX (08:00)
[2018-02-12 08:06] LABS: CREATINE KINASE 21 IU/L (23-200)
[2018-02-12] MEDS: PIPER-TAZO 2.25 GM (PMX) 50 ML IVPB ×3 (08:16→21:49)
[2018-02-12 08:18] LABS: CK-MB 3.15 ng/ml (0.0-2.4); TROPONIN-I 0.226 ng/ml (0.000-0.120)
[2018-02-12 08:59] LABS: AADO2 Arterial 221.6 mmHg (7.0-24.0); Arterial Blood Gas Oxygen Sat 98.2 mmHG (95.0-98.0); Arterial COHb 0.2 % (0.0-3.0); Arterial Fraction of Oxyhgb 97.8 % (93.0-99.0); Arterial HCO3 23.4 mmol/L (22.0-26.0); Arterial MetHb 0.2 % (0.0-1.5); Arterial Total Hemglobin 8.4 g/dl (12.0-18.0); MODE VENT - AC; Site Right Brachial
[2018-02-12] MEDS ORDERED: ENOXAPARIN 40 MG/0.4 ML SYG SC (09:00)
[2018-02-12] MEDS: VANCOMYCIN 1.5 GM in SOD CHLORIDE 0.9% 250 ML IVPB (13:54)
[2018-02-12] MEDS: DEXTROSE 50% 50 ML SYRINGE IV ×3 (15:16→19:03)
[2018-02-12] MEDS: DEXTROSE 5%-0.9% NACL 1,000 ML IV (15:38)
[2018-02-12] MEDS: ACCU-CHEK XX ×2 (18:32→20:56)
[2018-02-12] MEDS ORDERED: GLUCOSE GEL 15 GRAM TUBE BUCCAL (19:00)
[2018-02-12] MEDS ORDERED: DEXTROSE 50% 50 ML SYRINGE IV (19:00)
[2018-02-12] MEDS ORDERED: GLUCAGON 1 MG INJ IM (19:00)
[2018-02-12] MEDS ORDERED: GLUCOSE GEL 15 GRAM TUBE PO ×2 (19:00)
[2018-02-13] MEDS: ACCU-CHEK XX ×6 (00:52→21:22)
[2018-02-13] MEDS: FENTAnyl (DRIP) 1000 mcg/100mL 100 ML IV (04:02)
[2018-02-13 05:43] LABS: WHITE BLOOD COUNT 8.2 10^3/ul (4.8-10.8)
[2018-02-13 05:43] LABS: ABNORMAL IP MESSAGE 1; HEMATOCRIT 22.6 % (37.0-47.0); MEAN CORPUSCULAR HGB CONC 30.5 g/dl (32.0-37.0); MEAN CORPUSCULAR VOLUME 98.3 fl (82.0-101.0); MEAN PLATELET VOLUME 10.8 fl (7.4-10.4); RED CELL DISTRIBUTION WIDTH 16.7 % (11.5-14.5)
[2018-02-13] MEDS: PIPER-TAZO 2.25 GM (PMX) 50 ML IVPB ×3 (06:13→22:29)
[2018-02-13] MEDS: LEVOTHYROXINE 200 MCG VIAL IV (06:23)
[2018-02-13] MEDS: PANTOPRAZOLE 40 MG INJ IV (06:23)
[2018-02-13] MEDS: HEPARIN 5,000 UNIT/0.5 ML VIAL SC ×3 (06:24→22:32)
[2018-02-13 06:31] LABS: POSITIVE DIFF @See below
[2018-02-13 06:34] LABS: HEMOGLOBIN 6.9 g/dl (12.0-16.0)
[2018-02-13 06:36] LABS: PATH REVIEW? YES
[2018-02-13 06:44] LABS: PLATELET COUNT 168 10^3/UL (140-415)
[2018-02-13 06:46] LABS: ADD MAN DIFF? YES
[2018-02-13 06:47] LABS: ANION GAP 12 (8-16); BLOOD UREA NITROGEN 26 mg/dl (7-20); CARBON DIOXIDE 32 mmol/L (21-31); CHLORIDE 99 mmol/L (97-110); CREATININE 3.02 mg/dl (0.44-1.00); GLUCOSE 84 mg/dl (70-220); MAGNESIUM 1.8 mg/dl (1.7-2.5); PHOSPHORUS 2.3 mg/dl (2.5-4.9); POTASSIUM 3.7 mmol/L (3.5-5.1); SODIUM 139 mmol/L (135-144)
[2018-02-13 08:21] LABS: ANISOCYTOSIS 1+ (0-0); BAND NEUTROPHILS #M 0.7 10^3/ul (0.0-0.6); BAND NEUTROPHILS % (M) 9 % (0-4); EOSINOPHILS % (M) 1 % (0-7); LYMPHOCYTES #M 0.9 10^3/ul (0.8-2.9); LYMPHOCYTES % (M) 12 % (15-51); MICROCYTOSIS 1+ (0-0); MONOCYTE #M 0.4 10^3/ul (0.3-0.9); MONOCYTES % (M) 5 % (0-11); PLATELET ESTIMATE NORMAL; SEGMENTED NEUTROPHILS (M) % 73 % (39-77); SMUDGE%M 16 % (0-0)
[2018-02-13 09:20] LABS: ADD MAN DIFF? NO
[2018-02-13 09:28] LABS: BASOPHILS % 0.2 % (0.0-2.0); EOSINOPHILS # 0.1 10^3/ul (0.0-0.5); EOSINOPHILS % 1.5 % (0.0-7.0); HEMATOCRIT 23.9 % (37.0-47.0); HEMOGLOBIN 7.2 g/dl (12.0-16.0); LYMPHOCYTES # 0.9 10^3/ul (0.8-2.9); MEAN CORPUSCULAR HEMOGLOBIN 29.9 pg (29.0-33.0); MEAN CORPUSCULAR HGB CONC 30.1 g/dl (32.0-37.0); MEAN CORPUSCULAR VOLUME 99.2 fl (82.0-101.0); MEAN PLATELET VOLUME 10.3 fl (7.4-10.4); MONOCYTE # 0.5 10^3/ul (0.3-0.9); MONOCYTES % 5.7 % (0.0-11.0); NEUTROPHIL # 6.9 10^3/ul (1.6-7.5); NEUTROPHILS % 78.7 % (39.0-77.0); PLATELET COUNT 167 10^3/UL (140-415); RED BLOOD COUNT 2.41 10^6/ul (4.20-5.40); RED CELL DISTRIBUTION WIDTH 16.7 % (11.5-14.5)
[2018-02-13 09:28] LABS: WHITE BLOOD COUNT 8.7 10^3/ul (4.8-10.8)
[2018-02-13] MEDS: POTASSIUM PHOSPHATE 20 MEQ in SOD CHLORIDE 0.9% 250 ML IVPB (09:37)
[2018-02-13 11:21] LABS: FOLATE 7.1 ng/ml (2.8-20.0)
[2018-02-13] MEDS: SOD CHLORIDE 0.9% 250 ML IV* (15:00)
[2018-02-13] MEDS: DEXTROSE 5%-0.9% NACL 1,000 ML IV (15:30)
[2018-02-13 20:32] LABS: IMMEDIATE SPIN CROSSMATCH 1 2
[2018-02-13] MEDS: ALBUTEROL HFA 8 GM INHALER INH (22:50)
[2018-02-14] MEDS: ACCU-CHEK XX ×6 (01:08→21:14)
[2018-02-14] MEDS: FENTAnyl (DRIP) 1000 mcg/100mL 100 ML IV ×2 (01:08→16:15)
[2018-02-14] MEDS: PIPER-TAZO 2.25 GM (PMX) 50 ML IVPB ×3 (05:38→21:05)
[2018-02-14] MEDS: PANTOPRAZOLE 40 MG INJ IV (05:38)
[2018-02-14 05:41] LABS: ADD MAN DIFF? NO
[2018-02-14] MEDS: LEVOTHYROXINE 200 MCG VIAL IV (05:44)
[2018-02-14] MEDS: HEPARIN 5,000 UNIT/0.5 ML VIAL SC ×3 (05:45→21:13)
[2018-02-14 05:46] LABS: BASOPHILS % 0.3 % (0.0-2.0); EOSINOPHILS # 0.1 10^3/ul (0.0-0.5); EOSINOPHILS % 1.5 % (0.0-7.0); HEMATOCRIT 29.6 % (37.0-47.0); HEMOGLOBIN 9.2 g/dl (12.0-16.0); LYMPHOCYTES # 0.9 10^3/ul (0.8-2.9); LYMPHOCYTES % 14.1 % (15.0-51.0); MEAN CORPUSCULAR HEMOGLOBIN 29.6 pg (29.0-33.0); MEAN CORPUSCULAR HGB CONC 31.1 g/dl (32.0-37.0); MEAN CORPUSCULAR VOLUME 95.2 fl (82.0-101.0); MEAN PLATELET VOLUME 10.8 fl (7.4-10.4); MONOCYTE # 0.3 10^3/ul (0.3-0.9); MONOCYTES % 4.1 % (0.0-11.0); NEUTROPHIL # 5.2 10^3/ul (1.6-7.5); NEUTROPHILS % 77.4 % (39.0-77.0); PLATELET COUNT 157 10^3/UL (140-415); RED BLOOD COUNT 3.11 10^6/ul (4.20-5.40); RED CELL DISTRIBUTION WIDTH 17.4 % (11.5-14.5)
[2018-02-14 05:46] LABS: WHITE BLOOD COUNT 6.7 10^3/ul (4.8-10.8)
[2018-02-14 06:16] LABS: ANION GAP 12 (8-16); BLOOD UREA NITROGEN 33 mg/dl (7-20); CARBON DIOXIDE 29 mmol/L (21-31); CHLORIDE 102 mmol/L (97-110); CREATININE 3.97 mg/dl (0.44-1.00); GLUCOSE 78 mg/dl (70-220); MAGNESIUM 1.7 mg/dl (1.7-2.5); PHOSPHORUS 3.8 mg/dl (2.5-4.9); POTASSIUM 3.9 mmol/L (3.5-5.1); SODIUM 139 mmol/L (135-144)
[2018-02-14 06:16] LABS: VANCOMYCIN,RANDOM 23.2 ug/ml
[2018-02-14] MEDS: DEXTROSE 5%-0.9% NACL 1,000 ML IV (08:00)
[2018-02-14] MEDS: CEFAZOLIN 1 GM/50 ML (PMX) 50 ML IVPB (12:40)
[2018-02-14] MEDS: PROPOFOL 20 ML (13:23)
[2018-02-14] MEDS: morphine 2 MG INJ IV (16:12)
[2018-02-14] MEDS: LIOTHYRONINE 5 MCG TAB GTB (21:05)
[2018-02-15] MEDS: ACCU-CHEK XX ×6 (01:20→20:45)
[2018-02-15] MEDS: DEXTROSE 5%-0.9% NACL 1,000 ML IV (04:22)
[2018-02-15] MEDS: HEPARIN 5,000 UNIT/0.5 ML VIAL SC ×3 (05:18→20:50)
[2018-02-15] MEDS: PANTOPRAZOLE 40 MG INJ IV (05:19)
[2018-02-15] MEDS: PIPER-TAZO 2.25 GM (PMX) 50 ML IVPB ×3 (05:19→22:17)
[2018-02-15] MEDS: LEVOTHYROXINE 150 MCG TAB GTB (05:19)
[2018-02-15] MEDS: hydrALAzine 20 MG INJ IV (05:34)
[2018-02-15 05:38] LABS: ADD MAN DIFF? NO
[2018-02-15] MEDS: FENTAnyl (DRIP) 1000 mcg/100mL 100 ML IV ×2 (05:38→20:45)
[2018-02-15 05:45] LABS: WHITE BLOOD COUNT 6.5 10^3/ul (4.8-10.8)
[2018-02-15 05:45] LABS: BASOPHILS % 0.3 % (0.0-2.0); EOSINOPHILS # 0.1 10^3/ul (0.0-0.5); EOSINOPHILS % 2.2 % (0.0-7.0); HEMATOCRIT 29.8 % (37.0-47.0); HEMOGLOBIN 9.4 g/dl (12.0-16.0); LYMPHOCYTES # 0.8 10^3/ul (0.8-2.9); LYMPHOCYTES % 12.7 % (15.0-51.0); MEAN CORPUSCULAR HEMOGLOBIN 30.8 pg (29.0-33.0); MEAN CORPUSCULAR HGB CONC 31.5 g/dl (32.0-37.0); MEAN CORPUSCULAR VOLUME 97.7 fl (82.0-101.0); MEAN PLATELET VOLUME 10.7 fl (7.4-10.4); MONOCYTE # 0.3 10^3/ul (0.3-0.9); MONOCYTES % 4.9 % (0.0-11.0); NEUTROPHIL # 5.1 10^3/ul (1.6-7.5); NEUTROPHILS % 78.7 % (39.0-77.0); PLATELET COUNT 149 10^3/UL (140-415); RED BLOOD COUNT 3.05 10^6/ul (4.20-5.40); RED CELL DISTRIBUTION WIDTH 17.1 % (11.5-14.5)
[2018-02-15 06:03] LABS: ANION GAP 11 (8-16); BLOOD UREA NITROGEN 16 mg/dl (7-20); CALCIUM 8.4 mg/dl (8.4-10.2); CARBON DIOXIDE 31 mmol/L (21-31); CHLORIDE 102 mmol/L (97-110); CREATININE 2.59 mg/dl (0.44-1.00); GLUCOSE 72 mg/dl (70-220); MAGNESIUM 1.8 mg/dl (1.7-2.5); PHOSPHORUS 2.8 mg/dl (2.5-4.9); POTASSIUM 3.9 mmol/L (3.5-5.1); SODIUM 140 mmol/L (135-144)
[2018-02-15] MEDS: LIOTHYRONINE 5 MCG TAB GTB ×2 (09:06→20:51)
[2018-02-15 12:08] LABS: HEPATITIS B SURFACE ANTIGEN NEGATIVE (NEGATIVE)
[2018-02-15] MEDS: VANCOMYCIN 1 GM 250 ML IVPB (13:20)
[2018-02-16] MEDS: ACCU-CHEK XX ×6 (01:18→21:01)
[2018-02-16 05:31] LABS: ADD MAN DIFF? NO
[2018-02-16] MEDS: PANTOPRAZOLE 40 MG INJ IV (05:33)
[2018-02-16] MEDS: HEPARIN 5,000 UNIT/0.5 ML VIAL SC ×3 (05:34→21:40)
[2018-02-16] MEDS: LEVOTHYROXINE 150 MCG TAB GTB (05:34)
[2018-02-16] MEDS: PIPER-TAZO 2.25 GM (PMX) 50 ML IVPB (05:34)
[2018-02-16 05:43] LABS: BASOPHILS % 0.2 % (0.0-2.0); EOSINOPHILS # 0.1 10^3/ul (0.0-0.5); EOSINOPHILS % 2.2 % (0.0-7.0); HEMATOCRIT 28.5 % (37.0-47.0); HEMOGLOBIN 8.6 g/dl (12.0-16.0); LYMPHOCYTES # 1.1 10^3/ul (0.8-2.9); LYMPHOCYTES % 16.9 % (15.0-51.0); MEAN CORPUSCULAR HEMOGLOBIN 29.8 pg (29.0-33.0); MEAN CORPUSCULAR HGB CONC 30.2 g/dl (32.0-37.0); MEAN CORPUSCULAR VOLUME 98.6 fl (82.0-101.0); MEAN PLATELET VOLUME 10.7 fl (7.4-10.4); MONOCYTE # 0.4 10^3/ul (0.3-0.9); MONOCYTES % 5.5 % (0.0-11.0); NEUTROPHIL # 4.8 10^3/ul (1.6-7.5); NEUTROPHILS % 74.4 % (39.0-77.0); PLATELET COUNT 137 10^3/UL (140-415); RED BLOOD COUNT 2.89 10^6/ul (4.20-5.40); RED CELL DISTRIBUTION WIDTH 16.7 % (11.5-14.5)
[2018-02-16 05:43] LABS: WHITE BLOOD COUNT 6.5 10^3/ul (4.8-10.8)
[2018-02-16 06:17] LABS: ANION GAP 12 (8-16); BLOOD UREA NITROGEN 26 mg/dl (7-20); CALCIUM 8.4 mg/dl (8.4-10.2); CARBON DIOXIDE 30 mmol/L (21-31); CHLORIDE 103 mmol/L (97-110); GLUCOSE 88 mg/dl (70-220); MAGNESIUM 1.8 mg/dl (1.7-2.5); PHOSPHORUS 3.5 mg/dl (2.5-4.9); POTASSIUM 3.9 mmol/L (3.5-5.1); SODIUM 141 mmol/L (135-144)
[2018-02-16] MEDS: LIOTHYRONINE 5 MCG TAB GTB ×2 (08:58→20:57)
[2018-02-16] MEDS: FENTAnyl (DRIP) 1000 mcg/100mL 100 ML IV ×2 (12:56→23:43)
[2018-02-16] MEDS: hydrALAzine 20 MG INJ IV (15:36)
[2018-02-16] MEDS: LIDOCAINE 1% (MPF) 30 ML INJ INJ (16:00)
[2018-02-16] MEDS ORDERED: MIDAZOLAM 1 MG/ML 2 ML INJ (16:06)
[2018-02-16] MEDS: LIDOCAINE 1% (MPF) 10 ML INJ INJ (16:19)
[2018-02-16] MEDS ORDERED: LIDOCAINE 1% (MDV) 10 ML INJ (16:26)
[2018-02-16] MEDS: morphine 2 MG INJ IV (17:30)
[2018-02-17] MEDS: ACCU-CHEK XX ×2 (01:19→05:35)
[2018-02-17 05:33] LABS: ADD MAN DIFF? NO
[2018-02-17 05:49] LABS: BASOPHILS % 0.3 % (0.0-2.0); EOSINOPHILS # 0.2 10^3/ul (0.0-0.5); EOSINOPHILS % 2.2 % (0.0-7.0); HEMATOCRIT 29.8 % (37.0-47.0); HEMOGLOBIN 9.2 g/dl (12.0-16.0); LYMPHOCYTES # 1.2 10^3/ul (0.8-2.9); LYMPHOCYTES % 17.7 % (15.0-51.0); MEAN CORPUSCULAR HEMOGLOBIN 30.2 pg (29.0-33.0); MEAN CORPUSCULAR HGB CONC 30.9 g/dl (32.0-37.0); MEAN CORPUSCULAR VOLUME 97.7 fl (82.0-101.0); MEAN PLATELET VOLUME 11.5 fl (7.4-10.4); MONOCYTE # 0.5 10^3/ul (0.3-0.9); MONOCYTES % 7.1 % (0.0-11.0); NEUTROPHIL # 4.9 10^3/ul (1.6-7.5); NEUTROPHILS % 72.1 % (39.0-77.0); PLATELET COUNT 147 10^3/UL (140-415); RED BLOOD COUNT 3.05 10^6/ul (4.20-5.40); RED CELL DISTRIBUTION WIDTH 16.6 % (11.5-14.5)
[2018-02-17 05:49] LABS: WHITE BLOOD COUNT 6.7 10^3/ul (4.8-10.8)
[2018-02-17] MEDS: HEPARIN 5,000 UNIT/0.5 ML VIAL SC ×3 (06:00→21:05)
[2018-02-17] MEDS: LEVOTHYROXINE 150 MCG TAB GTB (06:16)
[2018-02-17] MEDS: PANTOPRAZOLE 40 MG INJ IV (06:16)
[2018-02-17 06:41] LABS: ANION GAP 11 (8-16); BLOOD UREA NITROGEN 16 mg/dl (7-20); CALCIUM 8.6 mg/dl (8.4-10.2); CARBON DIOXIDE 27 mmol/L (21-31); CHLORIDE 104 mmol/L (97-110); CREATININE 3.08 mg/dl (0.44-1.00); GLUCOSE 85 mg/dl (70-220); SODIUM 138 mmol/L (135-144)
[2018-02-17] MEDS: LIOTHYRONINE 5 MCG TAB GTB ×2 (09:15→20:32)
[2018-02-17] MEDS: FENTAnyl (DRIP) 1000 mcg/100mL 100 ML IV (17:16)
[2018-02-17] MEDS: morphine 2 MG INJ IV (20:32)
[2018-02-18] MEDS: LEVOTHYROXINE 150 MCG TAB GTB (05:30)
[2018-02-18] MEDS: PANTOPRAZOLE 40 MG INJ IV (05:30)
[2018-02-18] MEDS: HEPARIN 5,000 UNIT/0.5 ML VIAL SC ×3 (05:35→22:09)
[2018-02-18 05:37] LABS: ADD MAN DIFF? NO
[2018-02-18 05:53] LABS: BASOPHILS % 0.2 % (0.0-2.0); EOSINOPHILS # 0.2 10^3/ul (0.0-0.5); EOSINOPHILS % 2.1 % (0.0-7.0); HEMATOCRIT 29.5 % (37.0-47.0); LYMPHOCYTES # 1.2 10^3/ul (0.8-2.9); MEAN CORPUSCULAR HEMOGLOBIN 30.1 pg (29.0-33.0); MEAN CORPUSCULAR HGB CONC 30.5 g/dl (32.0-37.0); MEAN CORPUSCULAR VOLUME 98.7 fl (82.0-101.0); MEAN PLATELET VOLUME 12.1 fl (7.4-10.4); MONOCYTE # 0.5 10^3/ul (0.3-0.9); MONOCYTES % 5.7 % (0.0-11.0); NEUTROPHIL # 7.2 10^3/ul (1.6-7.5); NEUTROPHILS % 78.5 % (39.0-77.0); PLATELET COUNT 138 10^3/UL (140-415); RED BLOOD COUNT 2.99 10^6/ul (4.20-5.40); RED CELL DISTRIBUTION WIDTH 16.3 % (11.5-14.5)
[2018-02-18 05:53] LABS: WHITE BLOOD COUNT 9.2 10^3/ul (4.8-10.8)
[2018-02-18 06:12] LABS: ANION GAP 10 (8-16); BLOOD UREA NITROGEN 25 mg/dl (7-20); CALCIUM 8.5 mg/dl (8.4-10.2); CARBON DIOXIDE 30 mmol/L (21-31); CHLORIDE 104 mmol/L (97-110); CREATININE 4.21 mg/dl (0.44-1.00); GLUCOSE 101 mg/dl (70-220); SODIUM 140 mmol/L (135-144)
[2018-02-18] MEDS: LIOTHYRONINE 5 MCG TAB GTB ×2 (09:00→20:25)
[2018-02-18] MEDS: morphine 2 MG INJ IV (15:41)
[2018-02-18] MEDS: ACETAMINOPHEN 650MG/20.3ML CUP PO (20:22)
[2018-02-19 05:28] LABS: ADD MAN DIFF? NO
[2018-02-19 05:40] LABS: WHITE BLOOD COUNT 6.7 10^3/ul (4.8-10.8)
[2018-02-19 05:40] LABS: BASOPHILS % 0.1 % (0.0-2.0); EOSINOPHILS # 0.1 10^3/ul (0.0-0.5); EOSINOPHILS % 2.1 % (0.0-7.0); HEMATOCRIT 29.8 % (37.0-47.0); LYMPHOCYTES # 1.3 10^3/ul (0.8-2.9); LYMPHOCYTES % 18.6 % (15.0-51.0); MEAN CORPUSCULAR HEMOGLOBIN 29.6 pg (29.0-33.0); MEAN CORPUSCULAR HGB CONC 30.2 g/dl (32.0-37.0); MEAN PLATELET VOLUME 12.2 fl (7.4-10.4); MONOCYTE # 0.4 10^3/ul (0.3-0.9); MONOCYTES % 5.3 % (0.0-11.0); NEUTROPHIL # 4.9 10^3/ul (1.6-7.5); NEUTROPHILS % 73.5 % (39.0-77.0); PLATELET COUNT 137 10^3/UL (140-415); RED BLOOD COUNT 3.04 10^6/ul (4.20-5.40); RED CELL DISTRIBUTION WIDTH 16.3 % (11.5-14.5)
[2018-02-19] MEDS: LEVOTHYROXINE 150 MCG TAB GTB (06:04)
[2018-02-19] MEDS: PANTOPRAZOLE 40 MG INJ IV (06:04)
[2018-02-19] MEDS: HEPARIN 5,000 UNIT/0.5 ML VIAL SC ×3 (06:09→21:24)
[2018-02-19 06:12] LABS: ANION GAP 9 (8-16); BLOOD UREA NITROGEN 19 mg/dl (7-20); CALCIUM 8.6 mg/dl (8.4-10.2); CARBON DIOXIDE 32 mmol/L (21-31); CHLORIDE 103 mmol/L (97-110); CREATININE 3.27 mg/dl (0.44-1.00); GLUCOSE 111 mg/dl (70-220); POTASSIUM 3.4 mmol/L (3.5-5.1); SODIUM 141 mmol/L (135-144)
[2018-02-19] MEDS: LIOTHYRONINE 5 MCG TAB GTB ×2 (09:30→21:20)
[2018-02-19] MEDS: POTASSIUM CHLORIDE 20 MEQ POWDER FOR ORAL SOLN GTB (09:31)
[2018-02-19] MEDS: ACETAMINOPHEN 650MG/20.3ML CUP PO (21:24)
[2018-02-19] MEDS: ONDANSETRON 4 MG INJ IV (23:09)
[2018-02-20 04:56] LABS: ADD MAN DIFF? NO
[2018-02-20 04:59] LABS: WHITE BLOOD COUNT 5.5 10^3/ul (4.8-10.8)
[2018-02-20 04:59] LABS: BASOPHILS % 0.4 % (0.0-2.0); EOSINOPHILS # 0.2 10^3/ul (0.0-0.5); EOSINOPHILS % 3.4 % (0.0-7.0); HEMATOCRIT 29.1 % (37.0-47.0); HEMOGLOBIN 8.8 g/dl (12.0-16.0); LYMPHOCYTES # 1.2 10^3/ul (0.8-2.9); LYMPHOCYTES % 22.3 % (15.0-51.0); MEAN CORPUSCULAR HEMOGLOBIN 30.6 pg (29.0-33.0); MEAN CORPUSCULAR HGB CONC 30.2 g/dl (32.0-37.0); MEAN PLATELET VOLUME 12.1 fl (7.4-10.4); MONOCYTE # 0.4 10^3/ul (0.3-0.9); MONOCYTES % 6.5 % (0.0-11.0); NEUTROPHIL # 3.7 10^3/ul (1.6-7.5); PLATELET COUNT 131 10^3/UL (140-415); RED BLOOD COUNT 2.88 10^6/ul (4.20-5.40); RED CELL DISTRIBUTION WIDTH 16.2 % (11.5-14.5)
[2018-02-20 05:24] LABS: ANION GAP 13 (8-16); BLOOD UREA NITROGEN 33 mg/dl (7-20); CARBON DIOXIDE 31 mmol/L (21-31); CHLORIDE 102 mmol/L (97-110); CREATININE 4.44 mg/dl (0.44-1.00); GLUCOSE 101 mg/dl (70-220); POTASSIUM 4.4 mmol/L (3.5-5.1); SODIUM 142 mmol/L (135-144)
[2018-02-20] MEDS: LEVOTHYROXINE 150 MCG TAB GTB (05:28)
[2018-02-20] MEDS: HEPARIN 5,000 UNIT/0.5 ML VIAL SC ×3 (05:32→23:51)
[2018-02-20] MEDS: LIOTHYRONINE 5 MCG TAB GTB ×2 (09:29→23:46)
[2018-02-20] MEDS: ACETAMINOPHEN 650MG/20.3ML CUP PO (14:31)
[2018-02-21] MEDS: ACETAMINOPHEN 650MG/20.3ML CUP PO ×2 (02:36→20:53)
[2018-02-21] MEDS: LEVOTHYROXINE 150 MCG TAB GTB (05:32)
[2018-02-21] MEDS: HEPARIN 5,000 UNIT/0.5 ML VIAL SC ×3 (05:36→20:41)
[2018-02-21 07:28] LABS: ADD MAN DIFF? NO
[2018-02-21 07:31] LABS: BASOPHILS % 0.5 % (0.0-2.0); EOSINOPHILS # 0.2 10^3/ul (0.0-0.5); HEMATOCRIT 29.4 % (37.0-47.0); HEMOGLOBIN 8.8 g/dl (12.0-16.0); LYMPHOCYTES # 1.2 10^3/ul (0.8-2.9); MEAN CORPUSCULAR HEMOGLOBIN 29.9 pg (29.0-33.0); MEAN CORPUSCULAR HGB CONC 29.9 g/dl (32.0-37.0); MEAN PLATELET VOLUME 12.1 fl (7.4-10.4); MONOCYTE # 0.3 10^3/ul (0.3-0.9); MONOCYTES % 7.8 % (0.0-11.0); NEUTROPHIL # 2.1 10^3/ul (1.6-7.5); NEUTROPHILS % 55.4 % (39.0-77.0); PLATELET COUNT 131 10^3/UL (140-415); RED BLOOD COUNT 2.94 10^6/ul (4.20-5.40); RED CELL DISTRIBUTION WIDTH 16.3 % (11.5-14.5)
[2018-02-21 07:31] LABS: WHITE BLOOD COUNT 3.7 10^3/ul (4.8-10.8)
[2018-02-21 07:57] LABS: ANION GAP 10 (8-16); BLOOD UREA NITROGEN 21 mg/dl (7-20); CALCIUM 8.9 mg/dl (8.4-10.2); CARBON DIOXIDE 32 mmol/L (21-31); CHLORIDE 99 mmol/L (97-110); CREATININE 2.89 mg/dl (0.44-1.00); GLUCOSE 98 mg/dl (70-220); POTASSIUM 4.2 mmol/L (3.5-5.1); SODIUM 137 mmol/L (135-144)
[2018-02-21] MEDS: LIOTHYRONINE 5 MCG TAB GTB ×2 (08:50→20:38)
[2018-02-21 15:57] LABS: HEPATITIS B SURFACE ANTIGEN NEGATIVE (NEGATIVE)
[2018-02-22] MEDS: LEVOTHYROXINE 150 MCG TAB GTB (05:23)
[2018-02-22] MEDS: HEPARIN 5,000 UNIT/0.5 ML VIAL SC ×3 (05:24→20:52)
[2018-02-22 06:08] LABS: ADD MAN DIFF? NO
[2018-02-22 06:13] LABS: WHITE BLOOD COUNT 3.5 10^3/ul (4.8-10.8)
[2018-02-22 06:13] LABS: BASOPHILS % 0.3 % (0.0-2.0); EOSINOPHILS # 0.2 10^3/ul (0.0-0.5); EOSINOPHILS % 4.3 % (0.0-7.0); HEMATOCRIT 29.7 % (37.0-47.0); HEMOGLOBIN 8.9 g/dl (12.0-16.0); LYMPHOCYTES # 1.2 10^3/ul (0.8-2.9); LYMPHOCYTES % 35.5 % (15.0-51.0); MEAN CORPUSCULAR HEMOGLOBIN 30.3 pg (29.0-33.0); MEAN PLATELET VOLUME 12.8 fl (7.4-10.4); MONOCYTE # 0.3 10^3/ul (0.3-0.9); MONOCYTES % 8.6 % (0.0-11.0); NEUTROPHIL # 1.8 10^3/ul (1.6-7.5); NEUTROPHILS % 50.7 % (39.0-77.0); PLATELET COUNT 138 10^3/UL (140-415); RED BLOOD COUNT 2.94 10^6/ul (4.20-5.40)
[2018-02-22 06:53] LABS: ANION GAP 13 (8-16); BLOOD UREA NITROGEN 38 mg/dl (7-20); CALCIUM 9.3 mg/dl (8.4-10.2); CARBON DIOXIDE 32 mmol/L (21-31); CHLORIDE 98 mmol/L (97-110); GLUCOSE 101 mg/dl (70-220); MAGNESIUM 2.3 mg/dl (1.7-2.5); PHOSPHORUS 3.7 mg/dl (2.5-4.9); POTASSIUM 4.7 mmol/L (3.5-5.1); SODIUM 138 mmol/L (135-144)
[2018-02-22] MEDS: BALSAM PERU/CASTOR OIL 60 GM TUBE TOP (09:23)
[2018-02-22] MEDS: LIOTHYRONINE 5 MCG TAB GTB ×2 (09:23→20:50)
[2018-02-22] MEDS: GUAIFENESIN/DM 5ML CUP PO (20:50)
[2018-02-23] MEDS: ONDANSETRON 4 MG INJ IV ×2 (00:47→18:26)
[2018-02-23] MEDS: LEVOTHYROXINE 150 MCG TAB GTB (05:52)
[2018-02-23] MEDS: GUAIFENESIN/DM 5ML CUP PO ×2 (05:52→13:11)
[2018-02-23 06:10] LABS: ADD MAN DIFF? NO
[2018-02-23 06:13] LABS: BASOPHILS % 1.1 % (0.0-2.0); EOSINOPHILS # 0.2 10^3/ul (0.0-0.5); LYMPHOCYTES # 1.2 10^3/ul (0.8-2.9); LYMPHOCYTES % 32.9 % (15.0-51.0); MEAN CORPUSCULAR HEMOGLOBIN 29.9 pg (29.0-33.0); MEAN CORPUSCULAR VOLUME 99.7 fl (82.0-101.0); MEAN PLATELET VOLUME 12.4 fl (7.4-10.4); MONOCYTE # 0.3 10^3/ul (0.3-0.9); MONOCYTES % 8.9 % (0.0-11.0); NEUTROPHILS % 52.8 % (39.0-77.0); PLATELET COUNT 135 10^3/UL (140-415); RED BLOOD COUNT 3.01 10^6/ul (4.20-5.40); RED CELL DISTRIBUTION WIDTH 15.9 % (11.5-14.5)
[2018-02-23 06:13] LABS: WHITE BLOOD COUNT 3.7 10^3/ul (4.8-10.8)
[2018-02-23] MEDS: HEPARIN 5,000 UNIT/0.5 ML VIAL SC ×3 (06:15→21:23)
[2018-02-23 06:49] LABS: ANION GAP 13 (8-16); BLOOD UREA NITROGEN 23 mg/dl (7-20); CALCIUM 9.1 mg/dl (8.4-10.2); CARBON DIOXIDE 31 mmol/L (21-31); CHLORIDE 100 mmol/L (97-110); CREATININE 2.95 mg/dl (0.44-1.00); GLUCOSE 112 mg/dl (70-220); MAGNESIUM 2.2 mg/dl (1.7-2.5); POTASSIUM 4.1 mmol/L (3.5-5.1); SODIUM 140 mmol/L (135-144)
[2018-02-23] MEDS: LIOTHYRONINE 5 MCG TAB GTB ×2 (08:15→21:13)
[2018-02-23] MEDS: BALSAM PERU/CASTOR OIL 60 GM TUBE TOP (08:15)
[2018-02-23] MEDS: ACETAMINOPHEN 650MG/20.3ML CUP PO (18:26)
[2018-02-23] MEDS: BISACODYL (EC) 5 MG TAB PO (21:12)
[2018-02-23] MEDS: DOCUSATE SODIUM 100 MG CAP PO (21:12)
[2018-02-24] MEDS: LEVOTHYROXINE 150 MCG TAB GTB (06:16)
[2018-02-24] MEDS: HEPARIN 5,000 UNIT/0.5 ML VIAL SC ×3 (06:24→22:09)
[2018-02-24 06:48] LABS: ADD MAN DIFF? NO
[2018-02-24 06:52] LABS: EOSINOPHILS # 0.2 10^3/ul (0.0-0.5); EOSINOPHILS % 5.6 % (0.0-7.0); HEMATOCRIT 29.7 % (37.0-47.0); HEMOGLOBIN 9.1 g/dl (12.0-16.0); MEAN CORPUSCULAR HEMOGLOBIN 30.3 pg (29.0-33.0); MEAN CORPUSCULAR HGB CONC 30.6 g/dl (32.0-37.0); MEAN PLATELET VOLUME 12.4 fl (7.4-10.4); MONOCYTE # 0.3 10^3/ul (0.3-0.9); MONOCYTES % 11.9 % (0.0-11.0); NEUTROPHIL # 1.3 10^3/ul (1.6-7.5); NEUTROPHILS % 46.2 % (39.0-77.0); PLATELET COUNT 140 10^3/UL (140-415); RED CELL DISTRIBUTION WIDTH 15.7 % (11.5-14.5)
[2018-02-24 06:52] LABS: WHITE BLOOD COUNT 2.9 10^3/ul (4.8-10.8)
[2018-02-24] MEDS: LIOTHYRONINE 5 MCG TAB GTB ×2 (08:39→21:47)
[2018-02-24] MEDS: BALSAM PERU/CASTOR OIL 60 GM TUBE TOP (08:40)
[2018-02-24] MEDS: GUAIFENESIN/DM 5ML CUP PO (14:05)
[2018-02-25] MEDS: LEVOTHYROXINE 150 MCG TAB GTB (05:40)
[2018-02-25] MEDS: HEPARIN 5,000 UNIT/0.5 ML VIAL SC ×3 (06:38→22:36)
[2018-02-25 07:10] LABS: ADD MAN DIFF? NO
[2018-02-25 07:11] LABS: EOSINOPHILS # 0.2 10^3/ul (0.0-0.5); EOSINOPHILS % 5.2 % (0.0-7.0); HEMATOCRIT 29.2 % (37.0-47.0); HEMOGLOBIN 8.7 g/dl (12.0-16.0); MEAN CORPUSCULAR HEMOGLOBIN 29.7 pg (29.0-33.0); MEAN CORPUSCULAR HGB CONC 29.8 g/dl (32.0-37.0); MEAN CORPUSCULAR VOLUME 99.7 fl (82.0-101.0); MEAN PLATELET VOLUME 12.8 fl (7.4-10.4); MONOCYTE # 0.3 10^3/ul (0.3-0.9); MONOCYTES % 10.3 % (0.0-11.0); NEUTROPHIL # 1.4 10^3/ul (1.6-7.5); NEUTROPHILS % 49.2 % (39.0-77.0); PLATELET COUNT 153 10^3/UL (140-415); RED BLOOD COUNT 2.93 10^6/ul (4.20-5.40); RED CELL DISTRIBUTION WIDTH 15.9 % (11.5-14.5)
[2018-02-25 07:11] LABS: WHITE BLOOD COUNT 2.9 10^3/ul (4.8-10.8)
[2018-02-25 08:06] LABS: ANION GAP 11 (8-16); BLOOD UREA NITROGEN 24 mg/dl (7-20); CALCIUM 9.4 mg/dl (8.4-10.2); CARBON DIOXIDE 33 mmol/L (21-31); CHLORIDE 97 mmol/L (97-110); CREATININE 2.92 mg/dl (0.44-1.00); GLUCOSE 96 mg/dl (70-220); MAGNESIUM 2.4 mg/dl (1.7-2.5); PHOSPHORUS 3.1 mg/dl (2.5-4.9); SODIUM 137 mmol/L (135-144)
[2018-02-25] MEDS: BALSAM PERU/CASTOR OIL 60 GM TUBE TOP (08:57)
[2018-02-25] MEDS: LIOTHYRONINE 5 MCG TAB GTB ×2 (08:59→22:23)
[2018-02-25] MEDS: GUAIFENESIN/DM 5ML CUP PO (13:38)
[2018-02-25] MEDS: NYSTATIN 30 GM POWDER BTL TOP (13:38)
[2018-02-26] MEDS: ONDANSETRON 4 MG INJ IV ×2 (00:51→06:10)
[2018-02-26] MEDS: LEVOTHYROXINE 150 MCG TAB GTB (06:10)
[2018-02-26] MEDS: HEPARIN 5,000 UNIT/0.5 ML VIAL SC ×3 (06:12→21:44)
[2018-02-26] MEDS: LIOTHYRONINE 5 MCG TAB GTB ×2 (09:01→21:36)
[2018-02-26] MEDS: BALSAM PERU/CASTOR OIL 60 GM TUBE TOP (09:02)
[2018-02-26] MEDS: ACETAMINOPHEN 650MG/20.3ML CUP PO (17:03)
[2018-02-27] MEDS: LEVOTHYROXINE 150 MCG TAB GTB (06:19)
[2018-02-27 06:33] LABS: ADD MAN DIFF? NO
[2018-02-27 06:36] LABS: WHITE BLOOD COUNT 3.5 10^3/ul (4.8-10.8)
[2018-02-27 06:36] LABS: BASOPHILS % 1.1 % (0.0-2.0); EOSINOPHILS # 0.2 10^3/ul (0.0-0.5); EOSINOPHILS % 4.5 % (0.0-7.0); HEMATOCRIT 29.6 % (37.0-47.0); HEMOGLOBIN 8.9 g/dl (12.0-16.0); LYMPHOCYTES # 1.4 10^3/ul (0.8-2.9); LYMPHOCYTES % 38.7 % (15.0-51.0); MEAN CORPUSCULAR HEMOGLOBIN 29.8 pg (29.0-33.0); MEAN CORPUSCULAR HGB CONC 30.1 g/dl (32.0-37.0); MEAN PLATELET VOLUME 12.8 fl (7.4-10.4); MONOCYTE # 0.5 10^3/ul (0.3-0.9); MONOCYTES % 12.7 % (0.0-11.0); NEUTROPHIL # 1.5 10^3/ul (1.6-7.5); NEUTROPHILS % 42.4 % (39.0-77.0); PLATELET COUNT 187 10^3/UL (140-415); RED BLOOD COUNT 2.99 10^6/ul (4.20-5.40); RED CELL DISTRIBUTION WIDTH 15.9 % (11.5-14.5)
[2018-02-27] MEDS: HEPARIN 5,000 UNIT/0.5 ML VIAL SC ×3 (06:47→22:21)
[2018-02-27 06:59] LABS: ANION GAP 12 (8-16); BLOOD UREA NITROGEN 26 mg/dl (7-20); CALCIUM 9.7 mg/dl (8.4-10.2); CARBON DIOXIDE 32 mmol/L (21-31); CHLORIDE 96 mmol/L (97-110); CREATININE 3.25 mg/dl (0.44-1.00); GLUCOSE 99 mg/dl (70-220); MAGNESIUM 2.5 mg/dl (1.7-2.5); PHOSPHORUS 3.3 mg/dl (2.5-4.9); POTASSIUM 3.8 mmol/L (3.5-5.1); SODIUM 136 mmol/L (135-144)
[2018-02-27] MEDS: LIOTHYRONINE 5 MCG TAB GTB ×2 (09:40→20:42)
[2018-02-27] MEDS: BALSAM PERU/CASTOR OIL 60 GM TUBE TOP (09:40)
[2018-02-27] MEDS: ACETAMINOPHEN 650MG/20.3ML CUP PO (12:05)
[2018-02-27] MEDS: ONDANSETRON 4 MG INJ IV (14:30)
[2018-02-28] MEDS: PANTOPRAZOLE (EC) 40 MG TAB PO (05:22)
[2018-02-28] MEDS: LEVOTHYROXINE 150 MCG TAB GTB (05:22)
[2018-02-28] MEDS: HEPARIN 5,000 UNIT/0.5 ML VIAL SC ×3 (05:45→22:34)
[2018-02-28] MEDS: BALSAM PERU/CASTOR OIL 60 GM TUBE TOP (09:01)
[2018-02-28] MEDS: LIOTHYRONINE 5 MCG TAB GTB ×2 (09:04→20:22)
[2018-02-28] MEDS: ACETAMINOPHEN 650MG/20.3ML CUP PO (20:21)
[2018-03-01] MEDS: LEVOTHYROXINE 150 MCG TAB GTB (05:20)
[2018-03-01] MEDS: PANTOPRAZOLE (EC) 40 MG TAB PO (05:20)
[2018-03-01] MEDS: HEPARIN 5,000 UNIT/0.5 ML VIAL SC ×3 (06:58→21:22)
[2018-03-01 09:02] LABS: ADD MAN DIFF? NO
[2018-03-01 09:08] LABS: WHITE BLOOD COUNT 4.8 10^3/ul (4.8-10.8)
[2018-03-01 09:08] LABS: BASOPHILS % 0.8 % (0.0-2.0); EOSINOPHILS # 0.1 10^3/ul (0.0-0.5); EOSINOPHILS % 2.3 % (0.0-7.0); HEMATOCRIT 31.6 % (37.0-47.0); HEMOGLOBIN 9.7 g/dl (12.0-16.0); LYMPHOCYTES # 1.6 10^3/ul (0.8-2.9); LYMPHOCYTES % 32.8 % (15.0-51.0); MEAN CORPUSCULAR HEMOGLOBIN 30.1 pg (29.0-33.0); MEAN CORPUSCULAR HGB CONC 30.7 g/dl (32.0-37.0); MEAN CORPUSCULAR VOLUME 98.1 fl (82.0-101.0); MEAN PLATELET VOLUME 12.7 fl (7.4-10.4); MONOCYTE # 0.5 10^3/ul (0.3-0.9); NEUTROPHIL # 2.5 10^3/ul (1.6-7.5); NEUTROPHILS % 52.5 % (39.0-77.0); PLATELET COUNT 234 10^3/UL (140-415); RED BLOOD COUNT 3.22 10^6/ul (4.20-5.40); RED CELL DISTRIBUTION WIDTH 16.1 % (11.5-14.5)
[2018-03-01] MEDS: LIOTHYRONINE 5 MCG TAB GTB ×2 (09:13→21:06)
[2018-03-01] MEDS: BALSAM PERU/CASTOR OIL 60 GM TUBE TOP (09:14)
[2018-03-01] MEDS: LIDOCAINE 5% PATCH TD (09:22)
[2018-03-01 09:54] LABS: ANION GAP 14 (8-16); BLOOD UREA NITROGEN 29 mg/dl (7-20); CALCIUM 9.8 mg/dl (8.4-10.2); CARBON DIOXIDE 29 mmol/L (21-31); CHLORIDE 98 mmol/L (97-110); CREATININE 3.74 mg/dl (0.44-1.00); GLUCOSE 109 mg/dl (70-220); MAGNESIUM 2.5 mg/dl (1.7-2.5); PHOSPHORUS 3.2 mg/dl (2.5-4.9); POTASSIUM 3.7 mmol/L (3.5-5.1); SODIUM 137 mmol/L (135-144)
[2018-03-02] MEDS: LEVOTHYROXINE 150 MCG TAB GTB (05:22)
[2018-03-02] MEDS: PANTOPRAZOLE (EC) 40 MG TAB PO (05:22)
[2018-03-02] MEDS: BISACODYL (EC) 5 MG TAB PO (05:22)
[2018-03-02] MEDS: HEPARIN 5,000 UNIT/0.5 ML VIAL SC ×3 (06:10→21:27)
[2018-03-02] MEDS: LIOTHYRONINE 5 MCG TAB GTB ×2 (08:51→21:13)
[2018-03-02] MEDS: LIDOCAINE 5% PATCH TD (08:52)
[2018-03-02] MEDS: BALSAM PERU/CASTOR OIL 60 GM TUBE TOP (08:52)
[2018-03-02] MEDS: ACETAMINOPHEN 650MG/20.3ML CUP PO (21:13)
[2018-03-03] MEDS: LEVOTHYROXINE 150 MCG TAB GTB (05:37)
[2018-03-03] MEDS: BISACODYL (EC) 5 MG TAB PO (05:37)
[2018-03-03] MEDS: PANTOPRAZOLE (EC) 40 MG TAB PO (05:37)
[2018-03-03] MEDS: HEPARIN 5,000 UNIT/0.5 ML VIAL SC ×3 (06:20→20:55)
[2018-03-03 08:18] LABS: ADD MAN DIFF? NO
[2018-03-03 08:19] LABS: WHITE BLOOD COUNT 6.1 10^3/ul (4.8-10.8)
[2018-03-03 08:19] LABS: BASOPHIL # 0.1 10^3/ul (0.0-0.1); EOSINOPHILS # 0.1 10^3/ul (0.0-0.5); EOSINOPHILS % 2.1 % (0.0-7.0); HEMATOCRIT 30.7 % (37.0-47.0); HEMOGLOBIN 9.6 g/dl (12.0-16.0); LYMPHOCYTES # 1.5 10^3/ul (0.8-2.9); MEAN CORPUSCULAR HEMOGLOBIN 30.1 pg (29.0-33.0); MEAN CORPUSCULAR HGB CONC 31.3 g/dl (32.0-37.0); MEAN CORPUSCULAR VOLUME 96.2 fl (82.0-101.0); MEAN PLATELET VOLUME 12.3 fl (7.4-10.4); MONOCYTE # 0.5 10^3/ul (0.3-0.9); MONOCYTES % 7.7 % (0.0-11.0); NEUTROPHIL # 3.9 10^3/ul (1.6-7.5); NEUTROPHILS % 63.5 % (39.0-77.0); PLATELET COUNT 241 10^3/UL (140-415); RED BLOOD COUNT 3.19 10^6/ul (4.20-5.40); RED CELL DISTRIBUTION WIDTH 16.2 % (11.5-14.5)
[2018-03-03 08:39] LABS: ANION GAP 14 (8-16); BLOOD UREA NITROGEN 32 mg/dl (7-20); CALCIUM 9.9 mg/dl (8.4-10.2); CARBON DIOXIDE 29 mmol/L (21-31); CHLORIDE 93 mmol/L (97-110); CREATININE 4.02 mg/dl (0.44-1.00); GLUCOSE 108 mg/dl (70-220); MAGNESIUM 2.5 mg/dl (1.7-2.5); PHOSPHORUS 3.2 mg/dl (2.5-4.9); POTASSIUM 3.8 mmol/L (3.5-5.1); SODIUM 132 mmol/L (135-144)
[2018-03-03] MEDS: LIOTHYRONINE 5 MCG TAB GTB ×2 (08:46→20:44)
[2018-03-03] MEDS: LIDOCAINE 5% PATCH TD (08:46)
[2018-03-03] MEDS: BALSAM PERU/CASTOR OIL 60 GM TUBE TOP (08:47)
[2018-03-04] MEDS: LEVOTHYROXINE 150 MCG TAB GTB (06:09)
[2018-03-04] MEDS: PANTOPRAZOLE (EC) 40 MG TAB PO (06:10)
[2018-03-04] MEDS: HEPARIN 5,000 UNIT/0.5 ML VIAL SC ×3 (06:25→22:00)
[2018-03-04] MEDS: LIDOCAINE 5% PATCH TD (10:17)
[2018-03-04] MEDS: BALSAM PERU/CASTOR OIL 60 GM TUBE TOP (10:20)
[2018-03-04] MEDS: LIOTHYRONINE 5 MCG TAB GTB ×2 (10:20→21:00)
[2018-03-04] MEDS: ALBUMIN HUMAN 25% 100 ML IV (21:54)
[2018-03-05] MEDS: ACETAMINOPHEN 650MG/20.3ML CUP PO (00:22)
[2018-03-05] MEDS: PANTOPRAZOLE (EC) 40 MG TAB PO (05:36)
[2018-03-05] MEDS: LEVOTHYROXINE 150 MCG TAB GTB (05:36)
[2018-03-05] MEDS: HEPARIN 5,000 UNIT/0.5 ML VIAL SC ×3 (06:36→21:37)
[2018-03-05] MEDS: DIPHENHYDRAMINE 2%/ZINC 28.4 GM CR TOP ×3 (08:35→21:00)
[2018-03-05] MEDS: NYSTATIN 15 GM CR TOP ×2 (08:36→21:00)
[2018-03-05] MEDS: LIDOCAINE 5% PATCH TD (08:36)
[2018-03-05] MEDS: FLUCONAZOLE 100 MG TAB GTB (08:36)
[2018-03-05] MEDS: LIOTHYRONINE 5 MCG TAB GTB ×2 (08:36→21:30)
[2018-03-05] MEDS: BALSAM PERU/CASTOR OIL 60 GM TUBE TOP (08:36)
[2018-03-06] MEDS: DIPHENHYDRAMINE 2%/ZINC 28.4 GM CR TOP ×4 (03:00→21:00)
[2018-03-06] MEDS: PANTOPRAZOLE (EC) 40 MG TAB PO (05:17)
[2018-03-06] MEDS: LEVOTHYROXINE 150 MCG TAB GTB (05:17)
[2018-03-06] MEDS: HEPARIN 5,000 UNIT/0.5 ML VIAL SC ×3 (05:19→21:30)
[2018-03-06] MEDS: FLUCONAZOLE 100 MG TAB GTB (08:29)
[2018-03-06] MEDS: BALSAM PERU/CASTOR OIL 60 GM TUBE TOP (08:29)
[2018-03-06] MEDS: LIOTHYRONINE 5 MCG TAB GTB ×2 (08:29→21:24)
[2018-03-06] MEDS: LIDOCAINE 5% PATCH TD (08:29)
[2018-03-06] MEDS: NYSTATIN 15 GM CR TOP ×2 (08:30→21:00)
[2018-03-06 10:06] LABS: ADD MAN DIFF? NO
[2018-03-06 10:19] LABS: ABNORMAL IP MESSAGE 1; BASOPHIL # 0.1 10^3/ul (0.0-0.1); BASOPHILS % 1.1 % (0.0-2.0); EOSINOPHILS # 0.2 10^3/ul (0.0-0.5); EOSINOPHILS % 3.8 % (0.0-7.0); HEMATOCRIT 29.7 % (37.0-47.0); HEMOGLOBIN 9.5 g/dl (12.0-16.0); LYMPHOCYTES # 1.6 10^3/ul (0.8-2.9); LYMPHOCYTES % 28.9 % (15.0-51.0); MEAN CORPUSCULAR HEMOGLOBIN 30.4 pg (29.0-33.0); MEAN CORPUSCULAR VOLUME 94.9 fl (82.0-101.0); MEAN PLATELET VOLUME 13.2 fl (7.4-10.4); MONOCYTE # 0.5 10^3/ul (0.3-0.9); MONOCYTES % 8.4 % (0.0-11.0); NEUTROPHIL # 3.2 10^3/ul (1.6-7.5); NEUTROPHILS % 56.7 % (39.0-77.0); RED BLOOD COUNT 3.13 10^6/ul (4.20-5.40); RED CELL DISTRIBUTION WIDTH 16.5 % (11.5-14.5)
[2018-03-06 10:19] LABS: WHITE BLOOD COUNT 5.6 10^3/ul (4.8-10.8)
[2018-03-06 10:20] LABS: PLATELET COUNT 174 10^3/UL (140-415); POSITIVE DIFF @See below
[2018-03-06 10:55] LABS: ANION GAP 17 (8-16); BLOOD UREA NITROGEN 47 mg/dl (7-20); CALCIUM 10.4 mg/dl (8.4-10.2); CARBON DIOXIDE 26 mmol/L (21-31); CHLORIDE 93 mmol/L (97-110); CREATININE 4.41 mg/dl (0.44-1.00); GLUCOSE 110 mg/dl (70-220); MAGNESIUM 2.7 mg/dl (1.7-2.5); PHOSPHORUS 3.3 mg/dl (2.5-4.9); POTASSIUM 3.8 mmol/L (3.5-5.1); SODIUM 132 mmol/L (135-144)
[2018-03-07] MEDS: DIPHENHYDRAMINE 2%/ZINC 28.4 GM CR TOP ×4 (03:00→20:40)
[2018-03-07] MEDS: LEVOTHYROXINE 150 MCG TAB GTB (05:41)
[2018-03-07] MEDS: PANTOPRAZOLE (EC) 40 MG TAB PO (05:41)
[2018-03-07] MEDS: HEPARIN 5,000 UNIT/0.5 ML VIAL SC ×3 (05:41→21:40)
[2018-03-07] MEDS: LIOTHYRONINE 5 MCG TAB GTB ×2 (08:26→20:40)
[2018-03-07] MEDS: FLUCONAZOLE 100 MG TAB GTB (08:27)
[2018-03-07] MEDS: NYSTATIN 15 GM CR TOP ×2 (08:29→20:40)
[2018-03-07] MEDS: BALSAM PERU/CASTOR OIL 60 GM TUBE TOP (08:29)
[2018-03-07] MEDS: LIDOCAINE 5% PATCH TD (08:30)
[2018-03-08] MEDS: DIPHENHYDRAMINE 2%/ZINC 28.4 GM CR TOP ×4 (03:12→20:30)
[2018-03-08] MEDS: PANTOPRAZOLE (EC) 40 MG TAB PO (05:16)
[2018-03-08] MEDS: LEVOTHYROXINE 150 MCG TAB GTB (05:16)
[2018-03-08] MEDS: HEPARIN 5,000 UNIT/0.5 ML VIAL SC ×3 (05:17→20:36)
[2018-03-08] MEDS: NYSTATIN 15 GM CR TOP ×2 (08:55→20:29)
[2018-03-08] MEDS: BALSAM PERU/CASTOR OIL 60 GM TUBE TOP (08:55)
[2018-03-08] MEDS: LIOTHYRONINE 5 MCG TAB GTB ×2 (08:56→20:28)
[2018-03-08] MEDS: FLUCONAZOLE 100 MG TAB GTB (08:56)
[2018-03-08] MEDS: LIDOCAINE 5% PATCH TD (09:01)
[2018-03-09] MEDS: DIPHENHYDRAMINE 2%/ZINC 28.4 GM CR TOP ×4 (03:32→23:01)
[2018-03-09] MEDS: HEPARIN 5,000 UNIT/0.5 ML VIAL SC ×3 (06:00→23:07)
[2018-03-09] MEDS: LEVOTHYROXINE 150 MCG TAB GTB (06:00)
[2018-03-09] MEDS: PANTOPRAZOLE (EC) 40 MG TAB PO (06:00)
[2018-03-09] MEDS: LIOTHYRONINE 5 MCG TAB GTB ×2 (09:04→23:02)
[2018-03-09] MEDS: ACETAMINOPHEN 650MG/20.3ML CUP PO ×2 (09:04→17:02)
[2018-03-09] MEDS: LIDOCAINE 5% PATCH TD (09:06)
[2018-03-09] MEDS: NYSTATIN 15 GM CR TOP ×2 (09:06→23:01)
[2018-03-09] MEDS: BALSAM PERU/CASTOR OIL 60 GM TUBE TOP (09:07)
[2018-03-10] MEDS: DIPHENHYDRAMINE 2%/ZINC 28.4 GM CR TOP ×4 (02:05→22:12)
[2018-03-10] MEDS: ACETAMINOPHEN 650MG/20.3ML CUP PO ×3 (02:09→15:40)
[2018-03-10] MEDS: LEVOTHYROXINE 150 MCG TAB GTB (06:33)
[2018-03-10] MEDS: PANTOPRAZOLE (EC) 40 MG TAB PO (06:33)
[2018-03-10] MEDS: HEPARIN 5,000 UNIT/0.5 ML VIAL SC ×3 (06:34→22:10)
[2018-03-10] MEDS: LIOTHYRONINE 5 MCG TAB GTB ×2 (08:58→22:08)
[2018-03-10] MEDS: NYSTATIN 15 GM CR TOP ×2 (08:59→22:12)
[2018-03-10] MEDS: BALSAM PERU/CASTOR OIL 60 GM TUBE TOP (08:59)
[2018-03-10] MEDS: LIDOCAINE 5% PATCH TD (08:59)
[2018-03-11] MEDS: DIPHENHYDRAMINE 2%/ZINC 28.4 GM CR TOP ×4 (03:40→21:19)
[2018-03-11] MEDS: PANTOPRAZOLE (EC) 40 MG TAB PO (05:53)
[2018-03-11] MEDS: LEVOTHYROXINE 150 MCG TAB GTB (05:54)
[2018-03-11] MEDS: HEPARIN 5,000 UNIT/0.5 ML VIAL SC ×3 (06:02→21:12)
[2018-03-11] MEDS: ONDANSETRON 4 MG INJ IV (08:47)
[2018-03-11] MEDS: NYSTATIN 15 GM CR TOP ×2 (08:47→21:18)
[2018-03-11] MEDS: LIOTHYRONINE 5 MCG TAB GTB ×2 (08:47→21:10)
[2018-03-11] MEDS: ACETAMINOPHEN 650MG/20.3ML CUP PO ×2 (08:47→14:02)
[2018-03-11] MEDS: BALSAM PERU/CASTOR OIL 60 GM TUBE TOP (08:48)
[2018-03-11] MEDS: LIDOCAINE 5% PATCH TD (08:48)
[2018-03-11 14:03] LABS: VITAMIN B1 (THIAMINE) 72 nmol/L (78-185)
[2018-03-11 15:25] LABS: ADD MAN DIFF? NO
[2018-03-11 15:30] LABS: BASOPHILS % 0.4 % (0.0-2.0); EOSINOPHILS # 0.2 10^3/ul (0.0-0.5); EOSINOPHILS % 3.5 % (0.0-7.0); HEMATOCRIT 26.8 % (37.0-47.0); HEMOGLOBIN 8.5 g/dl (12.0-16.0); IMMATURE GRANS #M 0.03 10^3/ul; IMMATURE GRANS % (M) 0.6 %; LYMPHOCYTES # 1.4 10^3/ul (0.8-2.9); LYMPHOCYTES % 25.7 % (15.0-51.0); MEAN CORPUSCULAR HGB CONC 31.7 g/dl (32.0-37.0); MEAN CORPUSCULAR VOLUME 97.8 fl (82.0-101.0); MEAN PLATELET VOLUME 12.1 fl (7.4-10.4); MONOCYTE # 0.5 10^3/ul (0.3-0.9); MONOCYTES % 8.7 % (0.0-11.0); NEUTROPHIL # 3.3 10^3/ul (1.6-7.5); NEUTROPHILS % 61.1 % (39.0-77.0); PLATELET COUNT 150 10^3/UL (140-415); RED BLOOD COUNT 2.74 10^6/ul (4.20-5.40); RED CELL DISTRIBUTION WIDTH 16.2 % (11.5-14.5)
[2018-03-11 15:30] LABS: WHITE BLOOD COUNT 5.4 10^3/ul (4.8-10.8)
[2018-03-11 15:51] LABS: ANION GAP 15 (8-16); BLOOD UREA NITROGEN 29 mg/dl (7-20); CALCIUM 9.8 mg/dl (8.4-10.2); CARBON DIOXIDE 33 mmol/L (21-31); CHLORIDE 94 mmol/L (97-110); CREATININE 3.31 mg/dl (0.44-1.00); GLUCOSE 120 mg/dl (70-220); MAGNESIUM 2.3 mg/dl (1.7-2.5); PHOSPHORUS 2.7 mg/dl (2.5-4.9); POTASSIUM 3.7 mmol/L (3.5-5.1); SODIUM 138 mmol/L (135-144)
[2018-03-12] MEDS: DIPHENHYDRAMINE 2%/ZINC 28.4 GM CR TOP ×4 (03:19→21:19)
[2018-03-12 06:13] LABS: ADD MAN DIFF? NO
[2018-03-12] MEDS: PANTOPRAZOLE (EC) 40 MG TAB PO (06:14)
[2018-03-12] MEDS: LEVOTHYROXINE 150 MCG TAB GTB (06:14)
[2018-03-12] MEDS: HEPARIN 5,000 UNIT/0.5 ML VIAL SC ×3 (06:20→21:40)
[2018-03-12 06:23] LABS: WHITE BLOOD COUNT 5.3 10^3/ul (4.8-10.8)
[2018-03-12 06:23] LABS: BASOPHIL # 0.1 10^3/ul (0.0-0.1); BASOPHILS % 0.9 % (0.0-2.0); EOSINOPHILS # 0.3 10^3/ul (0.0-0.5); EOSINOPHILS % 5.3 % (0.0-7.0); HEMATOCRIT 27.1 % (37.0-47.0); HEMOGLOBIN 8.7 g/dl (12.0-16.0); IMMATURE GRANS #M 0.04 10^3/ul; IMMATURE GRANS % (M) 0.8 %; LYMPHOCYTES # 1.4 10^3/ul (0.8-2.9); LYMPHOCYTES % 26.5 % (15.0-51.0); MEAN CORPUSCULAR HEMOGLOBIN 31.2 pg (29.0-33.0); MEAN CORPUSCULAR HGB CONC 32.1 g/dl (32.0-37.0); MEAN CORPUSCULAR VOLUME 97.1 fl (82.0-101.0); MEAN PLATELET VOLUME 12.4 fl (7.4-10.4); MONOCYTE # 0.5 10^3/ul (0.3-0.9); MONOCYTES % 8.8 % (0.0-11.0); NEUTROPHIL # 3.1 10^3/ul (1.6-7.5); NEUTROPHILS % 57.7 % (39.0-77.0); PLATELET COUNT 158 10^3/UL (140-415); RED BLOOD COUNT 2.79 10^6/ul (4.20-5.40); RED CELL DISTRIBUTION WIDTH 16.2 % (11.5-14.5)
[2018-03-12 06:58] LABS: ANION GAP 14 (8-16); BLOOD UREA NITROGEN 40 mg/dl (7-20); CALCIUM 10.2 mg/dl (8.4-10.2); CARBON DIOXIDE 33 mmol/L (21-31); CHLORIDE 93 mmol/L (97-110); CREATININE 3.85 mg/dl (0.44-1.00); GLUCOSE 113 mg/dl (70-220); MAGNESIUM 2.5 mg/dl (1.7-2.5); PHOSPHORUS 3.2 mg/dl (2.5-4.9); SODIUM 136 mmol/L (135-144)
[2018-03-12] MEDS: LIOTHYRONINE 5 MCG TAB GTB ×2 (08:42→21:18)
[2018-03-12] MEDS: LIDOCAINE 5% PATCH TD (08:42)
[2018-03-12] MEDS: BALSAM PERU/CASTOR OIL 60 GM TUBE TOP (08:42)
[2018-03-12] MEDS: NYSTATIN 15 GM CR TOP ×2 (08:42→21:18)
[2018-03-13] MEDS: DIPHENHYDRAMINE 2%/ZINC 28.4 GM CR TOP ×4 (03:00→20:57)
[2018-03-13] MEDS: LEVOTHYROXINE 150 MCG TAB GTB (06:40)
[2018-03-13] MEDS: PANTOPRAZOLE (EC) 40 MG TAB PO (06:41)
[2018-03-13] MEDS: HEPARIN 5,000 UNIT/0.5 ML VIAL SC ×3 (07:29→20:56)
[2018-03-13] MEDS: LIDOCAINE 5% PATCH TD (08:50)
[2018-03-13] MEDS: LIOTHYRONINE 5 MCG TAB GTB ×2 (08:50→20:55)
[2018-03-13] MEDS: BALSAM PERU/CASTOR OIL 60 GM TUBE TOP (08:50)
[2018-03-13] MEDS: NYSTATIN 15 GM CR TOP ×2 (08:50→20:57)
[2018-03-13] MEDS: EPOETIN 10000 UNITS/1 ML INJ (ESRD) SC (17:21)
[2018-03-14] MEDS: DIPHENHYDRAMINE 2%/ZINC 28.4 GM CR TOP ×4 (03:00→21:00)
[2018-03-14] MEDS: PANTOPRAZOLE (EC) 40 MG TAB PO (05:20)
[2018-03-14] MEDS: LEVOTHYROXINE 150 MCG TAB GTB (05:20)
[2018-03-14] MEDS: HEPARIN 5,000 UNIT/0.5 ML VIAL SC ×3 (05:26→21:36)
[2018-03-14] MEDS: LIDOCAINE 5% PATCH TD (08:52)
[2018-03-14] MEDS: LIOTHYRONINE 5 MCG TAB GTB ×2 (08:52→21:30)
[2018-03-14] MEDS: NYSTATIN 15 GM CR TOP ×2 (08:53→21:00)
[2018-03-14] MEDS: BALSAM PERU/CASTOR OIL 60 GM TUBE TOP (08:53)
[2018-03-15] MEDS: DIPHENHYDRAMINE 2%/ZINC 28.4 GM CR TOP ×4 (03:05→21:00)
[2018-03-15] MEDS: PANTOPRAZOLE (EC) 40 MG TAB PO (06:18)
[2018-03-15] MEDS: LEVOTHYROXINE 150 MCG TAB GTB (06:18)
[2018-03-15] MEDS: HEPARIN 5,000 UNIT/0.5 ML VIAL SC ×3 (06:27→21:37)
[2018-03-15 06:52] LABS: ADD MAN DIFF? NO
[2018-03-15 07:05] LABS: WHITE BLOOD COUNT 5.9 10^3/ul (4.8-10.8)
[2018-03-15 07:05] LABS: BASOPHIL # 0.1 10^3/ul (0.0-0.1); EOSINOPHILS # 0.3 10^3/ul (0.0-0.5); EOSINOPHILS % 4.7 % (0.0-7.0); HEMATOCRIT 27.1 % (37.0-47.0); HEMOGLOBIN 8.6 g/dl (12.0-16.0); LYMPHOCYTES # 1.6 10^3/ul (0.8-2.9); LYMPHOCYTES % 26.8 % (15.0-51.0); MEAN CORPUSCULAR HGB CONC 31.7 g/dl (32.0-37.0); MEAN CORPUSCULAR VOLUME 97.8 fl (82.0-101.0); MEAN PLATELET VOLUME 12.4 fl (7.4-10.4); MONOCYTE # 0.5 10^3/ul (0.3-0.9); MONOCYTES % 8.3 % (0.0-11.0); NEUTROPHIL # 3.5 10^3/ul (1.6-7.5); NEUTROPHILS % 58.5 % (39.0-77.0); PLATELET COUNT 166 10^3/UL (140-415); RED BLOOD COUNT 2.77 10^6/ul (4.20-5.40); RED CELL DISTRIBUTION WIDTH 16.2 % (11.5-14.5)
[2018-03-15 07:40] LABS: ANION GAP 15 (8-16); BLOOD UREA NITROGEN 33 mg/dl (7-20); CALCIUM 10.3 mg/dl (8.4-10.2); CARBON DIOXIDE 31 mmol/L (21-31); CHLORIDE 97 mmol/L (97-110); CREATININE 3.33 mg/dl (0.44-1.00); GLUCOSE 108 mg/dl (70-220); MAGNESIUM 2.4 mg/dl (1.7-2.5); PHOSPHORUS 3.4 mg/dl (2.5-4.9); POTASSIUM 4.8 mmol/L (3.5-5.1); SODIUM 138 mmol/L (135-144)
[2018-03-15 08:35] LABS: IRON 92 ug/dl (35-150)
[2018-03-15 08:44] LABS: % IRON SATURATION 44 % SAT (22-52); TOTAL IRON BINDING CAPACITY 208 ug/dl (241-421)
[2018-03-15] MEDS: BALSAM PERU/CASTOR OIL 60 GM TUBE TOP (09:00)
[2018-03-15] MEDS: NYSTATIN 15 GM CR TOP ×2 (10:00→21:00)
[2018-03-15] MEDS: LIDOCAINE 5% PATCH TD (10:01)
[2018-03-15] MEDS: LIOTHYRONINE 5 MCG TAB GTB ×2 (10:01→21:20)
[2018-03-16] MEDS: DIPHENHYDRAMINE 2%/ZINC 28.4 GM CR TOP ×4 (03:00→21:00)
[2018-03-16] MEDS: PANTOPRAZOLE (EC) 40 MG TAB PO (06:16)
[2018-03-16] MEDS: LEVOTHYROXINE 150 MCG TAB GTB (06:16)
[2018-03-16] MEDS: HEPARIN 5,000 UNIT/0.5 ML VIAL SC ×3 (06:22→22:00)
[2018-03-16] MEDS: LIOTHYRONINE 5 MCG TAB GTB ×2 (09:10→22:21)
[2018-03-16] MEDS: LIDOCAINE 5% PATCH TD (09:10)
[2018-03-16] MEDS: NYSTATIN 15 GM CR TOP ×2 (09:11→22:21)
[2018-03-16] MEDS: BALSAM PERU/CASTOR OIL 60 GM TUBE TOP (15:03)
[2018-03-17] MEDS: DIPHENHYDRAMINE 2%/ZINC 28.4 GM CR TOP ×4 (03:48→21:47)
[2018-03-17] MEDS: PANTOPRAZOLE (EC) 40 MG TAB PO (05:27)
[2018-03-17] MEDS: LEVOTHYROXINE 150 MCG TAB GTB (05:27)
[2018-03-17] MEDS: HEPARIN 5,000 UNIT/0.5 ML VIAL SC ×3 (05:38→21:55)
[2018-03-17 09:25] LABS: HEPATITIS B SURFACE ANTIGEN NEGATIVE (NEGATIVE)
[2018-03-17] MEDS: LIDOCAINE 5% PATCH TD (09:39)
[2018-03-17] MEDS: LIOTHYRONINE 5 MCG TAB GTB ×2 (09:39→21:47)
[2018-03-17] MEDS: NYSTATIN 15 GM CR TOP ×2 (09:39→21:47)
[2018-03-17] MEDS: BALSAM PERU/CASTOR OIL 60 GM TUBE TOP (09:40)
[2018-03-17 09:43] LABS: HEPATITIS B SURFACE ANTIBODY POSITIVE (NEGATIVE)
[2018-03-18] MEDS: ACETAMINOPHEN 650MG/20.3ML CUP PO (01:11)
[2018-03-18] MEDS: DIPHENHYDRAMINE 2%/ZINC 28.4 GM CR TOP ×4 (03:00→21:05)
[2018-03-18] MEDS: LEVOTHYROXINE 150 MCG TAB GTB (05:26)
[2018-03-18] MEDS: PANTOPRAZOLE (EC) 40 MG TAB PO (05:27)
[2018-03-18] MEDS: HEPARIN 5,000 UNIT/0.5 ML VIAL SC ×3 (05:29→21:47)
[2018-03-18] MEDS: LIOTHYRONINE 5 MCG TAB GTB (08:45)
[2018-03-18] MEDS: LIDOCAINE 5% PATCH TD (08:48)
[2018-03-18] MEDS: BALSAM PERU/CASTOR OIL 60 GM TUBE TOP (08:49)
[2018-03-18] MEDS: NYSTATIN 15 GM CR TOP ×2 (08:49→21:06)
[2018-03-18 12:12] LABS: ADD MAN DIFF? NO
[2018-03-18 12:16] LABS: WHITE BLOOD COUNT 6.3 10^3/ul (4.8-10.8)
[2018-03-18 12:16] LABS: BASOPHILS % 0.5 % (0.0-2.0); EOSINOPHILS # 0.3 10^3/ul (0.0-0.5); EOSINOPHILS % 4.4 % (0.0-7.0); HEMATOCRIT 26.1 % (37.0-47.0); HEMOGLOBIN 8.7 g/dl (12.0-16.0); LYMPHOCYTES # 1.7 10^3/ul (0.8-2.9); LYMPHOCYTES % 27.1 % (15.0-51.0); MEAN CORPUSCULAR HEMOGLOBIN 32.7 pg (29.0-33.0); MEAN CORPUSCULAR HGB CONC 33.3 g/dl (32.0-37.0); MEAN CORPUSCULAR VOLUME 98.1 fl (82.0-101.0); MEAN PLATELET VOLUME 12.4 fl (7.4-10.4); MONOCYTE # 0.5 10^3/ul (0.3-0.9); MONOCYTES % 8.5 % (0.0-11.0); NEUTROPHIL # 3.7 10^3/ul (1.6-7.5); NEUTROPHILS % 58.7 % (39.0-77.0); PLATELET COUNT 174 10^3/UL (140-415); RED BLOOD COUNT 2.66 10^6/ul (4.20-5.40); RED CELL DISTRIBUTION WIDTH 16.5 % (11.5-14.5)
[2018-03-18 12:39] LABS: ALANINE AMINOTRANSFERASE 25 IU/L (13-69); ALBUMIN 3.7 g/dl (3.3-4.9); ALBUMIN/GLOBULIN RATIO 1.05; ALKALINE PHOSPHATASE 157 IU/L (42-121); ANION GAP 16 (8-16); ASPARTATE AMINO TRANSFERASE 30 IU/L (15-46); BILIRUBIN,INDIRECT 0.1 mg/dl (0-1.1); BILIRUBIN,TOTAL 0.1 mg/dl (0.2-1.3); BLOOD UREA NITROGEN 50 mg/dl (7-20); CALCIUM 10.7 mg/dl (8.4-10.2); CARBON DIOXIDE 33 mmol/L (21-31); CHLORIDE 91 mmol/L (97-110); GLUCOSE 103 mg/dl (70-220); POTASSIUM 4.5 mmol/L (3.5-5.1); SODIUM 135 mmol/L (135-144); TOTAL PROTEIN 7.2 g/dl (6.1-8.1)
[2018-03-19] MEDS: DIPHENHYDRAMINE 2%/ZINC 28.4 GM CR TOP ×4 (03:00→21:00)
[2018-03-19] MEDS: PANTOPRAZOLE (EC) 40 MG TAB PO (05:55)
[2018-03-19] MEDS: HEPARIN 5,000 UNIT/0.5 ML VIAL SC ×3 (06:12→22:22)
[2018-03-19] MEDS: NYSTATIN 15 GM CR TOP ×2 (08:58→22:25)
[2018-03-19] MEDS: BALSAM PERU/CASTOR OIL 60 GM TUBE TOP (08:58)
[2018-03-19] MEDS: LIDOCAINE 5% PATCH TD (09:00)
[2018-03-19] MEDS: ALBUMIN HUMAN 25% 100 ML IV (11:42)
[2018-03-19] MEDS: ACETAMINOPHEN 650MG/20.3ML CUP PO (12:36)
[2018-03-20] MEDS: DIPHENHYDRAMINE 2%/ZINC 28.4 GM CR TOP ×4 (03:00→21:39)
[2018-03-20] MEDS: HEPARIN 5,000 UNIT/0.5 ML VIAL SC ×3 (05:36→21:37)
[2018-03-20] MEDS: PANTOPRAZOLE (EC) 40 MG TAB PO (05:39)
[2018-03-20] MEDS: LIDOCAINE 5% PATCH TD (08:21)
[2018-03-20] MEDS: NYSTATIN 15 GM CR TOP ×2 (08:21→21:38)
[2018-03-20] MEDS: BALSAM PERU/CASTOR OIL 60 GM TUBE TOP (08:21)
[2018-03-21] MEDS: DIPHENHYDRAMINE 2%/ZINC 28.4 GM CR TOP ×4 (03:00→20:20)
[2018-03-21] MEDS: PANTOPRAZOLE (EC) 40 MG TAB PO (06:29)
[2018-03-21] MEDS: HEPARIN 5,000 UNIT/0.5 ML VIAL SC ×3 (06:35→20:26)
[2018-03-21] MEDS: LIDOCAINE 5% PATCH TD (09:25)
[2018-03-21] MEDS: BALSAM PERU/CASTOR OIL 60 GM TUBE TOP (09:25)
[2018-03-21] MEDS: NYSTATIN 15 GM CR TOP ×2 (09:27→20:20)
[2018-03-22] MEDS: DIPHENHYDRAMINE 2%/ZINC 28.4 GM CR TOP ×4 (03:00→21:19)
[2018-03-22] MEDS: PANTOPRAZOLE (EC) 40 MG TAB PO (05:20)
[2018-03-22] MEDS: HEPARIN 5,000 UNIT/0.5 ML VIAL SC ×3 (05:31→21:23)
[2018-03-22] MEDS: NYSTATIN 15 GM CR TOP ×2 (08:38→21:19)
[2018-03-22] MEDS: LIDOCAINE 5% PATCH TD (08:38)
[2018-03-22] MEDS: BALSAM PERU/CASTOR OIL 60 GM TUBE TOP (08:38)
[2018-03-22 12:12] LABS: ADD MAN DIFF? NO
[2018-03-22 12:15] LABS: BASOPHILS % 0.7 % (0.0-2.0); EOSINOPHILS # 0.2 10^3/ul (0.0-0.5); HEMOGLOBIN 8.9 g/dl (12.0-16.0); LYMPHOCYTES # 1.7 10^3/ul (0.8-2.9); LYMPHOCYTES % 28.7 % (15.0-51.0); MEAN CORPUSCULAR HEMOGLOBIN 31.9 pg (29.0-33.0); MEAN CORPUSCULAR HGB CONC 31.8 g/dl (32.0-37.0); MEAN CORPUSCULAR VOLUME 100.4 fl (82.0-101.0); MEAN PLATELET VOLUME 12.2 fl (7.4-10.4); MONOCYTE # 0.5 10^3/ul (0.3-0.9); MONOCYTES % 7.7 % (0.0-11.0); NEUTROPHIL # 3.5 10^3/ul (1.6-7.5); NEUTROPHILS % 58.2 % (39.0-77.0); PLATELET COUNT 181 10^3/UL (140-415); RED BLOOD COUNT 2.79 10^6/ul (4.20-5.40); RED CELL DISTRIBUTION WIDTH 16.7 % (11.5-14.5)
[2018-03-22 12:39] LABS: ANION GAP 17 (8-16); BLOOD UREA NITROGEN 26 mg/dl (7-20); CALCIUM 10.4 mg/dl (8.4-10.2); CARBON DIOXIDE 31 mmol/L (21-31); CHLORIDE 97 mmol/L (97-110); CREATININE 3.63 mg/dl (0.44-1.00); GLUCOSE 98 mg/dl (70-220); MAGNESIUM 2.3 mg/dl (1.7-2.5); PHOSPHORUS 4.2 mg/dl (2.5-4.9); POTASSIUM 5.2 mmol/L (3.5-5.1); SODIUM 140 mmol/L (135-144)
[2018-03-23] MEDS: DIPHENHYDRAMINE 2%/ZINC 28.4 GM CR TOP ×4 (03:00→21:16)
[2018-03-23] MEDS: PANTOPRAZOLE (EC) 40 MG TAB PO (06:03)
[2018-03-23] MEDS: HEPARIN 5,000 UNIT/0.5 ML VIAL SC ×3 (06:06→21:19)
[2018-03-23] MEDS: LIDOCAINE 5% PATCH TD (08:55)
[2018-03-23] MEDS: ARTIFICIAL TEARS 15 ML OPH BOTH EYES (08:55)
[2018-03-23] MEDS: BALSAM PERU/CASTOR OIL 60 GM TUBE TOP (08:56)
[2018-03-23] MEDS: NYSTATIN 15 GM CR TOP ×2 (09:57→21:15)
[2018-03-24] MEDS: DIPHENHYDRAMINE 2%/ZINC 28.4 GM CR TOP ×5 (03:04→21:21)
[2018-03-24] MEDS: PANTOPRAZOLE (EC) 40 MG TAB PO (05:31)
[2018-03-24] MEDS: HEPARIN 5,000 UNIT/0.5 ML VIAL SC ×3 (05:37→23:09)
[2018-03-24] MEDS: NYSTATIN 15 GM CR TOP ×2 (08:43→21:21)
[2018-03-24] MEDS: LIDOCAINE 5% PATCH TD (08:43)
[2018-03-24] MEDS: BALSAM PERU/CASTOR OIL 60 GM TUBE TOP (08:44)
[2018-03-24 13:38] LABS: ADD MAN DIFF? NO
[2018-03-24 13:41] LABS: BASOPHIL # 0.1 10^3/ul (0.0-0.1); BASOPHILS % 0.8 % (0.0-2.0); EOSINOPHILS # 0.2 10^3/ul (0.0-0.5); HEMATOCRIT 26.4 % (37.0-47.0); HEMOGLOBIN 8.5 g/dl (12.0-16.0); LYMPHOCYTES # 1.6 10^3/ul (0.8-2.9); LYMPHOCYTES % 26.7 % (15.0-51.0); MEAN CORPUSCULAR HEMOGLOBIN 31.6 pg (29.0-33.0); MEAN CORPUSCULAR HGB CONC 32.2 g/dl (32.0-37.0); MEAN CORPUSCULAR VOLUME 98.1 fl (82.0-101.0); MEAN PLATELET VOLUME 12.2 fl (7.4-10.4); MONOCYTE # 0.4 10^3/ul (0.3-0.9); MONOCYTES % 6.6 % (0.0-11.0); NEUTROPHIL # 3.7 10^3/ul (1.6-7.5); NEUTROPHILS % 61.2 % (39.0-77.0); PLATELET COUNT 180 10^3/UL (140-415); RED BLOOD COUNT 2.69 10^6/ul (4.20-5.40); RED CELL DISTRIBUTION WIDTH 16.6 % (11.5-14.5)
[2018-03-24 14:03] LABS: ANION GAP 15 (8-16); BLOOD UREA NITROGEN 24 mg/dl (7-20); CALCIUM 10.1 mg/dl (8.4-10.2); CARBON DIOXIDE 30 mmol/L (21-31); CHLORIDE 96 mmol/L (97-110); CREATININE 3.26 mg/dl (0.44-1.00); GLUCOSE 115 mg/dl (70-220); MAGNESIUM 2.1 mg/dl (1.7-2.5); PHOSPHORUS 4.2 mg/dl (2.5-4.9); POTASSIUM 4.3 mmol/L (3.5-5.1); SODIUM 137 mmol/L (135-144)
[2018-03-25] MEDS: DIPHENHYDRAMINE 2%/ZINC 28.4 GM CR TOP ×4 (03:00→21:00)
[2018-03-25] MEDS: PANTOPRAZOLE (EC) 40 MG TAB PO (05:57)
[2018-03-25] MEDS: HEPARIN 5,000 UNIT/0.5 ML VIAL SC ×3 (06:31→22:25)
[2018-03-25] MEDS: LIDOCAINE 5% PATCH TD (08:53)
[2018-03-25] MEDS: NYSTATIN 15 GM CR TOP ×2 (08:56→21:00)
[2018-03-25] MEDS: BALSAM PERU/CASTOR OIL 60 GM TUBE TOP (08:56)
[2018-03-25] MEDS: ARTIFICIAL TEARS 15 ML OPH BOTH EYES (08:57)
[2018-03-26] MEDS: DIPHENHYDRAMINE 2%/ZINC 28.4 GM CR TOP ×4 (03:00→21:12)
[2018-03-26] MEDS: PANTOPRAZOLE (EC) 40 MG TAB PO (06:07)
[2018-03-26] MEDS: HEPARIN 5,000 UNIT/0.5 ML VIAL SC ×3 (06:21→21:12)
[2018-03-26] MEDS: LIDOCAINE 5% PATCH TD (08:44)
[2018-03-26] MEDS: NYSTATIN 15 GM CR TOP ×2 (08:52→21:12)
[2018-03-26] MEDS: ARTIFICIAL TEARS 15 ML OPH BOTH EYES (08:56)
[2018-03-26] MEDS: BALSAM PERU/CASTOR OIL 60 GM TUBE TOP (08:58)
[2018-03-27] MEDS: DIPHENHYDRAMINE 2%/ZINC 28.4 GM CR TOP ×4 (03:09→21:03)
[2018-03-27] MEDS: PANTOPRAZOLE (EC) 40 MG TAB PO (05:45)
[2018-03-27] MEDS: HEPARIN 5,000 UNIT/0.5 ML VIAL SC ×3 (05:45→21:05)
[2018-03-27] MEDS: BALSAM PERU/CASTOR OIL 60 GM TUBE TOP (08:49)
[2018-03-27] MEDS: NYSTATIN 15 GM CR TOP ×2 (08:49→21:03)
[2018-03-27] MEDS: LIDOCAINE 5% PATCH TD (08:50)
[2018-03-27] MEDS: ACETAMINOPHEN 650MG/20.3ML CUP PO (17:55)
[2018-03-27 19:12] LABS: ADD MAN DIFF? NO
[2018-03-27 19:14] LABS: WHITE BLOOD COUNT 6.5 10^3/ul (4.8-10.8)
[2018-03-27 19:14] LABS: BASOPHILS % 0.6 % (0.0-2.0); EOSINOPHILS # 0.2 10^3/ul (0.0-0.5); EOSINOPHILS % 2.6 % (0.0-7.0); HEMATOCRIT 25.6 % (37.0-47.0); HEMOGLOBIN 8.3 g/dl (12.0-16.0); LYMPHOCYTES # 1.6 10^3/ul (0.8-2.9); LYMPHOCYTES % 23.7 % (15.0-51.0); MEAN CORPUSCULAR HEMOGLOBIN 31.6 pg (29.0-33.0); MEAN CORPUSCULAR HGB CONC 32.4 g/dl (32.0-37.0); MEAN CORPUSCULAR VOLUME 97.3 fl (82.0-101.0); MEAN PLATELET VOLUME 11.1 fl (7.4-10.4); MONOCYTE # 0.5 10^3/ul (0.3-0.9); MONOCYTES % 7.4 % (0.0-11.0); NEUTROPHIL # 4.3 10^3/ul (1.6-7.5); NEUTROPHILS % 65.4 % (39.0-77.0); PLATELET COUNT 194 10^3/UL (140-415); RED BLOOD COUNT 2.63 10^6/ul (4.20-5.40); RED CELL DISTRIBUTION WIDTH 16.3 % (11.5-14.5)
[2018-03-27 19:35] LABS: ALANINE AMINOTRANSFERASE 17 IU/L (13-69); ALBUMIN 4.2 g/dl (3.3-4.9); ALBUMIN/GLOBULIN RATIO 1.13; ALKALINE PHOSPHATASE 88 IU/L (42-121); ANION GAP 15 (8-16); ASPARTATE AMINO TRANSFERASE 25 IU/L (15-46); BILIRUBIN,INDIRECT 0.3 mg/dl (0-1.1); BILIRUBIN,TOTAL 0.3 mg/dl (0.2-1.3); BLOOD UREA NITROGEN 35 mg/dl (7-20); CALCIUM 10.6 mg/dl (8.4-10.2); CARBON DIOXIDE 33 mmol/L (21-31); CHLORIDE 90 mmol/L (97-110); CREATININE 4.65 mg/dl (0.44-1.00); GLUCOSE 122 mg/dl (70-220); POTASSIUM 4.3 mmol/L (3.5-5.1); SODIUM 134 mmol/L (135-144); TOTAL PROTEIN 7.9 g/dl (6.1-8.1)
[2018-03-28] MEDS: DIPHENHYDRAMINE 2%/ZINC 28.4 GM CR TOP ×4 (03:00→21:21)
[2018-03-28] MEDS: PANTOPRAZOLE (EC) 40 MG TAB PO (05:10)
[2018-03-28] MEDS: HEPARIN 5,000 UNIT/0.5 ML VIAL SC ×3 (05:12→21:23)
[2018-03-28] MEDS: LIDOCAINE 5% PATCH TD (09:00)
[2018-03-28] MEDS: BALSAM PERU/CASTOR OIL 60 GM TUBE TOP (09:51)
[2018-03-28] MEDS: NYSTATIN 15 GM CR TOP ×2 (09:51→21:20)
[2018-03-29] MEDS: DIPHENHYDRAMINE 2%/ZINC 28.4 GM CR TOP ×4 (03:00→21:40)
[2018-03-29] MEDS: PANTOPRAZOLE (EC) 40 MG TAB PO (06:08)
[2018-03-29] MEDS: HEPARIN 5,000 UNIT/0.5 ML VIAL SC ×3 (06:09→21:42)
[2018-03-29 07:28] LABS: ADD MAN DIFF? NO
[2018-03-29 07:35] LABS: BASOPHILS % 0.6 % (0.0-2.0); EOSINOPHILS # 0.2 10^3/ul (0.0-0.5); EOSINOPHILS % 3.3 % (0.0-7.0); HEMATOCRIT 25.2 % (37.0-47.0); HEMOGLOBIN 7.8 g/dl (12.0-16.0); LYMPHOCYTES # 1.5 10^3/ul (0.8-2.9); LYMPHOCYTES % 27.9 % (15.0-51.0); MEAN PLATELET VOLUME 11.3 fl (7.4-10.4); MONOCYTE # 0.5 10^3/ul (0.3-0.9); MONOCYTES % 8.8 % (0.0-11.0); NEUTROPHIL # 3.1 10^3/ul (1.6-7.5); PLATELET COUNT 194 10^3/UL (140-415); RED BLOOD COUNT 2.52 10^6/ul (4.20-5.40); RED CELL DISTRIBUTION WIDTH 16.6 % (11.5-14.5)
[2018-03-29 07:35] LABS: WHITE BLOOD COUNT 5.2 10^3/ul (4.8-10.8)
[2018-03-29 07:53] LABS: ANION GAP 13 (8-16); BLOOD UREA NITROGEN 19 mg/dl (7-20); CALCIUM 9.9 mg/dl (8.4-10.2); CARBON DIOXIDE 32 mmol/L (21-31); CHLORIDE 98 mmol/L (97-110); CREATININE 3.58 mg/dl (0.44-1.00); GLUCOSE 94 mg/dl (70-220); MAGNESIUM 2.1 mg/dl (1.7-2.5); PHOSPHORUS 4.5 mg/dl (2.5-4.9); POTASSIUM 4.7 mmol/L (3.5-5.1); SODIUM 138 mmol/L (135-144)
[2018-03-29] MEDS: LIDOCAINE 5% PATCH TD (08:37)
[2018-03-29] MEDS: BALSAM PERU/CASTOR OIL 60 GM TUBE TOP (08:37)
[2018-03-29] MEDS: NYSTATIN 15 GM CR TOP ×2 (08:37→21:38)
[2018-03-30] MEDS: DIPHENHYDRAMINE 2%/ZINC 28.4 GM CR TOP ×4 (03:26→21:26)
[2018-03-30] MEDS: ACETAMINOPHEN 650MG/20.3ML CUP PO (04:01)
[2018-03-30] MEDS: morphine LIQ (10 MG/5 ML) CUP NGT (05:02)
[2018-03-30] MEDS: PANTOPRAZOLE (EC) 40 MG TAB PO (05:30)
[2018-03-30] MEDS: HEPARIN 5,000 UNIT/0.5 ML VIAL SC ×3 (05:33→21:31)
[2018-03-30] MEDS: NYSTATIN 15 GM CR TOP ×2 (08:40→21:25)
[2018-03-30] MEDS: BALSAM PERU/CASTOR OIL 60 GM TUBE TOP (08:41)
[2018-03-30] MEDS: LIDOCAINE 5% PATCH TD (08:41)
[2018-03-31] MEDS: DIPHENHYDRAMINE 2%/ZINC 28.4 GM CR TOP ×3 (03:36→17:14)
[2018-03-31] MEDS: PANTOPRAZOLE (EC) 40 MG TAB PO (06:27)
[2018-03-31] MEDS: HEPARIN 5,000 UNIT/0.5 ML VIAL SC ×3 (06:29→22:01)
[2018-03-31] MEDS: NYSTATIN 15 GM CR TOP ×2 (08:26→20:25)
[2018-03-31] MEDS: LIDOCAINE 5% PATCH TD (08:26)
[2018-03-31] MEDS: BALSAM PERU/CASTOR OIL 60 GM TUBE TOP (08:27)
[2018-03-31 12:54] LABS: ADD MAN DIFF? NO
[2018-03-31 12:56] LABS: WHITE BLOOD COUNT 6.1 10^3/ul (4.8-10.8)
[2018-03-31 12:56] LABS: BASOPHIL # 0.1 10^3/ul (0.0-0.1); BASOPHILS % 0.8 % (0.0-2.0); EOSINOPHILS # 0.2 10^3/ul (0.0-0.5); EOSINOPHILS % 2.8 % (0.0-7.0); HEMATOCRIT 27.1 % (37.0-47.0); HEMOGLOBIN 8.5 g/dl (12.0-16.0); LYMPHOCYTES # 2.3 10^3/ul (0.8-2.9); LYMPHOCYTES % 37.3 % (15.0-51.0); MEAN CORPUSCULAR HEMOGLOBIN 31.4 pg (29.0-33.0); MEAN CORPUSCULAR HGB CONC 31.4 g/dl (32.0-37.0); MEAN PLATELET VOLUME 11.3 fl (7.4-10.4); MONOCYTE # 0.5 10^3/ul (0.3-0.9); MONOCYTES % 7.7 % (0.0-11.0); NEUTROPHIL # 3.1 10^3/ul (1.6-7.5); NEUTROPHILS % 51.1 % (39.0-77.0); PLATELET COUNT 207 10^3/UL (140-415); RED BLOOD COUNT 2.71 10^6/ul (4.20-5.40); RED CELL DISTRIBUTION WIDTH 16.1 % (11.5-14.5)
[2018-04-01] MEDS: DIPHENHYDRAMINE 2%/ZINC 28.4 GM CR TOP ×5 (00:21→23:28)
[2018-04-01] MEDS: PANTOPRAZOLE (EC) 40 MG TAB PO (06:18)
[2018-04-01] MEDS: HEPARIN 5,000 UNIT/0.5 ML VIAL SC ×3 (06:20→21:16)
[2018-04-01] MEDS: LIDOCAINE 5% PATCH TD (09:00)
[2018-04-01] MEDS: NYSTATIN 15 GM CR TOP ×2 (09:46→20:40)
[2018-04-01] MEDS: BALSAM PERU/CASTOR OIL 60 GM TUBE TOP (09:46)
[2018-04-02] MEDS: PANTOPRAZOLE (EC) 40 MG TAB PO (05:26)
[2018-04-02] MEDS: DIPHENHYDRAMINE 2%/ZINC 28.4 GM CR TOP ×3 (05:26→17:26)
[2018-04-02] MEDS: HEPARIN 5,000 UNIT/0.5 ML VIAL SC ×3 (05:29→21:17)
[2018-04-02] MEDS: BALSAM PERU/CASTOR OIL 60 GM TUBE TOP (09:19)
[2018-04-02] MEDS: NYSTATIN 15 GM CR TOP ×2 (09:19→21:14)
[2018-04-02 11:16] LABS: ADD MAN DIFF? NO
[2018-04-02 11:17] LABS: BASOPHILS % 0.6 % (0.0-2.0); EOSINOPHILS # 0.2 10^3/ul (0.0-0.5); EOSINOPHILS % 3.7 % (0.0-7.0); HEMATOCRIT 27.4 % (37.0-47.0); HEMOGLOBIN 8.8 g/dl (12.0-16.0); LYMPHOCYTES % 32.6 % (15.0-51.0); MEAN CORPUSCULAR HEMOGLOBIN 32.2 pg (29.0-33.0); MEAN CORPUSCULAR HGB CONC 32.1 g/dl (32.0-37.0); MEAN CORPUSCULAR VOLUME 100.4 fl (82.0-101.0); MEAN PLATELET VOLUME 10.8 fl (7.4-10.4); MONOCYTE # 0.4 10^3/ul (0.3-0.9); MONOCYTES % 6.3 % (0.0-11.0); NEUTROPHIL # 3.5 10^3/ul (1.6-7.5); NEUTROPHILS % 56.5 % (39.0-77.0); PLATELET COUNT 197 10^3/UL (140-415); RED BLOOD COUNT 2.73 10^6/ul (4.20-5.40); RED CELL DISTRIBUTION WIDTH 15.9 % (11.5-14.5)
[2018-04-02 11:17] LABS: WHITE BLOOD COUNT 6.2 10^3/ul (4.8-10.8)
[2018-04-02 12:00] LABS: ANION GAP 20 (8-16); BLOOD UREA NITROGEN 45 mg/dl (7-20); CALCIUM 10.2 mg/dl (8.4-10.2); CARBON DIOXIDE 28 mmol/L (21-31); CHLORIDE 99 mmol/L (97-110); CREATININE 6.78 mg/dl (0.44-1.00); GLUCOSE 94 mg/dl (70-220); MAGNESIUM 2.2 mg/dl (1.7-2.5); PHOSPHORUS 4.1 mg/dl (2.5-4.9); POTASSIUM 5.1 mmol/L (3.5-5.1); SODIUM 142 mmol/L (135-144)
[2018-04-03] MEDS: DIPHENHYDRAMINE 2%/ZINC 28.4 GM CR TOP ×4 (00:20→18:00)
[2018-04-03] MEDS: HEPARIN 5,000 UNIT/0.5 ML VIAL SC ×3 (05:59→21:21)
[2018-04-03] MEDS: PANTOPRAZOLE (EC) 40 MG TAB PO (06:04)
[2018-04-03] MEDS: BALSAM PERU/CASTOR OIL 60 GM TUBE TOP (09:23)
[2018-04-03] MEDS: NYSTATIN 15 GM CR TOP ×2 (09:24→21:02)
[2018-04-03] MEDS: ACETAMINOPHEN 650MG/20.3ML CUP PO (13:20)
[2018-04-04] MEDS: DIPHENHYDRAMINE 2%/ZINC 28.4 GM CR TOP ×5 (05:47→23:38)
[2018-04-04] MEDS: PANTOPRAZOLE (EC) 40 MG TAB PO (06:00)
[2018-04-04] MEDS: HEPARIN 5,000 UNIT/0.5 ML VIAL SC ×3 (06:21→20:38)
[2018-04-04] MEDS: BALSAM PERU/CASTOR OIL 60 GM TUBE TOP (09:12)
[2018-04-04] MEDS: NYSTATIN 15 GM CR TOP ×2 (09:12→20:35)
[2018-04-04] MEDS: ARTIFICIAL TEARS 15 ML OPH BOTH EYES (09:12)
[2018-04-04 11:46] LABS: ADD MAN DIFF? NO
[2018-04-04 11:55] LABS: WHITE BLOOD COUNT 6.1 10^3/ul (4.8-10.8)
[2018-04-04 11:55] LABS: BASOPHILS % 0.7 % (0.0-2.0); EOSINOPHILS # 0.2 10^3/ul (0.0-0.5); EOSINOPHILS % 3.1 % (0.0-7.0); HEMATOCRIT 27.9 % (37.0-47.0); LYMPHOCYTES % 32.2 % (15.0-51.0); MEAN CORPUSCULAR HEMOGLOBIN 31.6 pg (29.0-33.0); MEAN CORPUSCULAR HGB CONC 32.3 g/dl (32.0-37.0); MEAN CORPUSCULAR VOLUME 97.9 fl (82.0-101.0); MEAN PLATELET VOLUME 11.1 fl (7.4-10.4); MONOCYTE # 0.4 10^3/ul (0.3-0.9); MONOCYTES % 6.9 % (0.0-11.0); NEUTROPHIL # 3.4 10^3/ul (1.6-7.5); NEUTROPHILS % 56.8 % (39.0-77.0); PLATELET COUNT 186 10^3/UL (140-415); RED BLOOD COUNT 2.85 10^6/ul (4.20-5.40); RED CELL DISTRIBUTION WIDTH 15.5 % (11.5-14.5)
[2018-04-04 12:10] LABS: ANION GAP 14 (8-16); BLOOD UREA NITROGEN 14 mg/dl (7-20); CALCIUM 9.7 mg/dl (8.4-10.2); CARBON DIOXIDE 30 mmol/L (21-31); CHLORIDE 101 mmol/L (97-110); CREATININE 2.37 mg/dl (0.44-1.00); GLUCOSE 100 mg/dl (70-220); MAGNESIUM 2.1 mg/dl (1.7-2.5); PHOSPHORUS 1.9 mg/dl (2.5-4.9); POTASSIUM 3.9 mmol/L (3.5-5.1); SODIUM 141 mmol/L (135-144)
[2018-04-04] MEDS ORDERED: GENTAMICIN IV PER PHARMACY XX (13:00)
[2018-04-04] MEDS: GENTAMICIN IVPB (15:13)
[2018-04-04] MEDS: DEXTROSE 5% IVPB (15:13)
[2018-04-04] MEDS: ACETAMINOPHEN 650MG/20.3ML CUP PO (23:38)
[2018-04-05] MEDS: PANTOPRAZOLE (EC) 40 MG TAB PO (06:01)
[2018-04-05] MEDS: DIPHENHYDRAMINE 2%/ZINC 28.4 GM CR TOP ×3 (06:01→17:59)
[2018-04-05] MEDS: HEPARIN 5,000 UNIT/0.5 ML VIAL SC ×3 (06:03→20:19)
[2018-04-05] MEDS: BALSAM PERU/CASTOR OIL 60 GM TUBE TOP (08:34)
[2018-04-05] MEDS: NYSTATIN 15 GM CR TOP ×2 (08:34→20:16)
[2018-04-05] MEDS ORDERED: AMIKACIN IV PER PHARMACY XX (11:00)
[2018-04-05] MEDS: AMIKACIN 500 MG in SOD CHLORIDE 0.9% 100 ML IVPB (13:28)
[2018-04-06] MEDS: DIPHENHYDRAMINE 2%/ZINC 28.4 GM CR TOP ×4 (00:44→18:28)
[2018-04-06] MEDS: PANTOPRAZOLE (EC) 40 MG TAB PO (06:02)
[2018-04-06] MEDS: HEPARIN 5,000 UNIT/0.5 ML VIAL SC ×3 (06:04→21:42)
[2018-04-06] MEDS: BALSAM PERU/CASTOR OIL 60 GM TUBE TOP (08:45)
[2018-04-06 11:32] LABS: ADD MAN DIFF? NO
[2018-04-06 11:34] LABS: BASOPHILS % 0.6 % (0.0-2.0); EOSINOPHILS # 0.2 10^3/ul (0.0-0.5); EOSINOPHILS % 3.5 % (0.0-7.0); HEMATOCRIT 24.1 % (37.0-47.0); HEMOGLOBIN 7.7 g/dl (12.0-16.0); LYMPHOCYTES % 36.8 % (15.0-51.0); MEAN PLATELET VOLUME 10.9 fl (7.4-10.4); MONOCYTE # 0.4 10^3/ul (0.3-0.9); MONOCYTES % 7.7 % (0.0-11.0); NEUTROPHIL # 2.8 10^3/ul (1.6-7.5); NEUTROPHILS % 51.2 % (39.0-77.0); PLATELET COUNT 162 10^3/UL (140-415); RED BLOOD COUNT 2.41 10^6/ul (4.20-5.40); RED CELL DISTRIBUTION WIDTH 15.6 % (11.5-14.5)
[2018-04-06 11:34] LABS: WHITE BLOOD COUNT 5.4 10^3/ul (4.8-10.8)
[2018-04-06 11:52] LABS: ANION GAP 16 (8-16); BLOOD UREA NITROGEN 30 mg/dl (7-20); CALCIUM 10.1 mg/dl (8.4-10.2); CARBON DIOXIDE 25 mmol/L (21-31); CHLORIDE 102 mmol/L (97-110); CREATININE 6.01 mg/dl (0.44-1.00); GLUCOSE 95 mg/dl (70-220); MAGNESIUM 2.1 mg/dl (1.7-2.5); PHOSPHORUS 3.8 mg/dl (2.5-4.9); POTASSIUM 5.2 mmol/L (3.5-5.1); SODIUM 138 mmol/L (135-144)
[2018-04-06] MEDS: AMIKACIN 300 MG in SOD CHLORIDE 0.9% 100 ML IVPB (18:34)
[2018-04-07] MEDS: PANTOPRAZOLE (EC) 40 MG TAB PO (05:25)
[2018-04-07] MEDS: DIPHENHYDRAMINE 2%/ZINC 28.4 GM CR TOP ×5 (05:26→23:25)
[2018-04-07] MEDS: HEPARIN 5,000 UNIT/0.5 ML VIAL SC ×3 (05:31→21:14)
[2018-04-07] MEDS: BALSAM PERU/CASTOR OIL 60 GM TUBE TOP (08:50)
[2018-04-08] MEDS: PANTOPRAZOLE (EC) 40 MG TAB PO (05:26)
[2018-04-08] MEDS: HEPARIN 5,000 UNIT/0.5 ML VIAL SC ×3 (05:39→21:50)
[2018-04-08] MEDS: DIPHENHYDRAMINE 2%/ZINC 28.4 GM CR TOP ×4 (06:00→23:18)
[2018-04-08] MEDS: BALSAM PERU/CASTOR OIL 60 GM TUBE TOP (09:01)
[2018-04-09] MEDS: PANTOPRAZOLE (EC) 40 MG TAB PO (05:40)
[2018-04-09] MEDS: HEPARIN 5,000 UNIT/0.5 ML VIAL SC ×3 (05:52→22:02)
[2018-04-09] MEDS: DIPHENHYDRAMINE 2%/ZINC 28.4 GM CR TOP ×3 (05:53→17:01)
[2018-04-09] MEDS: BALSAM PERU/CASTOR OIL 60 GM TUBE TOP (09:20)
[2018-04-09 15:09] LABS: ADD MAN DIFF? NO
[2018-04-09 15:11] LABS: BASOPHILS % 0.5 % (0.0-2.0); EOSINOPHILS # 0.2 10^3/ul (0.0-0.5); EOSINOPHILS % 2.7 % (0.0-7.0); HEMATOCRIT 23.9 % (37.0-47.0); HEMOGLOBIN 7.9 g/dl (12.0-16.0); LYMPHOCYTES % 35.6 % (15.0-51.0); MEAN CORPUSCULAR HEMOGLOBIN 33.5 pg (29.0-33.0); MEAN CORPUSCULAR HGB CONC 33.1 g/dl (32.0-37.0); MEAN CORPUSCULAR VOLUME 101.3 fl (82.0-101.0); MEAN PLATELET VOLUME 11.4 fl (7.4-10.4); MONOCYTE # 0.3 10^3/ul (0.3-0.9); MONOCYTES % 6.1 % (0.0-11.0); NEUTROPHILS % 54.7 % (39.0-77.0); PLATELET COUNT 159 10^3/UL (140-415); RED BLOOD COUNT 2.36 10^6/ul (4.20-5.40); RED CELL DISTRIBUTION WIDTH 15.5 % (11.5-14.5)
[2018-04-09 15:11] LABS: WHITE BLOOD COUNT 5.6 10^3/ul (4.8-10.8)
[2018-04-09 15:29] LABS: ANION GAP 19 (8-16); BLOOD UREA NITROGEN 39 mg/dl (7-20); CALCIUM 9.7 mg/dl (8.4-10.2); CARBON DIOXIDE 23 mmol/L (21-31); CHLORIDE 102 mmol/L (97-110); CREATININE 7.36 mg/dl (0.44-1.00); GLUCOSE 107 mg/dl (70-220); POTASSIUM 5.9 mmol/L (3.5-5.1); SODIUM 138 mmol/L (135-144)
[2018-04-09] MEDS: AMIKACIN 300 MG in SOD CHLORIDE 0.9% 100 ML IVPB (19:46)
[2018-04-10] MEDS: DIPHENHYDRAMINE 2%/ZINC 28.4 GM CR TOP ×4 (06:00→17:10)
[2018-04-10] MEDS: PANTOPRAZOLE (EC) 40 MG TAB PO (06:12)
[2018-04-10] MEDS: HEPARIN 5,000 UNIT/0.5 ML VIAL SC ×3 (06:18→21:43)
[2018-04-10] MEDS: BALSAM PERU/CASTOR OIL 60 GM TUBE TOP (08:24)
[2018-04-10] MEDS: morphine LIQ (10 MG/5 ML) CUP NGT (18:41)
[2018-04-11] MEDS: DIPHENHYDRAMINE 2%/ZINC 28.4 GM CR TOP ×4 (00:38→16:58)
[2018-04-11] MEDS: PANTOPRAZOLE (EC) 40 MG TAB PO (05:09)
[2018-04-11] MEDS: HEPARIN 5,000 UNIT/0.5 ML VIAL SC ×3 (05:28→22:02)
[2018-04-11] MEDS: BALSAM PERU/CASTOR OIL 60 GM TUBE TOP (08:32)
[2018-04-11 11:10] LABS: ADD MAN DIFF? NO
[2018-04-11 11:20] LABS: BASOPHILS % 0.5 % (0.0-2.0); EOSINOPHILS # 0.1 10^3/ul (0.0-0.5); EOSINOPHILS % 3.2 % (0.0-7.0); HEMOGLOBIN 8.2 g/dl (12.0-16.0); LYMPHOCYTES # 1.5 10^3/ul (0.8-2.9); LYMPHOCYTES % 35.2 % (15.0-51.0); MEAN CORPUSCULAR HEMOGLOBIN 31.9 pg (29.0-33.0); MEAN CORPUSCULAR HGB CONC 31.5 g/dl (32.0-37.0); MEAN CORPUSCULAR VOLUME 101.2 fl (82.0-101.0); MEAN PLATELET VOLUME 11.7 fl (7.4-10.4); MONOCYTE # 0.3 10^3/ul (0.3-0.9); NEUTROPHIL # 2.4 10^3/ul (1.6-7.5); NEUTROPHILS % 54.9 % (39.0-77.0); PLATELET COUNT 154 10^3/UL (140-415); RED BLOOD COUNT 2.57 10^6/ul (4.20-5.40)
[2018-04-11 11:20] LABS: WHITE BLOOD COUNT 4.4 10^3/ul (4.8-10.8)
[2018-04-11 11:48] LABS: ANION GAP 18 (8-16); BLOOD UREA NITROGEN 25 mg/dl (7-20); CALCIUM 9.9 mg/dl (8.4-10.2); CARBON DIOXIDE 27 mmol/L (21-31); CHLORIDE 99 mmol/L (97-110); CREATININE 5.58 mg/dl (0.44-1.00); GLUCOSE 128 mg/dl (70-220); PHOSPHORUS 4.9 mg/dl (2.5-4.9); POTASSIUM 5.1 mmol/L (3.5-5.1); SODIUM 139 mmol/L (135-144)
[2018-04-11] MEDS: AMIKACIN 300 MG in SOD CHLORIDE 0.9% 100 ML IVPB (14:09)
[2018-04-11] MEDS: ACETAMINOPHEN 650MG/20.3ML CUP PO (18:22)
[2018-04-11] MEDS: morphine LIQ (10 MG/5 ML) CUP NGT (20:54)
[2018-04-12] MEDS: DIPHENHYDRAMINE 2%/ZINC 28.4 GM CR TOP ×4 (05:18→17:40)
[2018-04-12] MEDS: PANTOPRAZOLE (EC) 40 MG TAB PO (05:18)
[2018-04-12] MEDS: HEPARIN 5,000 UNIT/0.5 ML VIAL SC ×3 (05:24→22:26)
[2018-04-12] MEDS: BALSAM PERU/CASTOR OIL 60 GM TUBE TOP (09:08)
[2018-04-13] MEDS: DIPHENHYDRAMINE 2%/ZINC 28.4 GM CR TOP ×4 (06:25→17:48)
[2018-04-13] MEDS: PANTOPRAZOLE (EC) 40 MG TAB PO (06:25)
[2018-04-13] MEDS: HEPARIN 5,000 UNIT/0.5 ML VIAL SC ×3 (06:51→21:06)
[2018-04-13] MEDS: BALSAM PERU/CASTOR OIL 60 GM TUBE TOP (09:06)
[2018-04-14] MEDS: DIPHENHYDRAMINE 2%/ZINC 28.4 GM CR TOP ×4 (00:25→18:16)
[2018-04-14] MEDS: PANTOPRAZOLE (EC) 40 MG TAB PO (06:00)
[2018-04-14] MEDS: HEPARIN 5,000 UNIT/0.5 ML VIAL SC ×3 (06:00→21:54)
[2018-04-14] MEDS: BALSAM PERU/CASTOR OIL 60 GM TUBE TOP (09:31)
[2018-04-14] MEDS: ACETAMINOPHEN 650MG/20.3ML CUP PO (09:31)
== END 2018-04-15 00:50 | DRG 4 ==
LOC: TEL 02-21 00:55 → E/R 16:39 → ICU 20:46
PROC: 5A1955Z Respiratory Ventilation, Greater than 96 Consecutive Hours (ICD-10-PCS; principal; 2018-02-14 12:00)
PROC: 0B110F4 Bypass Trachea to Cutaneous with Tracheostomy Device, Open Approach (ICD-10-PCS; 2018-02-14 12:00)
PROC: 0BH17EZ Insertion of Endotracheal Airway into Trachea, Via Natural or Artificial Opening (ICD-10-PCS; 2018-02-14 12:00)
PROC: 0DH63UZ Insertion of Feeding Device into Stomach, Percutaneous Approach (ICD-10-PCS; 2018-02-14 12:00)
PROC: 0WPB33Z Removal of Infusion Device from Left Pleural Cavity, Percutaneous Approach (ICD-10-PCS; 2018-02-14 12:00)
PROC: 5A1D70Z Performance of Urinary Filtration, Intermittent, Less than 6 Hours Per Day (ICD-10-PCS; 2018-02-14 12:00)
PROC: 0B21XFZ Change Tracheostomy Device in Trachea, External Approach (ICD-10-PCS; 2018-02-14 12:00)
PROC: 0BJ18ZZ Inspection of Trachea, Via Natural or Artificial Opening Endoscopic (ICD-10-PCS; 2018-02-14 12:00)
PROC: 30233N1 Transfusion of Nonautologous Red Blood Cells into Peripheral Vein, Percutaneous Approach (ICD-10-PCS; 2018-02-14 12:00)
DX: J96.02 Acute respiratory failure with hypercapnia (principal); N18.6 End stage renal disease; G92 Toxic encephalopathy; I21.A1 Myocardial infarction type 2; A41.9 Sepsis, unspecified organism; J18.9 Pneumonia, unspecified organism; I13.2 Hypertensive heart and chronic kidney disease with heart failure and with stage 5 chronic kidney disease, or end stage renal disease; E87.2 Acidosis; C25.9 Malignant neoplasm of pancreas, unspecified; C79.9 Secondary malignant neoplasm of unspecified site; J91.0 Malignant pleural effusion; J95.03 Malfunction of tracheostomy stoma; R13.10 Dysphagia, unspecified; E11.22 Type 2 diabetes mellitus with diabetic chronic kidney disease; I50.9 Heart failure, unspecified; D69.6 Thrombocytopenia, unspecified; E87.5 Hyperkalemia; E87.70 Fluid overload, unspecified; E03.9 Hypothyroidism, unspecified; D63.1 Anemia in chronic kidney disease; B36.9 Superficial mycosis, unspecified; E78.5 Hyperlipidemia, unspecified; E79.0 Hyperuricemia without signs of inflammatory arthritis and tophaceous disease; Z99.2 Dependence on renal dialysis
CPT/HCPCS: 31500; 36415; 36430; 36600; 70450; 71045; 71100; 80048; 80053; 80202; 82550; 82553; 82607; 82746; 82803; 82962; 83540; 83605; 83735; 84100; 84425; 84439; 84443; 84481; 84484; 85025; 85610; 85730; 86706; 86850; 86900; 86901; 86920; 87040; 87070; 87081; 87340; 89220; 90935; 92507; 92526; 92610; 93005; 94002; 94003; 94640; 94644; 94645; 94660; 94770; 96374; 96375; 97110; 97116; 97162; 97530; 99291-25